=== PATIENT | female | born 1945 | race Caucasian/White ===

== ENCOUNTER 2023-06-11 09:25 | Outpatient (OUT) | payer MEDICARE, SELFPAY ==
[2023-06-11 10:44] LABS: Microalbumin Urine Random 1.5 mg/dL (<=30.0)
[2023-06-11 10:48] LABS: Estimated Average Glucose 105 mg/dL; Glycohemoglobin A1C 5.3 % (4.5-6.2)
[2023-06-11 11:03] LABS: Anion Gap 10.1; Calcium 9.1 mg/dL (8.5-10.1); Chloride 103 mmol/L (98-107); Chol HDL Ratio 2.2; Cholesterol 113 mg/dL (<=200); Estimated GFR (African America >60 (>=60); Estimated GFR (Non-African Ame >60 (>=60); Glucose 89 mg/dL (74-106); HDL Cholesterol 52 mg/dL (40-60); Potassium 4.1 mmol/L (3.5-5.1); Sodium 138 mmol/L (136-145); Triglycerides 35 mg/dL (<=150)
== END 2023-06-11 09:26 | disposition home or self-care (01) ==
LOC: LAB 09:26
PROVIDERS: PCP Internal Medicine; Visit Provider Internal Medicine
DX: E11.65 Type 2 diabetes mellitus with hyperglycemia (principal); E78.00 Pure hypercholesterolemia, unspecified; I10 Essential (primary) hypertension
CPT/HCPCS: 36415; 80048; 80061; 82043; 83036

== ENCOUNTER 2023-07-13 11:38 | Outpatient (OUT) | payer MEDICARE, SELFPAY ==
[2023-07-13 12:02] LABS: Basophils Percent Auto 0.2 % (0.2-2.0); Eosinophils Percent Auto 0.5 % (0.9-7.0); Hematocrit 36.6 % (36.0-48.0); Hemoglobin 11.4 g/dL (12.0-16.0); Immature Granulocytes Abs Auto 0.02 10^3/uL (0.00-0.03); Immature Granulocytes Pct Auto 0.2 % (0.0-0.5); Lymphocytes Percent Auto 11.7 % (20.5-60.0); Mean Corpuscular HGB Conc 31.1 g/dL (29.9-35.2); Mean Corpuscular Hemoglobin 28.6 pg (26.7-34.0); Mean Platelet Volume 9.6 fL (9.5-13.5); Monocytes Absolute Auto 0.9 10^3/uL (0.3-0.8); Monocytes Percent Auto 9.8 % (1.7-12.0); Neutrophils Absolute Auto 6.9 10^3/uL (1.4-6.5); Neutrophils Percent Auto 77.6 % (43.0-75.0); Platelet Count 344 10^3/uL (150-450); Red Blood Count 3.98 10^6/uL (4.20-5.40); Red Cell Distribution Width 11.9 % (11.0-15.0); White Blood Count 8.9 10^3/uL (4.0-11.0)
[2023-07-13 12:54] LABS: Alanine Aminotransferase 27 U/L (14-59); Albumin Globulin Ratio 0.7; Albumin Level 2.9 g/dL (3.4-5.0); Alkaline Phosphatase 76 U/L (46-116); Amylase 45 U/L (25-115); Anion Gap 11.2; Aspartate Amino Transferase 11 U/L (15-37); BUN Creatinine Ratio 19.4; Bilirubin Total 0.7 mg/dL (0.2-1.0); Calcium 9.2 mg/dL (8.5-10.1); Carbon Dioxide 29.7 mmol/L (21.0-32.0); Chloride 102 mmol/L (98-107); Estimated GFR (African America >60 (>=60); Estimated GFR (Non-African Ame >60 (>=60); Globulin 4.4 g/dL; Glucose 101 mg/dL (74-106); Potassium 3.9 mmol/L (3.5-5.1); Sodium 139 mmol/L (136-145); Thyroid Stimulating Hormone 1.957 uIU/mL (0.358-3.740); Total Protein 7.3 g/dL (6.4-8.2)
== END 2023-07-13 11:39 | disposition home or self-care (01) ==
PROVIDERS: PCP Internal Medicine; Visit Provider Internal Medicine
DX: R63.4 Abnormal weight loss (principal); R53.83 Other fatigue; R23.8 Other skin changes; E11.65 Type 2 diabetes mellitus with hyperglycemia; I10 Essential (primary) hypertension
CPT/HCPCS: 36415; 80053; 82150; 83690; 84443; 85025

== ENCOUNTER 2023-07-25 13:50 | Outpatient (OUT) | payer MEDICARE, SELFPAY ==
--- NOTE | 2023-07-25 15:19 | CT_ITS ---
The [address] [address] Patient Name: CHARLEY DAILY MRN: [id number] date: 1945 Sex: F Assigned Patient Location: CT Current Patient Location: Accession/Order Number: [id number] Exam Date: 07/25/2023 14:57 Report Date: 07/26/2023 07:37 At the request of: KINJAL BRISENO Procedure: CT abdomen pelvis w con EXAM: CT abdomen pelvis w con HISTORY: Weight Loss Unintentional R63.4, History Of Cancer Endometri . COMPARISON: None. TECHNIQUE: Following the intravenous administration of 100 mL of Omnipaque 300, axial soft tissue windows of the abdomen and pelvis were performed with coronal and sagittal reformats. CT dose reduction technique was used including Automated Exposure Control. FINDINGS: Abdomen: The liver, gallbladder, spleen, pancreas, and adrenal glands are unremarkable. Within the upper pole of the right kidney there is a fat density 1.7 cm lesion likely representing an angiomyolipoma. Off the upper pole the left kidney is a partially exophytic 3.2 cm cyst. No renal stones. Mild bilateral collecting system and ureteral dilatation to the level the bladder. No evidence of obstructing ureteral stones. There are a few colonic diverticula. Otherwise, the bowel is unremarkable without evidence of wall thickening or obstruction. The appendix is nondilated. The aorta is normal caliber. Mild atherosclerotic disease. No enlarged abdominal lymph nodes or free abdominal fluid. Pelvis: Unremarkable bladder. The uterus is surgically absent. No enlarged pelvic lymph nodes or free pelvic fluid. No aggressive sclerotic or lytic osseous lesions. CT/CT abdomen pelvis w con IMPRESSION: 1. Mild bilateral renal collecting system and ureteral dilatation to the level the bladder. Findings may relate to obstruction or reflux. 2. Left renal cyst. Right renal angiomyolipoma 4. Diverticulosis. Electronically authenticated by: TEJA LAROSE Date: 07/26/2023 07:37
== END 2023-07-25 13:51 | disposition home or self-care (01) ==
LOC: CT 13:50
PROVIDERS: PCP Internal Medicine; Visit Provider Internal Medicine
DX: E88.09 Other disorders of plasma-protein metabolism, not elsewhere classified (principal); D64.89 Other specified anemias; Z85.42 Personal history of malignant neoplasm of other parts of uterus; R23.8 Other skin changes; R63.4 Abnormal weight loss; R53.83 Other fatigue; N28.1 Cyst of kidney, acquired; D17.71 Benign lipomatous neoplasm of kidney; K57.90 Diverticulosis of intestine, part unspecified, without perforation or abscess without bleeding
CPT/HCPCS: 74177; Q9967

== ENCOUNTER 2023-08-08 16:09 | Observation (INO) | payer MEDICARE, SELFPAY ==
[2023-08-08] VITALS (72 sets, daily range): BP systolic 95–205; BP diastolic 64–109; PULSE 90–159; RESP 15–30; TEMP 36.7; O2SAT 92–100; BMI 29.3
--- NOTE | 2023-08-08 16:11 | XR_ITS ---
The [address] [address] Patient Name: CHARLEY DAILY MRN: [id number] date: 1945 Sex: F Assigned Patient Location: ED.MAIN Current Patient Location: ED.MAIN Accession/Order Number: [id number] Exam Date: 08/08/2023 17:00 Report Date: 08/08/2023 17:40 At the request of: PAULINE DOE Procedure: XR chest 1V EXAM: XR chest 1V HISTORY: New onset Afib COMPARISON: None. TECHNIQUE: Chest X-ray AP, 1 view FINDINGS: Support devices: None. Lungs/pleura: No consolidation, effusion, or pneumothorax. Heart and mediastinum: Normal contours. Bones: No acute abnormality identified. XR/XR chest 1V Impression: No radiographic evidence of acute cardiopulmonary process. Electronically authenticated by: NEFTALY PEREYRA Date: 08/08/2023 17:40
--- NOTE | 2023-08-08 16:11 | ECG_ITS ---
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
--- NOTE | 2023-08-08 16:30 | ED.GENADUL1 ---
HPI - General Adult General Chief complaint: Arrhythmia/Palpitations Stated complaint: ATRIAL FIB Time Seen by Provider: 08/08/23 16:11 Source: patient Mode of arrival: walk-in History of Present Illness HPI narrative: Patient is a 78-year-old female who presents to the emergency department for the evaluation of new onset A-fib that was noticed at her doctor's office prior to arrival. She was referred to the ER for evaluation. She states she has no history of A-fib, she does not take blood thinners. She states she has not felt well for 6 weeks and has had generalized fatigue and malaise. She has not had any specific palpitations or shortness of breath. She states she has had occasional chest heaviness although she does not have any pain at this time. She has had no fevers, sputum production, vomiting or diarrhea. She denies peripheral edema. Related Data Allergies Allergy/AdvReac Type Severity Reaction Status Date / Time No Known Drug Allergies Allergy Verified 08/08/23 16:17 Review of Systems ROS Constitutional Reports: fatigue and malaise; Denies: fever or chills Ears, nose, mouth, and throat Denies: throat pain Cardiovascular Reports: chest pain Respiratory Reports: cough; Denies: shortness of breath Gastrointestinal Denies: nausea or vomiting Integumentary/Breast Denies: rash Neurological Denies: headache Hematologic/Lymphatic Denies: easy bruising Exam Narrative Exam Narrative: Gen.: Awake, alert, in no distress Head: Normocephalic, atraumatic ENT: Moist mucous membranes Respiratory: No respiratory distress, lungs clear bilaterally Cardio: Tachycardia, irregularly irregular Gastrointestinal: Abdomen is soft, nondistended and nontender to palpation Extremities: Moves extremities equally, no pedal edema Psych: Normal mood and affect Neuro: No focal neuro deficit Skin: Warm, dry, intact Constitutional Vital Signs, click to edit/add: Last Vital Signs Temp 98.1 F 08/08/23 16:17 Pulse 110 H 08/08/23 17:20 Resp 25 H 08/08/23 17:20 BP 104/64 08/08/23 17:15 Pulse Ox 98 08/08/23 17:20 Course Vital Signs Vital signs: Vital Signs Temperature 98.1 F 08/08/23 16:17 Pulse Rate 136 H 08/08/23 16:17 Respiratory Rate 22 08/08/23 16:17 Blood Pressure 128/93 H 08/08/23 16:17 Pulse Oximetry 99 08/08/23 16:17 Temperature 98.1 F 08/08/23 16:17 Pulse Rate 110 H 08/08/23 17:20 Respiratory Rate 25 H 08/08/23 17:20 Blood Pressure 104/64 08/08/23 17:15 Pulse Oximetry 98 08/08/23 17:20 Medical Decision Making MDM Narrative Medical decision making narrative: Lab studies reviewed and noted, patient with elevated BNP, likely secondary to A-fib with RVR. She was noted to have significantly elevated heart rate, treated with Cardizem bolus and started on a drip. Lovenox given in the ER. Vital signs are improving, patient is resting comfortably in the ER with no complaints of chest pain. She will be admitted to hospitalist, Dr. Dos Santos for further evaluation and treatment. 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 Medical Records Medical records reviewed: Yes I reviewed the patient's medical records Lab Data Lab results reviewed: Yes I reviewed the patient's lab results Labs: Lab Results 08/08/23 08/08/23 Range/Units 16:22 16:36 WBC 14.6 H (4.0-11.0) 10^3/uL RBC 3.84 L (4.20-5.40) 10^6/uL Hgb 10.5 L (12.0-16.0) g/dL Hct 35.5 L (36.0-48.0) % MCV 92.4 (81.0-99.0) fL MCH 27.3 (26.7-34.0) pg MCHC 29.6 L (29.9-35.2) g/dL RDW 13.1 (11.0-15.0) % Plt Count 517 H (150-450) 10^3/uL MPV 9.0 L (9.5-13.5) fL Neut % (Auto) 75.5 H (43.0-75.0) % Lymph % (Auto) 12.5 L (20.5-60.0) % Tyrrell % (Auto) 10.3 (1.7-12.0) % Eos % (Auto) 1.0 (0.9-7.0) % Baso % (Auto) 0.3 (0.2-2.0) % Neut # (Auto) 11.0 H (1.4-6.5) 10^3/uL Lymph # (Auto) 1.8 (1.2-3.8) 10^3/uL Tyrrell # (Auto) 1.5 H (0.3-0.8) 10^3/uL Eos # (Auto) 0.1 (0.0-0.7) 10^3/uL Baso # (Auto) 0.0 (0.0-0.1) 10^3/uL Abs Immat Gran (auto) 0.06 H (0.00-0.03) 10^3/uL Imm/Tot Granulo (auto) 0.4 (0.0-0.5) % PT 12.7 H (9.0-11.6) sec INR 1.21 Sodium 135 L (136-145) mmol/L Potassium 4.0 (3.5-5.1) mmol/L Chloride 101 (98-107) mmol/L Carbon Dioxide 26.9 (21.0-32.0) mmol/L Anion Gap 11.1 BUN 14.0 (7.0-18.0) mg/dL Creatinine 0.79 (0.55-1.02) mg/dL Est GFR ( Amer) >60 (>=60) Est GFR (Non-Af Amer) >60 (>=60) BUN/Creatinine Ratio 17.7 Glucose 130 H (74-106) mg/dL Calcium 9.1 (8.5-10.1) mg/dL Magnesium 2.1 (1.8-2.4) mg/dL Total Bilirubin 0.3 (0.2-1.0) mg/dL AST 7 L (15-37) U/L ALT 28 (14-59) U/L Alkaline Phosphatase 74 (46-116) U/L Troponin I High Sens 8.0 (4.0-51.3) pg/mL NT-Pro-B Natriuret Pep 2530.0 H* (<=1800.0) pg/mL Total Protein 7.3 (6.4-8.2) g/dL Albumin 2.1 L (3.4-5.0) g/dL Globulin 5.2 g/dL Albumin/Globulin Ratio 0.4 TSH 3.559 (0.358-3.740) uIU/mL SARS-CoV-2 (PCR) Negative (NEGATIVE) Imaging Data Chest x-ray: Attestation: I have reviewed the pertinent imaging results. Radiologist's impression: Procedure: XR chest 1V EXAM: XR chest 1V HISTORY: New onset Afib COMPARISON: None. TECHNIQUE: Chest X-ray AP, 1 view FINDINGS: Support devices: None. Lungs/pleura: No consolidation, effusion, or pneumothorax. Heart and mediastinum: Normal contours. Bones: No acute abnormality identified. Impression: No radiographic evidence of acute cardiopulmonary process. Electronically authenticated by: NEFTALY PEREYRA Date: 08/08/2023 17:40 ECG Data Attestation: I personally reviewed and interpreted this ECG as follows: (Atrial fibrillation with rapid ventricular response at a rate of 166, no acute ST elevation, moderate ST depression. No ectopy. EKG reviewed by attending physician) Discharge Plan Discharge Chief Complaint: Arrhythmia/Palpitations Clinical Impression: Atrial fibrillation with rapid ventricular response Patient Disposition: Admitted As Inpatient Time of Disposition Decision: 17:31 Condition: Good
[2023-08-08 16:32] LABS: Basophils Percent Auto 0.3 % (0.2-2.0); Eosinophils Absolute Auto 0.1 10^3/uL (0.0-0.7); Hematocrit 35.5 % (36.0-48.0); Hemoglobin 10.5 g/dL (12.0-16.0); Immature Granulocytes Abs Auto 0.06 10^3/uL (0.00-0.03); Immature Granulocytes Pct Auto 0.4 % (0.0-0.5); Lymphocytes Absolute Auto 1.8 10^3/uL (1.2-3.8); Lymphocytes Percent Auto 12.5 % (20.5-60.0); Mean Corpuscular HGB Conc 29.6 g/dL (29.9-35.2); Mean Corpuscular Hemoglobin 27.3 pg (26.7-34.0); Mean Corpuscular Volume 92.4 fL (81.0-99.0); Monocytes Absolute Auto 1.5 10^3/uL (0.3-0.8); Monocytes Percent Auto 10.3 % (1.7-12.0); Neutrophils Percent Auto 75.5 % (43.0-75.0); Platelet Count 517 10^3/uL (150-450); Red Blood Count 3.84 10^6/uL (4.20-5.40); Red Cell Distribution Width 13.1 % (11.0-15.0); White Blood Count 14.6 10^3/uL (4.0-11.0)
[2023-08-08] MEDS: 0.9 % SODIUM CHLORIDE 1,000 ML 1000 ML IV (16:38)
[2023-08-08] MEDS: DILTIAZEM HCL 25 MG/5 ML VIAL 10 MG IV (16:38)
[2023-08-08] MEDS: ENOXAPARIN SODIUM 80 MG/0.8 ML SYRINGE SUBQ (16:41)
[2023-08-08 16:49] LABS: Alanine Aminotransferase 28 U/L (14-59); Albumin Globulin Ratio 0.4; Albumin Level 2.1 g/dL (3.4-5.0); Alkaline Phosphatase 74 U/L (46-116); Anion Gap 11.1; Aspartate Amino Transferase 7 U/L (15-37); BUN Creatinine Ratio 17.7; Bilirubin Total 0.3 mg/dL (0.2-1.0); Calcium 9.1 mg/dL (8.5-10.1); Carbon Dioxide 26.9 mmol/L (21.0-32.0); Chloride 101 mmol/L (98-107); Estimated GFR (African America >60 (>=60); Estimated GFR (Non-African Ame >60 (>=60); Globulin 5.2 g/dL; Glucose 130 mg/dL (74-106); Sodium 135 mmol/L (136-145); Total Protein 7.3 g/dL (6.4-8.2)
[2023-08-08 16:57] LABS: Magnesium 2.1 mg/dL (1.8-2.4); Thyroid Stimulating Hormone 3.559 uIU/mL (0.358-3.740)
[2023-08-08] MEDS: dilTIAZem HCL 125 MG in 0.9 % SODIUM CHLORIDE 100 ML IV (16:57)
[2023-08-08 16:59] LABS: INR 1.21; Prothrombin Time 12.7 sec (9.0-11.6)
[2023-08-08 17:12] LABS: SARS-CoV-2 Ag NEGATIVE (NEGATIVE)
--- NOTE | 2023-08-08 18:50 | CA_ITS ---
Patient Name: CHARLEY DAILY MR#: [id number] : 1945 Exam Date: 08/09/2023 Ordering Doctor: DR Alden Dos Santos . ECHOCARDIOGRAM REPORT PROCEDURE: CA ECHO DOPPLER COMPLETE INDICATIONS: Dyspnea, Afib w/RVR COMPARISON: None. DESCRIPTION: COMPLETE ECHOCARDIOGRAM Real-time transthoracic echocardiography with 2D, M-mode, spectral and color flow Doppler performed. QUALITY: Technical quality was good. LEFT VENTRICLE: Normal chamber size. Normal left ventricular wall thickness. LV EF: Global left ventricular systolic function is normal. Calculated left ventricular ejection fraction is 65%. No segmental wall motion abnormalities. DIASTOLIC: Diastolic function is indeterminate. ATRIAL SEPTUM: Inadequately seen. LEFT ATRIUM: Severe dilatation. RIGHT ATRIUM: Moderate dilatation. RIGHT VENTRICLE: Normal chamber size. Normal right ventricular systolic function. TRICUSPID VALVE: Normal mobility and thickness. Mild regurgitation. Mild pulmonary hypertension. RVSP 38mmHg MITRAL VALVE: Normal mobility and thickness. No evidence of mitral valve stenosis. There is no mitral annular calcification. Mild to moderate mitral regurgitation. AORTIC VALVE: Normal trileaflet appearance. Mildly calcified aortic valve. Normal leaflet mobility. Mildly elevated velocities with no evidence of aortic valve stenosis. Trivial aortic regurgitation. AORTIC ROOT: Normal diameter and appearance. PULMONIC VALVE: Normal thickness and mobility. No stenosis. Trivial regurgitation. PERICARDIUM: No evidence of pericardial effusion. IVC: Normal size with partial collapse. CONCLUSION: 1. Global left ventricular systolic function is normal; visually estimated ejection fraction is 60 to 65% 2. Normal right ventricular size and systolic function 3. Diastolic function is indeterminate 4. Biatrial enlargement 5. Mild tricuspid regurgitation 6. Mildly elevated right ventricular systolic pressure: RVSP 38 mmHg 7. Mild to moderate mitral regurgitation Adult Echocardiography Procedure Report Left Ventricle LVEDD (3.7 - 5.6 cm): 4.65 cm LVESD (2.2 - 4.0 cm): 3.09 cm LVIVS thickness (0.6 - 1.2 cm): 1.01 cm LVPW thickness (0.5 - 1.0 cm): 0.99 cm e': 0.12 m/s E - e': 6.74 LVOT Max Gradient: 3.00 mm[Hg] LVOT Area (cm2): 0.87 m/s Peak Velocity (LVOT): 0.87 m/s Mean Velocity (LVOT): 0.67 m/s LVOT Diameter 1.89 cm Left Ventricular Ejection Fraction: 65.41 % Left Atrium LA Volume Index (2D A2C): 54.48 ml/m2 Left Atrium Systolic Dimension: 3.74 cm Mitral Valve MV E to A Ratio: 2.15 Mitral Valve A-Wave Peak Velocity: 0.37 m/s Mitral Valve E-Wave Peak Velocity: 0.79 m/s Right Ventricle RV Internal Diastolic Dimension: 2.66 cm Aorta AO Root Diam: 2.73 cm Ascending Ao Diam: 3.05 cm Aortic Valve AoV Area (Peak Charlie): 1.13 cm2, 1.10 cm2 AoV Area (VTI): 1.26 cm2, 1.28 cm2 Peak Velocity(Antegrade Flow): 2.19 m/s, 2.10 m/s Peak Gradient(Antegrade Flow): 19.25 mm[Hg], 17.72 mm[Hg] Mean Velocity(Antegrade Flow): 1.36 m/s, 1.48 m/s Mean Gradient(Antegrade Flow): 8.86 mm[Hg], 9.92 mm[Hg] Velocity Time Integral: 41.45 cm, 42.69 cm Tricuspid Valve Peak Velocity (Regurgitant Flow): 2.57 m/s, 2.36 m/s, 2.26 m/s, 2.72 m/s Pulmonic Valve Mean Gradient: 2.67 mm[Hg] Mean Velocity: 0.77 m/s Peak Velocity: 1.03 m/s, 0.85 m/s Peak Gradient: 4.21 mm[Hg], 2.88 mm[Hg] Right Atrium Right Atrium Systolic Pressure: 51.99 ml, 51.99 ml Dictated by: Adarsh Dennison M.D. on 08/10/2023 at 09:36 Approved by: Adarsh Dennison M.D. on 08/10/2023 at 09:42
--- NOTE | 2023-08-08 19:56 | P.HP_ITS ---
H&P: HPI History of Present Illness Chief complaint: ATRIAL FIB Narrative: Patient seen by her PCP due to increasing shortness of breath and slight cough. Found to have A-fib with rapid ventricular response and was requested to present to emergency room for treatment and workup. Patient does have some moderate dyspnea with activity. But none at rest. Review of Systems ROS Status of ROS 10 or more systems reviewed and unremark able except as noted in history and below [facility] Medical History Diabetes 1.5, managed as type 2 ?E13.9 - Other specified diabetes mellitus without complications (ICD-10) HTN (hypertension) ?I10 - Essential (primary) hypertension (ICD-10) Surgical History H/O: hysterectomy ?Z90.710 - Acquired absence of both cervix and uterus (ICD-10) Meds Home Medications and Allergies Home Medications Medication Instructions Recorded Confirmed Type atorvastatin 40 mg tablet (Lipitor) 40 mg PO QPM 08/08/23 08/08/23 History losartan 25 mg tablet (Cozaar) 25 mg PO DAILY 08/08/23 08/08/23 History semaglutide 0.25 mg or 0.5 mg (2 0.25 mg subcut QWEEK 08/08/23 08/08/23 History mg/3 mL) subcutaneous pen injector (Ozempic) vit C 250 mg-vit E 200 unit-zinc 2 cap PO QDAY 08/08/23 08/08/23 History ox 12.5 [id number]-[id number]-[id number] capsule (ICaps AREDS2) Allergies Allergy/AdvReac Type Severity Reaction Status Date / Time No Known Drug Allergies Allergy Verified 08/08/23 16:17 Exam Constitutional Vital Signs, click to edit/add: Last Vital Signs Temp 98.1 F 08/08/23 16:17 Pulse 105 H 08/08/23 19:10 Resp 22 08/08/23 19:10 BP 112/81 08/08/23 19:07 Pulse Ox 99 08/08/23 19:10 Documenting provider has reviewed patient's vital signs: yes Common normals: no apparent distress Respiratory Common normals: normal respiratory effort, no retractions and clear to ausc ultation bilaterally Cardio Common normals: irregular rate, irregular rhythm and murmurs detected Rate: tachycardic Rhythm: abnormal rhythm Heart sounds: murmur GI Common normals: Normal to inspection, nondistended, normoactive bowel sounds present Results Labs Labs: Short CBC 08/08/23 Range/Units 16:22 WBC 14.6 H (4.0-11.0) 10^3/uL Hgb 10.5 L (12.0-16.0) g/dL Hct 35.5 L (36.0-48.0) % Plt Count 517 H (150-450) 10^3/uL BMP 08/08/23 16:22 Sodium 135 L Potassium 4.0 Chloride 101 Carbon Dioxide 26.9 BUN 14.0 Creatinine 0.79 Glucose 130 H Calcium 9.1 Liver Function 08/08/23 Range/Units 16:22 Total Bilirubin 0.3 (0.2-1.0) mg/dL AST 7 L (15-37) U/L ALT 28 (14-59) U/L Alkaline Phosphatase 74 (46-116) U/L Albumin 2.1 L (3.4-5.0) g/dL Assessment and Plan Assessment and Plan (1) Atrial fibrillation with rapid ventricular response: Plan Respiratory distress, tachycardia, mild hypotension secondary to atrial fibrillation with rapid ventricular response-improved on Cardizem drip. Still elevated at times with activity. Check echocardiogram and labs to determine etiology for the atrial fibrillation. Transfer patient to ICU and bed available, start patient on Eliquis Leukocytosis-patient does have a increasing cough infection is certainly a possibility for the cause of her atrial fibrillation with rapid ventricular response, will start patient on IV antibiotics, check urine and sputum cultures Thrombocythemia-monitor daily Iron deficiency anemia-monitor daily Hyponatremia-mild, monitor daily Hyperglycemia but nonfasting-monitor daily Mild acute systolic heart failure with elevated BNP, check high-sensitivity troponins and series and repeat BNP in a.m., hold off on diuresis currently. Patient not hypoxic and may be related more to the rapid heart rate as opposed to true congestive heart failure With the severity of symptoms and the need for intensive monitoring in the intensive care unit and the likely 2 to 3-day hospital stay secondary to acute new onset atrial fibrillation with rapid ventricular response of infectious et iology as a cause, start patient off as an inpatient status.
[2023-08-08] MEDS: ATORVASTATIN CALCIUM 40 MG TABLET PO (20:20)
[2023-08-08] MEDS: CEFTRIAXONE 1,000 MG in 0.9 % SODIUM CHLORIDE 50 ML 100 MG IV (20:51)
[2023-08-08] MEDS: DILTIAZEM HCL 60 MG TABLET PO (21:41)
[2023-08-08] MEDS: APIXABAN 5 MG TABLET PO (21:41)
[2023-08-08 22:47] LABS: Troponin I High Sensitivity 9.6 pg/mL (4.0-51.3)
[2023-08-09] VITALS (41 sets, daily range): BP systolic 94–125; BP diastolic 51–80; PULSE 83–110; RESP 15–28; TEMP 36.5–36.8; O2SAT 94–98; BMI 30.4
[2023-08-09 00:51] LABS: Bilirubin Urine NEGATIVE (NEGATIVE); Blood Urine TRACE-I (NEGATIVE); Clarity Urine CLEAR (CLEAR); Color Urine LT. YELLOW (YELLOW); Glucose Urine UA NEGATIVE (NEGATIVE); Ketones Urine NEGATIVE (NEGATIVE); Leukocyte Esterase Urine NEGATIVE (NEGATIVE); Nitrite Urine NEGATIVE (NEGATIVE); Protein Urine NEGATIVE (NEG/TRACE); Urobilinogen Urine 0.2 EU/dL (0.2-1.0); pH Urine 6.5 (5.0-9.0)
[2023-08-09 01:36] LABS: Bacteria Urine NONE SEEN #/HPF (NONE SEEN); Cast Seen? NONE SEEN #/LPF (NONE SEEN); Crystals Seen? None Seen #/HPF (None Seen); Mucus Urine NONE SEEN (NONE SEEN); RBC Urine 0-2 #/HPF (0-2); Squamous Epithelial Cell Urine NONE SEEN #/LPF (NONE/RARE); Urine Culture Indicated ALREADY ORDERED; WBC Urine NONE SEEN #/HPF (NONE SEEN)
[2023-08-09] MEDS: dilTIAZem HCL 125 MG in 0.9 % SODIUM CHLORIDE 100 ML 10 MG IV (02:05)
[2023-08-09 04:54] LABS: Basophils Percent Auto 0.1 % (0.2-2.0); Eosinophils Absolute Auto 0.1 10^3/uL (0.0-0.7); Hemoglobin 9.7 g/dL (12.0-16.0); Immature Granulocytes Abs Auto 0.05 10^3/uL (0.00-0.03); Immature Granulocytes Pct Auto 0.4 % (0.0-0.5); Lymphocytes Absolute Auto 1.6 10^3/uL (1.2-3.8); Lymphocytes Percent Auto 12.8 % (20.5-60.0); Mean Corpuscular HGB Conc 31.3 g/dL (29.9-35.2); Mean Corpuscular Hemoglobin 28.1 pg (26.7-34.0); Mean Corpuscular Volume 89.9 fL (81.0-99.0); Mean Platelet Volume 9.4 fL (9.5-13.5); Monocytes Absolute Auto 1.1 10^3/uL (0.3-0.8); Monocytes Percent Auto 8.7 % (1.7-12.0); Neutrophils Absolute Auto 9.7 10^3/uL (1.4-6.5); Platelet Count 477 10^3/uL (150-450); Red Blood Count 3.45 10^6/uL (4.20-5.40); Red Cell Distribution Width 13.2 % (11.0-15.0); White Blood Count 12.6 10^3/uL (4.0-11.0)
[2023-08-09 05:14] LABS: Alanine Aminotransferase 24 U/L (14-59); Albumin Globulin Ratio 0.4; Albumin Level 1.8 g/dL (3.4-5.0); Alkaline Phosphatase 65 U/L (46-116); Anion Gap 10.9; Aspartate Amino Transferase 10 U/L (15-37); Bilirubin Total 0.4 mg/dL (0.2-1.0); Calcium 8.3 mg/dL (8.5-10.1); Carbon Dioxide 28.1 mmol/L (21.0-32.0); Chloride 104 mmol/L (98-107); Estimated GFR (African America >60 (>=60); Estimated GFR (Non-African Ame >60 (>=60); Globulin 4.4 g/dL; Glucose 108 mg/dL (74-106); Sodium 139 mmol/L (136-145); Total Protein 6.2 g/dL (6.4-8.2)
[2023-08-09] MEDS: DILTIAZEM HCL 60 MG TABLET PO (05:50)
--- NOTE | 2023-08-09 06:51 | CM.NOTE ---
Rounding with Dr. Dos Santos. Discussing possible discharge tomorrow. Continue to follow for any discharge needs. Awaiting ECHO results.
--- NOTE | 2023-08-09 07:13 | ECG_ITS ---
The [facility] Test Date: 2023-08-09 Pat Name: CHARLEY DAILY Department: Room: [facility] Gender: Female [employer] Clerk: : 1945 Requested By: Kaleb Briseno Order Number: [id number] Reading MD: KALEB BRISENO Measurements Intervals [place] Rate: 79 P: 63 [place]: 192 QRS: 77 QRSD: 86 T: 45 QT: 358 QTc: 392 Interpretive Statements 1100 Sinus rhythm 1470 with occasional supraventricular premature complexes 2420 RSR (QR) in lead V1/V2, consistent with right ventricular conduction delay 4068 Nonspecific Twave abnormality 9140 abnormal rhythm ECG Compared to ECG 08/08/2023 16:19:26 Atrial fibrillation no longer present ST (T wave) deviation no longer present Possible ischemia no longer present Electronically Signed On 08-10-2023 7:02:40 EST by KALEB BRISENO
[2023-08-09] MEDS: ENSURE HP 237 ML LIQUID PO (08:29)
[2023-08-09] MEDS: APIXABAN 5 MG TABLET PO (08:29)
--- NOTE | 2023-08-09 10:05 | P.DS_ITS ---
DS: Providers Provider Date of admission: 08/09/23 01:12 Primary care physician: Kaleb Ahumada DO Consults: 08/08/23 18:50 Occupational Therapy Eval and Treat Routine Reason for consultation: Only if needed for Rehab Has provider been notified: No Physical Therapy Eval and Treat Routine Reason for consultation: Eval and Treat Has provider been notified: No DS: Diagnosis Discharge Diagnosis (1) Atrial fibrillation with rapid ventricular response: Assessment and plan: Respiratory distress, tachycardia, mild hypotension secondary to atrial fibrillation with rapid ventricular response Leukocytosis- Thrombocythemia Iron deficiency anemia Hyponatremia Hyperglycemia but nonfasting Mild acute systolic heart failure with elevated BNP, c DS: Summary Hospital Course Hospital Course: Patient presented to the emergency with increasing shortness of breath after evaluation by her PCP found A-fib RVR-patient placed on Cardizem drip and then oral Cardizem, able to wean off of the Cardizem drip this morning, patient converted back into normal sinus rhythm, echocardiogram is completely unremarkable, patient feels back to her normal self, did have leukocytosis that is improved today but no real source of the infection but will finish out antibiotics as an outpatient. Anticipated 2-3 to day hospital stay is not going to be necessary in this case since she is back to her baseline. Follow-up with her PCP later this week or next. Time Spent with Patient Time attestation: Total time spent providing and/or coordinating discharge services: Exam Constitutional Vital Signs, click to edit/add: Last Vital Signs Temp 98.2 F 08/09/23 09:00 Pulse 86 08/09/23 09:00 Resp 16 08/09/23 09:00 BP 104/76 08/09/23 09:00 Pulse Ox 98 08/09/23 09:00 O2 Del Method Room Air 08/09/23 09:00 Documenting provider has reviewed patient's vital signs: yes Common normals: no apparent distress Respiratory Common normals: normal respiratory effort, no retractions and clear to auscultation bilaterally Cardio Common normals: irregular rate, irregular rhythm and murmurs detected Rate: tachycardic Rhythm: abnormal rhythm Heart sounds: murmur GI Common normals: Normal to inspection, nondistended, normoactive bowel sounds present DS: Data Data Completed and Pending Labs on day of discharge: Labs from last 24 hours 08/09/23 08/08/23 08/08/23 03:51 22:22 18:59 WBC 12.6 H RBC 3.45 L Hgb 9.7 L Hct 31.0 L MCV 89.9 MCH 28.1 MCHC 31.3 RDW 13.2 Plt Count 477 H MPV 9.4 L Neut % (Auto) 77.0 H Lymph % (Auto) 12.8 L Evans % (Auto) 8.7 Eos % (Auto) 1.0 Baso % (Auto) 0.1 L Neut # (Auto) 9.7 H Lymph # (Auto) 1.6 Evans # (Auto) 1.1 H Eos # (Auto) 0.1 Baso # (Auto) 0.0 Abs Immat Gran (auto) 0.05 H Imm/Tot Granulo (auto) 0.4 PT INR Sodium 139 Potassium 4.0 Chloride 104 Carbon Dioxide 28.1 Anion Gap 10.9 BUN 11.0 Creatinine 0.61 Est GFR ( Amer) >60 Est GFR (Non-Af Amer) >60 BUN/Creatinine Ratio 18.0 Glucose 108 H Calcium 8.3 L Magnesium Total Bilirubin 0.4 AST 10 L ALT 24 Alkaline Phosphatase 65 Troponin I High Sens 9.6 9.0 NT-Pro-B Natriuret Pep 1622.0 Total Protein 6.2 L Albumin 1.8 L Globulin 4.4 Albumin/Globulin Ratio 0.4 TSH Urine Color Urine Clarity Urine pH Ur Specific [place] Urine Protein Urine Glucose (UA) Urine Ketones Urine Occult Blood Urine Nitrite Urine Bilirubin Urine Urobilinogen Ur Leukocyte Esterase Urine RBC Urine WBC Ur Squamous Epith Cells Urine Crystals Urine Bacteria Urine Casts Urine Mucus Ur Culture Indicated? SARS-CoV-2 (PCR) 08/08/23 08/08/23 08/08/23 16:36 16:22 00:40 WBC 14.6 H RBC 3.84 L Hgb 10.5 L Hct 35.5 L MCV 92.4 MCH 27.3 MCHC 29.6 L RDW 13.1 Plt Count 517 H MPV 9.0 L Neut % (Auto) 75.5 H Lymph % (Auto) 12.5 L Evans % (Auto) 10.3 Eos % (Auto) 1.0 Baso % (Auto) 0.3 Neut # (Auto) 11.0 H Lymph # (Auto) 1.8 Evans # (Auto) 1.5 H Eos # (Auto) 0.1 Baso # (Auto) 0.0 Abs Immat Gran (auto) 0.06 H Imm/Tot Granulo (auto) 0.4 PT 12.7 H INR 1.21 Sodium 135 L Potassium 4.0 Chloride 101 Carbon Dioxide 26.9 Anion Gap 11.1 BUN 14.0 Creatinine 0.79 Est GFR ( Amer) >60 Est GFR (Non-Af Amer) >60 BUN/Creatinine Ratio 17.7 Glucose 130 H Calcium 9.1 Magnesium 2.1 Total Bilirubin 0.3 AST 7 L ALT 28 Alkaline Phosphatase 74 Troponin I High Sens 8.0 NT-Pro-B Natriuret Pep 2530.0 H* Total Protein 7.3 Albumin 2.1 L Globulin 5.2 Albumin/Globulin Ratio 0.4 TSH 3.559 Urine Color Lt. yellow Urine Clarity Clear Urine pH 6.5 Ur Specific [place] 1.010 Urine Protein Negative Urine Glucose (UA) Negative Urine Ketones Negative Urine Occult Blood Trace-i Urine Nitrite Negative Urine Bilirubin Negative Urine Urobilinogen 0.2 Ur Leukocyte Esterase Negative Urine RBC 0-2 Urine WBC None seen Ur Squamous Epith Cells None seen Urine Crystals None seen Urine Bacteria None seen Urine Casts None seen Urine Mucus None seen Ur Culture Indicated? Already ordered SARS-CoV-2 (PCR) Negative Discharge Plan Discharge Disposition: Home, Self-Care Condition: Good Discharge Medications: New Eliquis 5 mg Tablet 5 mg PO BID Qty: 60 11RF diltiazem HCl 180 mg capsule,extended release 24 hr 180 mg PO QAM Qty: 30 11RF Continued Ozempic 0.25 mg or 0.5 mg (2 mg/3 mL) pen injector 0.25 mg subcut QWEEK Patient Comments: tuesday Rx Instructions: for 4 weeks ICaps AREDS2 250 mg-200 unit -12.5 mg-1 mg capsule 2 cap PO QDAY atorvastatin [Lipitor] 40 mg tablet 40 mg PO QPM Discontinued losartan [Cozaar] 25 mg tablet 25 mg PO DAILY Activity: increase activity as tolerated Diet: advance to your usual diet Patient Instructions: Diltiazem (By mouth) (Cardizem, Cardizem CD, Cardizem LA, Cardizem SR), Apixaban (By mouth), A-fib (Atrial Fibrillation) (DC), Blood Thinners (DC) Forms: Portal Instructions Follow Up Appointments: Dr Ahumada [address] [facility] Aug 16 2023 @11:15 Discharge Date/Time: 08/09/23 12:45
--- NOTE | 2023-08-09 10:05 | CA_ITS ---
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1945 Requested By: XIOMARA PARTIDA Order Number: [id number] Reading MD: KINJAL BRISENO Interpretive Statements Predominant rhythm was sinus with episodes of supraventricular tachycardia Tachycardia - max rate of 211 bpm (SVT) - longest episode of sinus tachycardia was 22min 28sec with rates between 117-128 bpm - longest episode of PSVT was 3min 36sec with rates between 138-153 bpm Bradycardia - none Ventricular ectopy - 18,518 total (2%) - 17,872 PVC - 234 couplets - 146 bigeminy - 260 trigeminy NSVT - 2 episodes of 3 beat VT Patient triggered events: none IMpression: Predominant rhythm was sinus with episodes of supraventricular tachycardia Suspected atrial fibrillation noted (labeled SVT) 08/10 - 12:48:46 and 08/11 - :31:34 Suspected atrial fibrillation noted (labeled junctional) 08/15 - 11:11:33 Fastest rate of 211 bpm (SVT) and slowest rate of 68 bpm 17,872 PVC, 234 couplets, 234 couplets, 146 bigeminy and 260 trigeminy 2 episode of NSVT of 3 beat duration No pauses Electronically Signed On 08-28-2023 12:17:54 EST by KINJAL BRISENO
--- NOTE | 2023-08-09 11:18 | CM.NOTE ---
Pt given Free 30 day trial for Eliquis and 10 dollar co-pay card, pt will discharge home on Eliquis.
[2023-08-09 15:45] LABS: SARS-CoV-2 NAA NOT DETECTED (NOT DETECTE)
== END 2023-08-09 12:45 | disposition home or self-care (01) ==
LOC: ER 21:41 → ICU 08-09 10:01
PROVIDERS: Physician Assistant; Admitting Provider Family Medicine; Emergency Provider Internal Medicine; PCP Internal Medicine; Visit Provider Family Medicine
DX: I48.91 Unspecified atrial fibrillation (principal); R06.03 Acute respiratory distress; R00.0 Tachycardia, unspecified; I95.9 Hypotension, unspecified; D72.829 Elevated white blood cell count, unspecified; D50.9 Iron deficiency anemia, unspecified; D75.839 Thrombocytosis, unspecified; E13.65 Other specified diabetes mellitus with hyperglycemia; I11.0 Hypertensive heart disease with heart failure; I50.21 Acute systolic (congestive) heart failure; Z90.710 Acquired absence of both cervix and uterus; Z20.822 Contact with and (suspected) exposure to COVID-19; R06.02 Shortness of breath; Z79.899 Other long term (current) drug therapy
CPT/HCPCS: 36415; 71045; 80053; 81001; 83735; 83880; 84443; 84484; 85025; 85610; 87070; 87086; 87635; 87811; 93005; 93246; 93306; 94761; 96365; 96366; 96368; 96372; 96376; 97165; 99285; G0328; G0378

== ENCOUNTER 2023-08-18 13:48 | Outpatient (OUT) | payer MEDICARE, SELFPAY ==
--- OUTSIDE RECORDS SUMMARY | 2023-08-18 13:53 | XMS_ITS | CCD ---
Author Name Unknown Address [address] [facility] [id number] [place] [address] Organization [facility] Care Team Providers Care Finance Intern Name Role Phone BRANDYN, DR LAYTON Attending Unavailable BRANDYN, DR LAYTON Consulting Unavailable BRANDYN, DR LAYTON Primary Care Unavailable BRANDYN, DR LAYTON Admitting Unavailable VANE, DR NEVIN Marshall Consulting Unavailable BRANDYN, DR LAYTON Attending Unavailable BRANDYN, DR LAYTON Consulting Unavailable BRANDYN, DR LAYTON Primary Care Unavailable BRANDYN, DR LAYTON Admitting Unavailable CRISS, DR NEWTON Rodriguez Consulting Unavailable BRANDYN, DR LAYTON Consulting Unavailable BRANDYN, DR LAYTON Primary Care Unavailable BRANDYN, DR LAYTON Admitting Unavailable BRANDYN, DR LAYTON Attending Unavailable Brandyn, Kaleb Unavailable Allergies Allergy Classification Reported Allergen(s) Allergy Type Date of Onset Reaction(s) Facility (1 source) patient allergy list reviewed by nurse or physicia Propensity to adverse reactions Comment:Done [facility] Other Medications Current Medications Medication Drug Class(es) Dates Sig (Normalized) Sig (Original) atorvastatin 40 mg oral tablet (13 sources) HMG-CoA Reductase Inhibitor take 1 tablet by mouth once daily in the evening Atorvastatin Calcium 40 MG TAKE 1 TABLET BY MOUTH ONCE DAILY IN THE EVENING Active ferrous sulfate 325 mg oral tablet (5 sources) take 1 tablet by mouth three times weekly Iron 325 (65 Fe) MG 1 tablet Orally Three times a Week Active losartan potassium 25 mg oral tablet (13 sources) Angiotensin 2 Receptor John take 1 tablet by mouth once daily Losartan Potassium 25 MG Take 1 tablet by mouth once daily Active metoprolol tartrate 25 mg oral tablet (1 source) beta-Adrenergic John Start: 08-16-2023 take 1 capsule by mouth once daily Metoprolol Succinate 25 MG 1 capsule Orally Once a day for 30 days Jul, Active Ozempic (0.25 or 0.5 MG/DOSE) 2 MG/1.5ML (12 sources) Start: 11-30-2022 Ozempic (0.25 or 0.5 MG/DOSE) 2 MG/1.5ML 0.25 MG Subcutaneous weekly Nov, Active Start: 11-30-2022 Ozempic (0.25 or 0.5 MG/DOSE) 2 MG/1.5ML 0.25 MG Subcutaneous weekly for 28 days Nov, Active 0.25 mg, 0.5 mg dose 1.5 ml semaglutide 1.34 mg/ml pen injector (1 source) Start: 11-30-2022 Ozempic (0.25 or 0.5 MG/DOSE) 2 MG/1.5ML 0.25 MG Subcutaneous weekly for 28 days Nov, Active vitamin B12 (5 sources) Vitamin B12 Vitamin B-12 Act georgiana Problems Active Problems Problem Classification Problem Date Documented Da te Episodic/Chronic Cancer of uterus (2 sources) Malignant neoplasm of corpus uteri, excluding isthmus; Translations: [Malignant neoplasm of Corpus uteri, except isthmus] Chronic Cancer of uterus (17 sources) History of malignant neoplasm of endometrium; Translations: [Personal history of malignant neoplasm of other parts of uterus] Episodic Cardiac dysrhythmias (8 sources) Paroxysmal atrial fibrillation; Translations: [Paroxysmal atrial fibrillation] Chronic Congestive heart failure; nonhypertensive (2 sources) Acute on chronic diastolic heart failure; Translations: [Acute on chronic diastolic (congestive) heart failure] Chronic Deficiency and other anemia (1 source) Other specified anemias Episodic Deficiency and other anemia (1 source) Anemia, unspecified Episodic Diabetes mellitus with complications (20 sources) Type 2 diabetes mellitus with hyperglycemia; Translations: [Type 2 diabetes mellitus] Onset: 08[birth year]22-1959 Chronic Diabetes mellitus without complication (1 source) Type 2 diabetes mellitus without complication; Translations: [Diabetes mellitus without mention of complication, type II or unspecified type, not stated as uncontrolled] Chronic Disorders of lipid metabolism (20 sources) Mixed hyperlipidemia; Translations: [Hypercholesterolemi a] Onset: 07-22-2015 Chronic Essential hypertension (20 sources) Essential (primary) hypertension; Translations: [Essential hypertension] Onset: 06-13-2022 Chronic Immunizations and screening for infectious disease (1 source) Vaccination given; Translations: [Encounter for immunization] Episodic Malaise and fatigue (3 sources) Malaise and fatigue; Translations: [Other malaise and fatigue] Onset: 07-12-2014 Episodic Menopausal disorders (14 sources) Decreased estrogen level; 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 Nonspecific chest pain (1 source) Precordial pain Episodic Nutritional deficiencies (1 source) Vitamin D deficiency; Translations: [Vitamin D deficiency, unspecified] Onset: 07-12-2014 Chronic Osteoarthritis (1 source) Osteoarthritis; Translations: [Polyosteoarthritis, unspecified] Chronic Other aftercare (1 source) Other intermediate (current) drug therapy; Translations: [OTH PHOTO OPTICS TECHNICIAN CURRENT DRUG THERAPY] Onset: 06-13-2022 Episodic Other aftercare (1 source) Long-term current use of drug therapy; Translations: [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 control technician (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) drug therapy] Episodic Other circulatory disease (7 sources) Other specified symptoms and signs involving the circulatory and respiratory systems; Translations: [OTH SPEC SX SIGNS INVLV CIRC RS] Onset: 06-09-2022 Episodic Other circulatory disease (14 sources) Cardiovascular symptoms; Translations: [Other specified symptoms and signs involving the circulatory and respiratory systems] Episodic Other ear and sense organ disorders (1 source) Otitis externa; Translations: [Unspecified otitis externa, unspecified ear] Chronic Other ear and sense organ disorders (1 source) Impacted cerumen; Translations: [Impacted cerumen, unspecified ear] Episodic Other injuries and conditions due to external causes (1 source) History of fall; Translations: [History of falling] Episodic Other nutritional; endocrine; and metabolic disorders (13 sources) Body mass index 30+ - obesity; Translations: [Obesity, unspecified] Chronic Other nutritional; endocrine; and metabolic disorders (1 source) Obesity, unspecified Chronic Other nutritional; endocrine; and metabolic disorders (1 source) Obesity; Translations: [Obesity, unspecified] Onset: 06-02-2022 Chronic Other nutritional; endocrine; and metabolic disorders (1 source) Obese class II; Translations: [Body mass index 37.0-37.9, adult] Onset: 01-18-2017 Chronic Other nutritional; endocrine; and metabolic disorders (1 source) Morbid obesity; Translations: [Morbid (severe) obesity due to excess calories] Onset: 01-18-2017 Chronic Other nutritional; endocrine; and metabolic disorders (8 sources) Hypoalbuminemia; Translations: [Other disorders of plasma-protein metabolism, not elsewhere classified] Chronic Other nutritional; endocrine; and metabolic disorders (1 source) Other disorders of plasma-protein metabolism, not elsewhere classified Chronic Other nutritional; endocrine; and metabolic disorders (1 source) Overweight Episodic Other nutritional; endocrine; and metabolic disorders (2 sources) Abnormal weight loss Episodic Other skin disorders (2 sources) Other skin changes Episodic Residual codes; unclassified (1 source) Family history of malignant neoplasm of other organs or systems; Translations: [FAM HX MALIG NEOPLASM OTH ORGN/SYS] Onset: 08-09-2022 Episodic Residual codes; unclassified (1 source) Postmenopausal state; Translations: [Asymptomatic menopausal state] Episodic Past or Other Problems Problem Classification Problem Date Documented Da te Episodic/Chronic Abdominal pain (1 source) Abdominal pain; Translations: [Unspecified abdominal pain] Onset: 11-14-2014 Episodic Cancer of other female genital organs (1 source) 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; Translations: [Personal history of malignant neoplasm of other parts of uterus] Onset: 01-27-2018 Episodic Genitourinary symptoms and ill-defined conditions (1 source) Dysuria; Translations: [Dysuria] Onset: 11-14-2014 Episodic Other ear and sense organ disorders (1 source) Otalgia; Translations: [Otalgia, unspecified ear] Onset: 07-09-2013 Episodic Other screening for suspected conditions (not mental disorders or infectious disease) (5 sources) Encounter for screening mammogram for malignant neoplasm of breast; Translations: [Mammography abnormal] Onset: 07-14-2014 Episodic Unclassified (1 source) Long-term current use of drug therapy; Translations: [Long-term (current) use of other medications] Onset: 01-18-2017 Viral infection (1 source) Herpes zoster with nervous system complication; Translations: [Herpes zoster with unspecified nervous system complication] Onset: 12-02-2014 Episodic Results Test Name Value Interpretation Reference Range Facility MG MAMM SCREEN 3D RAKAN CADon 08-05-2022 MG MAMM SCREEN 3D RAKAN CAD Patient: CHARLEY DAILY Exam Date: 08/05/2022 : 1945 Gender:F Ordering : DR KALEB BRISENO D.OCirilo Admission #: [id number] Family : Order #: [id number] CLICK HERE TO VIEW EXAM RADIOLOGY REPORT PROCEDURE: MAMMOGRAM SCREENING 3D BILATERAL CAD COMPARISON: MG MAMM SCREEN RAKAN W CAD, 08/01/2020. MG MAMM SCREEN 3D RAKAN CAD, 08/04/2021. INDICATIONS: Screening mammography Calculator Name NCI Breast Cancer Risk Assessment Tool 5 Year Breast Cancer Risk 1.90% Lifetime Breast Cancer Risk 3.60% Personal Breast Cancer No Personal Ovarian Cancer No Treatments None Family Cancers Father with brain cancer at age 64. LOCATION: [facility] BREAST COMPOSITION: Scattered areas fibroglandular density. FINDINGS: DIAGNOSTIC CATEGORY 2--BENIGN FINDING. NO CHANGE FROM COMPARISON. Extensive bilateral calcifications benign-appearing being both coarse and linear. The linear calcifications are likely secretory in nature but do limit diagnostic sensitivity. Scattered benign-appearing nodules are present. Scattered benign-appearing lymph nodes are present. RIGHT BREAST: No significant suspicious finding. LEFT BREAST: No significant suspicious finding. Stable micro clip marker upper outer quadrant RECOMMENDATIONS: ROUTINE MAMMOGRAM AND CLINICAL EVALUATION IN 12 MONTHS. PLEASE NOTE: A NORMAL MAMMOGRAM DOES NOT EXCLUDE THE POSSIBILITY OF BREAST CANCER. A CLINICALLY SUSPICIOUS PALPABLE LUMP SHOULD BE BIOPSIED. Dictated by: Nevin Sequeira MD on 08/06/2022 at 08:55 Approved by: Nevin Sequeira MD on 08/06/2022 at 08:58 Normal [facility] BNPon 06-09-2022 Natriuretic peptide B (Bld) [Mass/Vol] 188.0 pg/mL Normal <=1,800.0 [facility] Comment on above: Performed By: #### A LT, LIPID, BNP #### [facility] [address] [address] [address] Taisha Alexandra CBC AUTO DIFFon 06-09-2022 BASO # 0.0 103/ul Normal 0.0-0.1 [facility] Comment on above: Performed By: #### C BC #### [facility] [address] [address] [address] Taisha Alexandra Basophils/100 WBC (Bld) 0.4 % Normal 0.2-2.0 [facility] Comment on above: Performed By: #### C BC #### [facility] [address] [address] [address] Taisha Alexandra EO # 0.2 103/ul Normal 0.0-0.7 [facility] Comment on above: Performed By: #### C BC #### [facility] [address] [place] [address] Dr. Taisha Alexandra Eosinophils/100 WBC (Bld) 2.8 % Normal 0.9-7.0 [facility] Comment on above: Performed By: #### C BC #### [facility] [address] [place] [address] Dr. Taisha Alexandra Erythrocyte distribution width (RBC) [Ratio] 13.3 % Normal 11.0-15.0 [facility] Comment on above: Performed By: #### C BC #### [facility] [address] [place] [address] Dr. Taisha Alexandra Hematocrit (Bld) [Volume fraction] 40.3 % Normal 36.0-48.0 [facility] Comment on above: Performed By: #### C BC #### [facility] [address] [place] [address] Dr. Taisha Alexandra Hemoglobin (Bld) [Mass/Vol] 12.7 g/dL Normal 12.0-16.0 [facility] Comment on above: Performed By: #### C BC #### [facility] [address] [place] [address] Dr. Taisha Alexandra IG # 0.01 10e3/ul Normal 0.00-0.03 [facility] Comment on above: Performed By: #### C BC #### [facility] [address] [place] [address] Dr. Taisha Alexandra IG % 0.2 % Normal 0.0-0.5 [facility] Comment on above: Performed By: #### C BC #### [facility] [address] [place] [address] Dr. Taisha Alexandra LYMPH # 1.7 103/ul Normal 1.2-3.8 [facility] Comment on above: Performed By: #### C BC #### [facility] [address] [place] [address] Dr. Taisha Alexandra Lymphocytes/100 WBC (Bld) 31.9 % Normal 20.5-60.0 [facility] Comment on above: Performed By: #### C BC #### [facility] [address] [place] [address] Dr. Taisha Alexandra MANUAL DIFF REQ NO Normal [facility] Comment on above: Performed By: #### C BC #### [facility] [address] [place] [address] Dr. Taisha Alexandra MCH (RBC) [Entitic mass] 28.9 pg Normal 26.7-34.0 [facility] Comment on above: Performed By: #### C BC #### [facility] [address] [place] [address] Dr. Taisha Alexandra MCHC (RBC) [Mass/Vol] 31.5 g/dL Normal 29.9-35.2 [facility] Comment on above: Performed By: #### C BC #### [facility] [address] [place] [address] Dr. Taisha Alexandra MCV (RBC) [Entitic vol] 91.6 fL Normal 81.0-99.0 [facility] Comment on above: Performed By: #### C BC #### [facility] [address] [place] [address] Dr. Taisha Alexandra MONO # 0.4 103/ul Normal 0.3-0.8 [facility] Comment on above: Performed By: #### C BC #### [facility] [address] [place] [address] Dr. Taisha Alexandra Monocytes/100 WBC (Bld) 8.3 % Normal 1.7-12.0 [facility] Comment on above: Performed By: #### C BC #### [facility] [address] [place] [address] Dr. Taisha Alexandra NEUT # 3.0 103/ul Normal 1.4-6.5 [facility] Comment on above: Performed By: #### C BC #### [facility] [address] [place] [address] Dr. Taisha Alexandra Neutrophils/100 WBC (Bld) 56.4 % Normal 43.0-75.0 [facility] Comment on above: Performed By: #### C BC #### [facility] [address] [address] [address] Taisha Alexandra Platelet mean volume (Bld) [Entitic vol] 10.3 fL Normal 9.5-13.5 [facility] Comment on above: Performed By: #### C BC #### [facility] [address] [address] [address] Taisha Alexandra PLT 224 103/ul Normal 150-450 [facility] Comment on above: Performed By: #### C BC #### [facility] [address] [address] [address] Taisha Alexandra RBC 4.40 106/ul Normal 4.20-5.40 [facility] Comment on above: Performed By: #### C BC #### [facility] [address] [place] [address] Dr. Taisha Alexandra WBC 5.3 103/ul Normal 4.0-11.0 [facility] Comment on above: Performed By: #### C BC #### [facility] [address] [place] [address] Dr. Taisha Alexandra GLYCOHEMOGLOBIN A1Con 2021 ADA RECOMMENDATION SEE BELOW Normal [facility] Comment on above: Result Comment: ADA RECOMMENDED LIMIT 4.0 - 6.0 ADA THERAPEUTIC TARGET < 7.0 ACTION SUGGESTED > 7.0 Performed By: #### A 1C #### [facility] [address] [place] [address] Dr. Taisha Alexandra Glucose [Mass/Vol] 120 mg/dL Normal [facility] Comment on above: Performed By: #### A 1C #### [facility] [address] [place] [address] Dr. Taisha Alexandra HbA1c (Bld) [Mass fraction] 5.8 % Normal 4.5-6.2 [facility] Comment on above: Performed By: #### A 1C #### [facility] [address] [place] [address] Dr. Taisha Alexandra LIPID PROFILEon 06-09-2022 CHOL-HDL RATIO NORM SEE BELOW Normal [facility] Comment on above: Result Comment: 3.3 - 4.4 LOW RISK 4.4 - 7.1 AVERAGE RISK 7.1 - 11.0 MODERATE RISK >11.0 HIGH RISK Performed By: #### A LT, LIPID, BNP #### [facility] [address] [address] [address] Taisha Alexandra Cholesterol [Mass/Vol] 138 mg/dL Normal <=200 [facility] Comment on above: Performed By: #### A LT, LIPID, BNP #### [facility] [address] [address] [address] Taisha Alexandra Cholesterol in HDL [Mass/Vol] 56 mg/dL Normal 40-60 [facility] Comment on above: Performed By: #### A LT, LIPID, BNP #### [facility] [address] [place] [address] Dr. Taisha Alexandra Cholesterol in LDL [Mass/Vol] 74.4 mg/dL Normal [facility] Comment on above: Performed By: #### A LT, LIPID, BNP #### [facility] [address] [place] [address] Dr. Taisha Alexandra Cholesterol.total/Cho lesterol in HDL [Mass ratio] 2.5 {ratio} Normal [facility] Comment on above: Performed By: #### A LT, LIPID, BNP #### [facility] [address] [place] [address] Dr. Taisha Alexandra HDL NORMAL > or = 60 mg/dl - LO W CARDIOVASCULAR RISK <40 mg/dl - HIGH CARDIOVASCULAR RISK Normal [facility] Comment on above: Performed By: #### A LT, LIPID, BNP #### [facility] [address] [place] [address] Dr. Taisha Alexandra LDL CALC NORMAL SEE BELOW Normal [facility] Comment on above: Result Comment: <100 mg/dl OPTIMAL 100 - 129 mg/dl NEAR OR ABOVE OPTIMAL 130 - 159 mg/dl BORDERLINE HIGH 160 - 189 mg/dl HIGH >190 mg/dl VERY HIGH Performed By: #### A LT, LIPID, BNP #### [facility] [address] [address] [address] Taisha Alexandra Triglyceride [Mass/Vol] 38 mg/dL Normal <=150 [facility] Comment on above: Performed By: #### A LT, LIPID, BNP #### [facility] [address] [address] [address] Taisha Alexandra VLDL CALC 7.6 mg/dL Normal [facility] Comment on above: Performed By: #### A LT, LIPID, BNP #### [facility] [address] [address] [address] Taisha Alexandra MICROALBUMIN, RAND URon - mALB 1.8 mg/L Normal <=30.0 [facility] Comment on above: Performed By: #### M ALBR #### [facility] [address] [address] [address] Taisha Alexandra SGPTon 06-09-2022 ALT [Catalytic activity/Vol] 22 U/L Normal 14-59 [facility] Comment on above: Performed By: #### A LT, LIPID, BNP #### [facility] [address] [place] [address] Dr. Taisha Alexandra US CAROTID ART BILon 022 US CAROTID ART RAKAN EXAMINATION: US CAROTID ART RAKAN HISTORY: Cardiovascular symptoms; left bruit COMPARISON: No relevant comparison available. TECHNIQUE: Duplex Doppler ultrasound analysis of carotid and vertebral arteries. . Bilateral carotid arterial duplex examination was performed using B-mode, color flow and spectral analysis. Carotid stenosis is reported according to validated velocity parameters, similar to NASCET criteria. FINDINGS: RIGHT CAROTID ARTERY: Mild plaque within bulb without significant stenosis. RIGHT VERTEBRAL: Antegrade flow. Subclavian: PSV: 106.2 cm/s EDV: 4.1 cm/s CCA: Prox: PSV: 80.9 cm/s EDV: 18.2 cm/s Mid: PSV: 66.6 cm/s EDV: 14.9 cm/s Distal: PSV: 72.9 cm/s EDV: 17.1 cm/s BULB: PSV: 55.2 cm/s EDV: 12.5 cm/s ICA: Prox: PSV: 73.8 cm/s EDV: 21.5 cm/s Mid: PSV: 100.4 cm/s EDV: 35.7 cm/s Distal: PSV: 83.1 cm/s EDV: 24.8 cm/s ECA: PSV: 74.5 cm/s EDV: 7.2 cm/s VERTEBRAL: PSV: 43.3 cm/s EDV: 10.1 cm/s ICA/CCA ratio: PSV: 1.4 EDV: 2.1 LEFT CAROTID ARTERY: Mild plaque within bulb without significant stenosis. LEFT VERTEBRAL: Antegrade flow. Subclavian: PSV: 72.4 cm/s EDV: 6.7 cm/s CCA: Prox: PSV: 85.6 cm/s EDV: 21.9 cm/s Mid: PSV: 72.9 cm/s EDV: 18.8 cm/s Distal: PSV: 65.1 cm/s EDV: 17.1 cm/s BULB: PSV: 50.2 cm/s EDV: 9.2 cm/s ICA: Prox: PSV: 85.3 cm/s EDV: 23.7 cm/s Mid: PSV: 82.0 cm/s EDV: 20.4 cm/s Distal: PSV: 69.9 cm/s EDV: 19.3 cm/s ECA: PSV: 85.2 cm/s EDV: 7.3 cm/s VERTEBRAL: PSV: 44.1 cm/s EDV: 11.0 cm/s ICA/CCA ratio: PSV: 1.3 EDV: 1.4 IMPRESSION: 1. 0-49% flow stenosis within the right and left carotid arteries. 2. Mild atherosclerotic disease. Electronically authenticated by: NEWTON KAHN Date: 2022-06-09 21:11 Normal [facility] GLYCOHEMOGLOBIN A1Con 2021 ADA RECOMMENDATION ADA THERAPEUTIC TARGET 6.0 - 7.0 ACTION SUGGESTED > 7.0 Normal [facility] Comment on above: Performed By: #### A 1C #### [facility] [address] [place] [address] Dr. Taisha Alexandra Glucose [Mass/Vol] 134 mg/dL Normal [facility] Comment on above: Performed By: #### A 1C #### [facility] [address] [place] [address] Dr. Taisha Alexandra HbA1c (Bld) [Mass fraction] 6.3 % Critically high <=6.0 [facility] Comment on above: Performed By: #### A 1C #### [facility] [address] [place] [address] Dr. Taisha Alexandra Vital Signs Date Time Vital Sign Value Performing Clinician Facility 08-16-2023 11:15-0500 Body height 170.18 cm Kaleb Ball Other [facility] Other 08-16-2023 11:15-0500 Body mass index (BMI) [Ratio] 27.56 kg/m2 Kaleb Ball Other [facility] Other 08-16-2023 11:15-0500 Body weight 79.83 kg Kaleb Ball Other [facility] Other 08-16-2023 11:15-0500 Diastolic blood pressure 72 mm[Hg] Kaleb Ball Other [facility] Other 08-16-2023 11:15-0500 Respiratory rate 12 /min Kaleb Ball Other [facility] Other 08-16-2023 11:15-0500 Systolic blood pressure 115 mm[Hg] Kaleb Ball Other [facility] Other 08-08-2023 14:45-0500 Body height 170.18 cm Kaleb Ball Other [facility] Other 08-08-2023 14:45-0500 Body mass index (BMI) [Ratio] 27.66 kg/m2 Kaleb Ball Other [facility] Other 08-08-2023 14:45-0500 Body weight 80.11 kg Kaleb Ball Other [facility] Other 08-08-2023 14:45-0500 Diastolic blood pressure 73 mm[Hg] Kaleb Ball Other [facility] Other 08-08-2023 14:45-0500 Systolic blood pressure 106 mm[Hg] Kaleb Ball Other [facility] Other 2023 16:42-0500 Body height 170.18 cm Kaleb Ball Other [facility] Other 07-13-2023 10:45-0500 Body height 170.18 cm Kaleb Ball Other [facility] Other 07-13-2023 10:45-0500 Body mass index (BMI) [Ratio] 27.88 kg/m2 Kaleb Ball Other [facility] Other 07-13-2023 10:45-0500 Body weight 80.74 kg Kaleb Ball Other [facility] Other 07-13-2023 10:45-0500 Diastolic blood pressure 74 mm[Hg] Kaleb Ball Other [facility] Other 07-13-2023 10:45-0500 Respiratory rate 12 /min Kaleb Ball Other [facility] Other 07-13-2023 10:45-0500 Systolic blood pressure 125 mm[Hg] Kaleb Ball Other [facility] Other 06-06-2023 14:00-0400 Body height 170.18 cm Kaleb Ball Other [facility] Other 06-06-2023 14:00-0400 Body mass index (BMI) [Ratio] 28.16 kg/m2 Kaleb Ball Other [facility] Other 06-06-2023 14:00-0400 Body weight 81.56 kg Kaleb Ball Other [facility] Other 06-06-2023 14:00-0400 Diastolic blood pressure 65 mm[Hg] Kaleb Ball Other [facility] Other 06-06-2023 14:00-0400 Respiratory rate 12 /min Kaleb Ball Other [facility] Other 06-06-2023 14:00-0400 Systolic blood pressure 103 mm[Hg] Kaleb Ball Other [facility] Other 11-30-2022 15:30-0400 Body height 170.18 cm Kaleb Ball Other [facility] Other 11-30-2022 15:30-0400 Body mass index (BMI) [Ratio] 30.85 kg/m2 Kaleb Ball Other [facility] Other 11-30-2022 15:30-0400 Body weight 89.36 kg Kaleb Ball Other [facility] Other 11-30-2022 15:30-0400 Diastolic blood pressure 70 mm[Hg] Kaleb Ball Other [facility] Other 11-30-2022 15:30-0400 Respiratory rate 12 /min Kaleb Ball Other [facility] Other 11-30-2022 15:30-0400 Systolic blood pressure 114 mm[Hg] Kaleb Ball Other [facility] Other Encounters Encounter Date Encounter Type Care Provider Facility Start: 08-16-2023 End: 08-16-2023 ambulatory Kaleb Ball Other [facility] Other Start: 08-16-2023 Transitional care yamileth melendez srvc 14 day discharge Kaleb Ball [facility] Start: 08-10-2023 End: 08-10-2023 ambulatory Kaleb Brandyn Other [facility] Other Start: 08-10-2023 Telephone encounter Kaleb Ball [facility] Start: 08-08-2023 End: 08-08-2023 ambulatory Kaleb Ball Other [facility] Other Start: 08-08-2023 Office outpatient vi sit 25 minutes Kaleb Ball [facility] Start: 08-08-2023 Telephone encounter Kaleb Ball [facility] Start: 2023 End: 2023 ambulatory Kaleb Ball Other [facility] Other Start: 2023 Telephone encounter Kaleb Ball [facility] Start: 07-15-2023 End: 07-15-2023 ambulatory Kaleb Brandyn Other [facility] Other Start: 07-15-2023 Telephone encounter Kaleb Ball [facility] Start: 07-13-2023 End: 07-13-2023 ambulatory Kaleb Briseno Other [facility] Other Start: 07-13-2023 Office outpatient vi sit 25 minutes Kaleb Ball [facility] Start: 06-13-2023 End: 06-13-2023 ambulatory Kaleb Ball Other [facility] Other Start: 06-13-2023 Telephone encounter Kaleb Ball [facility] Start: 06-06-2023 End: 06-06-2023 ambulatory Kaleb Ball Other [facility] Other Start: 06-06-2023 Patient encounter procedure Kaleb Ball [facility] Start: 06-01-2023 End: 06-01-2023 ambulatory Kaleb Ball Other [facility] Other Start: 06-01-2023 Nursing evaluation o f patient and report Kaleb Briseno [facility] Start: 11-30-2022 End: 11-30-2022 ambulatory Kaleb Briseno Other [facility] Other Start: 11-30-2022 Office outpatient vi sit 25 minutes Kaleb Brandyn [facility] Start: 08-05-2022 End: 08-06-[address] KALEB BRISENO Facility:[facility] Start: 06-09-2022 End: 06-10-[address] KALEB BRISENO Facility:[facility] Start: 06-02-2022 Adult health examination Davidbarrie Briseno Other [facility] Other Start: 09-28-2021 End: 09-29-[address] KALEB BRISENO Facility:[facility] Procedures Date Procedure Procedure Detail Performing Clinician Start: 06-02-2022 Depression screening Be njrobin Briseno Other Start: 01-18-2017 Screening for osteoporosis Kaleb Briseno Other Start: 07-22-2015 Screening for malign ant neoplasm of colon Kaleb Briseno Other Start: 01-21-2015 Screening mammography B enjanessa Briseno Other Screening for malign ant neoplasm of breast Kaleb Briseno Other Immunizations Immunization Date Immunization Notes Care Provider Debra conde 06-01-2023 influenza, high dose seasonal, preservative-free Kaleb Briseno Other [facility] 06-02-2022 influenza virus vaccine, split virus (incl. purified surface antigen) Kaleb Briseno Other [facility] Other 05-20-2021 influenza virus vaccine, split virus (incl. purified surface antigen) Kaleb Briseno Other [facility] Other 04-25-2020 influenza virus vaccine, split virus (incl. purified surface antigen) Kaleb Briseno Other [facility] Other 06-20-2019 influenza virus vaccine, split virus (incl. purified surface antigen) Kaleb Briseno Other [facility] Other 06-13-2018 influenza virus vaccine, split virus (incl. purified surface antigen) Kaleb Briseno Other [facility] Other 06-08-2017 influenza virus vaccine, split virus (incl. purified surface antigen) Kaleb Briseno Other [facility] Other 08-02-2016 influenza virus vaccine, split virus (incl. purified surface antigen) Kaleb Briseno Other [facility] Other 07-23-2015 pneumococcal conjuga te vaccine, 13 valent Kaleb Briseno Other [facility] Other 05-31-2012 tetanus and diphther ia toxoids, adsorbed, preservative free, for adult use (5 Lf of tetanus toxoid and 2 Lf of diphtheria toxoid) Kaleb Briseno Other [facility] Other Payers Date Payer Category Payer Unknown [id number] 1945 Unknown [id number] 1945 Unknown [id number] 1945 Unknown [id number] Social History Date Type Detail Facility Sex Assigned At [facility] Other Evaluation note 08-16-2023 Note Date & Type Note Facility 08-16-2023 Evaluation note Encounter Date Diagnosis Assessment Notes Jul, Precordial pain (ICD-10 - R07.2) Most likely due to atrial fibrillation w/ RVR. There was no elevation in her Troponin results. Her Echocardiogram revealed normal LVEF w/o wall motion abnormality. Plan stress testing to r/o coronary artery disease Jul, Paroxysmal atrial fibrillation (ICD-10 - I48.0) Continue AC to prevent thromboembolic events. NSR w/o need for rate control. She will be prescribed Metoprolol, to be used for HR > 100 Jul, Type 2 diabetes mellitus with hyperglycemia, without long-term current use of insulin (ICD-10 - E11.65) This patient is following a comprehensive diabetic treatment plan. They are checking their feet daily for calluses and nonhealing ulcers. They are being seen for yearly dilated eye examinations. Goals: SBP less than 130, LDL less than 100, FBS less than 140, A1C less than 7%. They are checking their BS daily, will which are reviewed at the office visit. Continue regular routine monitoring of A1C,] Microalbumin, Dilated eye exam and Foot exam Jul, Elevated cholesterol (ICD-10 - E78.00) Instructed on diet and exercise with continued statin therapy.Discussed the beneficial effects of lowering cholesterol in reducing the risk for cerebrovascular and cardiovascular disease. Jul, Acute on chronic diastolic heart failure (ICD-10 - I50.33) Elevated BNP w/ dyspnea while in atrial fibrillation. Much improved after restoring NSR. Briefly discussed GDMT, which is on hold for now. - SGLT-2, BB Jul, Anemia, unspecified type (ICD-10 - D64.9) Will require EGD and Colonoscopy in the future. She denies any obvious s/s GIB. Continue to monitor closely until safely can be taken off AC for procedure. Repeat CBC in week. [facility] Other Evaluation note 08-10-2023 Note Date & Type Note Facility 08-10-2023 Evaluation note Encounter Date Diagnosis Assessment Notes Jul, Paroxysmal atrial fibrillation (ICD-10 - I48.0) Echo: 07/2023 - LVEF is 60 to 65% - Normal right ventricular size and systolic function - Biatrial enlargement - Mild tricuspid regurgitation - RVSP 38 mmHg - Mild to moderate mitral regurgitation [facility] Other Evaluation note 08-08-2023 Note Date & Type Note Facility 08-08-2023 Evaluation note Encounter Date Diagnosis Assessment Notes Jul, Paroxysmal atrial fibrillation (ICD-10 - I48.0) This patient has new onset AF w/ RVR. She is symptomatic and will be sent to the ER to expedite her evaluation. She will require improved rate control and initiation of AC to prevent thromboembolic events. Discussed briefly treatment plan: - rate control w/ AC to prevent thromboembolic events - TSH normal, no electrolyte abnormalities - r/o obstructive CAD w/ stress testing - Echo to assess LVEF, atrial chamber size and r/o valvular heart disease Jul, Primary hypertension (ICD-10 - I10) This patient is instructed to consume a healthy, low-fat, low-salt diet. They are also encouraged to continue exercise to achieve/maintain a normal BMI. Jul, Type 2 diabetes mellitus with hyperglycemia, without long-term current use of insulin (ICD-10 - E11.65) This patient is following a comprehensive diabetic treatment plan. They are checking their feet daily for calluses and nonhealing ulcers. They are being seen for yearly dilated eye examinations. Goals: SBP less than 130, LDL less than 100, FBS less than 140, A1C less than 7%. They are checking their BS daily, will which are reviewed at the office visit. Continue regular routine monitoring of A1C,] Microalbumin, Dilated eye exam and Foot exam Jul, Elevated cholesterol (ICD-10 - E78.00) Instructed on diet and exercise with continued statin therapy.Discussed the beneficial effects of lowering cholesterol in reducing the risk for cerebrovascular and cardiovascular disease. Jul, Left carotid bruit (ICD-10 - R09.89) Carotid US: < 50% - 05/2022 Reassured, continue primary prevention. US < 50% narrowing B/L [facility] Other Evaluation note 07-15-2023 Note Date & Type Note Facility 07-15-2023 Evaluation note Encounter Date Diagnosis Assessment Notes Jun, Hypoalbuminemia (ICD-10 - E88.09) Jun, Anemia due to other cause, not classified (ICD-10 - D64.89) Jun, Hx of cancer of endometrium (ICD-10 - Z85.42) Jun, Sallow complexion (ICD-10 - R23.8) Jun, Weight loss, unintentional (ICD-10 - R63.4) Jun, Fatigue, unspecified type (ICD-10 - R53.83) [facility] Other Evaluation note 07-13-2023 Note Date & Type Note Facility 07-13-2023 Evaluation note Encounter Date Diagnosis Assessment Notes Jun, Type 2 diabetes mellitus with hyperglycemia, without long-term current use of insulin (ICD-10 - E11.65) This patient is following a comprehensive diabetic treatment plan. They are checking their feet daily for calluses and nonhealing ulcers. They are being seen for yearly dilated eye examinations. Goals: SBP less than 130, LDL less than 100, FBS less than 140, A1C less than 7%. They are checking their BS daily, will which are reviewed at the office visit. Continue regular routine monitoring of A1C,] Microalbumin, Dilated eye exam and Foot exam Jun, Primary hypertension (ICD-10 - I10) This patient is instructed to consume a healthy, low-fat, low-salt diet. They are also encouraged to continue exercise to achieve/maintain a normal BMI. Jun, Weight loss, unintentional (ICD-10 - R63.4) r/o metabolic abnormalities w/ labs - hyperglycemia, hyperthyroidism, hepatitis and anemia r/o hepatic, pancreatic tumor w/ imaging - CT abd/pelvis Jun, Sallow complexion (ICD-10 - R23.8) r/o hepatic disease: infection vs tumor Jun, Fatigue, unspecified type (ICD-10 - R53.83) Healthy diet and rest. 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 Advanced care planning reviewed and/or information given as requested. Additional counseling was provided here today in regards to, [ ]. The above visit was performed by [ ], under direct supervision of [ ]. Document reviewed and amended by provider signed below. May, Primary hypertension (ICD-10 - I10) This patient is instructed to consume a healthy, low-fat, low-salt diet. They are also encouraged to continue exercise to achieve/maintain a normal BMI. May, Type 2 diabetes mellitus with hyperglycemia, without long-term current use of insulin (ICD-10 - E11.65) This patient is following a comprehensive diabetic treatment plan. They are checking their feet daily for calluses and nonhealing ulcers. They are being seen for yearly dilated eye examinations. Goals: SBP less than 130, LDL less than 100, FBS less than 140, A1C less than 7%. They are checking their BS daily, will which are reviewed at the office visit. Continue regular routine monitoring of A1C,] Microalbumin, Dilated eye exam and Foot exam May, Elevated cholesterol (ICD-10 - E78.00) Instructed on diet and exercise with continued statin therapy.Discussed the beneficial effects of lowering cholesterol in reducing the risk for cerebrovascular and cardiovascular disease. May, Left carotid bruit (ICD-10 - R09.89) Carotid US: < 50% - 05/2022 Soft B/L bruits w/ normal carotid pulse May, Overweight (ICD-10 - E66.3) This patient has been instructed on a low-fat, high-fiber diet. They are instructed to reduce calories, portion sizes and snacks. It is recommended that they exercise for 30 minutes, 3-5 times weekly. May, Hx of cancer of endometrium (ICD-10 - Z85.42) No s/s recurrence May, Other This patient has been instructed on a low-fat, high-fiber diet. They are instructed to reduce calories, portion sizes and snacks. It is recommended that they exercise for 30 minutes, 3-5 times weekly. [facility] Other Evaluation note 11-30-2022 Note Date & Type Note Facility 11-30-2022 Evaluation note Encounter Date Diagnosis Assessment Notes Nov, Primary hypertension (ICD-10 - I10) This patient is instructed to consume a healthy, low-fat, low-salt diet. They are also encouraged to continue exercise to achieve/maintain a normal BMI. Nov, Type 2 diabetes mellitus with hyperglycemia, without long-term current use of insulin (ICD-10 - E11.65) This patient is following a comprehensive diabetic treatment plan. They are checking their feet daily for calluses and nonhealing ulcers. They are being seen for yearly dilated eye examinations. Goals: SBP less than 130, LDL less than 100, FBS less than 140, AC and A1C less than 7%. They are checking their BS daily, will which are reviewed at the office visit. Stop Metformin Nov, Elevated cholesterol (ICD-10 - E78.00) Diet and exercise with continued statin therapy. Nov, Obesity (BMI 30-39.9) (ICD-10 - E66.9) This patient has been instructed on a low-fat, high-fiber diet. They are instructed to reduce calories, portion sizes and snacks. It is recommended that they exercise for 30 minutes, 3-5 times weekly. She has successfully lost weight w/ diet and exercise but has hit a plateau - discussed altering diet, exercise - discusse GLP-1 Nov, Left carotid bruit (ICD-10 - R09.89) Carotid US: < 50% - 05/2022Nov, Hx of cancer of endometrium (ICD-10 - Z85.42) No s/s recurrence [facility] Other Evaluation note Note Date & Type Note Facility Evaluation note No Information [facility] Other History general Narrative - Reported Note Date & Type Note Facility History general Narrative - Reported Type Medical History Left carotid bruit Medical History Estrogen deficiency Surgical History RIGHT BREAST BX 2002,2014 Surgical History LEFT BREAST BX 2005 Surgical History AMANDA 2009 Surgical History ARTHROSCOPY RIGHT KNEE 2005 Surgical History CATARACT B/L 2018 Hospitalization History SEE SURGICAL HX [facility] Other Summary Purpose Family History No Family History Records Found Advance Directives No Advanced Directives Records Found Additional Source Comments INFORMATION SOURCE (unrecogn ized section and content) DATE CREATED AUTHOR 08/12/2022 [facility] REASON FOR VISIT (unrecogniz ed section and content) 6 MONTH FOLLOW UPflu shotWEL LNESSLab resultsvery tired all the timeNo InformationCT resultsLetterNot Feeling Better-TirednessNot Feeling BetterTCMNo InformationTBH FOR RECORDS PERTAINING TO PATIENTS WHO ARE OR HAVE BEEN ENROLLED IN A CHEMICAL DEPENDENCY/SUBSTANCEABUSE PROGRAM, SOME INFORMATION MAY BE OMITTED. This clinical summary was aggregated from multiple sources. Caution should be exercised in using it in the provision of clinical care. This summary normalizes information from multiple sources, and as a consequence, information in this document may materially change the coding, format and clinical context of patient data. In addition, data may be omitted in some cases. CLINICAL DECISIONS SHOULD BE BASED ON THE PRIMARY CLINICAL RECORDS. [facility] [employer] [facility]. provides no warranty or guarantee of the accuracy or completeness of information in this document.
--- NOTE | 2023-08-18 14:15 | MM_ITS ---
Patient Name: CHARLEY DAILY MR#: [id number] : 1945 Exam Date: 08/18/2023 Ordering Doctor: DR KINJAL BRISENO D.O. RADIOLOGY REPORT PROCEDURE: MM TOMOSYNTHESIS SCREENING BI COMPARISON: MG MAMM SCREEN 3D RAKAN CAD, 08/05/2022. MG MAMM SCREEN 3D RAKAN CAD, 08/04/2021. MG MAMM SCREEN RAKAN W CAD, 08/01/2020. MG MAMM RAKAN SCRN W CAD DIG, 07/10/2013. INDICATIONS: screening Calculator Name NCI Breast Cancer Risk Assessment Tool 5 Year Breast Cancer Risk 1.90% Lifetime Breast Cancer Risk 3.30% Personal Breast Cancer No Personal Ovarian Cancer No Treatments Hysterectomy Family Cancers Father with brain cancer at age 64. LOCATION: [facility] BREAST COMPOSITION: Scattered areas fibroglandular density. FINDINGS: DIAGNOSTIC CATEGORY 2--BENIGN FINDING: RIGHT BREAST: No significant suspicious finding. Scattered benign-appearing calcifications are present. No significant change has occurred. LEFT BREAST: No significant suspicious finding. Scattered benign-appearing calcifications are present. No significant change has occurred. RECOMMENDATIONS: ROUTINE MAMMOGRAM AND CLINICAL EVALUATION IN 12 MONTHS. PLEASE NOTE: A NORMAL MAMMOGRAM DOES NOT EXCLUDE THE POSSIBILITY OF BREAST CANCER. A CLINICALLY SUSPICIOUS PALPABLE LUMP SHOULD BE BIOPSIED. Dictated by: Donte Roa M.D. on 08/19/2023 at 11:42 Approved by: Donte Roa M.D. on 08/19/2023 at 11:46
== END 2023-08-18 13:49 | disposition home or self-care (01) ==
LOC: MAMMO 13:48
PROVIDERS: PCP Internal Medicine; Visit Provider Internal Medicine
DX: Z12.31 Encounter for screening mammogram for malignant neoplasm of breast (principal); Z80.8 Family history of malignant neoplasm of other organs or systems
CPT/HCPCS: 77063; 77067

== ENCOUNTER 2023-09-15 10:09 | Outpatient (OUT) | payer MEDICARE, SELFPAY ==
--- NOTE | 2023-09-15 | NM_ITS ---
Patient Name: CHARLEY DAILY MR#: [id number] : 1945 Exam Date: 09/15/2023 Ordering Doctor: DR Kaleb Ahumada D.O. RADIOLOGY REPORT PROCEDURE: NM SYL PERF SPECT REST STR COMPARISON: None. INDICATIONS: PRECORDIAL PAIN, PAROXYSMAL ATRIAL FIBRILLATION, TYPE 2 DIAB TECHNIQUE: Exam Description: Rest/Stress one day protocol gated SPECT Rest Imagin.3 mCi Tc-99m Cardiolite IV on 09/15/2023 Stress Imaging 30.9 mCi Tc-99m Cardiolite IV on 09/15/2023 Exercise Protocol: 0.4 mg Lexiscan given IV Heart Rate (bpm): Rest: 55 Max: 77 PMHR: 54 Blood Pressure: Rest: 148/92 Max: 148/92 Symptoms: Rest and peak stress ECG findings were normal and the exercise portion of the study was normal per attending physician Dr. Gabino Ahumada . For more details please see separate cardiac stress test report. FINDINGS: QUALITY OF STUDY: Good. PERFUSION DEFECT: LOCATION: Apical anterior. [place]. SIZE: Small (1-2 segments). SEVERITY: Mild. TYPE: Persistent. WALL MOTION: Normal. LV SIZE: Normal. 91 mL. TID / TCD: None; 1.0 LVEF: Normal. Calculated EF 66%. SUMMARY: Myocardial perfusion imaging study has ABNORMAL findings. CONCLUSION: 1. Small fixed defect, small area of mildly decreased uptake in the distal anterior wall and apex, LAD distribution 2. No reversible ischemia 3. Normal exercise test Dictated by: Gordon Sequeira MD on 09/15/2023 at 14:42 Approved by: Gordon Sequeira MD on 09/15/2023 at 14:43
--- OUTSIDE RECORDS SUMMARY | 2023-09-15 10:12 | XMS_ITS | CCD ---
Author Name Unknown Address [address] [place] [address] Organization [facility] Care Team Providers Care Managing Director Atlas Name Role Phone BRANDYN, DR LAYTON Attending [...] nurse or physicia Propensity to adverse reactions 7 Comment:Done [facility] Other Medications Current Medications Medication Drug Class(es) Dates Sig (Normalized) Sig (Original) atorvastatin 40 mg oral tablet (16 sources) HMG-CoA Reductase Inhibitor take 1 tablet by mouth once daily in the evening Atorvastatin Calcium 40 MG TAKE 1 TABLET BY MOUTH ONCE DAILY IN THE EVENING Active ferrous sulfate 325 mg oral tablet (8 sources) take 1 tablet by mouth three times weekly Iron 325 (65 Fe) MG 1 tablet Orally Three times a Week Active losartan potassium 25 mg oral tablet (16 sources) Angiotensin 2 Receptor John take 1 tablet by mouth once daily Losartan Potassium 25 MG Take 1 tablet by mouth once daily Active 24 hr metoprolol succinate 25 mg extended release oral tablet (4 sources) beta-Adrenergic John Start: 08-21-2023 take 1 tablet by mouth every twenty-four hours Metoprolol Succinate ER 25 MG 1 tablet Orally Once a day for 30 days Replaces Rx for Metoprolol sprinkles Jul, Active Start: 08-16-2023 take 1 capsule by mo uth once daily Metoprolol Succinate 25 MG 1 capsule Orally Once a day for 30 days Jul, Active Ozempic (0.25 or 0.5 MG/DOSE ) 2 MG/1.5ML (15 sources) Start: 11-30-2022 Ozempic (0.25 or 0.5 [...] for 28 days Nov, Active vitamin B12 (8 sources) Vitamin B12 Vitamin B-12 Act georgiana Problems Active Problems Problem Classification Problem Date Documented Da te Episodic/Chronic Cancer of uterus (2 sources) Malignant neoplasm of corpus uteri, excluding isthmus; Translations: [Malignant neoplasm of Corpus uteri, except isthmus] Chronic Cancer of uterus (20 sources) History of malignant neoplasm of endometrium; Translations: [Personal history of malignant neoplasm of other parts of uterus] Episodic Cardiac dysrhythmias (12 sources) Paroxysmal atrial fibrillation; Translations: [Paroxysmal atrial fibrillation] Chronic Congestive heart failure; nonhypertensive (5 sources) Acute on chronic diastolic heart failure; [...] and fatigue] Onset: 07-12-2014 Episodic Menopausal disorders (17 sources) Decreased estrogen level; 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 Nonspecific chest pain (1 source) Precordial pain Episodic Nutritional deficiencies (1 source) Vitamin D deficiency; Translations: [Vitamin D deficiency, unspecified] Onset: 07-12-2014 Chronic Osteoarthritis (1 source) Osteoarthritis; Translations: [Polyosteoarthritis, unspecified] Chronic Other aftercare (1 source) Other residential (current) drug therapy; Translations: [OTH INTERMEDIATE CURRENT DRUG THERAPY] Onset: 06-13-2022 Episodic Other aftercare (1 source) Long-term current use of drug therapy; Translations: [Other adjunct faculty for medical terminology (current) drug therapy] Episodic Other circulatory disease (7 sources) Other specified symptoms and signs involving the circulatory and respiratory systems; Translations: [OTH SPEC SX SIGNS INVLV CIRC RS] Onset: 06-09-2022 Episodic Other circulatory disease (17 sources) Cardiovascular symptoms; Translations: [Other specified symptoms [...] Episodic Other nutritional; endocrine; and metabolic disorders (16 sources) Body mass index 30+ - obesity; [...] Chronic Other nutritional; endocrine; and metabolic disorders (11 sources) Hypoalbuminemia; Translations: [Other disorders of plasma-protein [...] 1945 Gender:F Ordering : DR KALEB BRISENO D.O. Admission #: [id number] Family : Order #: [id number] CLICK HERE TO VIEW EXAM RADIOLOGY REPORT [...] brain cancer at age 64. LOCATION: [facility] BREAST COMPOSITION: Scattered areas fibroglandular density. [...] MD on 08/06/2022 at 08:58 Normal [facility] BNPon 06-09-2022 Natriuretic peptide B (Bld) [Mass/Vol] 188.0 pg/mL Normal <=1,800.0 [facility] Comment on above: Performed By: #### A LT, LIPID, BNP #### [facility] [address] [address] [address] Taisha Alexandra CBC AUTO DIFFon 06-09-2022 BASO # 0.0 103/ul Normal 0.0-0.1 [facility] Comment on above: Performed By: #### C BC #### [facility] [address] [address] [address] Taisha Alexandra Basophils/100 WBC (Bld) 0.4 % Normal 0.2-2.0 [facility] Comment on above: Performed By: #### C BC #### [facility] [address] [place] [address] Dr. Taisha Alexandra EO # 0.2 103/ul Normal 0.0-0.7 [facility] Comment on above: Performed By: #### C BC #### [facility] [address] [place] [address] Dr. Taisha Alexandra Eosinophils/100 WBC (Bld) 2.8 % Normal 0.9-7.0 [facility] Comment on above: Performed By: #### C BC #### [facility] [address] [place] [address] Dr. Taisha Alexandra Erythrocyte distribution width (RBC) [Ratio] 13.3 % Normal 11.0-15.0 [facility] Comment on above: Performed By: #### C BC #### [facility] [address] [place] [address] Dr. Taisha Alexandra Hematocrit (Bld) [Volume fraction] 40.3 % Normal 36.0-48.0 [facility] Comment on above: Performed By: #### C BC #### [facility] [address] [place] [address] Dr. Taisha Alexandra Hemoglobin (Bld) [Mass/Vol] 12.7 g/dL Normal 12.0-16.0 [facility] Comment on above: Performed By: #### C BC #### [facility] [address] [place] [address] Dr. Taisha Alexandra IG # 0.01 10e3/ul Normal 0.00-0.03 [facility] Comment on above: Performed By: #### C BC #### [facility] [address] [place] [address] Dr. Taisha Alexandra IG % 0.2 % Normal 0.0-0.5 [facility] Comment on above: Performed By: #### C BC #### [facility] [address] [place] [address] Dr. Taisha Alxeandra LYMPH # 1.7 103/ul Normal 1.2-3.8 [facility] Comment on above: Performed By: #### C BC #### [facility] [address] [place] [address] Dr. Taisha Alexandra Lymphocytes/100 WBC (Bld) 31.9 % Normal 20.5-60.0 [facility] Comment on above: Performed By: #### C BC #### [facility] [address] [place] [address] Dr. Taisha Alexandra MANUAL DIFF REQ NO Normal [facility] Comment on above: Performed By: #### C BC #### [facility] [address] [place] [address] Dr. Taisha Alexandra MCH (RBC) [Entitic mass] 28.9 pg Normal 26.7-34.0 [facility] Comment on above: Performed By: #### C BC #### [facility] [address] [place] [address] Dr. Taisha Alexandra MCHC (RBC) [Mass/Vol] 31.5 g/dL Normal 29.9-35.2 [facility] Comment on above: Performed By: #### C BC #### [facility] [address] [place] [address] Dr. Taisha Alexandra MCV (RBC) [Entitic vol] 91.6 fL Normal 81.0-99.0 [facility] Comment on above: Performed By: #### C BC #### [facility] [address] [place] [address] Dr. Taisha Alexandra MONO # 0.4 103/ul Normal 0.3-0.8 [facility] Comment on above: Performed By: #### C BC #### [facility] [address] [place] [address] Dr. Taisha Alexandra Monocytes/100 WBC (Bld) 8.3 % Normal 1.7-12.0 [facility] Comment on above: Performed By: #### C BC #### [facility] [address] [place] [address] Dr. Taisha Alexandra NEUT # 3.0 103/ul Normal 1.4-6.5 [facility] Comment on above: Performed By: #### C BC #### [facility] [address] [address] [address] Taisha Alexandra Neutrophils/100 WBC (Bld) 56.4 % Normal 43.0-75.0 [facility] Comment on above: Performed By: #### C BC #### [facility] [address] [address] [address] Taisha Alexandra Platelet mean volume (Bld) [Entitic vol] 10.3 fL Normal 9.5-13.5 [facility] Comment on above: Performed By: #### C BC #### [facility] [address] [address] [address] Taisha Alexandra PLT 224 103/ul Normal 150-450 [facility] Comment on above: Performed By: #### C BC #### [facility] [address] [place] [address] Dr. Taisha Alexandra RBC 4.40 106/ul Normal 4.20-5.40 [facility] Comment on above: Performed By: #### C BC #### [facility] [address] [place] [address] Dr. Taisha Alexandra WBC 5.3 103/ul Normal 4.0-11.0 [facility] Comment on above: Performed By: #### C BC #### [facility] [address] [place] [address] Dr. Taisha Alexandra GLYCOHEMOGLOBIN A1Con 2021 ADA RECOMMENDATION SEE BELOW Normal [facility] Comment on above: Result Comment: ADA RECOMMENDED LIMIT 4.0 - 6.0 ADA THERAPEUTIC TARGET < 7.0 ACTION SUGGESTED > 7.0 Performed By: #### A 1C #### [facility] [address] [place] [address] Dr. Taisha Alexandra Glucose [Mass/Vol] 120 mg/dL Normal [facility] Comment on above: Performed By: #### A 1C #### [facility] [address] [place] [address] Dr. Taisha Alexandra HbA1c (Bld) [Mass fraction] 5.8 % Normal 4.5-6.2 [facility] Comment on above: Performed By: #### A 1C #### [facility] [address] [address] [address] Taisha Alexandra LIPID PROFILEon 06-09-2022 CHOL-HDL RATIO NORM SEE BELOW Normal [facility] Comment on above: Result Comment: 3.3 - 4.4 LOW RISK 4.4 - 7.1 AVERAGE RISK 7.1 - 11.0 MODERATE RISK >11.0 HIGH RISK Performed By: #### A LT, LIPID, BNP #### [facility] [address] [address] [address] Taisha Alexandra Cholesterol [Mass/Vol] 138 mg/dL Normal <=200 [facility] Comment on above: Performed By: #### A LT, LIPID, BNP #### [facility] [address] [address] [address] Taisha Alexandra Cholesterol in HDL [Mass/Vol] 56 mg/dL Normal 40-60 [facility] Comment on above: Performed By: #### A LT, LIPID, BNP #### [facility] [address] [address] [address] Taisha Alexandra Cholesterol in LDL [Mass/Vol] 74.4 mg/dL Normal [facility] Comment on above: Performed By: #### A LT, LIPID, BNP #### [facility] [address] [address] [address] Taisha Alexandra Cholesterol.total/Cho lesterol in HDL [Mass ratio] 2.5 {ratio} Normal [facility] Comment on above: Performed By: #### A LT, LIPID, BNP #### [facility] [address] [address] [address] Taisha Alexandra HDL NORMAL > or = 60 mg/dl - LO W CARDIOVASCULAR RISK <40 mg/dl - HIGH CARDIOVASCULAR RISK Normal [facility] Comment on above: Performed By: #### A LT, LIPID, BNP #### [facility] [address] [address] [address] Taisha Alexandra LDL CALC NORMAL SEE BELOW Normal [facility] Comment on above: Result Comment: <100 mg/dl OPTIMAL 100 - 129 mg/dl NEAR OR ABOVE OPTIMAL 130 - 159 mg/dl BORDERLINE HIGH 160 - 189 mg/dl HIGH >190 mg/dl VERY HIGH Performed By: #### A LT, LIPID, BNP #### [facility] [address] [address] [address] Taisha Alexandra Triglyceride [Mass/Vol] 38 mg/dL Normal <=150 [facility] Comment on above: Performed By: #### A LT, LIPID, BNP #### [facility] [address] [address] [address] Taisha Alexandra VLDL CALC 7.6 mg/dL Normal [facility] Comment on above: Performed By: #### A LT, LIPID, BNP #### [facility] [address] [address] [address] Taisha Alexandra MICROALBUMIN, RAND URon 05-22 mALB 1.8 mg/L Normal <=30.0 [facility] Comment on above: Performed By: #### M ALBR #### [facility] [address] [address] [address] Taisha Alexandra SGPTon 06-09-2022 ALT [Catalytic activity/Vol] 22 U/L Normal 14-59 [facility] Comment on above: Performed By: #### A LT, LIPID, BNP #### [facility] [address] [place] [address] Dr. Taisha Alexnadra US CAROTID ART BILon 022 US CAROTID [...] by: NEWTON KAHN Date: 2022-06-09 21:11 Normal [facility] GLYCOHEMOGLOBIN A1Con 2021 ADA RECOMMENDATION ADA THERAPEUTIC TARGET 6.0 - 7.0 ACTION SUGGESTED > 7.0 Normal [facility] Comment on above: Performed By: #### A 1C #### [facility] [address] [place] [address] Dr. Taisha Alexandra Glucose [Mass/Vol] 134 mg/dL Normal [facility] Comment on above: Performed By: #### A 1C #### [facility] [address], [place] [address] Dr. Taisha Alexandra HbA1c (Bld) [Mass fraction] 6.3 % Critically high <=6.0 [facility] Comment on above: Performed By: #### A 1C #### [facility] [address] [place], [place] [address] Dr. Taisha Alexandra Vital Signs Date Time Vital Sign Value Performing Clinician Facility 08-16-2023 11:15-0500 Body height 170.18 cm Kaleb Ball Other [facility] Other 08-16-2023 11:15-0500 Body mass index (BMI) [Ratio] 27.56 kg/m2 Kaleb Ball Other [facility] Other 08-16-2023 11:15-0500 Body weight 79.83 kg Kaleb Ball Other [facility] Other 08-16-2023 11:15-0500 Diastolic blood pressure 72 mm[Hg] Kaleb Ball Other [facility] Other 08-16-2023 11:15-0500 Respiratory rate 12 /min Kaleb Ball Other [facility] Other 08-16-2023 11:15-0500 Systolic blood pressure 115 mm[Hg] Kaleb Ball Other [facility] Other 08-08-2023 14:45-0500 Body height 170.18 cm Kaleb Ball Other [facility] Other 08-08-2023 14:45-0500 Body mass index (BMI) [Ratio] 27.66 kg/m2 Kaleb Ball Other [facility] Other 08-08-2023 14:45-0500 Body weight 80.11 kg Kaleb Ball Other [facility] Other 08-08-2023 14:45-0500 Diastolic blood pressure 73 mm[Hg] Kaleb Ball Other [facility] Other 08-08-2023 14:45-0500 Systolic blood pressure 106 mm[Hg] Kaleb Ball Other [facility] Other 2023 16:42-0500 Body height 170.18 cm Kaleb Ball Other [facility] Other 07-13-2023 10:45-0500 Body height 170.18 cm Kaleb Ball Other [facility] Other 07-13-2023 10:45-0500 Body mass index (BMI) [Ratio] 27.88 kg/m2 Kaleb Ball Other [facility] Other 07-13-2023 10:45-0500 Body weight 80.74 kg Kaleb Ball Other [facility] Other 07-13-2023 10:45-0500 Diastolic blood pressure 74 mm[Hg] Kaleb Ball Other [facility] Other 07-13-2023 10:45-0500 Respiratory rate 12 /min Kaleb Ball Other [facility] Other 07-13-2023 10:45-0500 Systolic blood pressure 125 mm[Hg] Kaleb Ball Other [facility] Other 06-06-2023 14:00-0400 Body height 170.18 cm Kaleb Ball Other [facility] Other 06-06-2023 14:00-0400 Body mass index (BMI) [Ratio] 28.16 kg/m2 Kaleb Ball Other [facility] Other 06-06-2023 14:00-0400 Body weight 81.56 kg Kaleb Ball Other [facility] Other 06-06-2023 14:00-0400 Diastolic blood pressure 65 mm[Hg] Kaleb Ball Other [facility] Other 06-06-2023 14:00-0400 Respiratory rate 12 /min Kaleb Ball Other [facility] Other 06-06-2023 14:00-0400 Systolic blood pressure 103 mm[Hg] Kaleb Ball Other [facility] Other 11-30-2022 15:30-0400 Body height 170.18 cm Kaleb Ball Other [facility] Other 11-30-2022 15:30-0400 Body mass index (BMI) [Ratio] 30.85 kg/m2 Kaleb Ball Other [facility] Other 11-30-2022 15:30-0400 Body weight 89.36 kg Kaleb Ball Other [facility] Other 11-30-2022 15:30-0400 Diastolic blood pressure 70 mm[Hg] Kaleb Ball Other [facility] Other 11-30-2022 15:30-0400 Respiratory rate 12 /min Kaleb Ball Other [facility] Other 11-30-2022 15:30-0400 Systolic blood pressure 114 mm[Hg] Kaleb Ball Other [facility] Other Encounters Encounter Date Encounter Type Care Provider Facility Start: 08-29-2023 End: 08-29-2023 ambulatory Kaleb Briseno Other [facility] Other Start: 08-29-2023 Telephone encounter Kaleb [facility] Start: 08-23-2023 End: 08-23-2023 ambulatory Kaleb Ball Other [facility] Other Start: 08-23-2023 Telephone encounter Kaleb Ball [facility] Start: 08-21-2023 End: 08-21-2023 ambulatory Kaleb Ball Other [facility] Other Start: 08-21-2023 Telephone encounter Kaleb Ball [facility] Start: 08-16-2023 End: 08-16-2023 ambulatory Kaleb Ball Other [facility] Other Start: 08-16-2023 Transitional care yamileth melendez srvc 14 day discharge Kaleb [facility] Start: 08-10-2023 End: 08-10-2023 ambulatory Kaleb Ball Other [facility] Other Start: 08-10-2023 Telephone encounter Kaleb Ball [facility] Start: 08-08-2023 End: 08-08-2023 ambulatory Kaleb Ball Other [facility] Other Start: 08-08-2023 Office outpatient vi sit 25 minutes Kaleb Ball [facility] Start: 08-08-2023 Telephone encounter Kaleb Ball [facility] Start: 2023 End: 2023 ambulatory Kaleb Ball Other [facility] Other Start: 2023 Telephone encounter Kaleb Ball [facility] Start: 07-15-2023 End: 07-15-2023 ambulatory Kaleb Ball Other [facility] Other Start: 07-15-2023 Telephone encounter Kaleb Briseno [facility] Start: 07-13-2023 End: 07-13-2023 ambulatory Kaleb Briseno Other [facility] Other Start: 07-13-2023 Office outpatient vi sit 25 minutes Kaleb Briseno [facility] Start: 06-13-2023 End: 06-13-2023 ambulatory Kaleb Briseno Other [facility] Other Start: 06-13-2023 Telephone encounter Kaleb Briseno [facility] Start: 06-06-2023 End: 06-06-2023 ambulatory Kaleb Briseno Other [facility] Other Start: 06-06-2023 Patient encounter procedure Kaleb Briseno [facility] Start: 06-01-2023 End: 06-01-2023 ambulatory Kaleb Briseno Other [facility] Other Start: 06-01-2023 Nursing evaluation o f patient and report Kaleb Briseno [facility] Start: 11-30-2022 End: 11-30-2022 ambulatory Kaleb Briseno Other [facility] Other Start: 11-30-2022 Office outpatient vi sit 25 minutes Kaleb Briseno [facility] Start: 08-05-2022 End: 08-06-[address] KALEB BRISENO Facility:[facility] Start: 06-09-2022 End: 06-10-[address] KALEB BRISENO Facility:[facility] Start: 06-02-2022 Adult health examination David Briseno Other [facility] Other Start: 09-28-2021 End: 09-29-[address] KALEB BRISENO Facility:[facility] Procedures Date Procedure Procedure Detail Performing Clinician Start: 06-02-2022 Depression screening Be wilber Briseno Other Start: 01-18-2017 Screening for osteoporosis Kaleb Briseno Other Start: 07-22-2015 Screening for malign ant neoplasm of colon Kaleb Briseno Other Start: 01-21-2015 Screening mammography B leilani Briseno Other Screening for malign ant neoplasm of breast Kaleb Briseno Other Immunizations Immunization Date Immunization Notes Care Provider Debra greenrashmi 06-01-2023 influenza, high dose seasonal, preservative-free Kaleb Briseno Other [facility] Other 06-02-2022 influenza virus vaccine, split virus (incl. purified surface antigen) Kaleb Briseno Other [facility] Other 05-20-2021 influenza virus vaccine, split virus (incl. purified surface antigen) Kaleb Briseno Other [facility] Other 04-25-2020 influenza virus vaccine, split virus (incl. purified surface antigen) Kaleb Briseno Other [facility] Other 06-20-2019 influenza virus vaccine, split virus (incl. purified surface antigen) Kaleb Briseno Other [facility] Other 06-13-2018 influenza virus vaccine, split virus (incl. purified surface antigen) Kaleb Briseno Other [facility] Other 06-08-2017 influenza virus vaccine, split virus (incl. purified surface antigen) Kaleb Briseno Other [facility] Other 08-02-2016 influenza virus vaccine, split virus (incl. purified surface antigen) Kaleb Briseno Other [facility] Other 07-23-2015 pneumococcal conjuga te vaccine, 13 valent Kaleb Briseno Other [facility] Other 05-31-2012 tetanus and diphther ia toxoids, adsorbed, preservative free, for adult use (5 Lf of tetanus toxoid and 2 Lf of diphtheria toxoid) Kaleb Briseno Other [facility] Other Payers Date Payer Category Payer Unknown [id number] 1945 Unknown [id number] 1945 Unknown [id number] 1945 Unknown [id number] Social History Date Type Detail Facility Sex Assigned At [facility] Other Evaluation note 08-21-2023 Note Date & Type Note Facility 08-21-2023 Evaluation note Encounter Date Diagnosis Assessment Notes Jul, Paroxysmal atrial fibrillation (ICD-10 - I48.0) Echo: 07/2023 - LVEF is 60 to 65% - Normal right ventricular size and systolic function - Biatrial enlargement - Mild tricuspid regurgitation - RVSP 38 mmHg - Mild to moderate mitral regurgitation [facility] Other Evaluation note 08-16-2023 Note Date & [...] AC for procedure. Repeat CBC in week. [facility] Other Evaluation note 08-10-2023 Note Date & Type Note Facility 08-10-2023 Evaluation note Encounter Date Diagnosis Assessment Notes Jul, Paroxysmal atrial fibrillation (ICD-10 - I48.0) Echo: 07/2023 - LVEF is 60 to 65% - Normal right ventricular size and systolic function - Biatrial enlargement - Mild tricuspid regurgitation - RVSP 38 mmHg - Mild to moderate mitral regurgitation [facility] Other Evaluation note 08-08-2023 Note Date & [...] primary prevention. US < 50% narrowing B/L [facility] Other Evaluation note 07-15-2023 Note Date & Type Note Facility 07-15-2023 Evaluation note Encounter Date Diagnosis Assessment Notes Jun, Hypoalbuminemia (ICD-10 - E88.09) Jun, Anemia due to other cause, not classified (ICD-10 - D64.89) Jun, Hx of cancer of endometrium (ICD-10 - Z85.42) Jun, Sallow complexion (ICD-10 - R23.8) Jun, Weight loss, unintentional (ICD-10 - R63.4) Jun, Fatigue, unspecified type (ICD-10 - R53.83) [facility] Other Evaluation note 07-13-2023 Note Date & [...] C54.1) s/p AMANDA - no s/s recurrence [facility] Other Evaluation note 06-06-2023 Note Date & [...] exercise for 30 minutes, 3-5 times weekly. [facility] Other Evaluation note 11-30-2022 Note Date & [...] endometrium (ICD-10 - Z85.42) No s/s recurrence [facility] Other Evaluation note Note Date & Type Note Facility Evaluation note No Information [facility] Other History general Narrative - Reported Note Date & Type Note Facility History general Narrative - Reported Type Medical History Left carotid bruit Medical History Estrogen deficiency Surgical History RIGHT BREAST BX 2002,2014 Surgical History LEFT BREAST BX 2005 Surgical History AMANDA 2009 Surgical History ARTHROSCOPY RIGHT KNEE 2005 Surgical History CATARACT B/L 2018 Hospitalization History SEE SURGICAL HX [facility] Other Summary Purpose Family History No Family History Records Found Advance Directives No Advanced Directives Records Found Additional Source Comments INFORMATION SOURCE (unrecogn ized section and content) DATE CREATED AUTHOR 08/12/2022 [facility] [place] [facility] REASON FOR VISIT (unrecogniz ed section and content) 6 MONTH FOLLOW UPflu shotWEL LNESSLab resultsvery tired all the timeNo InformationCT resultsLetterNot Feeling Better-TirednessNot Feeling BetterTCMNo InformationTBHNo InformationMamm resultsHolter results FOR RECORDS PERTAINING TO PATIENTS WHO ARE [...] BE BASED ON THE PRIMARY CLINICAL RECORDS. [employer] provides no warranty or guarantee of the accuracy or completeness of information in this document.
[2023-09-15 10:32] LABS: Basophils Percent Auto 0.4 % (0.2-2.0); Eosinophils Absolute Auto 0.1 10^3/uL (0.0-0.7); Eosinophils Percent Auto 2.1 % (0.9-7.0); Hemoglobin 10.3 g/dL (12.0-16.0); Lymphocytes Absolute Auto 1.3 10^3/uL (1.2-3.8); Lymphocytes Percent Auto 24.8 % (20.5-60.0); Mean Corpuscular HGB Conc 29.4 g/dL (29.9-35.2); Mean Corpuscular Hemoglobin 26.2 pg (26.7-34.0); Mean Corpuscular Volume 89.1 fL (81.0-99.0); Mean Platelet Volume 9.9 fL (9.5-13.5); Monocytes Absolute Auto 0.5 10^3/uL (0.3-0.8); Monocytes Percent Auto 8.6 % (1.7-12.0); Neutrophils Absolute Auto 3.4 10^3/uL (1.4-6.5); Neutrophils Percent Auto 64.1 % (43.0-75.0); Platelet Count 283 10^3/uL (150-450); Red Blood Count 3.93 10^6/uL (4.20-5.40); Red Cell Distribution Width 15.1 % (11.0-15.0); White Blood Count 5.3 10^3/uL (4.0-11.0)
[2023-09-15 11:07] LABS: Anion Gap 8.3; BUN Creatinine Ratio 20.3; Calcium 8.7 mg/dL (8.5-10.1); Carbon Dioxide 29.8 mmol/L (21.0-32.0); Chloride 105 mmol/L (98-107); Estimated GFR (African America >60 (>=60); Estimated GFR (Non-African Ame >60 (>=60); Glucose 90 mg/dL (74-106); Potassium 4.1 mmol/L (3.5-5.1); Sodium 139 mmol/L (136-145)
--- NOTE | 2023-09-15 13:11 | PM.STRESS ---
Stress Test Stress Test Allergies Allergy/AdvReac Type Severity Reaction Status Date / Time No Known Drug Allergies Allergy Verified 08/08/23 16:17 Requesting physician: Kaleb Ahumada Procedure: Lexiscan stress test General Information: Reason for Stress Test: [evaluation of a patient with new onset atrial fibrillation] Cardiac History and Risk Factors: Karlene is a 78-year-old patient with new onset atrial fibrillation. Personal risk factors include essential hypertension, impaired fasting glucose and hyperlipidemia. She also has a strong family history for coronary disease with both parents and siblings.] Resting 12 - Lead Electrocardiogram: Normal sinus rhythm with a ventricular rate of 56 bpm. The DE interval is 0.20, QRS 0.08 and the QT 0.40. The axis is normal there are no pathologic Q waves there is slight intraventricular conduction delay and nonspecific ST-T wave changes. Stress Test: Protocol: [Lexiscan protocol] Exercise Capacity: [Not applicable] Blood Pressure Response: [The patient's blood pressure decreased with an increase in heart rate during infusion which is appropriate for Lexiscan infusion] Rhythm: [She remained in sinus rhythm during infusion] ST - Response: [There was no ST-T wave changes during infusion Patient Response: [Patient denied chest pain during infusion] Interpretation: There was no objective evidence of myocardial ischemia during infusion. Cardilate was injected with images in interpretation pending
[2023-09-15] MEDS: REGADENOSON 0.4 MG/5 ML SYRINGE IV (13:16)
== END 2023-09-15 10:10 | disposition home or self-care (01) ==
LOC: NM 10:09
PROVIDERS: PCP Internal Medicine; Visit Provider Internal Medicine
DX: I50.33 Acute on chronic diastolic (congestive) heart failure (principal); D64.9 Anemia, unspecified; E11.65 Type 2 diabetes mellitus with hyperglycemia; R07.2 Precordial pain; I48.0 Paroxysmal atrial fibrillation; E78.00 Pure hypercholesterolemia, unspecified
CPT/HCPCS: 36415; 78452; 80048; 82607; 82728; 82746; 83540; 83550; 83880; 85025; 93017; A9500; J2785

== ENCOUNTER 2023-12-06 14:42 | Outpatient (OUT) | payer MEDICARE, SELFPAY ==
--- OUTSIDE RECORDS SUMMARY | 2023-12-06 14:54 | XMS_ITS | CCD ---
Author Organization [facility] Care Team Providers Care [employer] Information Clerk Name Role Phone BRANDYN, DR MANUEL Attending Unavailable BRANDYN, DR MANUEL Consulting Unavailable BRANDYN, DR MANUEL Primary Care Unavailable BRANDYN, DR MANUEL Admitting Unavailable WEST, DR NEVIN Marshall Consulting Unavailable BRANDYN, DR MANUEL Attending Unavailable BRANDYN, DR MANUEL Consulting Unavailable BRANDYN, DR MANUEL Primary Care Unavailable BRANDYN, DR MANUEL Admitting Unavailable ZIEBER, DR NEWTON Rodriguez Consulting Unavailable BRANDYN, DR MANUEL Consulting Unavailable BRANDYN, DR MANUEL Primary Care Unavailable BRANDYN, DR MANUEL Admitting Unavailable BRANDYN, DR MANUEL Attending Unavailable Kaleb Ahumada Unavailable DO Kaleb Ahumada Primary Care Provider MD Dave Hoff Attending Provider Kaleb Ahumada Primary Care Unavailable Dave Hoff Attending Dave Franklin Admitting Jennifer mabry Allergies Allergy Classification Reported Allergen(s) Allergy Type Date of Onset Reaction(s) Facility (1 source) patient allergy list reviewed by nurse or physicia Propensity to adverse reactions Comment:Done [employer] Other Medications Current Medications Medication Drug Class(es) Dates Sig (Normalized) Sig (Original) apixaban 5 mg oral tablet (1 source) Factor Xa Inhibitor Start: 10-17-2023 take 1 tablet by mouth every twelve hours Apixaban (Eliquis) 5 mg tablet Active 5 MG PO Every 12 hours October 17, 2023 12:00am atorvastatin 40 mg oral tablet (20 sources) HMG-CoA Reductase Inhibitor Start: 10-17-2023 take 40 mg by mouth once daily Atorvastatin Active 40 MG PO Daily October 17, 2023 12:00am take 1 tablet by mati th once daily in the evening Atorvastatin Calcium 40 MG TAKE 1 TABLET BY MOUTH ONCE DAILY IN THE EVENING Active Biotin (1 source) Start: 10-17-2023 take 1 tablet by mouth once daily Biotin (Hair, Skin And Nails (Biotin)) 10,000 mcg tablet,chewable Active 40998 MCG PO Daily October 17, 2023 12:00am calcium ascorbate 500 mg oral tablet (1 source) Start: 10-17-2023 take 500 mg by mouth once daily Ascorbate Calcium (Vitamin C) Active 500 MG PO Daily October 17, 2023 12:00am ferrous sulfate 325 mg oral tablet (12 sources) Start: 10-17-2023 take 1 tablet by mouth three times weekly Ferrous Sulfate Active 325 MG PO 3 Times a week October 17, 2023 12:00am FreeTextSi tablet Orally Three times a Week; Note: Source Status: Taking; Provider: Brandyn Manuel ( ) take 1 tablet by mouth three brittney es weekly Iron 325 (65 Fe) MG 1 tablet Orally Three times a Week Active loratadine 10 mg oral tablet (1 source) Start: 10-17-2023 take 1 tablet by mouth once daily Loratadine (Allergy Relief (Loratadine)) 10 mg tablet Active 10 MG PO Daily October 17, 2023 12:00am Magnesium (1 source) Start: 10-17-2023 take 250 mg by mouth once daily Magnesium Active 250 MG PO Daily October 17, 2023 12:00am 24 hr metoprolol succinate 25 mg extended release oral tablet (8 sources) beta-Adrenergic John Start: 10-17-2023 take 1 tablet by mouth once daily Metoprolol Succinate Active 25 MG PO Daily October 17, 2023 12:00am FreeTextSig: Take 1 tablet by mouth once daily for 30 days; Note: Source Status: Start; Refills: 11; Qty: 30 Tablet; Provider: Brandyn Manuel ( ) Start: 08-21-2023 take 1 tablet by mati th every twenty-four hours Metoprolol Succinate ER 25 MG 1 tablet Orally Once a day for 30 days Replaces Rx for Metoprolol sprinkles Jul, Active Start: 08-16-2023 take 1 capsule by mouth once d aily Metoprolol Succinate 25 MG 1 capsule Orally Once a day for 30 days Jul, Active Multivit With Min-Folic Acid (Adult Multivitamin Gummies) 200 mcg tablet,chewable (1 source) Start: 10-17-2023 take 1 tablet by mouth once daily Multivit With Min-Folic Acid (Adult Multivitamin Gummies) 200 mcg tablet,chewable Active 1 TAB PO Daily October 17, 2023 12:00am Iw-Cli-Ca-Vit V-Vrhgfn-Uasuxkk (Preservision Areds 2 Plus Mv) 200 mcg-15 mcg- 5 mg-1 mg capsule (1 source) Start: 10-17-2023 take 1 capsule by mouth once daily Km-Beb-Sz-Vit G-Rfrlwj-Ulnwtvj (Preservision Areds 2 Plus Mv) 200 mcg-15 mcg- 5 mg-1 mg capsule Active 1 CAP PO Daily October 17, 2023 12:00am Ozempic (0.25 or 0.5 MG/DOSE) 2 MG/1.5ML (18 sources) Start: 11-30-2022 Ozempic (0.25 or 0.5 MG/DOSE) 2 MG/1.5ML 0.25 MG Subcutaneous weekly Nov, Active Start: 11-30-2022 Ozempic (0.25 or 0.5 MG/DOSE) 2 MG/1.5ML 0.25 MG Subcutaneous weekly for 28 days Nov, Active 0.25 mg, 0.5 mg dose 1.5 ml semaglutide 1.34 mg/ml pen injector (2 sources) Start: 10-17-2023 Semaglutide (O zempic) 0.25 mg or 0.5 mg(2 mg/1.5 mL) pen injector Active 0.25 MG SUBCUT every week October 17, 2023 12:00am FreeTextSi.25 MG Subcutaneous weekly; Note: Source Status: Taking; Provider: Brandyn Mack Start: 11-30-2022 Ozempic (0.25 or 0.5 MG/DOSE) 2 MG/1.5ML 0.25 MG Subcutaneous weekly for 28 days Nov, Active vitamin B12 (11 sources) Vitamin B12 Vitamin B-12 Act georgiana Completed/Discontinued Medications Medication Drug Class(es) Dates Sig (Normalized) Sig (Original) losartan potassium 25 mg oral tablet (20 sources) Angiotensin 2 Receptor John Start: 10-11-2023 End: 10-17-2023 take 25 mg by mouth once daily Losartan Discontinued 25 MG PO daily 90 90 October 11, 2023 12:00am October 17, 2023 11:07am take 1 tablet by mouth once araceli y Losartan Potassium 25 MG Take 1 tablet by mouth once daily Active Problems Active Problems Problem Classification Problem Date Documented Da te Episodic/Chronic Cancer of uterus (2 sources) Malignant neoplasm of corpus uteri, excluding isthmus; Translations: [Malignant neoplasm of Corpus uteri, except isthmus] Chronic Cancer of uterus (20 sources) History of malignant neoplasm of endometrium; Translations: [Personal history of malignant neoplasm of other parts of uterus] Episodic Cardiac dysrhythmias (19 sources) Paroxysmal atrial fibrillation; Translations: [Paroxysmal atrial fibrillation] Onset: 10-17-2023 Chronic Congestive heart failure; nonhypertensive (10 sources) Acute on chronic diastolic heart failure; Translations: [Acute on chronic diastolic (congestive) heart failure] Chronic Deficiency and other anemia (1 source) Other specified anemias Episodic Deficiency and other anemia (2 sources) Anemia, unspecified Episodic Diabetes mellitus with complications [...] and fatigue] Onset: 07-12-2014 Episodic Menopausal disorders (20 sources) Decreased estrogen level; 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 Nonspecific chest pain (2 sources) Precordial pain Episodic Nutritional deficiencies (1 source) Vitamin D deficiency; Translations: [Vitamin D deficiency, unspecified] Onset: 07-12-2014 Chronic Osteoarthritis (1 source) Osteoarthritis; Translations: [Polyosteoarthritis, unspecified] Chronic Other aftercare (1 source) 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; Translations: [OTH PRISON CURRENT DRUG THERAPY] Onset: 06-13-2022 Episodic Other aftercare (1 source) Long-term current use of drug therapy; Translations: [Other residential (current) drug therapy] Episodic Other circulatory disease (9 sources) Other specified symptoms and signs involving the circulatory and respiratory systems; Translations: [OTH SPEC SX SIGNS INVLV CIRC RS] Onset: 06-09-2022 Episodic Other circulatory disease (19 sources) Cardiovascular symptoms; Translations: [Other specified symptoms and signs involving the circulatory and respiratory systems] Episodic Other circulatory disease (1 source) Carotid bruit; Translations: [Other specified symptoms and signs involving the circulatory and respiratory systems] 10-17-2023 Episodic Other ear and sense organ disorders (1 source) Otitis externa; Translations: [Unspecified otitis externa, unspecified ear] Chronic Other ear and sense organ disorders (1 source) Impacted cerumen; Translations: [Impacted cerumen, unspecified ear] Episodic Other injuries and conditions due to external causes (1 source) History of fall; Translations: [History of falling] Episodic Other nutritional; endocrine; and metabolic disorders (19 sources) Body mass index 30+ - obesity; [...] Chronic Other nutritional; endocrine; and metabolic disorders (14 sources) Hypoalbuminemia; Translations: [Other disorders of plasma-protein [...] Test Name Value Interpretation Reference Range Facility ECG 12 lead ECGon 10-17-2023 ECG 12 lead ECG [facility] [place] [address] Electrocardiograph Report Signed Patient: Alycia Daily MR#: [id number] : 1945 Acct:[id number] Age/Sex: 78 / F ADM Date: 10/17/23 Loc: EKGCARDIO Room: Type: [facility] Attending Dr: Dave Hoff MD Ordering Provider: Dave Hoff MD Date of Service: 10/17/23 ECG/ECG 12 lead ECG: I48.0 - Paroxysmal atrial fibrillation Copies to: Test Reason : Blood Pressure : / mmHG Vent. Rate : 062 BPM Atrial Rate : 062 BPM P-R Int : 180 ms QRS Dur : 082 ms QT Int : 400 ms P-R-T Axes : 079 080 051 degrees QTc Int : 406 ms Normal sinus rhythm Normal ECG No previous ECGs available Confirmed by Dave Hoff ([id number]) on 10/18/2023 10:36:42 AM Referred By: Electronically Signed By:Dave Hoff Transcribed By: MUS Signed By Dave Hoff MD 10/18/[address] [facility] MG MAMM SCREEN 3D RAKAN CADon 08-05-2022 MG MAMM SCREEN 3D RAKAN CAD Patient: ALYCIA DAILY Exam Date: 08/05/2022 : 1945 Gender:F Ordering : DR KALEB AHUMADA D.O. Admission #: [id number] Family : Order #: [id number] CLICK HERE TO VIEW EXAM RADIOLOGY REPORT [...] brain cancer at age 64. LOCATION: [facility] BREAST COMPOSITION: Scattered areas fibroglandular density. FINDINGS: [...] MD on 08/06/2022 at 08:58 Normal [facility] BNPon 06-09-2022 Natriuretic peptide B (Bld) [Mass/Vol] 188.0 pg/mL Normal <=1,800.0 [facility] Comment on above: Performed By: #### A LT, LIPID, BNP #### [facility] [address] [place] [address] Dr. Taisha Alexandra CBC AUTO DIFFon 06-09-2022 BASO # 0.0 103/ul Normal 0.0-0.1 [facility] Comment on above: Performed By: #### C BC #### [facility] [address] [place] [address] Dr. Taisha Alexandra Basophils/100 WBC (Bld) 0.4 % Normal 0.2-2.0 [facility] Comment on above: Performed By: #### C BC #### [facility] [address] [place] [address] Dr. Taisha Alexandra EO # 0.2 103/ul Normal 0.0-0.7 [facility] Comment on above: Performed By: #### C BC #### [facility] [address] [place] [address] Dr. Taisha Alexandra Eosinophils/100 WBC (Bld) 2.8 % Normal 0.9-7.0 [facility] Comment on above: Performed By: #### C BC #### [facility] [address] [place] [address] Dr. Taisha Alexandra Erythrocyte distribution width (RBC) [Ratio] 13.3 % Normal 11.0-15.0 [facility] Comment on above: Performed By: #### C BC #### [facility] [address] [place] [address] Dr. Taisha Alexandra Hematocrit (Bld) [Volume fraction] 40.3 % Normal 36.0-48.0 [facility] Comment on above: Performed By: #### C BC #### [facility] [address] [place] [address] Dr. Taisha Alexandra Hemoglobin (Bld) [Mass/Vol] 12.7 g/dL Normal 12.0-16.0 [facility] Comment on above: Performed By: #### C BC #### [facility] [address] [place] [address] Dr. Taisha Alexandra IG # 0.01 10e3/ul Normal 0.00-0.03 [facility] Comment on above: Performed By: #### C BC #### [facility] [address] [place] [address] Dr. Taisha Alexandra IG % 0.2 % Normal 0.0-0.5 [facility] Comment on above: Performed By: #### C BC #### [facility] [address] [place] [address] Dr. Taisha Alexandra LYMPH # 1.7 103/ul Normal 1.2-3.8 [facility] Comment on above: Performed By: #### C BC #### [facility] [address] [place] [address] Dr. Taisha Alexandra Lymphocytes/100 WBC (Bld) 31.9 % Normal 20.5-60.0 [facility] Comment on above: Performed By: #### C BC #### [facility] [address] [place] [address] Dr. Taisha Alexandra MANUAL DIFF REQ NO Normal [facility] Comment on above: Performed By: #### C BC #### [facility] [address] [place] [address] Dr. Taisha Alexandra MCH (RBC) [Entitic mass] 28.9 pg Normal 26.7-34.0 [facility] Comment on above: Performed By: #### C BC #### [facility] [address] [place] [address] Dr. Taisha Alexandra MCHC (RBC) [Mass/Vol] 31.5 g/dL Normal 29.9-35.2 [facility] Comment on above: Performed By: #### C BC #### [facility] [address] [place] [address] Dr. Taisha Alexandra MCV (RBC) [Entitic vol] 91.6 fL Normal 81.0-99.0 [facility] Comment on above: Performed By: #### C BC #### [facility] [address] [place] [address] Dr. Taisha Alexandra MONO # 0.4 103/ul Normal 0.3-0.8 [facility] Comment on above: Performed By: #### C BC #### [facility] [address] [place] [address] Dr. Taisha Alexandra Monocytes/100 WBC (Bld) 8.3 % Normal 1.7-12.0 [facility] Comment on above: Performed By: #### C BC #### [facility] [address] [place] [address] Dr. Taisha Alexandra NEUT # 3.0 103/ul Normal 1.4-6.5 [facility] Comment on above: Performed By: #### C BC #### [facility] [address] [place] [address] Dr. Taisha Alexandra Neutrophils/100 WBC (Bld) 56.4 % Normal 43.0-75.0 [facility] Comment on above: Performed By: #### C BC #### [facility] [address] [place] [address] Dr. Taisha Alexandra Platelet mean volume (Bld) [Entitic vol] 10.3 fL Normal 9.5-13.5 [facility] Comment on above: Performed By: #### C BC #### [facility] [address] [place] [address] Dr. Taisha Alexandra PLT 224 103/ul Normal 150-450 [facility] Comment on above: Performed By: #### C BC #### [facility] [address] [place] [address] Dr. Taisha Alexandra RBC 4.40 106/ul Normal 4.20-5.40 [facility] Comment on above: Performed By: #### C BC #### [facility] [address] [place] [address] Dr. Taisha Alexandra WBC 5.3 103/ul Normal 4.0-11.0 [facility] Comment on above: Performed By: #### C BC #### [facility] [address] [place] [address] Dr. Taisha Alexandra GLYCOHEMOGLOBIN A1Con 10-19- 2022 ADA RECOMMENDATION SEE BELOW Normal [facility] Comment on above: Result Comment: ADA RECOMMENDED LIMIT 4.0 - 6.0 ADA THERAPEUTIC TARGET < 7.0 ACTION SUGGESTED > 7.0 Performed By: #### A 1C #### [facility] [address] [address] [address] Taisha Alexandra Glucose [Mass/Vol] 120 mg/dL Normal [facility] Comment on above: Performed By: #### A 1C #### [facility] [address] [address] [address] Taisha Alexandra HbA1c (Bld) [Mass fraction] 5.8 % Normal 4.5-6.2 [facility] Comment on above: Performed By: #### A 1C #### [facility] [address] [place] [address] Dr. Taisha Alexandra LIPID PROFILEon 06-09-2022 CHOL-HDL RATIO NORM SEE BELOW Normal [facility] Comment on above: Result Comment: 3.3 - 4.4 LOW RISK 4.4 - 7.1 AVERAGE RISK 7.1 - 11.0 MODERATE RISK >11.0 HIGH RISK Performed By: #### A LT, LIPID, BNP #### [facility] [address] [address] [address] Taisha Alexandra Cholesterol [Mass/Vol] 138 mg/dL Normal <=200 [facility] Comment on above: Performed By: #### A LT, LIPID, BNP #### [facility] [address] [address] [address] Taisha Alexandra Cholesterol in HDL [Mass/Vol] 56 mg/dL Normal 40-60 [facility] Comment on above: Performed By: #### A LT, LIPID, BNP #### [facility] [address] [address] [address] Taisha Alexandra Cholesterol in LDL [Mass/Vol] 74.4 mg/dL Normal [facility] Comment on above: Performed By: #### A LT, LIPID, BNP #### [facility] [address] [place] [address] Dr. Taisha Alexandra Cholesterol.total/Cho lesterol in HDL [Mass ratio] 2.5 {ratio} Normal [facility] Comment on above: Performed By: #### A LT, LIPID, BNP #### [facility] [address] [address] [address] Taisha Alexandra HDL NORMAL > or = 60 mg/dl - LOW CARDIOVASCULAR RISK <40 mg/dl - HIGH CARDIOVASCULAR RISK Normal [facility] Comment on above: Performed By: #### A LT, LIPID, BNP #### [facility] [address] [address] [address] Taisha Alexandra LDL CALC NORMAL SEE BELOW Normal [facility] Comment on above: Result Comment: <100 mg/dl OPTIMAL 100 - 129 mg/dl NEAR OR ABOVE OPTIMAL 130 - 159 mg/dl BORDERLINE HIGH 160 - 189 mg/dl HIGH >190 mg/dl VERY HIGH Performed By: #### A LT, LIPID, BNP #### [facility] [address] [address] [address] Taisha Alexandra Triglyceride [Mass/Vol] 38 mg/dL Normal <=150 [facility] Comment on above: Performed By: #### A LT, LIPID, BNP #### [facility] [address] [address] [address] Taisha Alexandra VLDL CALC 7.6 mg/dL Normal [facility] Comment on above: Performed By: #### A LT, LIPID, BNP #### [facility] [address] [address] [address] Taisha Alexandra MICROALBUMIN, RAND URon 05-22 mALB 1.8 mg/L Normal <=30.0 [facility] Comment on above: Performed By: #### M ALBR #### [facility] [address] [address] [address] Taisha Alexandra SGPTon 06-09-2022 ALT [Catalytic activity/Vol] 22 U/L Normal 14-59 [facility] Comment on above: Performed By: #### A LT, LIPID, BNP #### [facility] [address] [address] [address] Taisha Alexandra US CAROTID ART BILon [...] by: NEWTON KAHN Date: 2022-06-09 21:11 Normal [facility] GLYCOHEMOGLOBIN A1Con 2021 ADA RECOMMENDATION ADA THERAPEUTIC TARGET 6.0 - 7.0 ACTION SUGGESTED > 7.0 Normal [facility] Comment on above: Performed By: #### A 1C #### [facility] [address] [address] [address] Taisha Alexandra Glucose [Mass/Vol] 134 mg/dL Normal [facility] Comment on above: Performed By: #### A 1C #### [facility] [address] [address] [address] Taisha Alexandra HbA1c (Bld) [Mass fraction] 6.3 % Critically high <=6.0 [facility] Comment on above: Performed By: #### A 1C #### [facility] [address] [address] [address] Taisha Alexandra Vital Signs Date Time Vital Sign Value Performing Clinician Facility 10-17-2023 11:18-0500 Body height 165.1 cm DO Kaleb Ball Work Phone: [facility] 10-17-2023 11:18-0500 Body mass index (BMI) [Ratio] 29.7 kg/m2 DO Kaleb Ball Work Phone: [facility] 10-17-2023 11:18-0500 Body weight 81.19 kg DO Kaleb Ball Work Phone: [facility] 10-17-2023 11:18-0500 Diastolic blood pressure 78 mm[Hg] DO Kaleb Ball Work Phone: [facility] 10-17-2023 11:18-0500 Heart rate 60 /min DO Kaleb Ball Work Phone: [facility] 10-17-2023 11:18-0500 Respiratory rate 18 /min DO Kaleb Ball Work Phone: [facility] 10-17-2023 11:18-0500 SaO2% (BldA) [Mass fraction] 96 % DO Kaleb Ball Work Phone: [facility] 10-17-2023 11:18-0500 Systolic blood pressure 134 mm[Hg] DO Kaleb Ball Work Phone: [facility] 08-16-2023 11:15-0500 Body height 170.18 cm Kaleb Ball Other [facility] 08-16-2023 11:15-0500 Body mass index (BMI) [Ratio] 27.56 kg/m2 Kaleb Ball Other [facility] [employer] Other 08-16-2023 11:15-0500 Body weight 79.83 kg Kaleb Ball Other [facility] 08-16-2023 11:15-0500 Diastolic blood pressure 72 mm[Hg] Kaleb Ball Other [facility] 08-16-2023 11:15-0500 Respiratory rate 12 /min Kaleb Ball Other [facility] [employer] Other 08-16-2023 11:15-0500 Systolic blood pressure 115 mm[Hg] Kaleb Ball Other [facility] 08-08-2023 14:45-0500 Body height 170.18 cm Kaleb Ball Other [facility] 08-08-2023 14:45-0500 Body mass index (BMI) [Ratio] 27.66 kg/m2 Kaleb Ball Other [facility] [employer] Other 08-08-2023 14:45-0500 Body weight 80.11 kg Kaleb Ball Other [facility] [employer] Other 08-08-2023 14:45-0500 Body weight 80.1 kg DO Kaleb Ball Work Phone: [facility] 08-08-2023 14:45-0500 Diastolic blood pressure 73 mm[Hg] Kaleb Ball Other [facility] 08-08-2023 14:45-0500 Systolic blood pressure 106 mm[Hg] Kaleb Ball Other [facility] 2023 16:42-0500 Body height 170.18 cm Kaleb Ball Other [facility] 07-13-2023 10:45-0500 Body height 170.18 cm Kaleb Ball Other [facility] [employer] Other 07-13-2023 10:45-0500 Body mass index (BMI) [Ratio] 27.88 kg/m2 Kaleb Ball Other [employer] Other 07-13-2023 10:45-0500 Body weight 80.74 kg Kaleb Ball Other [facility] [employer] Other 07-13-2023 10:45-0500 Diastolic blood pressure 74 mm[Hg] Kaleb Ball Other [employer] Other 07-13-2023 10:45-0500 Respiratory rate 12 /min Kaleb Ball Other [employer] Other 07-13-2023 10:45-0500 Systolic blood pressure 125 mm[Hg] Kaleb Ball Other [employer] Other 06-06-2023 14:00-0400 Body height 170.18 cm Kaleb Ball Other [employer] Other 06-06-2023 14:00-0400 Body mass index (BMI) [Ratio] 28.16 kg/m2 Kaleb Ball Other [employer] Other 06-06-2023 14:00-0400 Body weight 81.56 kg Kaleb Ball Other [employer] Other 06-06-2023 14:00-0400 Diastolic blood pressure 65 mm[Hg] Kaleb Ball Other [employer] Other 06-06-2023 14:00-0400 Respiratory rate 12 /min Kaleb Ball Other [employer] Other 06-06-2023 14:00-0400 Systolic blood pressure 103 mm[Hg] Kaleb Ball Other [employer] Other 11-30-2022 15:30-0400 Body height 170.18 cm Kaleb Ball Other [employer] Other 11-30-2022 15:30-0400 Body mass index (BMI) [Ratio] 30.85 kg/m2 Kaleb Ball Other [employer] Other 11-30-2022 15:30-0400 Body weight 89.36 kg Kaleb Ball Other [employer] Other 11-30-2022 15:30-0400 Diastolic blood pressure 70 mm[Hg] Kaleb Ball Other [employer] Other 11-30-2022 15:30-0400 Respiratory rate 12 /min Kaleb Ball Other [employer] Other 11-30-2022 15:30-0400 Systolic blood pressure 114 mm[Hg] Kaleb Ball Other [employer] Other Encounters Encounter Date Encounter Type Care Provider Facility Start: 10-17-2023 End: 10-17-2023 ambulatory Kaleb Ball Facility:[facility] Start: 10-17-2023 End: 10-17-2023 ambulatory DO Kaleb Ball Work Phone: [facility] Work Phone: Start: 10-17-2023 End: 10-17-2023 Patient encounter procedure DO Kaleb Ahumada Work Phone: [facility] Work Phone: Start: 09-20-2023 End: 09-20-2023 ambulatory Kaleb Ahumada Other [employer] Other Start: 09-20-2023 Telephone encounter Kaleb Ahumada [facility] Start: 08-29-2023 End: 08-29-2023 ambulatory Kaleb Ahumada Other [employer] Other Start: 08-29-2023 Telephone encounter Kaleb Ahumada [facility] Start: 08-23-2023 End: 08-23-2023 ambulatory Kaleb Ahumada Other [employer] Other Start: 08-23-2023 Telephone encounter Kaleb Ahumada [facility] Start: 08-21-2023 End: 08-21-2023 ambulatory Kaleb Ahumada Other [employer] Other Start: 08-21-2023 Telephone encounter Kaleb Ahumada [facility] Start: 08-16-2023 End: 08-16-2023 ambulatory Kaleb Ahumada Other [employer] Other Start: 08-16-2023 Transitional care yamileth melendez srvc 14 day discharge Kaleb Ahumada [facility] Start: 08-16-2023 End: 08-16-2023 Patient encounter procedure DO Kaleb Ahumada Work Phone: [facility] Work Phone: Start: 08-10-2023 End: 08-10-2023 ambulatory Kaleb Ahumada Other [employer] Other Start: 08-10-2023 Telephone encounter Kaleb Ball [facility] Start: 08-08-2023 End: 08-08-2023 ambulatory Kaleb Ball Other [employer] Other Start: 08-08-2023 Office outpatient vi sit 25 minutes Kaleb Ball [facility] Start: 08-08-2023 Telephone encounter Kaleb Ball [facility] Start: 08-08-2023 End: 08-08-2023 Patient encounter procedure DO Kaleb Ball Work Phone: [facility] Work Phone: Start: 2023 End: 2023 ambulatory Kaleb Ball Other [employer] Other Start: 2023 Telephone encounter Kaleb Ball [facility] Start: 2023 End: 2023 Patient encounter procedure DO Kaleb Ball Work Phone: [facility] Work Phone: Start: 07-15-2023 End: 07-15-2023 ambulatory Kaleb Ball Other [employer] Other Start: 07-15-2023 Telephone encounter Kaleb Ball [facility] Start: 07-13-2023 End: 07-13-2023 ambulatory Kaleb Ball Other [employer] Other Start: 07-13-2023 Office outpatient vi sit 25 minutes Kaleb Ball [facility] Start: 06-13-2023 End: 06-13-2023 ambulatory Kaleb Ball Other [employer] Other Start: 06-13-2023 Telephone encounter Kaleb Ball [facility] Start: 06-06-2023 End: 06-06-2023 ambulatory Kaleb Ball Other [employer] Other Start: 06-06-2023 Patient encounter procedure Kaleb Ball [facility] Start: 06-01-2023 End: 06-01-2023 ambulatory Kaleb Ahumada Other [employer] Other Start: 06-01-2023 Nursing evaluation o f patient and report Kaleb Ahumada [facility] Start: 11-30-2022 End: 11-30-2022 ambulatory Kaleb Ahumada Other [employer] Other Start: 11-30-2022 Office outpatient vi sit 25 minutes Kaleb Ahumada [facility] Start: 08-05-2022 End: 08-06-[address] KALEB AHUMADA Facility:[facility] Start: 06-09-2022 End: 06-10-[address] KALEB AHUMADA Facility:[facility] Start: 06-02-2022 Adult health examination David Ahumada Other [employer] Other Start: 09-28-2021 End: 09-29-[address] KALEB AHUMADA Facility:[facility] Procedures Date Procedure Procedure Detail Performing Clinician Start: 06-02-2022 Depression screening Be njrobin Ahumada Other Start: 01-18-2017 Screening for osteoporosis Kaleb Ahumada Other Start: 07-22-2015 Screening for malign ant neoplasm of colon Kaleb Ahumada Other Start: 01-21-2015 Screening mammography B enjanessa Ahumada Other Screening for malign ant neoplasm of breast Kaleb Ahumada Other Plan of Treatment Date Care Activity Detail Author Start: 10-17-2023 EKG 12 channel panel [facility] Immunizations Immunization Date Immunization Notes Care Provider Fa amaya 06-01-2023 influenza, high dose seasonal, preservative-free Kaleb Ahumada Other [employer] Other 06-01-2023 influenza virus vaccine, unspecified formulation DO Kaleb Ahumada Work Phone: [facility] 06-02-2022 influenza virus vaccine, split virus (incl. purified surface antigen) Kaleb Ahumada Other [employer] Other 06-02-2022 influenza virus vaccine, unspecified formulation DO [employer] Work Phone: [facility] 05-20-2021 influenza virus vaccine, split virus (incl. purified surface antigen) Kaleb [employer] Other [facility] [employer] Other 05-20-2021 influenza virus vaccine, unspecified formulation DO [employer] Work Phone: [facility] 04-25-2020 influenza virus vaccine, split virus (incl. purified surface antigen) Kaleb [employer] Other [facility] [employer] Other 04-25-2020 influenza virus vaccine, unspecified formulation DO [employer] Work Phone: [facility] 06-20-2019 influenza virus vaccine, split virus (incl. purified surface antigen) Kaleb [employer] Other [facility] [employer] Other 06-20-2019 influenza virus vaccine, unspecified formulation DO [employer] Work Phone: [facility] 06-13-2018 influenza virus vaccine, split virus (incl. purified surface antigen) Kaleb [employer] Other [facility] [employer] Other 06-13-2018 influenza virus vaccine, unspecified formulation DO [employer] Work Phone: [facility] 06-08-2017 influenza virus vaccine, split virus (incl. purified surface antigen) Kaleb [employer] Other [facility] [employer] Other 06-08-2017 influenza virus vaccine, unspecified formulation DO [employer] Work Phone: [facility] 08-02-2016 influenza virus vaccine, split virus (incl. purified surface antigen) Kaleb [employer] Other [facility] [employer] Other 08-02-2016 influenza virus vaccine, unspecified formulation DO [employer] Work Phone: [facility] 07-23-2015 pneumococcal conjuga te vaccine, 13 valent Kaleb Ahumada Other [facility] 05-31-2012 tetanus and diphther ia toxoids, adsorbed, preservative free, for adult use (5 Lf of tetanus toxoid and 2 Lf of diphtheria toxoid) Kaleb Ahumada Other [facility] Payers Date Payer Category Payer Self-pay 1959 Unknown [id number] 1945 Unknown [id number] 1945 Unknown [id number] 1945 Unknown [id number] Unknown [id number] Social History Date Type Detail Facility Sex Assigned At [facility] [employer] Other Start: 10-17-2023 Tobacco smoking stat us MAIS Never smoked tobacco (finding) [facility] Start: 1945 Sex Assigned At Female F [facility] Clinical Notes 11-30-2022 to 08-21-2023 Note Date & Type Note Facility 08-21-2023 Evaluation note Encounter Date Diagnosis Assessment Notes Jul, Paroxysmal atrial fibrillation (ICD-10 - I48.0) Echo: 07/2023 - LVEF is 60 to 65% - Normal right ventricular size and systolic function - Biatrial enlargement - Mild tricuspid regurgitation - RVSP 38 mmHg - Mild to moderate mitral regurgitation [facility] [employer] Other [id number] Evaluation note* Encounter Date Diagnosis Assessment Notes Treatment Notes Treatment Clinical Notes Jul, Precordial pain (ICD-10 - R07.2) [...] AC for procedure. Repeat CBC in week. [employer] Other 12-20-2023 Evaluation note* Encounter Date Diagnosis Assessment Notes Treatment Notes Treatment Clinical Notes Jul, Paroxysmal atrial fibrillation (ICD-10 - I48.0) Echo: 07/2023 - LVEF is 60 to 65% - Normal right ventricular size and systolic function - Biatrial enlargement - Mild tricuspid regurgitation - RVSP 38 mmHg - Mild to moderate mitral regurgitation [employer] Other 12-18-2023 Evaluation note* Encounter Date Diagnosis Assessment Notes Treatment Notes Treatment Clinical Notes Jul, Paroxysmal atrial fibrillation (ICD-10 - [...] primary prevention. 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) Jun, Sallow complexion (ICD-10 - R23.8) Jun, Weight loss, unintentional (ICD-10 - R63.4) Jun, Fatigue, unspecified type (ICD-10 - R53.83) [employer] Other 11-22-2023 Evaluation note* Encounter Date Diagnosis Assessment Notes Treatment Notes Treatment Clinical Notes Jun, Type 2 diabetes mellitus with [...] C54.1) s/p AMANDA - no s/s recurrence [employer] Other 10-16-2023 Evaluation note* Encounter Date Diagnosis Assessment Notes Treatment Notes Treatment Clinical Notes May, Medicare annual wellness visit, subsequent [...] No s/s recurrence May, Other This patient atkins s been instructed on a low-fat, high-fiber diet. They are instructed to reduce calories, portion sizes and snacks. It is recommended that they exercise for 30 minutes, 3-5 times weekly. [employer] Other 04-11-2023 Evaluation note* Encounter Date Diagnosis Assessment Notes Treatment Notes Treatment Clinical Notes Nov, Primary hypertension (ICD-10 - I10) [...] endometrium (ICD-10 - Z85.42) No s/s recurrence [employer] Other [facility]No [facility] [employer] Other Evaluation noteNo assessment information available [facility] Work Phone: History general Narrative - Reported* Type Description Date Medical History Left carotid bruit Medical History Estrogen deficiency Surgical History RIGHT BREAST BX 2002,2014 Surgical History LEFT BREAST BX 2005 Surgical History AMANDA 2009 Surgical History ARTHROSCOPY RIGHT KNEE 2005 Surgical History CATARACT B/L 2019 Hospitalization History SEE SURGICAL HX [employer] Other Reason for referral (narrative)* Reason *Waiting for appt Referral for new onset paroxysmal atrial fibrillation and an abnormal stress test Diagnosis 1 Precordial pain (R07 .2) Diagnosis 2 Paroxysmal atrial fi brillation (I48.0) Referral Organization [facility] Referring Provider First Name Kaleb Referring Provider Last Name Brandyn Referring Provider Specialty Internal Me dicine Referred Organization [facility] Cardiology Referred Provider Lila Myers Referred Address [address] [place] [address],[place] [address],[place], [place],[phone] Referred Provider Specialty Cardiovascul ar Disease Referral Priority Routine General Notes Mrs. Daily presente d w/ profound fatigue. Paroxysmal atrial fibrillation was diagnosed and she was prescribed medication for rate control and anticoagulated with a DOAC. A holter monitor, Echocardiogram and Lexiscan stress test are included for your review. Her NM imaging revealed a normal EF of 66%, no TID and an anterior-apical fixed defect. Mrs. Daily is being referred for further testing and treatment of her PAF and abnormal stress testing. Shanta Dean 09/25/2023 04:31:27 PM >received today, attachments made, referral faxed P2P Clinical Notes Include: - Labs: since Jun - Echo - Holter - Stress testing [employer] Other Summary Purpose Family History No Family History Records Found Relationship Condition Age at Onset Recorded Date/T erik brother Heart disease Unknown High blood cholesterol Unknown Hypertension Unknown Coronary artery disease Unknown father Malignant neoplasm Unknown Malignant neoplasm of brain Unknown Heart disease Unknown grandparent Diabetes mellitus Unknown sister Myocardial infarction Unknown Not Specified Heart disease Unknown Congestive heart failure Unknown Advance Directives No Advanced Directives Records Found Advance Directive Response Recorded Date/ Time Advance Directives No September 14, 2023 5:21pm Chief Complaint and Reason for Visit Chief Complaint Letter Not Feeling Better-Tiredness Tbh paroxysmal a-fib precordial pain Additional Source Comments INFORMATION SOURCE (unrecogn ized section and content) DATE CREATED AUTHOR 08/12/2022 [facility] DATE CREATED AUTHOR AUTHOR'S ORGANIZ ATION 10/22/2023 [facility] REASON FOR VISIT (unrecogniz ed section and content) 6 MONTH FOLLOW UPflu shotWEL LNESSLab resultsvery tired all the timeNo InformationCT resultsLetterNot Feeling Better-TirednessNot Feeling BetterTCMNo InformationTBHNo InformationMamm resultsHolter resultsNot Feeling Better-TirednessTBHStress/Lab results Care Teams (unrecognized sec tion and content) Team Status: Active Member Role Status Sabas Ahumada DO Primary Care Provider Active Team Status: Inactive Member Role Status Dates Kaleb Ahumada DO Attending Provider Active Sta rt: 2023 End: 2023 Team Status: Inactive Member Role Status Sabas Ahumada DO Attending Provider Active Sta rt: August 08, 2023 End: August 08, 2023 Team Status: Inactive Member Role Status Dates Kaleb Ahumada DO Attending Provider Active Sta rt: August 16, 2023 End: August 16, 2023 Team Status: Inactive Member Role Status Dates Kaleb Ahumada DO Primary Care Provider Active Start: October 17, 2023 End: October 17, 2023 Dave Hoff MD Attending Provider Activ e Start: October 17, 2023 End: October 17, 2023 Team Status: Active Member Role Status Dates Kaleb Ahumada DO Primary Care Provider Active Start: October 17, 2023 Dave Hoff MD Attending Provider Activ e Start: October 17, 2023 Goals (unrecognized section and content) Goals may be documented in a n alternate section FOR RECORDS PERTAINING TO PATIENTS WHO ARE [...] BE BASED ON THE PRIMARY CLINICAL RECORDS. [facility] [employer] [facility]. provides no warranty or guarantee of the accuracy or completeness of information in this document.
[2023-12-06 15:18] LABS: Estimated Average Glucose 123 mg/dL; Glycohemoglobin A1C 5.9 % (4.5-6.2)
[2023-12-06 15:20] LABS: Basophils Percent Auto 0.3 % (0.2-2.0); Eosinophils Absolute Auto 0.1 10^3/uL (0.0-0.7); Eosinophils Percent Auto 2.4 % (0.9-7.0); Hematocrit 40.3 % (36.0-48.0); Hemoglobin 11.9 g/dL (12.0-16.0); Immature Granulocytes Abs Auto 0.01 10^3/uL (0.00-0.03); Immature Granulocytes Pct Auto 0.2 % (0.0-0.5); Lymphocytes Absolute Auto 1.7 10^3/uL (1.2-3.8); Lymphocytes Percent Auto 29.2 % (20.5-60.0); Mean Corpuscular HGB Conc 29.5 g/dL (29.9-35.2); Mean Corpuscular Hemoglobin 26.2 pg (26.7-34.0); Mean Corpuscular Volume 88.6 fL (81.0-99.0); Mean Platelet Volume 10.6 fL (9.5-13.5); Monocytes Absolute Auto 0.5 10^3/uL (0.3-0.8); Monocytes Percent Auto 8.3 % (1.7-12.0); Neutrophils Absolute Auto 3.5 10^3/uL (1.4-6.5); Neutrophils Percent Auto 59.6 % (43.0-75.0); Platelet Count 200 10^3/uL (150-450); Red Blood Count 4.55 10^6/uL (4.20-5.40); White Blood Count 5.9 10^3/uL (4.0-11.0)
[2023-12-06 15:43] LABS: Percent Iron Saturation 19.5 %
== END 2023-12-06 14:43 | disposition home or self-care (01) ==
LOC: LAB 14:43
PROVIDERS: PCP Internal Medicine; Visit Provider Internal Medicine
DX: D64.9 Anemia, unspecified (principal); E11.65 Type 2 diabetes mellitus with hyperglycemia
CPT/HCPCS: 36415; 82607; 82728; 82746; 83036; 83540; 83550; 85025

== ENCOUNTER 2024-05-02 13:05 | Outpatient (OUT) | payer MEDICARE, SELFPAY ==
--- NOTE | 2024-05-02 | XR_ITS ---
The [address] [address] Patient Name: CHARLEY DAILY MRN: [id number] date: 1945 Sex: F Assigned Patient Location: [facility] Current Patient Location: Accession/Order Number: [id number] Exam Date: 05/02/2024 13:14 Report Date: 05/04/2024 04:41 At the request of: KINJAL BRISENO Procedure: XR shoulder RT min 2V PROCEDURE: XR shoulder RT min 2V HISTORY: right shoulder pain COMPARISON: None. FINDINGS: BONES:Narrowing of the acromioclavicular joints with small undersurface osteophytes. Unremarkable humeral head and glenoid. SOFT TISSUES:No visible soft tissue swelling. EFFUSION:None visible. OTHER: Negative. XR/XR shoulder RT min 2V IMPRESSION: 1. Degenerative changes of acromioclavicular joint which would predispose to rotator cuff injury. Electronically authenticated by: NEWTON KAHN Date: 05/04/2024 04:41
== END 2024-05-02 13:06 | disposition home or self-care (01) ==
LOC: RAD 13:07
PROVIDERS: PCP Internal Medicine; Visit Provider Internal Medicine
DX: M25.511 Pain in right shoulder (principal); M75.41 Impingement syndrome of right shoulder; M19.011 Primary osteoarthritis, right shoulder
CPT/HCPCS: 73030

== ENCOUNTER 2024-06-13 06:48 | Outpatient (OUT) | payer MEDICARE, SELFPAY ==
--- OUTSIDE RECORDS SUMMARY | 2024-06-12 10:16 | XMS_ITS | CCD ---
Author Organization [facility] Care Team Providers Care Ophthalmic Technician Apprentice Name Role Phone DR KALEB AHUMADA Attending Unavailable BALL, DR MANUEL Consulting Unavailable BALL, DR MANUEL Primary Care Unavailable BALL, DR MANUEL Admitting Unavailable WEST, DR NEVIN [...] Unavailable DO Kaleb Ahumada Primary Care Provider [phone] MD Dave Hoff Attending Provider Kaleb Ahumada Primary Care Dave Gerard Attending Jennifer Hoff, Dave Ortiz Admitting DO Kaleb Martinez Primary Care Provider MD Dave Hoff Attending Provider Allergies Allergy Classification Reported Allergen(s) Allergy Type Date of Onset Reaction(s) Facility (1 source) patient allergy list reviewed by nurse or physicia Propensity to adverse reactions 7 Comment:Done UpDown Other Medications Current Medications Medication Drug Class(es) Dates Sig (Normalized) Sig (Original) apixaban 5 mg oral tablet (9 sources) Factor Xa Inhibitor Start: 10-17-2023 End: 12-06-2023 take 1 tablet by mouth every twelve hours Apixaban (Eliquis) 5 mg tablet Active 5 MG PO Every 12 hours 180 90 December 06, 2023 2:17pm atorvastatin 40 mg oral tablet (20 sources) HMG-CoA Reductase Inhibitor Start: 10-17-2023 End: 04-16-2024 take 40 mg by mouth once daily Atorvastatin Active 40 MG PO Daily 90 90 December 06, 2023 2:18pm take 1 tablet by mati th once daily in the evening Atorvastatin Calcium 40 MG TAKE 1 TABLET BY MOUTH ONCE DAILY IN THE EVENING Active Biotin (5 sources) Start: 10-17-2023 take 1 tablet by mouth once daily Biotin (Hair, Skin And Nails (Biotin)) 10,000 mcg tablet,chewable Active 57824 MCG PO Daily October 17, 2023 1:00am Start: 10-17-2023 take 1 tablet by mati th once daily Biotin (Hair, Skin And Nails (Biotin)) 10,000 mcg tablet,chewable Active 87595 MCG PO Daily October 17, 2023 12:00am calcium ascorbate 500 mg oral tablet (5 sources) Start: 10-17-2023 take 500 mg by mouth once daily Ascorbate Calcium (Vitamin C) Active 500 MG PO Daily October 17, 2023 1:00am ferrous sulfate 325 mg oral tablet (19 sources) Start: 10-17-2023 End: 12-06-2023 take 1 tablet by mouth three times weekly Ferrous Sulfate Active 325 MG PO 3 Times a week 39 90 December 06, 2023 2:34pm FreeTextSi tablet Orally Three times a Week; Note: Source Status: Taking; Provider: Brandyn Manuel ( ) take 1 tablet by mouth three brittney es weekly Iron 325 (65 Fe) MG 1 tablet Orally Three times a Week Active loratadine 10 mg oral tablet (5 sources) Start: 10-17-2023 take 1 tablet by mouth once daily Loratadine (Allergy Relief (Loratadine)) 10 mg tablet Active 10 MG PO Daily October 17, 2023 1:00am Magnesium (5 sources) Start: 10-17-2023 take 250 mg by mouth once daily Magnesium Active 250 MG PO Daily October 17, 2023 1:00am Start: 10-17-2023 take 250 mg by mouth once araceli y Magnesium Active 250 MG PO Daily October 17, 2023 12:00am 24 hr metoprolol succinate 25 mg extended release oral tablet (15 sources) beta-Adrenergic John Start: 10-17-2023 End: 12-06-2023 take 25 mg by mouth once daily Metoprolol Succinate Active 25 MG PO Daily 90 90 December 06, 2023 2:34pm Start: 08-21-2023 take 1 tablet by mati [...] Acid (Adult Multivitamin Gummies) 200 mcg tablet,chewable (5 sources) Start: 10-17-2023 take 1 tablet by mouth once daily Multivit With Min-Folic Acid (Adult Multivitamin Gummies) 200 mcg tablet,chewable Active 1 TAB PO Daily October 17, 2023 1:00am Start: 10-17-2023 take 1 tablet by mati th once daily Multivit With Min-Folic Acid (Adult Multivitamin Gummies) 200 mcg tablet,chewable Active 1 TAB PO Daily October 17, 2023 12:00am Ze-Ejc-Vo-Vit E-Pniejy-Kwgvoca (Preservision Areds 2 Plus Mv) 200 mcg-15 mcg- 5 mg-1 mg capsule (5 sources) Start: 10-17-2023 take 1 capsule by mouth once daily Dh-Ksj-Uo-Vit G-Idszig-Fpdsuxp (Preservision Areds 2 Plus Mv) 200 mcg-15 mcg- 5 mg-1 mg capsule Active 1 CAP PO Daily October 17, 2023 1:00am Start: 10-17-2023 take 1 capsule by mo [facility] once daily Tu-Xkx-Jz-Vit C-Qfslma-Ligxkqc (Preservision Areds 2 Plus Mv) 200 mcg-15 mcg- 5 mg-1 mg capsule Active 1 CAP PO Daily October 17, 2023 12:00am Ozempic (0.25 or 0.5 MG/DOSE ) 2 MG/1.5ML (18 sources) Start: 11-30-2022 Ozempic (0.25 or 0.5 MG/DOSE) 2 MG/1.5ML 0.25 MG Subcutaneous weekly Nov, Active Start: 11-30-2022 Ozempic (0.25 or 0.5 MG/DOSE) 2 MG/1.5ML 0.25 MG Subcutaneous weekly for 28 days Nov, Active predniSONE 20 mg oral tablet (2 sources) Start: 05-02-2024 take 20 mg by mouth once daily Prednisone Active 20 MG PO Daily 12 24May 02, 2024 12:00am Semaglutide (10 sources) Start: 05-23-2024 Semaglutide (O zempic) 0.25 mg or 0.5 mg (2 mg/3 mL) pen injector Active 0.5 MG SUBCUT every week 3 May 23, 2024 6:26pm Start: 03-26-2024 End: 05-23-2024 Semaglutide (Ozempic) 0.25 m g or 0.5 mg (2 mg/3 mL) pen injector Discontinued 0 .ROUTE .COMPLEX 3 March 26, 2024 6:23pm May 23, 2024 6:26pm INJECT 0.25 MG SUBCUTANEOUSLY ONCE WEEKLY Start: 03-26-2024 Semaglutide (O zempic) 0.25 mg or 0.5 mg (2 mg/3 mL) pen injector Active 0 .ROUTE .COMPLEX 3 March 26, 2024 6:23pm INJECT 0.25 MG SUBCUTANEOUSLY ONCE WEEKLY Start: 02-01-2024 End: 03-26-2024 Semaglutide (Ozempic) 0.25 m g or 0.5 mg (2 mg/3 mL) pen injector Discontinued 0 .ROUTE .COMPLEX 3 February 01, 2024 9:12am March 26, 2024 6:26pm INJECT 0.25 MG SUBCUANEOUSLY WEEKLY Start: 12-06-2023 End: 02-01-2024 inject 0.25 mg by subcutaneous injection every week Semaglutide Discontinued 0.25 MG SUBCUT every week December 06, 2023 12:00am February 01, 2024 9:12am for 4 weeks vitamin B12 (11 sources) Vitamin B12 Vitamin B-12 Act georgiana Completed/Discontinued Medications Medication Drug Class(es) Dates Sig (Normalized) Sig (Original) losartan potassium 25 mg oral tablet (20 sources) Angiotensin 2 Receptor John Start: 10-11-2023 End: 10-17-2023 take 25 mg by mouth once daily Losartan Discontinued 25 MG PO daily October 11, 2023 1:00am October 17, 2023 12:07pm take 1 tablet by mouth once araceli y Losartan Potassium 25 MG Take 1 tablet by mouth once daily Active 0.25 mg, 0.5 mg dose 1.5 ml semaglutide 1.34 mg/ml pen injector (6 sources) Start: 10-17-2023 End: 12-06-2023 Semaglutide (Ozempic) 0.25 m g or 0.5 mg(2 mg/1.5 mL) pen injector Discontinued 0.25 MG SUBCUT every week October 17, 2023 1:00am December 06, 2023 2:37pm FreeTextSi.25 MG Subcutaneous weekly; Note: Source Status: Taking; Provider: Brandyn Mack Start: 11-30-2022 Ozempic (0.25 or 0.5 MG/DOSE) 2 MG/1.5ML 0.25 MG Subcutaneous weekly for 28 days Nov, Active Problems Active Problems Problem Classification Problem Date Documented Da te Episodic/Chronic Cancer of uterus (2 sources) Malignant neoplasm of corpus uteri, excluding isthmus; Translations: [Malignant neoplasm of Corpus uteri, except isthmus] Chronic Cancer of uterus (20 sources) History of malignant neoplasm of endometrium; Translations: [Personal history of malignant neoplasm of other parts of uterus] Episodic Cardiac dysrhythmias (20 sources) Paroxysmal atrial fibrillation; Translations: [Paroxysmal atrial fibrillation] Onset: 10-17-2023 Chronic Congestive heart failure; nonhypertensive (16 sources) Acute on chronic diastolic heart failure; Translations: [Acute on chronic diastolic (congestive) heart failure] Chronic Deficiency and other anemia (1 source) Other specified anemias Episodic Deficiency and other anemia (2 sources) Anemia, unspecified Episodic Deficiency and other anemia (4 sources) Anemia; Translations: [Anemia, unspecified] 12-02-2023 Episodic Diabetes mellitus with complications (20 sources) [...] hypertension; Translations: [Essential hypertension] Onset: 06-13-2022 Chronic Heart valve disorders (2 sources) Heart murmur; Translations: [Cardiac murmur, unspecified] 06-08-2024 Episodic Immunizations and screening for infectious disease (1 [...] unspecified] Chronic Other aftercare (1 source) Other custodial (current) drug therapy; Translations: [OTH FDC CURRENT DRUG THERAPY] Onset: 06-13-2022 Episodic Other aftercare (1 source) Long-term current use of drug therapy; Translations: [Other oysterman (current) drug therapy] Episodic Other circulatory disease (9 sources) Other specified symptoms and signs involving the circulatory and respiratory systems; Translations: [OTH SPEC SX SIGNS INVLV CIRC RS] Onset: 06-09-2022 Episodic Other circulatory disease (19 sources) Cardiovascular symptoms; Translations: [Other specified symptoms and signs involving the circulatory and respiratory systems] Episodic Other circulatory disease (5 sources) Carotid bruit; Translations: [Other specified symptoms and signs involving the circulatory and respiratory systems] 10-17-2023 Episodic Other connective tissue disease (2 sources) Impingement syndrome of shoulder region; Translations: [Impingement syndrome of right shoulder] 05-02-2024 Episodic Other connective tissue disease (2 sources) Impingement syndrome of right shoulder; Translations: [Other affections of shoulder region, not elsewhere classified] 05-02-2024 Episodic Other ear and sense organ disorders (1 source) Otitis externa; Translations: [Unspecified otitis externa, unspecified ear] Chronic Other ear and sense organ disorders (1 source) Impacted cerumen; Translations: [Impacted cerumen, unspecified ear] Episodic Other injuries and conditions due to external causes (1 source) History of fall; Translations: [History of falling] Episodic Other non-traumatic joint disorders (4 sources) Pain in right shoulder; Translations: [Right shoulder pain] 05-02-2024 Episodic Other nutritional; endocrine; and metabolic disorders (19 sources) Body mass index 30+ - obesity; Translations: [Obesity, unspecified] Chronic Other nutritional; endocrine; and metabolic disorders (2 sources) Obesity, unspecified; Translations: [Obesity, unspecified] Chronic Other nutritional; endocrine; and metabolic disorders (4 sources) Obesity; Translations: [Obesity, unspecified] Onset: 06-02-2022 12-06-2023 Chronic Other nutritional; endocrine; and metabolic disorders [...] (2 sources) Abnormal weight loss Episodic Other screening for suspected conditions (not mental disorders or infectious disease) (7 sources) Encounter for screening mammogram for malignant neoplasm of breast; Translations: [Mammography abnormal] Onset: 07-14-2014 Episodic Other skin disorders (2 sources) Other skin changes Episodic Residual codes; unclassified (1 source) Family history of malignant neoplasm of other organs or systems; Translations: [FAM HX MALIG NEOPLASM OT ORGN/SYS] Onset: 08-09-2022 Episodic Residual codes; unclassified [...] Translations: [Otalgia, unspecified ear] Onset: 07-09-2013 Episodic Unclassified (1 source) Long-term current use of drug therapy; Translations: [Long-term (current) use of other medications] Onset: 01-18-2017 Viral infection (1 source) Herpes zoster with nervous system complication; Translations: [Herpes zoster with unspecified nervous system complication] Onset: 12-02-2014 Episodic Results Test Name Value Interpretation Reference Range Facility ECG 12 lead ECGon 10-17-2023 ECG 12 lead ECG [facility] [place] [address] Electrocardiograph Report Signed Patient: Alycia Daily MR#: [id number] 196 : 1945 Acct:[id number] Age/Sex: 78 / F ADM Date: 10/17/23 Loc: [facility] Room: Type: [facility] Attending Dr: Dave Hoff MD Ordering Provider: [...] previous ECGs available Confirmed by Dave Hoff ([id number]) on 10/18/2023 10:36:42 AM Referred By: Electronically Signed By:Dave Hoff Transcribed By: MUS Signed By Dave Hoff MD 10/18/23 1036 [facility] MG MAMM SCREEN 3D RAKAN CADon 08-05-2022 MG MAMM SCREEN 3D RAKNA CAD Patient: ALYCIA DAILY Exam Date: 08/05/2022 : 1945 Gender:F Ordering : DR KALEB AHUMADA D.O. Admission #: [id number] Family : Order #: [id number] CLICK HERE TO VIEW EXAM RADIOLOGY REPORT [...] at age 64. LOCATION: [facility] BREAST COMPOSITION: Scattered areas fibroglandular density. [...] 08/06/2022 at 08:58 Normal [facility] BNPon 06-09-2022 Natriuretic peptide B (Bld) [Mass/Vol] 188.0 pg/mL Normal <=1,800.0 [facility] Comment on above: Performed By: #### A LT, LIPID, BNP #### [facility] [address] [place] [address] Dr. Taisha Alexandra CBC AUTO DIFFon 06-09-2022 BASO # 0.0 103/ul Normal 0.0-0.1 [facility] Comment on above: Performed By: #### C BC #### [facility] [address] [place] [address] Dr. Taisha Alexandra Basophils/100 WBC (Bld) 0.4 % Normal 0.2-2.0 [facility] Comment on above: Performed By: #### C BC #### [facility] [address] [place] [address] Dr. Taisha Alexandra EO # 0.2 103/ul Normal 0.0-0.7 [facility] Comment on above: Performed By: #### C BC #### [facility] [address] [place] [address] Dr. Taisha Alexandra Eosinophils/100 WBC (Bld) 2.8 % Normal 0.9-7.0 [facility] Comment on above: Performed By: #### C BC #### [facility] [address] [place] [address] Dr. Taisha Alexandra Erythrocyte distribution width (RBC) [Ratio] 13.3 % Normal 11.0-15.0 [facility] Comment on above: Performed By: #### C BC #### [facility] [address] [place] [address] Dr. Taisha Alexandra Hematocrit (Bld) [Volume fraction] 40.3 % Normal 36.0-48.0 [facility] Comment on above: Performed By: #### C BC #### [facility] [address] [place] [address] Dr. Taisha Alexandra Hemoglobin (Bld) [Mass/Vol] 12.7 g/dL Normal 12.0-16.0 [facility] Comment on above: Performed By: #### C BC #### [facility] [address] [place] [address] Dr. Taisha Alexandra IG # 0.01 10e3/ul Normal 0.00-0.03 [facility] Comment on above: Performed By: #### C BC #### [facility] [address] [place] [address] Dr. Taisha Alexandra IG % 0.2 % Normal 0.0-0.5 [facility] Comment on above: Performed By: #### C BC #### [facility] [address] [place] [address] Dr. Taisha Alexandra LYMPH # 1.7 103/ul Normal 1.2-3.8 [facility] Comment on above: Performed By: #### C BC #### [facility] [address] [place] [address] Dr. Taisha Alexandra Lymphocytes/100 WBC (Bld) 31.9 % Normal 20.5-60.0 [facility] Comment on above: Performed By: #### C BC #### [facility] [address] [place] [address] Dr. Taisha Alexandra MANUAL DIFF REQ NO Normal [facility] Comment on above: Performed By: #### C BC #### [facility] [address] [place] [address] Dr. Taisha Alexandra MCH (RBC) [Entitic mass] 28.9 pg Normal 26.7-34.0 [facility] Comment on above: Performed By: #### C BC #### [facility] [address] [place] [address] Dr. Taisha Alexandra MCHC (RBC) [Mass/Vol] 31.5 g/dL Normal 29.9-35.2 [facility] Comment on above: Performed By: #### C BC #### [facility] [address] [place] [address] Dr. Taisha Alexandra MCV (RBC) [Entitic vol] 91.6 fL Normal 81.0-99.0 [facility] Comment on above: Performed By: #### C BC #### [facility] [address] [place] [address] Dr. Taisha Alexandra MONO # 0.4 103/ul Normal 0.3-0.8 [facility] Comment on above: Performed By: #### C BC #### [facility] [address] [place] [address] Dr. Taisha Alexandra Monocytes/100 WBC (Bld) 8.3 % Normal 1.7-12.0 [facility] Comment on above: Performed By: #### C BC #### [facility] [address] [place] [address] Dr. Taisha Alexandra NEUT # 3.0 103/ul Normal 1.4-6.5 [facility] Comment on above: Performed By: #### C BC #### [facility] [address] [place] [address] Dr. Taisha Alexandra Neutrophils/100 WBC (Bld) 56.4 % Normal 43.0-75.0 [facility] Comment on above: Performed By: #### C BC #### [facility] [address] [address] [address] Taisha Alexandra Platelet mean volume (Bld) [Entitic vol] 10.3 fL Normal 9.5-13.5 [facility] Comment on above: Performed By: #### C BC #### [facility] [address] [address] [address] Taisha Alexandra PLT 224 103/ul Normal 150-450 [facility] Comment on above: Performed By: #### C BC #### [facility] [address] [address] [address] Taisha Alexandra RBC 4.40 106/ul Normal 4.20-5.40 [facility] Comment on above: Performed By: #### C BC #### [facility] [address] [place] [address] Dr. Taisha Alexandra WBC 5.3 103/ul Normal 4.0-11.0 [facility] Comment on above: Performed By: #### C BC #### [facility] [address] [place] [address] Dr. Taisha Alexandra GLYCOHEMOGLOBIN A1Con 2021 ADA RECOMMENDATION SEE BELOW Normal [facility] Comment on above: Result Comment: ADA RECOMMENDED LIMIT 4.0 - 6.0 ADA THERAPEUTIC TARGET < 7.0 ACTION SUGGESTED > 7.0 Performed By: #### A 1C #### [facility] [address] [place] [address] Dr. Taisha Alexandra Glucose [Mass/Vol] 120 mg/dL Normal [facility] Comment on above: Performed By: #### A 1C #### [facility] [address] [place] [address] Dr. Taisha Alexandra HbA1c (Bld) [Mass fraction] 5.8 % Normal 4.5-6.2 [facility] Comment on above: Performed By: #### A 1C #### [facility] [address] [place] [address] Dr. Taisha Alexandra LIPID PROFILEon 06-09-2022 CHOL-HDL RATIO NORM SEE BELOW Normal [facility] Comment on above: Result Comment: 3.3 - 4.4 LOW RISK 4.4 - 7.1 AVERAGE RISK 7.1 - 11.0 MODERATE RISK >11.0 HIGH RISK Performed By: #### A LT, LIPID, BNP #### [facility] [address] [address] [address] Taisha Alexandra Cholesterol [Mass/Vol] 138 mg/dL Normal <=200 [facility] Comment on above: Performed By: #### A LT, LIPID, BNP #### [facility] [address] [address] [address] Taisha Alexandra Cholesterol in HDL [Mass/Vol] 56 mg/dL Normal 40-60 [facility] Comment on above: Performed By: #### A LT, LIPID, BNP #### [facility] [address] [address] [address] Taisha Alexandra Cholesterol in LDL [Mass/Vol] 74.4 mg/dL Normal [facility] Comment on above: Performed By: #### A LT, LIPID, BNP #### [facility] [address] [address] [address] Taisha Alexandra Cholesterol.total/Cho lesterol in HDL [Mass ratio] 2.5 {ratio} Normal [facility] Comment on above: Performed By: #### A LT, LIPID, BNP #### [facility] [address] [address] [address] Taisha Alexandra HDL NORMAL > or = 60 mg/dl - LOW CARDIOVASCULAR RISK <40 mg/dl - HIGH CARDIOVASCULAR RISK Normal [facility] Comment on above: Performed By: #### A LT, LIPID, BNP #### [facility] [address] [address] [address] Taisha Alexandra LDL CALC NORMAL SEE BELOW Normal [facility] Comment on above: Result Comment: <100 mg/dl OPTIMAL 100 - 129 mg/dl NEAR OR ABOVE OPTIMAL 130 - 159 mg/dl BORDERLINE HIGH 160 - 189 mg/dl HIGH >190 mg/dl VERY HIGH Performed By: #### A LT, LIPID, BNP #### [facility] [address] [address] [address] Taisha Alexandra Triglyceride [Mass/Vol] 38 mg/dL Normal <=150 [facility] Comment on above: Performed By: #### A LT, LIPID, BNP #### [facility] [address] [address] [address] Taisha Alexandra VLDL CALC 7.6 mg/dL Normal [facility] Comment on above: Performed By: #### A LT, LIPID, BNP #### [facility] [address] [place] [address] Dr. Taisha Alexandra MICROALBUMIN, RAND URon - mALB 1.8 mg/L Normal <=30.0 [facility] Comment on above: Performed By: #### M ALBR #### [facility] [address] [place] [address] Dr. Taisha Alexandra SGPTon 06-09-2022 ALT [Catalytic activity/Vol] 22 U/L Normal 14-59 [facility] Comment on above: Performed By: #### A LT, LIPID, BNP #### [facility] [address] [place] [address] Dr. Taisha Alexandra US CAROTID ART BILon [...] [place]ON KAHN Date: 2022-06-09 21:11 Normal [facility] GLYCOHEMOGLOBIN A1Con 2021 ADA RECOMMENDATION ADA THERAPEUTIC TARGET 6.0 - 7.0 ACTION SUGGESTED > 7.0 Normal [facility] Comment on above: Performed By: #### A 1C #### [facility] [address] [address] [address] Taisha Alexandra Glucose [Mass/Vol] 134 mg/dL Normal [facility] Comment on above: Performed By: #### A 1C #### [facility] [address] [address] [address] Taisha Alexandra HbA1c (Bld) [Mass fraction] 6.3 % Critically high <=6.0 [facility] Comment on above: Performed By: #### A 1C #### [facility] [address] [address] [address] Taisha Alexandra Vital Signs Date Time Vital Sign Value Performing Clinician Facility 06-08-2024 13:54-0400 Body height 165.1 cm [facility] 06-08-2024 13:54-0400 Body mass index (BMI) [Ratio] 32.3 kg/m2 [facility] 06-08-2024 13:54-0400 Body weight 88.16 kg [facility] 06-08-2024 13:54-0400 Diastolic blood pressure 77 mm[Hg] [facility] 06-08-2024 13:54-0400 Heart rate 60 /min [facility] 06-08-2024 13:54-0400 Respiratory rate 12 /min [facility] 06-08-2024 13:54-0400 Systolic blood pressure 144 mm[Hg] [facility] 05-02-2024 10:28-0400 Body height 165.1 cm [facility] 05-02-2024 10:28-0400 Body mass index (BMI) [Ratio] 31.6 kg/m2 [facility] 05-02-2024 10:28-0400 Body weight 86.35 kg [facility] 05-02-2024 10:28-0400 Diastolic blood pressure 79 mm[Hg] [facility] 05-02-2024 10:28-0400 Heart rate 62 /min [facility] 05-02-2024 10:28-0400 Respiratory rate 12 /min [facility] 05-02-2024 10:28-0400 Systolic blood pressure 144 mm[Hg] [facility] 04-24-2024 13:56-0400 Body height 165.1 cm [facility] 04-24-2024 13:56-0400 Body mass index (BMI) [Ratio] 31.2 kg/m2 [facility] 04-24-2024 13:56-0400 Body weight 85.27 kg [facility] 04-24-2024 13:56-0400 Diastolic blood pressure 74 mm[Hg] [facility] 04-24-2024 13:56-0400 Heart rate 66 /min [facility] 04-24-2024 13:56-0400 Respiratory rate 18 /min [facility] 04-24-2024 13:56-0400 SaO2% (BldA) [Mass fraction] 98 % [facility] 04-24-2024 13:56-0400 Systolic blood pressure 128 mm[Hg] [facility] 12-06-2023 14:02-0400 Body height 165.1 cm DO Kaleb Ball Work Phone: [facility] 12-06-2023 14:02-0400 Body mass index (BMI) [Ratio] 30.2 kg/m2 DO Kaleb Ball Work Phone: [facility] 12-06-2023 14:02-0400 Body weight 82.32 kg DO Kaleb Ball Work Phone: [facility] 12-06-2023 14:02-0400 Diastolic blood pressure 68 mm[Hg] DO Kaleb Ball Work Phone: [facility] 12-06-2023 14:02-0400 Heart rate 62 /min DO Kaleb Ball Work Phone: [facility] 12-06-2023 14:02-0400 Respiratory rate 12 /min DO Kaleb Ball Work Phone: [facility] 12-06-2023 14:02-0400 Systolic blood pressure 126 mm[Hg] DO Kaleb Ball Work Phone: [facility] 10-17-2023 11:18-0500 Body height 165.1 cm DO Kaleb Ball Work Phone: [facility] 10-17-2023 11:18-0500 Body mass index (BMI) [Ratio] 29.7 kg/m2 DO Kaleb Ball Work Phone: [facility] 10-17-2023 11:18-0500 Body weight 81.19 kg DO Kaleb Ball Work Phone: [facility] 10-17-2023 11:18-0500 Diastolic blood pressure 78 mm[Hg] DO Kaleb Ball Work Phone: [facility] 10-17-2023 11:18-0500 Heart rate 60 /min DO Akleb Ball Work Phone: [facility] 10-17-2023 11:18-0500 Respiratory rate 18 /min DO Kaleb Ball Work Phone: [facility] 10-17-2023 11:18-0500 SaO2% (BldA) [Mass fraction] 96 % DO Kaleb Ball Work Phone: [facility] 10-17-2023 11:18-0500 Systolic blood pressure 134 mm[Hg] DO Kaleb Ball Work Phone: [facility] 08-16-2023 11:15-0500 Body height 170.18 cm Kaleb Ball Other [facility] 08-16-2023 11:15-0500 Body mass index (BMI) [Ratio] 27.56 kg/m2 Kaleb Ball Other [facility] [employer] Other 08-16-2023 11:15-0500 Body weight 79.83 kg Kaleb Ball Other [facility] 08-16-2023 11:15-0500 Diastolic blood pressure 72 mm[Hg] Kaleb Ball Other [facility] 08-16-2023 11:15-0500 Respiratory rate 12 /min Kaleb Ball Other [facility] [employer] Other 08-16-2023 11:15-0500 Systolic blood pressure 115 mm[Hg] Kaleb Ball Other [facility] 08-08-2023 14:45-0500 Body height 170.18 cm Kaleb Ball Other [facility] 08-08-2023 14:45-0500 Body mass index (BMI) [Ratio] 27.66 kg/m2 Kaleb Ball Other [facility] [employer] Other 08-08-2023 14:45-0500 Body weight 80.11 kg Kaleb Ball Other [employer] Other 08-08-2023 14:45-0500 Body weight 80.1 kg DO Kaleb Ball Work Phone: [facility] 08-08-2023 14:45-0500 Diastolic blood pressure 73 mm[Hg] Kaleb Ball Other [facility] 08-08-2023 14:45-0500 Systolic blood pressure 106 mm[Hg] Kaleb Ball Other [facility] 2023 16:42-0500 Body height 170.18 cm Kaleb Ball Other [facility] 07-13-2023 10:45-0500 Body height 170.18 cm Kaleb Ball Other [facility] [employer] Other 07-13-2023 10:45-0500 Body mass index (BMI) [Ratio] 27.88 kg/m2 Kaleb Ball Other [employer] Other 07-13-2023 10:45-0500 Body weight 80.74 kg Kaleb Ball Other [employer] Other 07-13-2023 10:45-0500 Diastolic blood pressure 74 mm[Hg] Kaleb Ball Other [employer] Other 07-13-2023 10:45-0500 Respiratory rate 12 /min Kaleb Ball Other [employer] Other 07-13-2023 10:45-0500 Systolic blood pressure 125 mm[Hg] Kaleb Ball Other [employer] Other 06-06-2023 14:00-0400 Body height 170.18 cm Kaleb Ball Other [employer] Other 06-06-2023 14:00-0400 Body mass index (BMI) [Ratio] 28.16 kg/m2 Kaleb Ball Other [employer] Other 06-06-2023 14:00-0400 Body weight 81.56 kg Kaleb Ball Other [employer] Other 06-06-2023 14:00-0400 Diastolic blood pressure 65 mm[Hg] Kaleb Ball Other [employer] Other 06-06-2023 14:00-0400 Respiratory rate 12 /min Kaleb Ball Other [employer] Other 06-06-2023 14:00-0400 Systolic blood pressure 103 mm[Hg] Kaleb Ball Other [employer] Other 11-30-2022 15:30-0400 Body height 170.18 cm Kaleb Ball Other [employer] Other 11-30-2022 15:30-0400 Body mass index (BMI) [Ratio] 30.85 kg/m2 Kaleb Ball Other [employer] Other 11-30-2022 15:30-0400 Body weight 89.36 kg Kaleb Ball Other [employer] Other 11-30-2022 15:30-0400 Diastolic blood pressure 70 mm[Hg] Kaleb Ball Other [employer] Other 11-30-2022 15:30-0400 Respiratory rate 12 /min Kaleb Ahumada Other [facility] [employer] Other 11-30-2022 15:30-0400 Systolic blood pressure 114 mm[Hg] Kaleb Ball Other [facility] [employer] Other Encounters Encounter Date Encounter Type Care Provider Facility Start: 06-08-2024 End: 06-08-2024 ambulatory [facility] Work Phone: Start: 06-08-2024 End: 06-08-2024 Patient encounter procedure [facility] Work Phone: Start: 06-06-2024 Patient encounter procedure [facility] Start: 05-02-2024 End: 05-02-2024 ambulatory [facility] Work Phone: Start: 05-02-2024 End: 05-02-2024 Patient encounter procedure [facility] Work Phone: Start: 04-24-2024 End: 04-24-2024 ambulatory [facility] Work Phone: Start: 04-24-2024 End: 04-24-2024 Patient encounter procedure [facility] Card[facility] Work Phone: Start: 12-06-2023 End: 12-06-2023 ambulatory DO Kaleb Ball Work Phone: [facility] Work Phone: Start: 12-06-2023 End: 12-06-2023 Patient encounter procedure DO Kaleb Ball Work Phone: [facility] Work Phone: Start: 10-17-2023 End: 10-17-2023 ambulatory Kaleb Ball Facility:[facility] Start: 10-17-2023 End: 10-17-2023 ambulatory DO Kaleb Ball Work Phone: [facility] Work Phone: Start: 10-17-2023 End: 10-17-2023 Patient encounter procedure DO Kaleb Ahumada Work Phone: [facility] Work Phone: Start: 09-20-2023 End: 09-20-2023 ambulatory Kaleb Ahumada Other [employer] Other Start: 09-20-2023 Telephone encounter [facility] Start: 08-29-2023 End: 08-29-2023 ambulatory Kaleb Ahumada Other [employer] Other Start: 08-29-2023 Telephone encounter Kaleb Ahumada [facility] Start: 08-23-2023 End: 08-23-2023 ambulatory Kaleb Ahumada Other [employer] Other Start: 08-23-2023 Telephone encounter Kaleb Ahumada [facility] Start: 08-21-2023 End: 08-21-2023 ambulatory Kaleb Ahumada Other [employer] Other Start: 08-21-2023 Telephone encounter Kaleb Ahumada [facility] Start: 08-16-2023 End: 08-16-2023 ambulatory Kaleb Ahumada Other [employer] Other Start: 08-16-2023 Transitional care [facility] 14 day discharge Kaleb Ahumada [facility] Start: 08-16-2023 End: 08-16-2023 Patient encounter procedure DO Kaleb Ahumada Work Phone: [facility] Work Phone: Start: 08-10-2023 End: 08-10-2023 ambulatory Kaleb Ahumada Other [employer] Other Start: 08-10-2023 Telephone encounter Kaleb Ahumada [facility] Start: 08-08-2023 End: 08-08-2023 ambulatory Kaleb Ahumada Other [employer] Other Start: 08-08-2023 Office outpatient vi sit 25 minutes Kaleb Ball [facility] Start: 08-08-2023 Telephone encounter Kaleb Ball [facility] Start: 08-08-2023 End: 08-08-2023 Patient encounter procedure DO Kaleb Ball Work Phone: [facility] Work Phone: Start: 2023 End: 2023 ambulatory Kaleb Ball Other [employer] Other Start: 2023 Telephone encounter Kaleb Ball [facility] Start: 2023 End: 2023 Patient encounter procedure DO Kaleb Ball Work Phone: [facility] Work Phone: Start: 07-15-2023 End: 07-15-2023 ambulatory Kaleb Ball Other [employer] Other Start: 07-15-2023 Telephone encounter Kaleb Ball [facility] Start: 07-13-2023 End: 07-13-2023 ambulatory Kaleb Ball Other [employer] Other Start: 07-13-2023 Office outpatient vi sit 25 minutes Kaleb Ball [facility] Start: 06-13-2023 End: 06-13-2023 ambulatory Kaleb Ball Other [employer] Other Start: 06-13-2023 Telephone encounter Kaleb Ball [facility] Start: 06-06-2023 End: 06-06-2023 ambulatory Kaleb Ball Other [employer] Other Start: 06-06-2023 Patient encounter procedure Kaleb Ball [facility] Start: 06-01-2023 End: 06-01-2023 ambulatory Kaleb Ball Other [employer] Other Start: 06-01-2023 Nursing evaluation o f patient and report Kaleb Brandyn [facility] Start: 11-30-2022 End: 11-30-2022 ambulatory Kaleb Ahumada Other [employer] Other Start: 11-30-2022 Office outpatient vi sit 25 minutes Kaleb Brandyn [facility] Start: 08-05-2022 End: 08-06-[address] KALEB AHUMADA Facility:[facility] Start: 06-09-2022 End: 06-10-[address] KALEB AHUMADA Facility:[facility] Start: 06-02-2022 Adult health examination David Ahumada Other [employer] Other Start: 09-28-2021 End: 09-29-[address] [...] Author Start: 10-17-2023 EKG 12 channel panel [facility] Comprehensive metabo lic 2000 panel - Serum or Plasma [facility] MG Breast - bilateral Screening [facility] Microalbumin [Mass/v olume] in Urine [facility] XR Shoulder - right Views [facility] Immunizations Immunization Date Immunization Notes Care Provider Debra conde 06-08-2024 influenza, high dose seasonal, preservative-free [facility] 06-01-2023 influenza, high dose seasonal, preservative-free Kaleb Ahumada Other [employer] Other 06-01-2023 influenza virus vaccine, unspecified formulation DO [employer] Work Phone: [facility] 06-02-2022 influenza virus vaccine, split virus (incl. purified surface antigen) Kaleb [employer] Other [facility] [employer] Other 06-02-2022 influenza virus vaccine, unspecified formulation DO [employer] Work Phone: [facility] 05-20-2021 influenza virus vaccine, split virus (incl. purified surface antigen) Kaleb [employer] Other [facility] [employer] Other 05-20-2021 influenza virus vaccine, unspecified formulation DO [employer] Work Phone: [facility] 04-25-2020 influenza virus vaccine, split virus (incl. purified surface antigen) [employer] Other [facility] [employer] Other 04-25-2020 influenza virus vaccine, unspecified formulation DO [employer] Work Phone: [facility] 06-20-2019 influenza virus vaccine, split virus (incl. purified surface antigen) [employer] Other [facility] [employer] Other 06-20-2019 influenza virus vaccine, unspecified formulation DO [employer] Work Phone: [facility] 06-13-2018 influenza virus vaccine, split virus (incl. purified surface antigen) Kaleb [employer] Other [facility] [employer] Other 06-13-2018 influenza virus vaccine, unspecified formulation DO [employer] Work Phone: [facility] 06-08-2017 influenza virus vaccine, split virus (incl. purified surface antigen) [employer] Other [facility] [employer] Other 06-08-2017 influenza virus vaccine, unspecified formulation DO [employer] Work Phone: [facility] 08-02-2016 influenza virus vaccine, split virus (incl. purified surface antigen) Kaleb Ahumada Other [facility] [employer] Other 08-02-2016 influenza virus vaccine, unspecified formulation DO Kaleb Ahumada Work Phone: [facility] 07-23-2015 pneumococcal conjuga te vaccine, 13 valent Kaleb Ahumada Other [facility] 05-31-2012 tetanus and diphther ia toxoids, adsorbed, preservative free, for adult use (5 Lf of tetanus toxoid and 2 Lf of diphtheria toxoid) Kaleb Ahumada Other [facility] Payers Date Payer Category Payer Self-pay 1959 Unknown [id number] 1945 Unknown [id number] 1945 Unknown [id number] 1945 Unknown [id number] Unknown [id number] Social History Date Type Detail Facility Sex Assigned At [facility] [employer] Other Start: 10-17-2023 End: 10-17-2023 Tobacco smoking status NHIS Never smoked tobacco (finding) [facility] Start: 1945 Sex Assigned At Female [facility] Clinical Notes 11-30-2022 to 08-21-2023 Note Date & Type Note Facility 08-21-2023 Evaluation note Encounter Date Diagnosis Assessment Notes Jul, Paroxysmal atrial fibrillation (ICD-10 - I48.0) Echo: 07/2023 - LVEF is 60 to 65% - Normal right ventricular size and systolic function - Biatrial enlargement - Mild tricuspid regurgitation - RVSP 38 mmHg - Mild to moderate mitral regurgitation [facility] [employer] Other [id number] Evaluation note* Encounter Date Diagnosis Assessment Notes [...] AC for procedure. Repeat CBC in week. [employer] Other 12-20-2023 Evaluation note* Encounter Date Diagnosis Assessment Notes Treatment Notes Treatment Clinical Notes Jul, Paroxysmal atrial fibrillation (ICD-10 - I48.0) Echo: 07/2023 - LVEF is 60 to 65% - Normal right ventricular size and systolic function - Biatrial enlargement - Mild tricuspid regurgitation - RVSP 38 mmHg - Mild to moderate mitral regurgitation [facility] Other 12-18-2023 Evaluation note* Encounter Date Diagnosis [...] primary prevention. US < 50% narrowing B/L [facility] Other 11-24-2023 Evaluation note* Encounter Date Diagnosis Assessment Notes Treatment Notes Treatment Clinical Notes Jun, Hypoalbuminemia (ICD-10 - E88.09) Jun, Anemia due to other cause, not classified (ICD-10 - D64.89) Jun, Hx of cancer of endometrium (ICD-10 - Z85.42) Jun, Sallow complexion (ICD-10 - R23.8) Jun, Weight loss, unintentional (ICD-10 - R63.4) Jun, Fatigue, unspecified type (ICD-10 - R53.83) [facility] Other 11-22-2023 Evaluation note* Encounter Date Diagnosis [...] C54.1) s/p AMANDA - no s/s recurrence [facility] Other 10-16-2023 Evaluation note* Encounter Date Diagnosis [...] exercise for 30 minutes, 3-5 times weekly. [employer] Other 04-11-2023 Evaluation note* Encounter Date Diagnosis [...] endometrium (ICD-10 - Z85.42) No s/s recurrence [facility] [employer] Other Evaluation noteNo InformationNortWashington [facility] [employer] Other Evaluation noteNo assessment information available [facility] Work Phone: Evaluation note* Diagnosis Onset Date Resolution Status Mixed hyperlipidemia acute Paroxysmal atrial fibrillation acute Primary hypertension acute Chronic heart failure with p reserved ejection fraction (HFpEF) acute Mixed hyperlipidemia acute Paroxysmal atrial fibrillation acute Primary hypertension acute Type 2 diabetes mellitus with hyperglycemia acute [facility] Work Phone: Evaluation note* Diagnosis Onset Date Resolution Status Mixed hyperlipidemia acute Paroxysmal atrial fibrillation acute Primary hypertension acute [facility] Work Phone: Evaluation note* Diagnosis Onset Date Resolution Status Mixed hyperlipidemia acute Paroxysmal atrial fibrillation acute Primary hypertension acute Impingement syndrome of right shoulder acute Paroxysmal atrial fibrillation acute Right shoulder pain acute [facility] Work Phone: Evaluation note* Diagnosis Onset Date Resolution Status Mixed hyperlipidemia acute Paroxysmal atrial fibrillation acute Primary hypertension acute Impingement syndrome of right shoulder acute Paroxysmal atrial fibrillation acute Right shoulder pain acute Chronic heart failure with p reserved ejection fraction (HFpEF) acute Heart murmur acute Medicare annual wellness visit, subsequent acute Mixed hyperlipidemia acute Obesity acute Paroxysmal atrial fibrillation acute Primary hypertension acute Screening mammogram for breast cancer acute Type 2 diabetes mellitus with hyperglycemia acute [facility] Work Phone: History general Narrative - Reported* Type Description Date Medical History Left carotid bruit Medical History Estrogen deficiency Surgical History RIGHT BREAST BX 2002,2014 Surgical History LEFT BREAST BX 2005 Surgical History AMANDA 2009 Surgical History ARTHROSCOPY RIGHT KNEE 2005 Surgical History CATARACT B/L 2019 Hospitalization History SEE SURGICAL HX [facility] Other Reason for referral (narrative)* Reason *Waiting for appt Referral for new onset paroxysmal atrial fibrillation and an abnormal stress test Diagnosis 1 Precordial pain (R07 .2) Diagnosis 2 Paroxysmal atrial fi brillation (I48.0) Referral Organization [facility] Referring Provider First Name Kaleb Referring Provider Last Name Brandyn Referring Provider Specialty Internal Me dicine Referred Organization [facility] Cardiology Referred Provider Lila Myers Referred Address [address] [place] [address],[address],[phone] Referred Provider Specialty Cardiovascul ar Disease Referral [...] P2P Clinical Notes Include: - Labs: since Nov - Echo - Holter - Stress testing [employer] Other Summary Purpose Family History Relationship Condition Age at Onset Recorded Date/T erik brother Heart disease Unknown High blood cholesterol Unknown Hypertension Unknown Coronary artery disease Unknown father Malignant neoplasm Unknown Malignant neoplasm of brain Unknown Heart disease Unknown grandparent Diabetes mellitus Unknown sister Myocardial infarction Unknown Not Specified Heart disease Unknown Congestive heart failure Unknown Relationship Condition Age at Onset Recorded Date/T erik brother Heart disease Unknown High blood cholesterol Unknown Hypertension Unknown Coronary artery disease Unknown father Malignant neoplasm Unknown Malignant neoplasm of brain Unknown Heart disease Unknown grandparent Diabetes mellitus Unknown sister Myocardial infarction Unknown mother Heart disease Unknown Congestive heart failure Unknown Advance Directives Advance Directive Response Recorded Date/ Time Advance Directives No September 14, 2023 5:21pm Advance Directive Response Recorded Date/ Time Advance Directives No September 14, 2023 6:21pm Chief Complaint and Reason for Visit Chief Complaint Letter Not Feeling Better-Tiredness Tbh paroxysmal a-fib precordial pain Chief Complaint paroxysmal a-fib pre cordial pain 6 month Reason for Visit Mixed hyperlipidemia Paroxysmal atrial fibrillation Primary hypertension Chronic heart failure with preserved ejection fraction (HFpEF) Mixed hyperlipidemia Paroxysmal atrial fibrillation Primary hypertension Type 2 diabetes mellitus with hyperglycemia Chief Complaint 6 months Reason for Visit Mixed hyperlipidemia Paroxysmal atrial fibrillation Primary hypertension Chief Complaint 6 months Right shoulder pain Reason for Visit Mixed hyperlipidemia Paroxysmal atrial fibrillation Primary hypertension Impingement syndrome of right shoulder Paroxysmal atrial fibrillation Right shoulder pain Chief Complaint 6 months Right shoulder pain wellness Reason for Visit Mixed hyperlipidemia Paroxysmal atrial fibrillation Primary hypertension Impingement syndrome of right shoulder Paroxysmal atrial fibrillation Right shoulder pain Chronic heart failure with preserved ejection fraction (HFpEF) Heart murmur Medicare annual wellness visit, subsequent Mixed hyperlipidemia Obesity Paroxysmal atrial fibrillation Primary hypertension Screening mammogram for breast cancer Type 2 diabetes mellitus with hyperglycemia Additional Source Comments INFORMATION SOURCE (unrecogn ized section and content) DATE CREATED AUTHOR 08/12/2022 [employer] DATE CREATED AUTHOR AUTHOR'S ORGANIZ ATION 10/22/2023 [facility] REASON FOR VISIT (unrecogniz ed section and content) 6 MONTH FOLLOW UPflu shotWEL LNESSLab resultsvery tired all the timeNo InformationCT resultsLetterNot Feeling Better-TirednessNot Feeling BetterTCMNo InformationTBHNo InformationMamm resultsHolter resultsNot Feeling Better-TirednessTBHStress/Lab results Care Teams (unrecognized sec tion and content) Team Status: Active Member Role Status Dates Kaleb Ahumada DO Primary Care Provider Active Team [...] Provider Activ e Start: October 17, 2023 Team Status: Inactive Member Role Status Dates Kaleb Brandyn DO Primary Care Provide r, Attending Provider Active Start: December 06, 2023 End: December 06, 2023 Team Status: Inactive Member Role Status Sabas Ahumada DO Primary Care Provider Active Start: April 24, 2024 End: April 24, 2024 Dave Hoff MD Attending Provider Activ e Start: April 24, 2024 End: April 24, 2024 Team Status: Inactive Member Role Status Sabas Manuel Brandyn DO Primary Care Provide r, Attending Provider Active Start: May 02, 2024 End: May 02, 2024 Team Status: Inactive Member Role Status Sabas Ahumada DO Primary Care Provide r, Attending Provider Active Start: June 08, 2024 End: June 08, 2024 Goals (unrecognized section and content) Goals may [...] BE BASED ON THE PRIMARY CLINICAL RECORDS. [facility] [employer] provides no warranty or guarantee of the accuracy or completeness of information in this document.
--- OUTSIDE RECORDS SUMMARY | 2024-06-13 06:51 | XMS_ITS | CCD ---
Author Organization [facility] Care Team Providers Care Ict Business Analyst Name Role Phone DR KALEB AHUMADA Attending [...] Unavailable DO Kaleb Ahumada Primary Care Provider [phone] MD Dave Hoff Attending Provider Kaleb Ahumada Primary Care Dave Gerard Attending Jennifer Hoff, Dave Ortiz Admitting DO Kaleb Martinez Primary Care Provider [phone] MD Dave Hoff Attending Provider Allergies Allergy Classification Reported Allergen(s) Allergy Type Date of Onset Reaction(s) Facility (1 source) patient allergy list reviewed by nurse or physicia Propensity to adverse reactions 7 Comment:Done [facility] Other Medications Current Medications Medication Drug Class(es) [...] And Nails (Biotin)) 10,000 mcg tablet,chewable Active 38067 MCG PO Daily October 17, 2023 1:00am Start: 10-17-2023 take 1 tablet by mati th once daily Biotin (Hair, Skin And Nails (Biotin)) 10,000 mcg tablet,chewable Active 16956 MCG PO Daily October 17, 2023 12:00am [...] TAB PO Daily October 17, 2023 12:00am Ff-Wpp-Ce-Vit R-Rynizo-Xctuprx (Preservision Areds 2 Plus Mv) 200 mcg-15 mcg- 5 mg-1 mg capsule (5 sources) Start: 10-17-2023 take 1 capsule by mouth once daily Yy-Cvk-Eo-Vit K-Qoobdi-Roclahn (Preservision Areds 2 Plus Mv) 200 mcg-15 mcg- 5 mg-1 mg capsule Active 1 CAP PO Daily October 17, 2023 1:00am Start: 10-17-2023 take 1 capsule by mo [facility] once daily Gt-Gqn-Hv-Vit C-Hykvka-Budupkw (Preservision Areds 2 Plus Mv) 200 mcg-15 [...] unspecified] Chronic Other aftercare (1 source) Other fpc (current) drug therapy; Translations: [OTH SHELTER CURRENT DRUG THERAPY] Onset: 06-13-2022 Episodic Other aftercare (1 source) Long-term current use of drug therapy; Translations: [Other analysis evaluator (current) drug therapy] Episodic Other circulatory disease [...] lead ECGon 10-17-2023 ECG 12 lead ECG [facility] [place] [address] Electrocardiograph Report Signed Patient: Alycia Daily MR#: [id number] : 1945 Acct:[id number] Age/Sex: 78 / F ADM Date: 10/17/23 Loc: [facility] Room: Type: [facility] Attending Dr: Dave Hoff MD Ordering Provider: [...] previous ECGs available Confirmed by Dave Hoff ([id number]) on 10/18/2023 10:36:42 AM Referred By: Electronically Signed By:Dave Hoff Transcribed By: MUS Signed By Dave Hoff MD 10/18/23 1036 [facility] MG MAMM SCREEN 3D RAKAN CADon 08-05-2022 MG MAMM SCREEN 3D RAKAN CAD Patient: ALYCIA DAILY Exam Date: 08/05/2022 : 1945 Gender:F Ordering : DR KALEB AHUMADA D.O. Admission #: [id number] Family : Order #: [id number] CLICK HERE TO VIEW EXAM RADIOLOGY REPORT [...] at age 64. LOCATION: [facility] BREAST COMPOSITION: Scattered areas fibroglandular [...] 08/06/2022 at 08:58 Normal [facility] BNPon 06-09-2022 Natriuretic peptide B (Bld) [Mass/Vol] 188.0 pg/mL Normal <=1,800.0 [facility] Comment on above: Performed By: #### A LT, LIPID, BNP #### [facility] [address] [place] [address] Dr. Taisha Alexandra CBC AUTO DIFFon 06-09-2022 BASO # 0.0 103/ul Normal 0.0-0.1 [facility] Comment on above: Performed By: #### C BC #### [facility] [address] [place] [address] Dr. Taisha Alexandra Basophils/100 WBC (Bld) 0.4 % Normal 0.2-2.0 [facility] Comment on above: Performed By: #### C BC #### [facility] [address] [place] [address] Dr. Taisha Alexandra EO # 0.2 103/ul Normal 0.0-0.7 [facility] Comment on above: Performed By: #### C BC #### [facility] [address] [place] [address] Dr. Taisha Alexandra Eosinophils/100 WBC (Bld) 2.8 % Normal 0.9-7.0 [facility] Comment on above: Performed By: #### C BC #### [facility] [address] [place] [address] Dr. Taisha Alexandra Erythrocyte distribution width (RBC) [Ratio] 13.3 % Normal 11.0-15.0 [facility] Comment on above: Performed By: #### C BC #### [facility] [address] [place] [address] Dr. Taisha Alexandra Hematocrit (Bld) [Volume fraction] 40.3 % Normal 36.0-48.0 [facility] Comment on above: Performed By: #### C BC #### [facility] [address] [place] [address] Dr. Taisha Alexandra Hemoglobin (Bld) [Mass/Vol] 12.7 g/dL Normal 12.0-16.0 [facility] Comment on above: Performed By: #### C BC #### [facility] [address] [place] [address] Dr. Taisha Alexandra IG # 0.01 10e3/ul Normal 0.00-0.03 [facility] Comment on above: Performed By: #### C BC #### [facility] [address] [place] [address] Dr. Taisha Alexandra IG % 0.2 % Normal 0.0-0.5 [facility] Comment on above: Performed By: #### C BC #### [facility] [address] [place] [address] Dr. Taisha Alexandra LYMPH # 1.7 103/ul Normal 1.2-3.8 [facility] Comment on above: Performed By: #### C BC #### [facility] [address] [place] [address] Dr. Taisha Alexandra Lymphocytes/100 WBC (Bld) 31.9 % Normal 20.5-60.0 [facility] Comment on above: Performed By: #### C BC #### [facility] [address] [place] [address] Dr. Taisha Alexandra MANUAL DIFF REQ NO Normal [facility] Comment on above: Performed By: #### C BC #### [facility] [address] [place] [address] Dr. Taisha Alexandra MCH (RBC) [Entitic mass] 28.9 pg Normal 26.7-34.0 [facility] Comment on above: Performed By: #### C BC #### [facility] [address] [place] [address] Dr. Taisha Alexandra MCHC (RBC) [Mass/Vol] 31.5 g/dL Normal 29.9-35.2 [facility] Comment on above: Performed By: #### C BC #### [facility] [address] [place] [address] Dr. Taisha Alexandra MCV (RBC) [Entitic vol] 91.6 fL Normal 81.0-99.0 [facility] Comment on above: Performed By: #### C BC #### [facility] [address] [place] [address] Dr. Taisha Alexandra MONO # 0.4 103/ul Normal 0.3-0.8 [facility] Comment on above: Performed By: #### C BC #### [facility] [address] [place] [address] Dr. Taisha Alexandra Monocytes/100 WBC (Bld) 8.3 % Normal 1.7-12.0 [facility] Comment on above: Performed By: #### C BC #### [facility] [address] [place] [address] Dr. Taisha Alexandra NEUT # 3.0 103/ul Normal 1.4-6.5 [facility] Comment on above: Performed By: #### C BC #### [facility] [address] [place] [address] Dr. Taisha Alexandra Neutrophils/100 WBC (Bld) 56.4 % Normal 43.0-75.0 [facility] Comment on above: Performed By: #### C BC #### [facility] [address] [address] [address] Taisha Alexandra Platelet mean volume (Bld) [Entitic vol] 10.3 fL Normal 9.5-13.5 [facility] Comment on above: Performed By: #### C BC #### [facility] [address] [address] [address] Taisha Alexandra PLT 224 103/ul Normal 150-450 [facility] Comment on above: Performed By: #### C BC #### [facility] [address] [address] [address] Taisha Alexandra RBC 4.40 106/ul Normal 4.20-5.40 [facility] Comment on above: Performed By: #### C BC #### [facility] [address] [place] [address] Dr. Taisha Alexandra WBC 5.3 103/ul Normal 4.0-11.0 [facility] Comment on above: Performed By: #### C BC #### [facility] [address] [place] [address] Dr. Taisha Alexandra GLYCOHEMOGLOBIN A1Con 2021 ADA RECOMMENDATION SEE BELOW Normal [facility] Comment on above: Result Comment: ADA RECOMMENDED LIMIT 4.0 - 6.0 ADA THERAPEUTIC TARGET < 7.0 ACTION SUGGESTED > 7.0 Performed By: #### A 1C #### [facility] [address] [place] [address] Dr. Taisha Alexandra Glucose [Mass/Vol] 120 mg/dL Normal [facility] Comment on above: Performed By: #### A 1C #### [facility] [address] [place] [address] Dr. Taisha Alexandra HbA1c (Bld) [Mass fraction] 5.8 % Normal 4.5-6.2 [facility] Comment on above: Performed By: #### A 1C #### [facility] [address] [place] [address] Dr. Taisha Alexandra LIPID PROFILEon 06-09-2022 CHOL-HDL RATIO NORM SEE BELOW Normal [facility] Comment on above: Result Comment: 3.3 - 4.4 LOW RISK 4.4 - 7.1 AVERAGE RISK 7.1 - 11.0 MODERATE RISK >11.0 HIGH RISK Performed By: #### A LT, LIPID, BNP #### [facility] [address] [address] [address] Taisha Alexandra Cholesterol [Mass/Vol] 138 mg/dL Normal <=200 [facility] Comment on above: Performed By: #### A LT, LIPID, BNP #### [facility] [address] [address] [address] Taisha Alexandra Cholesterol in HDL [Mass/Vol] 56 mg/dL Normal 40-60 [facility] Comment on above: Performed By: #### A LT, LIPID, BNP #### [facility] [address] [address] [address] Taisha Alexandra Cholesterol in LDL [Mass/Vol] 74.4 mg/dL Normal [facility] Comment on above: Performed By: #### A LT, LIPID, BNP #### [facility] [address] [address] [address] Taisha Alexandra Cholesterol.total/Cho lesterol in HDL [Mass ratio] 2.5 {ratio} Normal [facility] Comment on above: Performed By: #### A LT, LIPID, BNP #### [facility] [address] [address] [address] Taisha Alexandra HDL NORMAL > or = 60 mg/dl - LOW CARDIOVASCULAR RISK <40 mg/dl - HIGH CARDIOVASCULAR RISK Normal [facility] Comment on above: Performed By: #### A LT, LIPID, BNP #### [facility] [address] [address] [address] Taisha Alexandra LDL CALC NORMAL SEE BELOW Normal [facility] Comment on above: Result Comment: <100 mg/dl OPTIMAL 100 - 129 mg/dl NEAR OR ABOVE OPTIMAL 130 - 159 mg/dl BORDERLINE HIGH 160 - 189 mg/dl HIGH >190 mg/dl VERY HIGH Performed By: #### A LT, LIPID, BNP #### [facility] [address] [address] [address] Taisha Alexandra Triglyceride [Mass/Vol] 38 mg/dL Normal <=150 [facility] Comment on above: Performed By: #### A LT, LIPID, BNP #### [facility] [address] [address] [address] Taisha Alexandra VLDL CALC 7.6 mg/dL Normal [facility] Comment on above: Performed By: #### A LT, LIPID, BNP #### [facility] [address] [place] [address] Dr. Taisha Alexandra MICROALBUMIN, RAND URon - mALB 1.8 mg/L Normal <=30.0 [facility] Comment on above: Performed By: #### M ALBR #### [facility] [address] [place] [address] Dr. Taisha Alexandra SGPTon 06-09-2022 ALT [Catalytic activity/Vol] 22 U/L Normal 14-59 [facility] Comment on above: Performed By: #### A LT, LIPID, BNP #### [facility] [address] [place] [address] Dr. Taisha Alexandra US CAROTID ART BILon [...] [place] Date: 2022-06-09 21:11 Normal [facility] GLYCOHEMOGLOBIN A1Con 2021 ADA RECOMMENDATION ADA THERAPEUTIC TARGET 6.0 - 7.0 ACTION SUGGESTED > 7.0 Normal [facility] Comment on above: Performed By: #### A 1C #### [facility] [address] [address] [address] Taisha Alexandra Glucose [Mass/Vol] 134 mg/dL Normal [facility] Comment on above: Performed By: #### A 1C #### [facility] [address] [address] [address] Taisha Alexandra HbA1c (Bld) [Mass fraction] 6.3 % Critically high <=6.0 [facility] Comment on above: Performed By: #### A 1C #### [facility] [address] [address] [address] Taisha Alexandra Vital Signs Date Time Vital Sign Value Performing Clinician Facility 06-08-2024 13:54-0400 Body height 165.1 cm [facility] 06-08-2024 13:54-0400 Body mass index (BMI) [Ratio] 32.3 kg/m2 [facility] 06-08-2024 13:54-0400 Body weight 88.16 kg [facility] 06-08-2024 13:54-0400 Diastolic blood pressure 77 mm[Hg] [facility] 06-08-2024 13:54-0400 Heart rate 60 /min [facility] 06-08-2024 13:54-0400 Respiratory rate 12 /min [facility] 06-08-2024 13:54-0400 Systolic blood pressure 144 mm[Hg] [facility] 05-02-2024 10:28-0400 Body height 165.1 cm [facility] 05-02-2024 10:28-0400 Body mass index (BMI) [Ratio] 31.6 kg/m2 [facility] 05-02-2024 10:28-0400 Body weight 86.35 kg [facility] 05-02-2024 10:28-0400 Diastolic blood pressure 79 mm[Hg] [facility] 05-02-2024 10:28-0400 Heart rate 62 /min [facility] 05-02-2024 10:28-0400 Respiratory rate 12 /min [facility] 05-02-2024 10:28-0400 Systolic blood pressure 144 mm[Hg] [facility] 04-24-2024 13:56-0400 Body height 165.1 cm [facility] 04-24-2024 13:56-0400 Body mass index (BMI) [Ratio] 31.2 kg/m2 [facility] 04-24-2024 13:56-0400 Body weight 85.27 kg [facility] 04-24-2024 13:56-0400 Diastolic blood pressure 74 mm[Hg] [facility] 04-24-2024 13:56-0400 Heart rate 66 /min [facility] 04-24-2024 13:56-0400 Respiratory rate 18 /min [facility] 04-24-2024 13:56-0400 SaO2% (BldA) [Mass fraction] 98 % [facility] 04-24-2024 13:56-0400 Systolic blood pressure 128 mm[Hg] [facility] 12-06-2023 14:02-0400 Body height 165.1 cm DO Kaleb Ball Work Phone: [facility] 12-06-2023 14:02-0400 Body mass index (BMI) [Ratio] 30.2 kg/m2 DO Kaleb Ball Work Phone: [facility] 12-06-2023 14:02-0400 Body weight 82.32 kg DO Kaleb Ball Work Phone: [facility] 12-06-2023 14:02-0400 Diastolic blood pressure 68 mm[Hg] DO Kaleb Ball Work Phone: [facility] 12-06-2023 14:02-0400 Heart rate 62 /min DO Kaleb Ball Work Phone: [facility] 12-06-2023 14:02-0400 Respiratory rate 12 /min DO Kaleb Ball Work Phone: [facility] 12-06-2023 14:02-0400 Systolic blood pressure 126 mm[Hg] DO Kaleb Ball Work Phone: [facility] 10-17-2023 11:18-0500 Body height 165.1 cm DO Kaleb Ball Work Phone: [facility] 10-17-2023 11:18-0500 Body mass index (BMI) [Ratio] 29.7 kg/m2 DO Kaleb Ball Work Phone: [facility] 10-17-2023 11:18-0500 Body weight 81.19 kg DO Kaleb Ball Work Phone: [facility] 10-17-2023 11:18-0500 Diastolic blood pressure 78 mm[Hg] DO Kaleb Ball Work Phone: [facility] 10-17-2023 11:18-0500 Heart rate 60 /min DO Kaleb Ball Work Phone: [facility] 10-17-2023 11:18-0500 Respiratory rate 18 /min DO Kaleb Ball Work Phone: [facility] 10-17-2023 11:18-0500 SaO2% (BldA) [Mass fraction] 96 % DO Kaleb Ball Work Phone: [facility] 10-17-2023 11:18-0500 Systolic blood pressure 134 mm[Hg] DO Kaleb Ball Work Phone: [facility] 08-16-2023 11:15-0500 Body height 170.18 cm Kaleb Ball Other [facility] 08-16-2023 11:15-0500 Body mass index (BMI) [Ratio] 27.56 kg/m2 Kaleb Ball Other [facility] Other 08-16-2023 11:15-0500 Body weight 79.83 kg Kaleb Ball Other [facility] 08-16-2023 11:15-0500 Diastolic blood pressure 72 mm[Hg] Kaleb Ball Other [facility] 08-16-2023 11:15-0500 Respiratory rate 12 /min Kaleb Ball Other [facility] Other 08-16-2023 11:15-0500 Systolic blood pressure 115 mm[Hg] Kaleb Ball Other [facility] 08-08-2023 14:45-0500 Body height 170.18 cm Kaleb Ball Other [facility] 08-08-2023 14:45-0500 Body mass index (BMI) [Ratio] 27.66 kg/m2 Kaleb Ball Other [facility] Other 08-08-2023 14:45-0500 Body weight 80.11 kg Kaleb Ball Other [facility] Other 08-08-2023 14:45-0500 Body weight 80.1 kg DO Kaleb Ball Work Phone: [facility] 08-08-2023 14:45-0500 Diastolic blood pressure 73 mm[Hg] Kaleb Ball Other [facility] 08-08-2023 14:45-0500 Systolic blood pressure 106 mm[Hg] Kaleb Ball Other [facility] 2023 16:42-0500 Body height 170.18 cm Kaleb Ball Other [facility] 07-13-2023 10:45-0500 Body height 170.18 cm Kaleb Ball Other [facility] Other 07-13-2023 10:45-0500 Body mass index (BMI) [Ratio] 27.88 kg/m2 Kaleb Ball Other [employer] Other 07-13-2023 10:45-0500 Body weight 80.74 kg Kaleb Ball Other [facility] Other 07-13-2023 10:45-0500 Diastolic blood pressure 74 mm[Hg] Kaleb Ball Other [facility] Other 07-13-2023 10:45-0500 Respiratory rate 12 /min Kaleb Ball Other [facility] Other 07-13-2023 10:45-0500 Systolic blood pressure 125 mm[Hg] Kaleb Ball Other [facility] Other 06-06-2023 14:00-0400 Body height 170.18 cm Kaleb Ball Other [facility] Other 06-06-2023 14:00-0400 Body mass index (BMI) [Ratio] 28.16 kg/m2 Kaleb Ball Other [facility] Other 06-06-2023 14:00-0400 Body weight 81.56 kg Kaleb Ball Other [facility] Other 06-06-2023 14:00-0400 Diastolic blood pressure 65 mm[Hg] Kaleb Ball Other [facility] Other 06-06-2023 14:00-0400 Respiratory rate 12 /min Kaleb Ball Other [facility] Other 06-06-2023 14:00-0400 Systolic blood pressure 103 mm[Hg] Kaleb Ball Other [facility] Other 11-30-2022 15:30-0400 Body height 170.18 cm Kaleb Ball Other [facility] Other 11-30-2022 15:30-0400 Body mass index (BMI) [Ratio] 30.85 kg/m2 Kaleb Ball Other [facility] Other 11-30-2022 15:30-0400 Body weight 89.36 kg Kaleb Ball Other [facility] Other 11-30-2022 15:30-0400 Diastolic blood pressure 70 mm[Hg] Kaleb Ball Other [facility] Other 11-30-2022 15:30-0400 Respiratory rate 12 /min Kaleb Ahumada Other [facility] Other 11-30-2022 15:30-0400 Systolic blood pressure 114 mm[Hg] Kaleb Ball Other [facility] Other Encounters Encounter Date Encounter Type Care Provider Facility Start: 06-08-2024 End: 06-08-[address] [facility] Work Phone: Start: 06-08-2024 End: 06-08-2024 Patient encounter procedure [facility] Work Phone: Start: 06-06-2024 Patient encounter procedure [facility] Start: 05-02-2024 End: 05-02-[address] [facility] Work Phone: Start: 05-02-2024 End: 05-02-2024 Patient encounter procedure [facility] Work Phone: Start: 04-24-2024 End: 04-24-[address] [facility] Work Phone: Start: 04-24-2024 End: 04-24-2024 Patient encounter procedure [facility] Card[facility] Work Phone: Start: 12-06-2023 End: 12-06-2023 ambulatory DO Kaleb Ball Work Phone: [facility] Work Phone: Start: 12-06-2023 End: 12-06-2023 Patient encounter procedure DO Kaleb Ball Work Phone: [facility] Work Phone: Start: 10-17-2023 End: 10-17-2023 ambulatory Kaleb Ball Facility:[facility] Start: 10-17-2023 End: 10-17-2023 ambulatory DO Kaleb Ball Work Phone: [facility] Work Phone: Start: 10-17-2023 End: 10-17-2023 Patient encounter procedure DO Kaleb Ahumada Work Phone: [facility] Work Phone: Start: 09-20-2023 End: 09-20-2023 ambulatory Kaleb Ahumada Other [facility] Other Start: 09-20-2023 Telephone encounter Kaleb Ahumada [facility] Start: 08-29-2023 End: 08-29-2023 ambulatory Kaleb Ahumada Other [facility] Other Start: 08-29-2023 Telephone encounter Kaleb Ahumada [facility] Start: 08-23-2023 End: 08-23-2023 ambulatory Kaleb Ahumada Other [facility] Other Start: 08-23-2023 Telephone encounter Kaleb Ahumada [facility] Start: 08-21-2023 End: 08-21-2023 ambulatory Kaleb Ahumada Other [facility] Other Start: 08-21-2023 Telephone encounter Kaleb Ahumada [facility] Start: 08-16-2023 End: 08-16-2023 ambulatory Kaleb Ahumada Other [facility] Other Start: 08-16-2023 Transitional care [facility] 14 day discharge Kaleb Ahumada [facility] Start: 08-16-2023 End: 08-16-2023 Patient encounter procedure DO Kaleb Ahumada Work Phone: [facility] Work Phone: Start: 08-10-2023 End: 08-10-2023 ambulatory Kaleb Ahumada Other [facility] Other Start: 08-10-2023 Telephone encounter Kaleb Ahumada [facility] Start: 08-08-2023 End: 08-08-2023 ambulatory Kaleb Ahumada Other [facility] Other Start: 08-08-2023 Office outpatient vi sit 25 minutes Kaleb Ball [facility] Start: 08-08-2023 Telephone encounter Kaleb Ball [facility] Start: 08-08-2023 End: 08-08-2023 Patient encounter procedure DO Kaleb Ball Work Phone: [facility] Work Phone: Start: 2023 End: 2023 ambulatory Kaleb Ball Other [facility] Other Start: 2023 Telephone encounter Kaleb Ball [facility] Start: 2023 End: 2023 Patient encounter procedure DO Kaleb Ball Work Phone: [facility] Work Phone: Start: 07-15-2023 End: 07-15-2023 ambulatory Kaleb Ball Other [facility] Other Start: 07-15-2023 Telephone encounter Kaleb Ball [facility] Start: 07-13-2023 End: 07-13-2023 ambulatory Kaleb Ball Other [facility] Other Start: 07-13-2023 Office outpatient vi sit 25 minutes Kaleb Ball [facility] Start: 06-13-2023 End: 06-13-2023 ambulatory Kaleb Ball Other [facility] Other Start: 06-13-2023 Telephone encounter Kaleb Ball [facility] Start: 06-06-2023 End: 06-06-2023 ambulatory Kaleb Ball Other [facility] Other Start: 06-06-2023 Patient encounter procedure Kaleb Ball [facility] Start: 06-01-2023 End: 06-01-2023 ambulatory Kaleb Ball Other [facility] Other Start: 06-01-2023 Nursing evaluation o f patient and report Kaleb Brandyn [facility] Start: 11-30-2022 End: 11-30-2022 ambulatory Kaleb Ahumada Other [facility] Other Start: 11-30-2022 Office outpatient vi sit 25 minutes Kaleb Brandyn [facility] Start: 08-05-2022 End: 08-06-[address] KALEB AHUMADA Facility:[facility] Start: 06-09-2022 End: 06-10-[address] KALEB AHUMADA Facility:[facility] Start: 06-02-2022 Adult health examination David Ahumada Other [facility] Other Start: 09-28-2021 End: 09-29-[address] [...] Author Start: 10-17-2023 EKG 12 channel panel [facility] Comprehensive metabo lic 2000 panel - Serum or Plasma [facility] MG Breast - bilateral Screening [facility] Microalbumin [Mass/v olume] in Urine [facility] XR Shoulder - right Views [facility] Immunizations Immunization Date Immunization Notes Care Provider Debra conde 06-08-2024 influenza, high dose seasonal, preservative-free [facility] 06-01-2023 influenza, high dose seasonal, preservative-free Kaleb Ahumada Other [facility] Other 06-01-2023 influenza virus vaccine, unspecified formulation DO [employer] Work Phone: [facility] 06-02-2022 influenza virus vaccine, split virus (incl. purified surface antigen) Kaleb Chlorine Genie Other [facility] Other 06-02-2022 influenza virus vaccine, unspecified formulation DO [employer] Work Phone: [facility] 05-20-2021 influenza virus vaccine, split virus (incl. purified surface antigen) Kaleb Chlorine Genie Other [facility] Other 05-20-2021 influenza virus vaccine, unspecified formulation DO [employer] Work Phone: [facility] 04-25-2020 influenza virus vaccine, split virus (incl. purified surface antigen) [employer] Other [facility] Other 04-25-2020 influenza virus vaccine, unspecified formulation DO [employer] Work Phone: [facility] 06-20-2019 influenza virus vaccine, split virus (incl. purified surface antigen) [employer] Other [facility] Other 06-20-2019 influenza virus vaccine, unspecified formulation DO [employer] Work Phone: [facility] 06-13-2018 influenza virus vaccine, split virus (incl. purified surface antigen) Kaleb [employer]ine Genie Other [facility] Other 06-13-2018 influenza virus vaccine, unspecified formulation DO [employer] Work Phone: [facility] 06-08-2017 influenza virus vaccine, split virus (incl. purified surface antigen) [employer] Other [facility] Other 06-08-2017 influenza virus vaccine, unspecified formulation DO [employer] Work Phone: [facility] 08-02-2016 influenza virus vaccine, split virus (incl. purified surface antigen) Kaleb Ahumada Other [facility] Other 08-02-2016 influenza virus vaccine, unspecified formulation DO Kaleb Ahumada Work Phone: [facility] 07-23-2015 pneumococcal conjuga te vaccine, 13 valent Kaleb Ahumada Other [facility] 05-31-2012 tetanus and diphther ia toxoids, adsorbed, preservative free, for adult use (5 Lf of tetanus toxoid and 2 Lf of diphtheria toxoid) Kaleb Ahumada Other [facility] Payers Date Payer Category Payer Self-pay 1959 Unknown [id number] 1945 Unknown [id number] 1945 Unknown [id number] 1945 Unknown [id number] Unknown [id number] Social History Date Type Detail Facility Sex Assigned At [facility] Other Start: 10-17-2023 End: 10-17-2023 Tobacco smoking status NHIS Never smoked tobacco (finding) [facility] Start: 1945 Sex Assigned At Female [facility] Clinical Notes 11-30-2022 to 08-21-2023 Note Date & Type Note Facility 08-21-2023 Evaluation note Encounter Date Diagnosis Assessment Notes Jul, Paroxysmal atrial fibrillation (ICD-10 - I48.0) Echo: 07/2023 - LVEF is 60 to 65% - Normal right ventricular size and systolic function - Biatrial enlargement - Mild tricuspid regurgitation - RVSP 38 mmHg - Mild to moderate mitral regurgitation [facility] Other [id number] Evaluation note* Encounter Date Diagnosis Assessment Notes [...] AC for procedure. Repeat CBC in week. [facility] Other 12-20-2023 Evaluation note* Encounter Date Diagnosis Assessment Notes Treatment Notes Treatment Clinical Notes Jul, Paroxysmal atrial fibrillation (ICD-10 - I48.0) Echo: 07/2023 - LVEF is 60 to 65% - Normal right ventricular size and systolic function - Biatrial enlargement - Mild tricuspid regurgitation - RVSP 38 mmHg - Mild to moderate mitral regurgitation [facility] Other 12-18-2023 Evaluation note* Encounter Date Diagnosis [...] primary prevention. 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 [facility] Other 04-11-2023 Evaluation note* Encounter Date Diagnosis [...] endometrium (ICD-10 - Z85.42) No s/s recurrence [facility] Other [facility] Other Evaluation noteNo assessment information available [facility] Work Phone: Evaluation note* Diagnosis Onset Date Resolution Status Mixed hyperlipidemia acute Paroxysmal atrial fibrillation acute Primary hypertension acute Chronic heart failure with p reserved ejection fraction (HFpEF) acute Mixed hyperlipidemia acute Paroxysmal atrial fibrillation acute Primary hypertension acute Type 2 diabetes mellitus with hyperglycemia acute [facility] Work Phone: Evaluation note* Diagnosis Onset Date Resolution Status Mixed hyperlipidemia acute Paroxysmal atrial fibrillation acute Primary hypertension acute [facility] Work Phone: Evaluation note* Diagnosis Onset Date Resolution Status Mixed hyperlipidemia acute Paroxysmal atrial fibrillation acute Primary hypertension acute Impingement syndrome of right shoulder acute Paroxysmal atrial fibrillation acute Right shoulder pain acute [facility] Work Phone: Evaluation note* Diagnosis Onset Date [...] Type 2 diabetes mellitus with hyperglycemia acute [facility] Work Phone: History general Narrative - Reported* Type Description Date Medical History Left carotid bruit Medical History Estrogen deficiency Surgical History RIGHT BREAST BX 2002,2014 Surgical History LEFT BREAST BX 2005 Surgical History AMANDA 2009 Surgical History ARTHROSCOPY RIGHT KNEE 2005 Surgical History CATARACT B/L 2019 Hospitalization History SEE SURGICAL HX [facility] Other Reason for referral (narrative)* Reason *Waiting for appt Referral for new onset paroxysmal atrial fibrillation and an abnormal stress test Diagnosis 1 Precordial pain (R07 .2) Diagnosis 2 Paroxysmal atrial fi brillation (I48.0) Referral Organization [facility] Referring Provider First Name Kaleb Referring Provider Last Name Brandyn Referring Provider Specialty Internal Me dicine Referred Organization [facility] Cardiology Referred Provider Lila Myers Referred Address [address] [place] [address],[address],[phone] Referred Provider Specialty Cardiovascul ar Disease Referral [...] - Echo - Holter - Stress testing [facility] Other Summary Purpose Family History Relationship Condition [...] DATE CREATED AUTHOR AUTHOR'S ORGANIZ ATION 10/22/2023 [facility] REASON FOR VISIT (unrecogniz ed section and [...] BE BASED ON THE PRIMARY CLINICAL RECORDS. [facility] [employer] provides no warranty or guarantee of the accuracy or completeness of information in this document.
[2024-06-13 07:26] LABS: Basophils Percent Auto 0.4 % (0.2-2.0); Eosinophils Absolute Auto 0.1 10^3/uL (0.0-0.7); Eosinophils Percent Auto 2.5 % (0.9-7.0); Hematocrit 39.7 % (36.0-48.0); Hemoglobin 12.9 g/dL (12.0-16.0); Immature Granulocytes Abs Auto 0.02 10^3/uL (0.00-0.03); Immature Granulocytes Pct Auto 0.4 % (0.0-0.5); Lymphocytes Percent Auto 38.4 % (20.5-60.0); Mean Corpuscular HGB Conc 32.5 g/dL (29.9-35.2); Mean Corpuscular Hemoglobin 30.1 pg (26.7-34.0); Mean Corpuscular Volume 92.5 fL (81.0-99.0); Mean Platelet Volume 10.4 fL (9.5-13.5); Monocytes Absolute Auto 0.4 10^3/uL (0.3-0.8); Monocytes Percent Auto 8.1 % (1.7-12.0); Neutrophils Absolute Auto 2.6 10^3/uL (1.4-6.5); Neutrophils Percent Auto 50.2 % (43.0-75.0); Platelet Count 196 10^3/uL (150-450); Red Blood Count 4.29 10^6/uL (4.20-5.40); Red Cell Distribution Width 12.5 % (11.0-15.0); White Blood Count 5.2 10^3/uL (4.0-11.0)
[2024-06-13 07:34] LABS: Estimated Average Glucose 111 mg/dL; Glycohemoglobin A1C 5.5 % (4.5-6.2)
[2024-06-13 07:37] LABS: Alanine Aminotransferase 27 U/L (14-59); Albumin Level 3.4 g/dL (3.4-5.0); Alkaline Phosphatase 79 U/L (46-116); Anion Gap 10.1; Aspartate Amino Transferase 18 U/L (15-37); BUN Creatinine Ratio 24.7; Bilirubin Total 0.6 mg/dL (0.2-1.0); Calcium 9.1 mg/dL (8.5-10.1); Carbon Dioxide 29.9 mmol/L (21.0-32.0); Chloride 107 mmol/L (98-107); Cholesterol 124 mg/dL (<=200); Estimated GFR (African America >60 (>=60 mL/min/1.73m^2); Estimated GFR (Non-African Ame >60 (>=60 mL/min/1.73m^2); Globulin 3.4 g/dL; Glucose 94 mg/dL (74-106); HDL Cholesterol 61 mg/dL (40-60); Sodium 143 mmol/L (136-145); Total Protein 6.8 g/dL (6.4-8.2); Triglycerides 30 mg/dL (<=150)
== END 2024-06-13 06:49 | disposition home or self-care (01) ==
LOC: LAB 06:49
PROVIDERS: PCP Internal Medicine; Visit Provider Internal Medicine
DX: E11.65 Type 2 diabetes mellitus with hyperglycemia (principal); I50.32 Chronic diastolic (congestive) heart failure; E78.2 Mixed hyperlipidemia; I48.0 Paroxysmal atrial fibrillation; I11.0 Hypertensive heart disease with heart failure
CPT/HCPCS: 36415; 80053; 80061; 82043; 83036; 85025

== ENCOUNTER 2024-08-20 13:40 | Outpatient (OUT) | payer MEDICARE, SELFPAY ==
--- NOTE | 2024-08-20 13:43 | MM_ITS ---
Patient Name: CHARLEY DAILY MR#: [id number] : 1945 Exam Date: 08/20/2024 Ordering Doctor: DR Kaleb Ahumada D.O. RADIOLOGY REPORT PROCEDURE: MM TOMOSYNTHESIS SCREENING BI COMPARISON: MM TOMOSYNTHESIS SCREENING BI, 08/18/2023. MG MAMM SCREEN 3D RAKAN CAD, 08/05/2022. MG MAMM SCREEN 3D RAKAN CAD, 08/04/2021. MG MAMM RAKAN SCRN W CAD DIG, 07/10/2013. INDICATIONS: Screening Calculator Name NCI Breast Cancer Risk Assessment Tool 5 Year Breast Cancer Risk 1.80% Lifetime Breast Cancer Risk 3.10% Personal Breast Cancer No Personal Ovarian Cancer No Treatments Hysterectomy Family Cancers Father with brain cancer at age 64. LOCATION: [facility] BREAST COMPOSITION: There are scattered areas of fibroglandular density. FINDINGS: DIAGNOSTIC CATEGORY 2--BENIGN FINDING: RIGHT BREAST: No significant suspicious finding. Scattered benign-appearing calcifications are present. No significant change has occurred. LEFT BREAST: No significant suspicious finding. Scattered benign-appearing calcifications are present. No significant change has occurred. RECOMMENDATIONS: ROUTINE MAMMOGRAM AND CLINICAL EVALUATION IN 12 MONTHS. PLEASE NOTE: A NORMAL MAMMOGRAM DOES NOT EXCLUDE THE POSSIBILITY OF BREAST CANCER. A CLINICALLY SUSPICIOUS PALPABLE LUMP SHOULD BE BIOPSIED. Dictated by: Donte Roa M.D. on 08/20/2024 at 17:06 Approved by: Donte Roa M.D. on 08/20/2024 at 17:08
== END 2024-08-20 13:41 | disposition home or self-care (01) ==
LOC: MAMMO 13:40
PROVIDERS: PCP Internal Medicine; Visit Provider Internal Medicine
DX: Z12.31 Encounter for screening mammogram for malignant neoplasm of breast (principal); Z80.8 Family history of malignant neoplasm of other organs or systems
CPT/HCPCS: 77063; 77067

== ENCOUNTER 2024-10-02 14:30 | Outpatient (OUT) | payer MEDICARE, SELFPAY ==
--- NOTE | 2024-10-02 14:33 | MR_ITS ---
The [address] [address] Patient Name: CHARLEY DAILY MRN: [id number] date: 1945 Sex: F Assigned Patient Location: MRI Current Patient Location: MRI Accession/Order Number: [id number] Exam Date: 10/02/2024 14:45 Report Date: 10/03/2024 17:19 At the request of: KINJAL BRISENO Procedure: MR shoulder RT wo con EXAM: MR shoulder RT wo con HISTORY: Right Shoulder Pain COMPARISON: 05/02/2024 TECHNIQUE: MRI images obtained with multiple sequences. MRI of the right shoulder without contrast. Sequences obtained by standard department protocol. FINDINGS: Moderate degeneration of the acromioclavicular joint. Full-thickness tear of the distal supraspinatus tendon. There is retraction measuring approximately 2.3 cm. Partial-thickness insertional tearing of the distal infraspinatus fibers. Subacromial subdeltoid bursal fluid, consistent with bursitis. Teres minor is intact. Subscapularis is intact. Muscle bulk of the rotator cuff is preserved. No labral detachment. No full-thickness chondral loss at the glenohumeral joint. Intra-articular portion of the biceps tendon is not well seen, concerning for tear/tendinopathy. No acute fractures. MR/MR shoulder RT wo con IMPRESSION: 1. Full-thickness tear of the distal supraspinatus tendon. There is retraction measuring approximately 2.3 cm. Partial-thickness insertional tearing of the distal infraspinatus fibers. 2. Subacromial subdeltoid bursal fluid, consistent with bursitis. 3. No acute fractures. Electronically authenticated by: NELLY MORENO Date: 10/03/2024 17:19
== END 2024-10-02 14:31 | disposition home or self-care (01) ==
LOC: MRI 14:30
PROVIDERS: PCP Internal Medicine; Visit Provider Internal Medicine
DX: M25.511 Pain in right shoulder (principal); S46.811A Strain of other muscles, fascia and tendons at shoulder and upper arm level, right arm, initial encounter; M75.51 Bursitis of right shoulder
CPT/HCPCS: 73221

== ENCOUNTER 2024-12-04 09:46 | Outpatient (OUT) | payer MEDICARE, SELFPAY ==
--- OUTSIDE RECORDS SUMMARY | 2024-12-04 09:59 | XMS_ITS | CCD ---
Author Organization [facility] Care Team Providers Care Superintendent [employer] Name Role Phone DR KALEB AHUMADA Attending Unavailable BALL, DR MANUEL Consulting Unavailable BALL, DR MANUEL Primary Care Unavailable BALL, DR MANUEL Admitting Unavailable WEST, DR NEVIN Marshall Consulting Unavailable BALL, DR MANUEL Attending Unavailable BALL, DR MANUEL Consulting Unavailable BALL, DR MANUEL Primary Care Unavailable BALL, DR MANUEL Admitting Unavailable ZIEBER, DR NEWTON Rodriguez Consulting Unavailable BALL, DR MANUEL Consulting Unavailable BALL, DR MANUEL Primary Care Unavailable BALL, DR MANUEL Admitting Unavailable BALL, DR MANUEL Attending Unavailable Kaleb Ahumada Unavailable DO Kaleb Ahumada Primary Care Provider MD Dave Hoff Attending Provider Kaleb Ahumada Primary Care Unavailable Dave Hoff Attending Jennifer Hoff, Dave Ortiz Admitting DO Kaleb Martinez Primary Care Provider MD Dave Hoff Attending Provider Unavailable Primary Care Provider Unavailabl e XENA MENDOZA Attending Unavailable CODY BERMUDEZ Referring Unavailable VIJAY ALANIS Attending Unavailable CODY BERMUDEZ Referring Unavailable KELBLEY, VINH Attending Unavailable AIDANCODY Referring Unavailable KELBLEY, VINH Attending Unavailable AIDANCODY Referring Unavailable KELBLEY, VINH Attending Unavailable AIDANCODY Referring Unavailable XENA MENDOZA Attending Unavailable BALL, KALEB E Referring Unavailable KELBLEY, VINH Attending Unavailable BALL, KALEB E Referring Unavailable VIJAY ALANIS Attending Unavailable BALL, KALEB E Referring Unavailable KELBLEY, VINH Attending Unavailable BALL, KALEB E Referring Unavailable KELBLEY, VINH Attending Unavailable BALL, KALEB E Referring Unavailable KELBLEY, VINH Attending Unavailable BALL, KALEB E Referring Unavailable KELBLEY, VINH Attending Unavailable BALL, KALEB E Referring Unavailable KELBLEY, VINH Attending Unavailable KALEB AHUMADA E Referring Unavailable Allergies Allergy Classification Reported Allergen(s) Allergy Type Date of Onset Reaction(s) Facility (1 source) patient allergy list reviewed by nurse or physicia Propensity to adverse reactions Comment:[employer] Other Medications Current Medications Medication Drug Class(es) Dates Sig (Normalized) Sig (Original) atorvastatin 40 mg oral tablet (20 sources) HMG-CoA Reductase Inhibitor Start: 07-25-2024 take 1 tablet by mouth once daily in the evening Atorvastatin 40 mg tablet Active 0 .ROUTE .COMPLEX July 25, 2024 6:59am TAKE 1 TABLET BY MOUTH ONCE DAILY IN THE EVENING FOR 90 DAYS Start: 10-17-2023 End: 07-25-2024 take 1 tablet by mouth once daily Atorvastatin 40 mg tablet Discontinued 40 MG PO Daily 90 90 December 06, 2023 1:18pm July 25, 2024 6:59am take 1 tablet by mati th once daily in the evening Atorvastatin Calcium 40 MG TAKE 1 TABLET BY MOUTH ONCE DAILY IN THE EVENING Active Biotin (7 sources) Start: 10-17-2023 take 1 tablet by mouth once daily Biotin (Hair, Skin And Nails (Biotin)) 10,000 mcg tablet,chewable Active 83074 MCG PO Daily October 17, 2023 1:00am Start: 10-17-2023 take 1 tablet by mati th once daily Biotin (Hair, Skin And Nails (Biotin)) 10,000 mcg tablet,chewable Active 90698 MCG PO Daily October 17, 2023 12:00am calcium ascorbate 500 mg oral tablet (7 sources) Start: 10-17-2023 take 1 tablet by mouth once daily Ascorbate Calcium (Vitamin C) 500 mg tablet Active 500 MG PO Daily October 17, 2023 12:00am ferrous sulfate 325 mg oral tablet (20 sources) Start: 10-17-2023 End: 12-06-2023 take 1 tablet by mouth three times weekly Ferrous Sulfate 325 mg (65 mg iron) tablet Active 325 MG PO 3 Times a week 39 90 December 06, 2023 1:34pm FreeTextSi tablet Orally Three times a Week; Note: Source Status: Taking; Provider: Brandyn Manuel ( ) take 1 tablet by mouth three brittney es weekly Iron 325 (65 Fe) MG 1 tablet Orally Three times a Week Active loratadine 10 mg oral tablet (7 sources) Start: 10-17-2023 take 1 tablet by mouth once daily Loratadine (Allergy Relief (Loratadine)) 10 mg tablet Active 10 MG PO Daily October 17, 2023 12:00am Magnesium (7 sources) Start: 10-17-2023 take 1 tablet by mouth once daily Magnesium 250 mg tablet Active 250 MG PO Daily October 17, 2023 12:00am Start: 10-17-2023 take 250 mg by mouth once araceli y Magnesium Active 250 MG PO Daily October 17, 2023 1:00am Start: 10-17-2023 take 250 mg by mouth once araceli y Magnesium Active 250 MG PO Daily October 17, 2023 12:00am 24 hr metoprolol succinate 25 mg extended release oral tablet (20 sources) beta-Adrenergic John Start: 09-14-2024 take 1 tablet by mouth once daily Metoprolol Succinate 25 mg tablet extended release 24 hr Active 0 .ROUTE .COMPLEX September 14, 2024 7:05am Take 1 tablet by mouth once daily Start: 10-17-2023 End: 09-14-2024 take 1 tablet by mouth once daily Metoprolol Succinate 25 mg tablet extended release 24 hr Discontinued 25 MG PO Daily 90 90 December 06, 2023 1:34pm September 14, 2024 7:05am Start: 08-21-2023 take 1 tablet by mati every twenty-four hours Metoprolol Succinate ER 25 MG 1 tablet Orally Once a day for 30 days Replaces Rx for Metoprolol sprinkles Jul, Active Start: 08-16-2023 take 1 capsule by mo [facility] once daily Metoprolol Succinate 25 MG 1 capsule Orally Once a day for 30 days Jul, Active Multivit With Min-Folic Acid (Adult Multivitamin Gummies) 200 mcg tablet,chewable (7 sources) Start: 10-17-2023 take 1 tablet by mouth once daily Multivit With Min-Folic Acid (Adult Multivitamin Gummies) 200 mcg tablet,chewable Active 1 TAB PO Daily October 17, 2023 1:00am Start: 10-17-2023 take 1 tablet by mati th once daily Multivit With Min-Folic Acid (Adult Multivitamin Gummies) 200 mcg tablet,chewable Active 1 TAB PO Daily October 17, 2023 12:00am Ad-Wza-Ty-Vit J-Oejiti-Icbrfdl (Preservision Areds 2 Plus Mv) 200 mcg-15 mcg- 5 mg-1 mg capsule (7 sources) Start: 10-17-2023 take 1 capsule by mouth once daily Dt-Qsg-Gi-Vit P-Ehxgwz-Mxgbibt (Preservision Areds 2 Plus Mv) 200 mcg-15 mcg- 5 mg-1 mg capsule Active 1 CAP PO Daily October 17, 2023 1:00am Start: 10-17-2023 take 1 capsule by mo [facility] once daily Ty-Ccr-Jv-Vit R-Nnezng-Hnyfozl (Preservision Areds 2 Plus Mv) 200 mcg-15 [...] Subcutaneous weekly for 28 days Nov, Active Semaglutide (18 sources) Start: 05-23-2024 Semaglutide (O zempic) 0.25 mg or 0.5 mg (2 mg/3 mL) pen injector Active 0.5 MG SUBCUT every week 3 May 23, 2024 5:26pm Start: 05-23-2024 Semaglutide (O zempic) 0.25 mg or 0.5 mg (2 mg/3 mL) pen injector Active 0.5 MG SUBCUT every week 3 May 23, 2024 6:26pm Start: 03-26-2024 End: 05-23-2024 Semaglutide (Ozempic) 0.25 m g or 0.5 mg (2 mg/3 mL) pen injector Discontinued 0 .ROUTE .COMPLEX March 26, 2024 5:23pm May 23, 2024 5:26pm INJECT 0.25 MG SUBCUTANEOUSLY ONCE WEEKLY Start: 03-26-2024 End: 05-23-2024 Semaglutide (Ozempic) 0.25 [...] 0 .ROUTE .COMPLEX 3 February 01, 2024 8:12am March 26, 2024 5:26pm INJECT 0.25 MG SUBCUANEOUSLY WEEKLY Start: 02-01-2024 End: 03-26-2024 Semaglutide (Ozempic) 0.25 m g or 0.5 mg (2 mg/3 mL) pen injector Discontinued 0 .ROUTE .COMPLEX 3 February 01, 2024 9:12am March 26, 2024 6:26pm INJECT 0.25 MG SUBCUANEOUSLY WEEKLY Start: 12-06-2023 End: 02-01-2024 Semaglutide 0.25 mg or 0.5 m g (2 mg/3 mL) pen injector Discontinued 0.25 MG SUBCUT every week December 05, 2023 11:00pm February 01, 2024 8:12am for 4 weeks Start: 12-06-2023 End: 02-01-2024 inject 0.25 mg by subcutaneous injection every week Semaglutide Discontinued 0.25 MG SUBCUT every week December 06, 2023 12:00am February 01, 2024 9:12am for 4 weeks vitamin B12 (11 sources) Vitamin B12 Vitamin B-12 Act [place] Completed/Discontinued Medications Medication Drug Class(es) Dates Sig (Normalized) Sig (Original) apixaban 5 mg oral tablet (15 sources) Factor Xa Inhibitor Start: 10-17-2023 End: 07-04-2024 take 1 tablet by mouth every twelve hours Apixaban (Eliquis) 5 mg tablet Discontinued 5 MG PO Every 12 hours 180 90 December 06, 2023 1:17pm July 04, 2024 5:56pm losartan potassium 25 mg oral tablet (20 sources) Angiotensin 2 Receptor John Start: 10-11-2023 End: 10-17-2023 take 1 tablet by mouth once daily Losartan 25 mg tablet Discontinued 25 MG PO daily 90 90 October 11, 2023 12:00am October 17, 2023 11:07am take 1 tablet by mouth once araceli y Losartan Potassium 25 MG Take 1 tablet by mouth once daily Active predniSONE 20 mg oral tablet (4 sources) Start: 05-02-2024 End: 09-14-2024 take 1 tablet by mouth once daily Prednisone 20 mg tablet Discontinued 20 MG PO Daily 5 5 May 01, 2024 11:00pm September 14, 2024 1:30pm 0.25 mg, 0.5 mg dose 1.5 ml semaglutide 1.34 mg/ml pen injector (8 sources) Start: 10-17-2023 End: 12-06-2023 Semaglutide (Ozempic) 0.25 mg or 0.5 mg(2 mg/1.5 mL) pen injector Discontinued 0.25 MG SUBCUT every week October 17, 2023 12:00am December 06, 2023 1:37pm FreeTextSi.25 MG Subcutaneous weekly; Note: Source Status: [...] Onset: 10-17-2023 Chronic Congestive heart failure; nonhypertensive (19 sources) Acute on chronic diastolic heart failure; Translations: [Acute on chronic diastolic (congestive) heart failure] Chronic Deficiency and other anemia (1 source) Other specified anemias Episodic Deficiency and other anemia (2 sources) Anemia, unspecified Episodic Deficiency and other anemia (6 sources) Anemia; Translations: [Anemia, unspecified] 12-02-2023 Episodic [...] hypertension] Onset: 06-13-2022 Chronic Heart valve disorders (3 sources) Heart murmur; Translations: [Cardiac murmur, unspecified] [...] D deficiency, unspecified] Onset: 07-12-2014 Chronic Osteoarthritis (9 sources) Osteoarthritis; Translations: [Polyosteoarthritis, unspecified] 08-06-2024 Chronic Other aftercare (1 source) Other terminal carman (current) drug therapy; Translations: [OTH DETENTION CURRENT DRUG THERAPY] Onset: 06-13-2022 Episodic Other aftercare (1 source) Long-term current use of drug therapy; Translations: [Other terminal carman (current) drug therapy] Episodic Other circulatory disease (9 sources) Other specified symptoms and signs involving the circulatory and respiratory systems; Translations: [OTH SPEC SX SIGNS INVLV CIRC RS] Onset: 06-09-2022 Episodic Other circulatory disease (19 sources) Cardiovascular symptoms; Translations: [Other specified symptoms and signs involving the circulatory and respiratory systems] Episodic Other circulatory disease (7 sources) Carotid bruit; Translations: [Other specified symptoms and signs involving the circulatory and respiratory systems] 10-17-2023 Episodic Other connective tissue disease (2 sources) Impingement syndrome of shoulder region; Translations: [Impingement syndrome of right shoulder] 05-02-2024 Episodic Other connective tissue disease (2 sources) Impingement syndrome of right shoulder; Translations: [Other affections of shoulder region, not elsewhere classified] 05-02-2024 Episodic Other connective tissue disease (1 source) Supraspinatus tear; Translations: [Unspecified rotator cuff tear or rupture of unspecified shoulder, not specified as traumatic] 10-09-2024 Episodic Other connective tissue disease (1 source) Unspecified rotator cuff tear or rupture of unspecified shoulder, not specified as traumatic; Translations: [Supraspinatus (muscle) (tendon) sprain] 10-09-2024 Episodic Other connective tissue disease (4 sources) Nontraumatic complete rupture of rotator cuff of right shoulder; Translations: [Complete rotator cuff tear or rupture of right shoulder, not specified as traumatic] 10-16-2024 Episodic Other connective tissue disease (4 sources) Muscle weakness of upper limb; Translations: [Muscle weakness (generalized)] 10-16-2024 Episodic Other ear and sense organ disorders (1 source) Otitis externa; Translations: [Unspecified otitis externa, unspecified ear] Chronic Other ear and sense organ disorders (1 source) Impacted cerumen; Translations: [Impacted cerumen, unspecified ear] Episodic Other injuries and conditions due to external causes (1 source) History of fall; Translations: [History of falling] Episodic Other non-traumatic joint disorders (8 sources) Pain in right shoulder; Translations: [Right shoulder pain] 05-02-2024 Episodic Other non-traumatic joint disorders (8 sources) Chronic pain of right upper limb; Translations: [Pain in right shoulder] 08-06-2024 Episodic Other nutritional; endocrine; and metabolic disorders (19 sources) Body mass index 30+ - obesity; Translations: [Obesity, unspecified] Chronic Other nutritional; endocrine; and metabolic disorders (4 sources) Obesity, unspecified; Translations: [Obesity, unspecified] Chronic Other nutritional; endocrine; and metabolic disorders (6 sources) Obesity; Translations: [Obesity, unspecified] Onset: 06-02-2022 [...] conditions (not mental disorders or infectious disease) (9 sources) Encounter for screening mammogram for malignant neoplasm of breast; Translations: [Mammography abnormal] Onset: 07-14-2014 Episodic Other skin disorders (2 sources) Other skin changes Episodic Residual codes; unclassified (1 source) Family history of malignant neoplasm of other organs or systems; Translations: [FAM HX MALIG NEOPLASM OTH ORGN/SYS] Onset: 08-09-2022 Episodic Residual codes; unclassified (1 source) Postmenopausal state; Translations: [Asymptomatic menopausal state] Episodic Sprains and strains (2 sources) Rupture of infraspinatus tendon; Translations: [Strain of other muscles, fascia and tendons at shoulder and upper arm level, unspecified arm, initial encounter] 10-09-2024 Episodic Past or Other Problems Problem Classification [...] lead ECGon 10-17-2023 ECG 12 lead ECG [facility] [place] [id number] Electrocardiograph Report Signed Patient: Alycia Daily MR#: [id number] : 1945 Acct:[id number] Age/Sex: 78 / F ADM Date: 10/17/23 Loc: EKGCARDIO Room: Type: [facility] Attending Dr: Dave Hoff MD Ordering Provider: [...] previous ECGs available Confirmed by Dave Hoff ([id number]) on 10/18/2023 10:36:42 AM Referred By: Electronically Signed By:Dave Hoff Transcribed By: MUS Signed By Dave Hoff MD 10/18/23 1036 [facility] MG MAMM SCREEN 3D RAKAN CADon 08-05-2022 MG MAMM SCREEN 3D RAKAN CAD Patient: ALYCIA DAILY Exam Date: 08/05/2022 : 1945 Gender:F Ordering : DR KALEB AHUMADA D.O. Admission #: [id number] Family : Order #: [id number] CLICK HERE TO VIEW EXAM RADIOLOGY REPORT [...] brain cancer at age 64. LOCATION: [facility] BREAST COMPOSITION: Scattered areas fibroglandular density. [...] MD on 08/06/2022 at 08:58 Normal [facility] BNPon 06-09-2022 Natriuretic peptide B (Bld) [Mass/Vol] 188.0 pg/mL Normal <=1,800.0 [facility] Comment on above: Performed By: #### A LT, LIPID, BNP #### [facility] [address] [place] [address] Dr. Taisha Alexandra CBC AUTO DIFFon 06-09-2022 BASO # 0.0 103/ul Normal 0.0-0.1 [facility] Comment on above: Performed By: #### C BC #### [facility] [address] [place] [address] Dr. Taisha Alexandra Basophils/100 WBC (Bld) 0.4 % Normal 0.2-2.0 [facility] Comment on above: Performed By: #### C BC #### [facility] [address] [place] [address] Dr. Taisha Alexandra EO # 0.2 103/ul Normal 0.0-0.7 [facility] Comment on above: Performed By: #### C BC #### [facility] [address] [place] [address] Dr. Taisha Alexandra Eosinophils/100 WBC (Bld) 2.8 % Normal 0.9-7.0 [facility] Comment on above: Performed By: #### C BC #### [facility] [address] [place] [address] Dr. Taisha Alexandra Erythrocyte distribution width (RBC) [Ratio] 13.3 % Normal 11.0-15.0 [facility] Comment on above: Performed By: #### C BC #### [facility] [address] [place] [address] Dr. Taisha Alexandra Hematocrit (Bld) [Volume fraction] 40.3 % Normal 36.0-48.0 [facility] Comment on above: Performed By: #### C BC #### [facility] [address] [place] [address] Dr. Taisha Alexandra Hemoglobin (Bld) [Mass/Vol] 12.7 g/dL Normal 12.0-16.0 [facility] Comment on above: Performed By: #### C BC #### [facility] [address] [place] [address] Dr. Taisha Alexandra IG # 0.01 10e3/ul Normal 0.00-0.03 [facility] Comment on above: Performed By: #### C BC #### [facility] [address] [place] [address] Dr. Taisha Alexandra IG % 0.2 % Normal 0.0-0.5 [facility] Comment on above: Performed By: #### C BC #### [facility] [address] [place] [address] Dr. Taisha Alexandra LYMPH # 1.7 103/ul Normal 1.2-3.8 [facility] Comment on above: Performed By: #### C BC #### [facility] [address] [place] [address] Dr. Taisha Alexandra Lymphocytes/100 WBC (Bld) 31.9 % Normal 20.5-60.0 [facility] Comment on above: Performed By: #### C BC #### [facility] [address] [place] [address] Dr. Taisha Alexandra MANUAL DIFF REQ NO Normal [facility] Comment on above: Performed By: #### C BC #### [facility] [address] [place] [address] Dr. Taisha Alexandra MCH (RBC) [Entitic mass] 28.9 pg Normal 26.7-34.0 [facility] Comment on above: Performed By: #### C BC #### [facility] [address] [place] [address] Dr. Taisha Alexandra MCHC (RBC) [Mass/Vol] 31.5 g/dL Normal 29.9-35.2 [facility] Comment on above: Performed By: #### C BC #### [facility] [address] [place] [address] Dr. Taisha Alexandra MCV (RBC) [Entitic vol] 91.6 fL Normal 81.0-99.0 [facility] Comment on above: Performed By: #### C BC #### [facility] [address] [place] [address] Dr. Taisha Alexandra MONO # 0.4 103/ul Normal 0.3-0.8 [facility] Comment on above: Performed By: #### C BC #### [facility] [address] [place] [address] Dr. Taisha Alexandra Monocytes/100 WBC (Bld) 8.3 % Normal 1.7-12.0 [facility] Comment on above: Performed By: #### C BC #### [facility] [address] [place] [address] Dr. Taisha Alexandra NEUT # 3.0 103/ul Normal 1.4-6.5 [facility] Comment on above: Performed By: #### C BC #### [facility] [address] [place] [address] Dr. Taisha Alexandra Neutrophils/100 WBC (Bld) 56.4 % Normal 43.0-75.0 [facility] Comment on above: Performed By: #### C BC #### [facility] [address] [place] [address] Dr. Taisha Alexandra Platelet mean volume (Bld) [Entitic vol] 10.3 fL Normal 9.5-13.5 [facility] Comment on above: Performed By: #### C BC #### [facility] [address] [place] [address] Dr. Taisha Alexandra PLT 224 103/ul Normal 150-450 [facility] Comment on above: Performed By: #### C BC #### [facility] [address] [place] [address] Dr. Taisha Alexandra RBC 4.40 106/ul Normal 4.20-5.40 [facility] Comment on above: Performed By: #### C BC #### [facility] [address] [place] [address] Dr. Taisha Alexandra WBC 5.3 103/ul Normal 4.0-11.0 [facility] Comment on above: Performed By: #### C BC #### [facility] [address] [place] [address] Dr. Taisha Alexandra GLYCOHEMOGLOBIN A1Con 2021 ADA RECOMMENDATION SEE BELOW Normal [facility] Comment on above: Result Comment: ADA RECOMMENDED LIMIT 4.0 - 6.0 ADA THERAPEUTIC TARGET < 7.0 ACTION SUGGESTED > 7.0 Performed By: #### A 1C #### [facility] [address] [place] [address] Dr. Taisha Alexandra Glucose [Mass/Vol] 120 mg/dL Normal [facility] Comment on above: Performed By: #### A 1C #### [facility] [address] [place] [address] Dr. Taisha Alexandra HbA1c (Bld) [Mass fraction] 5.8 % Normal 4.5-6.2 [facility] Comment on above: Performed By: #### A 1C #### [facility] [address] [place] [address] Dr. Taisha Alexandra LIPID PROFILEon 06-09-2022 CHOL-HDL RATIO NORM SEE BELOW Normal [facility] Comment on above: Result Comment: 3.3 - 4.4 LOW RISK 4.4 - 7.1 AVERAGE RISK 7.1 - 11.0 MODERATE RISK >11.0 HIGH RISK Performed By: #### A LT, LIPID, BNP #### [facility] [address] [address] [address] Taisha Alexandra Cholesterol [Mass/Vol] 138 mg/dL Normal <=200 [facility] Comment on above: Performed By: #### A LT, LIPID, BNP #### [facility] [address] [address] [address] Taisha Alexandra Cholesterol in HDL [Mass/Vol] 56 mg/dL Normal 40-60 [facility] Comment on above: Performed By: #### A LT, LIPID, BNP #### [facility] [address] [address] [address] Taisha Alexandra Cholesterol in LDL [Mass/Vol] 74.4 mg/dL Normal [facility] Comment on above: Performed By: #### A LT, LIPID, BNP #### [facility] [address] [place] [address] Dr. Taisha Alexandra Cholesterol.total/Cho lesterol in HDL [Mass ratio] 2.5 {ratio} Normal [facility] Comment on above: Performed By: #### A LT, LIPID, BNP #### [facility] [address] [address] [address] Taisha Alexadnra HDL NORMAL > or = 60 mg/dl - LOW CARDIOVASCULAR RISK <40 mg/dl - HIGH CARDIOVASCULAR RISK Normal [facility] Comment on above: Performed By: #### A LT, LIPID, BNP #### [facility] [address] [address] [address] Taisha Alexandra LDL CALC NORMAL SEE BELOW Normal [facility] Comment on above: Result Comment: <100 mg/dl OPTIMAL 100 - 129 mg/dl NEAR OR ABOVE OPTIMAL 130 - 159 mg/dl BORDERLINE HIGH 160 - 189 mg/dl HIGH >190 mg/dl VERY HIGH Performed By: #### A LT, LIPID, BNP #### [facility] [address] [address] [address] Taisha Alexandra Triglyceride [Mass/Vol] 38 mg/dL Normal <=150 [facility] Comment on above: Performed By: #### A LT, LIPID, BNP #### [facility] [address] [address] [address] Taisha Alexandra VLDL CALC 7.6 mg/dL Normal [facility] Comment on above: Performed By: #### A LT, LIPID, BNP #### [facility] [address] [address] [address] Taisha Alexandra MICROALBUMIN, RAND URon - mALB 1.8 mg/L Normal <=30.0 [facility] Comment on above: Performed By: #### M ALBR #### [facility] [address] [address] [address] Taisha Alexandra SGPTon 06-09-2022 ALT [Catalytic activity/Vol] 22 U/L Normal 14-59 [facility] Comment on above: Performed By: #### A LT, LIPID, BNP #### [facility] [address] [address] [address] Taisha Alexandra US CAROTID ART BILon [...] by: NEWTON KAHN Date: 2022-06-09 21:11 Normal [facility] GLYCOHEMOGLOBIN A1Con 2021 ADA RECOMMENDATION ADA THERAPEUTIC TARGET 6.0 - 7.0 ACTION SUGGESTED > 7.0 Normal [facility] Comment on above: Performed By: #### A 1C #### [facility] [address] [address] [address] Taisha Alexandra Glucose [Mass/Vol] 134 mg/dL Normal [facility] Comment on above: Performed By: #### A 1C #### [facility] [address] [address] [address] Taisha Alexandra HbA1c (Bld) [Mass fraction] 6.3 % Critically high <=6.0 [facility] Comment on above: Performed By: #### A 1C #### [facility] [address] [address] [address] Taisha Alexandra Vital Signs Date Time Vital Sign Value Performing Clinician Facility 09-14-2024 13:31-0500 Body height 165.1 cm [facility] 09-14-2024 13:31-0500 Body mass index (BMI) [Ratio] 33.6 kg/m2 [facility] 09-14-2024 13:31-0500 Body weight 91.68 kg [facility] 09-14-2024 13:31-0500 Diastolic blood pressure 75 mm[Hg] [facility] 09-14-2024 13:31-0500 Heart rate 66 /min [facility] 09-14-2024 13:31-0500 Respiratory rate 12 /min [facility] 09-14-2024 13:31-0500 Systolic blood pressure 131 mm[Hg] [facility] 06-08-2024 13:54-0400 Body height 165.1 cm [facility] 06-08-2024 13:54-0400 Body mass index (BMI) [Ratio] 32.3 kg/m2 [facility] 06-08-2024 13:54-0400 Body weight 88.16 kg [facility] 06-08-2024 13:54-0400 Diastolic blood pressure 77 mm[Hg] [facility] 06-08-2024 13:54-0400 Heart rate 60 /min [facility] 06-08-2024 13:54-0400 Respiratory rate 12 /min [facility] 06-08-2024 13:54-0400 Systolic blood pressure 144 mm[Hg] [facility] 05-02-2024 10:28-0400 Body height 165.1 cm [facility] 05-02-2024 10:28-0400 Body mass index (BMI) [Ratio] 31.6 kg/m2 [facility] 05-02-2024 10:28-0400 Body weight 86.35 kg [facility] 05-02-2024 10:28-0400 Diastolic blood pressure 79 mm[Hg] [facility] 05-02-2024 10:28-0400 Heart rate 62 /min [facility] 05-02-2024 10:28-0400 Respiratory rate 12 /min [facility] 05-02-2024 10:28-0400 Systolic blood pressure 144 mm[Hg] [facility] 04-24-2024 13:56-0400 Body height 165.1 cm [facility] 04-24-2024 13:56-0400 Body mass index (BMI) [Ratio] 31.2 kg/m2 [facility] 04-24-2024 13:56-0400 Body weight 85.27 kg [facility] 04-24-2024 13:56-0400 Diastolic blood pressure 74 mm[Hg] [facility] 04-24-2024 13:56-0400 Heart rate 66 /min [facility] 04-24-2024 13:56-0400 Respiratory rate 18 /min [facility] 04-24-2024 13:56-0400 SaO2% (BldA) [Mass fraction] 98 % [facility] 04-24-2024 13:56-0400 Systolic blood pressure 128 mm[Hg] [facility] 12-06-2023 14:02-0400 Body height 165.1 cm DO Kaleb Ball Work Phone: [facility] 12-06-2023 14:02-0400 Body mass index (BMI) [Ratio] 30.2 kg/m2 DO Kaleb Ball Work Phone: [facility] 12-06-2023 14:02-0400 Body weight 82.32 kg DO Kaleb Ball Work Phone: [facility] 12-06-2023 14:02-0400 Diastolic blood pressure 68 mm[Hg] DO Kaleb Ball Work Phone: [facility] 12-06-2023 14:02-0400 Heart rate 62 /min DO Kaleb Ball Work Phone: [facility] 12-06-2023 14:02-0400 Respiratory rate 12 /min DO Kaleb Ball Work Phone: [facility] 12-06-2023 14:02-0400 Systolic blood pressure 126 mm[Hg] DO Kaleb Ball Work Phone: [facility] 10-17-2023 11:18-0500 Body height 165.1 cm DO Kaleb Ball Work Phone: [facility] 10-17-2023 11:18-0500 Body mass index (BMI) [Ratio] 29.7 kg/m2 DO Kaleb Ball Work Phone: [facility] 10-17-2023 11:18-0500 Body weight 81.19 kg DO Kaleb Ball Work Phone: [facility] 10-17-2023 11:18-0500 Diastolic blood pressure 78 mm[Hg] DO Kaleb Ball Work Phone: [facility] 10-17-2023 11:18-0500 Heart rate 60 /min DO Kaleb Ball Work Phone: [facility] 10-17-2023 11:18-0500 Respiratory rate 18 /min DO Kaleb Ball Work Phone: [facility] 10-17-2023 11:18-0500 SaO2% (BldA) [Mass fraction] 96 % DO Kaleb Ball Work Phone: [facility] 10-17-2023 11:18-0500 Systolic blood pressure 134 mm[Hg] DO Kaleb Ball Work Phone: [facility] 08-16-2023 11:15-0500 Body height 170.18 cm Kaleb Ball Other [facility] 08-16-2023 11:15-0500 Body mass index (BMI) [Ratio] 27.56 kg/m2 Kaleb Ball Other [employer] [facility] [employer] Other 08-16-2023 11:15-0500 Body weight 79.83 kg Kaleb Ball Other [facility] 08-16-2023 11:15-0500 Diastolic blood pressure 72 mm[Hg] Kaleb Ball Other [facility] 08-16-2023 11:15-0500 Respiratory rate 12 /min Kaleb Ball Other [employer] Other 08-16-2023 11:15-0500 Systolic blood pressure 115 mm[Hg] Kaleb Ball Other [facility] 08-08-2023 14:45-0500 Body height 170.18 cm Kaleb Ball Other [facility] 08-08-2023 14:45-0500 Body mass index (BMI) [Ratio] 27.66 kg/m2 Kaleb Ball Other [place] [employer] Other 08-08-2023 14:45-0500 Body weight 80.11 kg Kaleb Ball Other [place] [employer] Other 08-08-2023 14:45-0500 Body weight 80.1 kg DO Kaleb Ball Work Phone: [facility] 08-08-2023 14:45-0500 Diastolic blood pressure 73 mm[Hg] Kaleb Ball Other [facility] 08-08-2023 14:45-0500 Systolic blood pressure 106 mm[Hg] Kaleb Ball Other [facility] 2023 16:42-0500 Body height 170.18 cm Kaleb Ball Other [facility] 07-13-2023 10:45-0500 Body height 170.18 cm Kaleb Ball Other [employer] Other 07-13-2023 10:45-0500 Body mass index (BMI) [Ratio] 27.88 kg/m2 Kaleb Ball Other [employer] Other 07-13-2023 10:45-0500 Body weight 80.74 kg Kaleb Ball Other [employer] Other 07-13-2023 10:45-0500 Diastolic blood pressure 74 mm[Hg] Kaleb Ball Other [employer] Other 07-13-2023 10:45-0500 Respiratory rate 12 /min Kaleb Ball Other [employer] Other 07-13-2023 10:45-0500 Systolic blood pressure 125 mm[Hg] Kaleb Ball Other [employer] Other 06-06-2023 14:00-0400 Body height 170.18 cm Kaleb Ball Other [employer] Other 06-06-2023 14:00-0400 Body mass index (BMI) [Ratio] 28.16 kg/m2 Kaleb Ball Other [employer] Other 06-06-2023 14:00-0400 Body weight 81.56 kg Kaleb Ball Other [employer] Other 06-06-2023 14:00-0400 Diastolic blood pressure 65 mm[Hg] Kaleb Ball Other [employer] Other 06-06-2023 14:00-0400 Respiratory rate 12 /min Kaleb Ball Other [employer] Other 06-06-2023 14:00-0400 Systolic blood pressure 103 mm[Hg] Kaleb Ball Other [employer] Other 11-30-2022 15:30-0400 Body height 170.18 cm Kaleb Ball Other [employer] Other 11-30-2022 15:30-0400 Body mass index (BMI) [Ratio] 30.85 kg/m2 Kaleb Ball Other [employer] Other 11-30-2022 15:30-0400 Body weight 89.36 kg Kaleb Ball Other [employer] Other 11-30-2022 15:30-0400 Diastolic blood pressure 70 mm[Hg] Kaleb Ball Other [employer] Other 11-30-2022 15:30-0400 Respiratory rate 12 /min Kaleb Ball Other [employer] Other 11-30-2022 15:30-0400 Systolic blood pressure 114 mm[Hg] Kaleb Ball Other [employer] Other Encounters Encounter Date Encounter Type Care Provider Facility Start: 10-26-2024 End: 10-26-2024 ambulatory VINH LYNN Not Available Start: 10-24-2024 End: 10-24-2024 Bamboo flowsheet Vinh Hilliardy [employer] [facility] Start: 10-24-2024 End: 10-24-2024 Bamboo flowsheet Vinh Hilliardy [employer] [facility] Start: 10-24-2024 End: 10-24-2024 ambulatory Vinh Lynn [employer] [facility] Comment on above: 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); Muscle weakness of right upper extremity Start: 10-22-2024 End: 10-22-2024 Bamboo flowsheet Vinh Hilliardy [employer] [facility] Start: 10-22-2024 End: 10-22-2024 Bamboo flowsheet Vinh Hilliardy [employer] [facility] Start: 10-22-2024 End: 10-22-2024 ambulatory Vinh Hilliardy [employer] [facility] Comment on above: 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); Muscle weakness of right upper extremity Start: 10-18-2024 End: 10-18-2024 Bamboo flowsheet Vijay Alanis [employer] [facility] Start: 10-18-2024 End: 10-18-2024 Bamboo flowsheet Vijay Alanis [employer] [facility] Start: 10-18-2024 End: 10-18-2024 ambulatory Vijay Alanis [employer] [facility] Comment on above: 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); Muscle weakness of right upper extremity; Chronic right shoulder pain; Arthritis of right acromioclavicular joint Start: 10-16-2024 End: 10-16-2024 Bamboo flowsheet Xena Mendoza PT Work Phone: [facility] Start: 10-16-2024 End: 10-16-2024 Bamboo flowsheet Xena Mendoza PT Work Phone: [facility] Start: 10-16-2024 End: 10-16-2024 ambulatory Xena Mendoza PT Work Phone: [facility] Comment on above: 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); Muscle weakness of right upper extremity Start: 10-09-2024 End: 10-09-2024 ambulatory [facility] Work Phone: Start: 10-09-2024 End: 10-09-2024 Patient encounter procedure [facility] Work Phone: Start: 09-14-2024 End: 09-14-2024 ambulatory [facility] Work Phone: Start: 09-14-2024 End: 09-14-2024 [facility] Start: 08-30-2024 End: 08-30-2024 Bamboo flowsheet Vinh Coellosahil [employer] [facility] Start: 08-30-2024 End: 08-30-2024 Bamboo flowsheet Vinh Hilliardy [employer] [facility] Start: 08-30-2024 End: 08-30-2024 ambulatory Vinh Lynn [employer] [facility] Comment on above: Chronic right should er pain (Primary Dx); Arthritis of right acromioclavicular joint Start: 08-28-2024 End: 08-28-2024 Bamboo flowsheet Vinh Kelbley [employer] [facility] Start: 08-28-2024 End: 08-28-2024 Bamboo flowsheet Vinh Kelbley [employer] [facility] Start: 08-28-2024 End: 08-28-2024 ambulatory Vinh Kelbley [employer] [facility] Comment on above: Chronic right should er pain (Primary Dx); Arthritis of right acromioclavicular joint Start: 08-24-2024 End: 08-24-2024 Bamboo flowsheet Vinh Kelbley [employer] [facility] Start: 08-24-2024 End: 08-24-2024 Bamboo flowsheet Vinh Kelbley [employer] [facility] Start: 08-24-2024 End: 08-24-2024 ambulatory Vinh Kelbley [employer] [facility] Comment on above: Chronic right should er pain (Primary Dx); Arthritis of right acromioclavicular joint Start: 08-21-2024 End: 08-21-2024 Bamboo flowsheet Vinh Kelbley [employer] [facility] Start: 08-21-2024 End: 08-21-2024 Bamboo flowsheet Vinh Kelbley [employer] [facility] Start: 08-21-2024 End: 08-21-2024 ambulatory Vinh Kelbley [employer] [facility] Comment on above: Chronic right should er pain (Primary Dx); Arthritis of right acromioclavicular joint Start: 08-17-2024 End: 08-17-2024 Bamboo flowsheet Vinh Kelbley [employer] [facility] Start: 08-17-2024 End: 08-17-2024 Bamboo flowsheet Vinh Kelbley [employer] [facility] Start: 08-17-2024 End: 08-17-2024 ambulatory Vinh Kelbley [employer] [facility] Comment on above: Chronic right should er pain (Primary Dx); Arthritis of right acromioclavicular joint Start: 08-14-2024 End: 08-14-2024 Bamboo flowsheet Vijay Brink [employer] [facility] Start: 08-14-2024 End: 08-14-2024 Bamboo flowsheet Vijay Alanis [employer] [facility] Start: 08-14-2024 End: 08-14-2024 ambulatory VIJAY ALANIS Not Available Start: 08-08-2024 End: 08-08-2024 Bamboo flowsheet Vinh Lynn [employer] [facility] Start: 08-08-2024 End: 08-08-2024 Bamboo flowsheet Vinh Hilliardy [employer] [facility] Start: 08-08-2024 End: 08-08-2024 ambulatory Vinh Lynn [employer] [facility] Comment on above: Chronic right should er pain (Primary Dx); Arthritis of right acromioclavicular joint Start: 08-06-2024 End: 08-06-2024 Bamboo flowsheet Xena Mendoza PT Work Phone: [facility] Start: 08-06-2024 End: 08-06-2024 Bamboo flowsheet Xena Mendoza PT Work Phone: [facility] Start: 08-06-2024 End: 08-06-2024 ambulatory Xena Mendoza PT Work Phone: [facility] Comment on above: Chronic right should er pain (Primary Dx); Arthritis of right acromioclavicular joint Start: 06-08-2024 End: 06-08-2024 ambulatory [facility] Work Phone: Start: 06-08-2024 End: 06-08-2024 Patient encounter procedure [facility] Work Phone: Start: 06-06-2024 Patient encounter procedure [facility] Start: 05-02-2024 End: 05-02-2024 ambulatory [facility] Work Phone: Start: 05-02-2024 End: 05-02-2024 Patient encounter procedure [facility] Work Phone: Start: 04-24-2024 End: 04-24-2024 ambulatory [facility] Work Phone: Start: 04-24-2024 End: 04-24-2024 Patient encounter procedure [facility] Work Phone: Start: 12-06-2023 End: 12-06-2023 ambulatory DO Kaleb Ball Work Phone: [facility] Work Phone: Start: 12-06-2023 End: 12-06-2023 Patient encounter procedure DO Kaleb Ball Work Phone: [facility] Work Phone: Start: 10-17-2023 End: 10-17-2023 ambulatory Kaleb Ball Facility:[facility] Start: 10-17-2023 End: 10-17-2023 ambulatory DO Kaleb Ball Work Phone: [facility] Work Phone: Start: 10-17-2023 End: 10-17-2023 Patient encounter procedure DO Kaleb Ball Work Phone: [facility] Work Phone: Start: 09-20-2023 End: 09-20-2023 ambulatory Kaleb Ball Other [employer] Other Start: 09-20-2023 Telephone encounter Kaleb Ball [facility] Start: 08-29-2023 End: 08-29-2023 ambulatory Kaleb Ball Other [employer] Other Start: 08-29-2023 Telephone encounter Kaleb Ball [facility] Start: 08-23-2023 End: 08-23-2023 ambulatory Kaleb Ball Other [employer] Other Start: 08-23-2023 Telephone encounter Kaleb Ball [facility] Start: 08-21-2023 End: 08-21-2023 ambulatory Kaleb Ball Other [employer] Other Start: 08-21-2023 Telephone encounter Kaleb Ahumada [facility] Start: 08-16-2023 End: 08-16-2023 ambulatory Kaleb Ball Other [employer] Other Start: 08-16-2023 Transitional care yamileth melendez srvc 14 day discharge Kaleb Ball [facility] Start: 08-16-2023 End: 08-16-2023 Patient encounter procedure DO Kaleb Ball Work Phone: [employer] [facility] Work Phone: Start: 08-10-2023 End: 08-10-2023 ambulatory Kaleb Ball Other [employer] Other Start: 08-10-2023 Telephone encounter Kaleb Ball [facility] Start: 08-08-2023 End: 08-08-2023 ambulatory Kaleb Brandyn Other [employer] Other Start: 08-08-2023 Office outpatient vi sit 25 minutes Kaleb Ball [facility] Start: 08-08-2023 Telephone encounter Kaleb Ball [facility] Start: 08-08-2023 End: 08-08-2023 Patient encounter procedure DO [facility]aleb [facility] Work Phone: Start: 2023 End: 2023 ambulatory Kaleb Ball Other [employer] Other Start: 2023 Telephone encounter Kaleb Ball [facility] Start: 2023 End: 2023 Patient encounter procedure DO Kaleb Ball Work Phone: [facility] Work Phone: Start: 07-15-2023 End: 07-15-2023 ambulatory Kaleb Ball Other [employer] Other Start: 07-15-2023 Telephone encounter Kaleb Ahumada [facility] Start: 07-13-2023 End: 07-13-2023 ambulatory Kaleb Ahumada Other [employer] Other Start: 07-13-2023 Office outpatient vi sit 25 minutes Kaleb Ahumada [facility] Start: 06-13-2023 End: 06-13-2023 ambulatory Kaleb Ahumada Other [employer] Other Start: 06-13-2023 Telephone encounter Kaleb Ahumada [facility] Start: 06-06-2023 End: 06-06-2023 ambulatory Kaleb Ahumada Other [employer] Other Start: 06-06-2023 Patient encounter procedure Kaleb Ahumada [facility] Start: 06-01-2023 End: 06-01-2023 ambulatory Kaleb Ahumada Other [employer] Other Start: 06-01-2023 Nursing evaluation o f patient and report Kaleb Ahumada [facility] Start: 11-30-2022 End: 11-30-2022 ambulatory Kaleb Ahumada Other [employer] Other Start: 11-30-2022 Office outpatient vi sit 25 minutes Kaleb Brandyn [facility] Start: 08-05-2022 End: 08-06-[address] KALEB AHUMADA Facility:[facility] Start: 06-09-2022 End: 06-10-[address] KALEB AHUMADA Facility:[facility] Start: 06-02-2022 Adult health examination David szymanski Brandyn Other [employer] Other Start: 09-28-2021 End: 09-29-[address] KALEB AHUMADA Facility:[facility] Procedures Date Procedure Procedure Detail Performing Clinician Start: 06-02-2022 Depression screening Be wilber Ahumada Other Start: 01-18-2017 Screening for osteoporosis Kaleb Ahumada Other Start: 07-22-2015 Screening for malign ant neoplasm of colon Kaleb Ahumada Other Start: 01-21-2015 Screening mammography B leilani Ahumada Other Screening for malign ant neoplasm of breast Kaleb Ahumada Other Plan of Treatment Date Care Activity Detail Author Start: 10-26-2024 End: 10-26-2024 ambulatory [facility] Start: 10-24-2024 End: 10-24-2024 ambulatory [facility] Comment on above: Arrived Start: 10-22-2024 End: 10-22-2024 ambulatory [facility] Comment on above: 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); Muscle weakness of right upper extremity Start: 10-18-2024 End: 10-18-2024 ambulatory [facility] Comment on above: Arrived Start: 10-16-2024 End: 10-16-2024 ambulatory 10/16/2024 9:00 AM EST Evaluation [facility] [address] [place] [address] Xena Mendoza, PT [address] [place] [address] Arrived [facility] Comment on above: Arrived Start: 08-30-2024 End: 08-30-2024 ambulatory 08/30/2024 11:00 AM EST Treatment [facility] [address] [place] [address] Vinh Lynn [employer] [facility] Start: 08-28-2024 End: 08-28-2024 ambulatory [facility] Comment on above: Arrived Start: 08-24-2024 End: 08-24-2024 ambulatory [facility] Comment on above: Arrived Start: 08-21-2024 End: 08-21-2024 ambulatory 08/21/2024 10:30 AM EST Treatment [facility] [address] [place] [address] Vinh Lynn [employer] [facility] Start: 08-17-2024 End: 08-17-2024 ambulatory [facility] Comment on above: Arrived Start: 08-14-2024 End: 08-14-2024 ambulatory [facility] Comment on above: Arrived Start: 08-08-2024 End: 08-08-2024 ambulatory [facility] Comment on above: Arrived Start: 08-06-2024 End: 08-06-2024 ambulatory 08/06/2024 9:00 AM EST Evaluation [facility] [address] [place] [address] Xena Mendoza, PT [address] [place] [address] Arrived [facility] Comment on above: Arrived Start: 10-17-2023 EKG 12 channel panel [facility] Start: 07-23-2016 Pneumococcal Vaccine : 65+ Years (2 of 2 - PPSV23 or PCV20) Pneumococcal Vaccine: 65+ Years (2 of 2 - PPSV23 or PCV20) [facility] Start: 2010 Pneumococcal Vaccine : 65+ Years (1 of 1 - PCV) Pneumococcal Vaccine: 65+ Years (1 of 1 - PCV) [facility] Comprehensive metabo lic 2000 panel - Serum or Plasma [facility] MG Breast - bilatera l Screening [facility] Microalbumin [Mass/volume] in Urine [facility] MR Shoulder - right WO contrast [facility] XR Shoulder - right Views [facility] Immunizations Immunization Date Immunization Notes Care Provider Fa peterty 06-08-2024 influenza, high dose seasonal, preservative-free [facility] 06-01-2023 influenza, high dose seasonal, preservative-free Kaleb Ahumada Other [employer] Other 06-01-2023 influenza virus vaccine, unspecified formulation DO Kaleb Ahumada Work Phone: [facility] 06-02-2022 influenza virus vaccine, split virus (incl. purified surface antigen) Kaleb Ahumada Other [employer] Other 06-02-2022 influenza virus vaccine, unspecified formulation DO [employer] Work Phone: [facility] 05-20-2021 influenza virus vaccine, split virus (incl. purified surface antigen) Kaleb [email or web address] Other [facility] [employer] Other 05-20-2021 influenza virus vaccine, unspecified formulation DO [employer] Work Phone: [facility] 04-25-2020 influenza virus vaccine, split virus (incl. purified surface antigen) Kaleb [email or web address] Other [facility] [employer] Other 04-25-2020 influenza virus vaccine, unspecified formulation DO [employer] Work Phone: [facility] 06-20-2019 influenza virus vaccine, split virus (incl. purified surface antigen) [employer] Other [facility] [employer] Other 06-20-2019 influenza virus vaccine, unspecified formulation DO [employer] Work Phone: [facility] 06-13-2018 influenza virus vaccine, split virus (incl. purified surface antigen) [employer] Other [facility] [employer] Other 06-13-2018 influenza virus vaccine, unspecified formulation DO [employer] Work Phone: [facility] 06-08-2017 influenza virus vaccine, split virus (incl. purified surface antigen) Kaleb [email or web address] Other [facility] [employer] Other 06-08-2017 influenza virus vaccine, unspecified formulation DO [employer] Work Phone: [facility] 08-02-2016 influenza virus vaccine, split virus (incl. purified surface antigen) [employer] Other [facility] [employer] Other 08-02-2016 influenza virus vaccine, unspecified formulation DO [employer] Work Phone: [facility] 07-23-2015 pneumococcal conjuga te vaccine, 13 valent Kaleb Ahumada Other [facility] 05-31-2012 tetanus and diphther ia toxoids, adsorbed, preservative free, for adult use (5 Lf of tetanus toxoid and 2 Lf of diphtheria toxoid) Kaleb Ahumada Other [facility] Payers Date Payer Category Payer Self-pay 2020 Medicare (Managed Care) [employer] [id number] 1959 Unknown [id number] 1945 Unknown [id number] [id number] 1945 Unknown [id number] [id number] 1945 Unknown [id number]. [id number] 1945 Unknown [id number]. [id number] 1945 Unknown [id number]. [id number] 1945 Unknown [id number]. [id number] 1945 Unknown [id number]. [id number] 1945 Unknown [id number]. 2.1259 1945 Unknown [id number] [id number]. 2.1259 1945 Unknown [id number] 2.16.840.1.330300.3.579. 2.1259 1945 Unknown [id number] 2.16.840.1.022723.3.579. 2.1259 1945 Unknown [id number] 2.16.840.1.206595.3.579. 2.1259 1945 Unknown [id number] 2.16.840.1.995739.3.579. 2.1259 1945 Unknown [id number] 2.16.840.1.056550.3.579. 2.1259 1945 Unknown [id number] 2.16.840.1.092989.3.579. 2.1259 1945 Unknown [id number] 2.16.840.1.286694.3.579. 2.1259 Unknown [id number] 2.16.840.1.797805.3.579. 2.531 Social History Date Type Detail Facility Sex Assigned At [employer] Other Start: 10-17-2023 End: 10-17-2023 Tobacco smoking status IAIS Never smoked tobacco (finding) [facility] Start: 1945 Sex Assigned At Female F [facility] Tobacco smoking status [facility] Tobacco smoking consumption unknown [facility] Start: 1945 Sex assigned at Not on file [facility] Start: 09-14-2024 End: 10-09-2024 Sex Female (finding) [facility] Clinical Notes 11-30-2022 to 10-16-2024 Xena Mendoza, PT - 10/16/2024 9:00 AM EST Note Date & Type Note Facility 10-16-2024 History of Presen t illness Narrative Images from the original note were not included. Physical Therapy Evaluation Visit Patient Name: Alycia Daily Today's Date: 10/16/2024 Encounter Diagnoses Name Primary? 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 Presents to PT with c/c of right shoulder pain. Pt. Did have 8 PT session from July to September 14. After PT session she had MRI of right shoulder which show multiple rotator cuff tears and Dr. Bermudez recommended patient have reverse TSA. However, pt has to take care of and is unable to have shoulder surgery take this time. Pt. Did have injection last week which helped to decrease shoulder pain. Pt. Is having difficulty reaching overhead, shoulder weakness, and daily use of right shoulder with household activities. Difficulty sleeping on right shoulder and stiffness in shoulder first time in the morning. Precautions: universal Subjective Pain: 1-2/10 rest, not much Objective: PT Evaluation (10/16/24) Right shoulder AROM: flexion 90 degrees, abduction 90 degrees, ER C5, IR sacrum Right shoulder PROM: flexion 145 deg, abduction 110 deg Flexibility: posterior capular tightness Strength: right shoulder flexion 3-/5, abduction 3-/5, ER 4-/5, IR 4-/5 Treatment: PT evaluation (20 minutes) Education: HEP education with demonstration, Educated on Eval Findings and POC Manual Therapy: Passive ROM, Joint mobilization, Soft Tissue Mobilization, Myofascial Release, Muscle Energy Technique, Neural Mobilization, Myofascial Cupping, Dry Needling, IASTM, and Scar mobilization Therapeutic Exercise: (25 minutes) exercises in grid; Strength, Endurance, Flexibility, ROM, HEP, Neural Mobilization, Power, and Core Stability Therapeutic Activity: Exercises to improve dynamic activities, functional tasks, functional mobility to return to prior activity level Neuromuscular re-education: Balance Training, Muscle Facilitation, Dynamic Stability, Core Stabilization, and Blood Flow Restriction Training (BFRT) Modalities: Heat, Ice, Electrical Stimulation, Ultrasound, Cervical Mechanical Traction, Lumbar Mechanical Traction, Iontophoresis, and Fluidotherapy Assessment: Pt. Has participated in 1 PT session with start of POC on 10/16 for right shoulder weakness. Pt. Will benefit from skilled PT services. PT treatment to focus on UE strengthening program for next 3 weeks then discharged with HEP. Pt. Is motivated to return to golf and [place] ball. Outcome Measure: in chart Short Term Goal: To be met in 2 weeks Goal 1: Pt to be instructed in home exercise program. [facility] Goals: To be met in 10 weeks Goal 1: Pt to report independence and compliance with home program. Goal 2: Pt. Will report of 0/10 right shoulder pain while lifting objects to help improve her quality of life. Goal 3: Pt. Will demonstrate 110 degrees of right shoulder elevation ROM to help improve her functional mobility with daily tasks. Goal 4: Pt. Will demonstrate 4-/5 or greater right UE strength to help improve her functional mobility with daily tasks. Pt will benefit from skilled PT for 1-3x/week from 10/16/24 to 12/25/24 to address the above impairments. I hereby deem this POC medically necessary. Please sign below. Date: documented in this encounter [facility] 09-14-2024 Evaluation note Diagnosis Onset Date Resolution Obesity acute September 14, 2024 1:22pm Primary hypertension acute 2024 1:22pm Right shoulder pain acute 2024 1:22pm Type 2 diabetes mellitus with hyperglycemia acute September 14, 2024 1:22pm Infraspinatus tendon tear acute October 09, 2 025 8:15am Supraspinatus tendon tear acute October 09, 2 025 8:15am [facility] Work Phone: 1(690) 820-386012-16-2024 History of Present illness Narrative* Xena Mendoza, PT - 08/06/2024 9:00 AM EST Physical Therapy Evaluation Visit Patient Name: Alycia Daily Today's Date: 08/06/2024 Encounter Diagnoses Name Primary? Chronic right shoulder pain Yes Visit number: 1 Timed Code Treatment Minutes: 60 minutes Total Treatment Time: 60 minutes Time In: 0900 Time Out: 1000 History: Pt. Presents to PT with c/c of right shoulder pain. Pt strained her right shoulder over the summer with household tasks. Pt. Is active with playing golf and pickleball but her right shoulderpain is affecting her quality of life. Pt. Has to do all the heavy lifting and household activitiesdue to is unable. Pt has difficulty reaching/lifting objects overhead. Pt. Took predisone in April which helped 50% improvement. Precautions: A-fib Subjective Pain: 3/10 today; 7/10 worst Objective: PT Evaluation (08/06/24) Right shoulder AROM: flexion 90 deg, abduction 80 deg, ER C5, IR L5 Right shoulder PROM: flexion 160 deg, abduction 140 deg, ER 50 deg Flexibility: biceps muscle tightness Strength: right shoulder flexion 4-/5, abduction 4-/5, ER 4/5, IR 4/5 Palpation: TTP anterior shoulder over biceps tendon and lateral deltoid muscle Treatment: PT evaluation (20 minutes) Education: HEP education with demonstration, Educated on Eval Findings and POC Manual Therapy: (12 minutes) supine: MFR to right shoulder, Passive ROM, Joint mobilization, Soft Tissue Mobilization, Myofascial Release, Muscle Energy Technique, Neural Mobilization, Myofascial Cupping, Dry Needling, IASTM, and Scar mobilization Therapeutic Exercise: (14 minutes) exercises in grid; Strength, Endurance, Flexibility, ROM, HEP, Neural Mobilization, Power, and Core Stability Therapeutic Activity: Exercises to improve dynamic activities, functional tasks, functional mobility to return to prior activity level Neuromuscular re-education: Balance Training, Muscle Facilitation, Dynamic Stability, Core Stabilization, and Blood Flow Restriction Training (BFRT) Modalities: (15 minutes) IFC with MHP to right shoulder, sitting; Heat, Ice, Electrical Stimulation, Ultrasound, Cervical Mechanical Traction, Lumbar Mechanical Traction, Iontophoresis, and Fluidotherapy Assessment: Pt. Has participated in 1 PT session with start of POC on 08/06 for right shoulder arthritis. Pt. Will benefit from skilled PT services. PT treatment to focus on improving shoulder ROM/strength. Outcome Measure: UEFS 43/80 Short Term Goal: To be met in 2 weeks Goal 1: Pt to be instructed in home exercise program. [employer] Goals: To be met in 10 weeks Goal 1: Pt to report independence and compliance with home program. Goal 2: Pt. Will report of 0/10 right shoulder pain while lifting/carrying objects to help her performing household activities and recreational activities with no issues. Goal 3: Pt. Will demonstrate 160 degrees or greater right shoulder flexion/abduction AROM to allow her to perform household and recreational activities with no limitations. Goal 4: Pt. Will demonstrate 4+/5 or greater right shoulder strength in all planes to allow her to lift/carry objects to help improve her functional mobility with daily tasks. Goal 5: Pt. Will score 60 or greater on UEFS to help improve her functional mobility. Pt will benefit from skilled PT for 2-3x/week from 08/06/24 to 10/15/24 to address the above impairments. I hereby deem this POC medically necessary. Please sign below. Date: [id number] Evaluation note* Encounter Date Diagnosis Assessment Notes Treatment Notes Treatment Clinical Notes Jul, Paroxysmal atrial fibrillation (ICD-10 - I48.0) Echo: 07/2023 - LVEF is 60 to 65% - Normal right ventricular size and systolic function - Biatrial enlargement - Mild tricuspid regurgitation - RVSP 38 mmHg - Mild to moderate mitral regurgitation [employer] Other [id number] Evaluation note* Encounter Date Diagnosis Assessment Notes [...] AC for procedure. Repeat CBC in week. [employer] Other 12-20-2023 Evaluation note* Encounter Date Diagnosis Assessment Notes Treatment Notes Treatment Clinical Notes Jul, Paroxysmal atrial fibrillation (ICD-10 - I48.0) Echo: 07/2023 - LVEF is 60 to 65% - Normal right ventricular size and systolic function - Biatrial enlargement - Mild tricuspid regurgitation - RVSP 38 mmHg - Mild to moderate mitral regurgitation [employer] Other 12-18-2023 Evaluation note* Encounter Date Diagnosis [...] primary prevention. 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 [employer] Other 04-11-2023 Evaluation note* Encounter Date Diagnosis [...] endometrium (ICD-10 - Z85.42) No s/s recurrence [facility] [employer] Other Evaluation [facility]No [facility] [employer] Other evaluation noteNo assessment information available [facility] Work Phone: evaluation note* Diagnosis Onset Date Resolution Status Mixed hyperlipidemia acute Paroxysmal atrial fibrillation acute Primary hypertension acute Chronic heart failure with p reserved ejection fraction (HFpEF) acute Mixed hyperlipidemia acute Paroxysmal atrial fibrillation acute Primary hypertension acute Type 2 diabetes mellitus with hyperglycemia acute [facility] Work Phone: Evaluation note* Diagnosis Onset Date Resolution Status Mixed hyperlipidemia acute Paroxysmal atrial fibrillation acute Primary hypertension acute [facility] Work Phone: Evaluation note* Diagnosis Onset Date Resolution Status Mixed hyperlipidemia acute Paroxysmal atrial fibrillation acute Primary hypertension acute Impingement syndrome of right shoulder acute Paroxysmal atrial fibrillation acute Right shoulder pain acute [facility] Work Phone: Evaluation note* Diagnosis Onset [...] Type 2 diabetes mellitus with hyperglycemia acute [facility] Work Phone: Evaluation note* Diagnosis Chronic right shoulder pain- Primary Pain in joint, shoulder region Arthritis of right acromioclavicular joint [facility] Diagnosis Chronic right shoulder pain- Primary Pain in joint, shoulder region Arthritis of right acromioclavicular joint documented in this encounter [facility]* Diagnosis Chronic right shoulder pain- Primary Pain in joint, shoulder region Arthritis of right acromioclavicular joint documented in this encounter [facility]* Diagnosis Chronic right shoulder pain- Primary Pain in joint, shoulder region Arthritis of right acromioclavicular joint documented in this encounter [facility]* Diagnosis Chronic right shoulder pain- Primary Pain in joint, shoulder region Arthritis of right acromioclavicular joint documented in this encounter [facility]* Diagnosis Chronic right shoulder pain- Primary Pain in joint, shoulder region Arthritis of right acromioclavicular joint documented in this encounter [facility]* Diagnosis Chronic right shoulder pain- Primary Pain in joint, shoulder region Arthritis of right acromioclavicular joint documented in this encounter [facility]* Diagnosis Onset Date Resolution Status Admit Date Chronic heart failure with preserved ejection fraction (HFpEF) acute September 14 1:22pm Mixed hyperlipidemia acute 2024 1:22pm Obesity acute September 14, 2024 1:22pm Paroxysmal atrial fibrillation acute September 14, 2024 1:22pm Primary hypertension acute 2024 1:22pm Right shoulder pain acute 2024 1:22pm Type 2 diabetes mellitus wit h hyperglycemia acute September 14 1:22pm [facility] Work Phone: Evaluation note* Diagnosis Nontraumatic complete tear of right rotator cuff- Primary Muscle weakness of right upper extremity Muscle weakness (generalized) documented in this encounter [facility]* Diagnosis Nontraumatic complete tear of right rotator cuff- Primary Muscle weakness of right upper extremity Muscle weakness (generalized) Chronic right shoulder pain Pain in joint, shoulder region Arthritis of right acromioclavicular joint documented in this encounter [facility]Evaluation [facility]* Diagnosis Nontraumatic complete tear of right rotator cuff- Primary Muscle weakness of right upper extremity Muscle weakness (generalized) [facility] Diagnosis Nontraumatic complete tear of right rotator cuff- Primary Muscle weakness of right upper extremity Muscle weakness (generalized) documented [facility] this [facility] general Narrative - Reported* Type Description Date Medical History Left carotid bruit Medical History Estrogen deficiency Surgical History RIGHT BREAST BX 2002,2014 Surgical History LEFT BREAST BX 2005 Surgical History AMANDA 2009 Surgical History ARTHROSCOPY RIGHT KNEE 2005 Surgical History CATARACT B/L 2019 Hospitalization History SEE SURGICAL HX [employer] Other Reason for referral (narrative)* Reason *Waiting for appt Referral for new onset paroxysmal atrial fibrillation and an abnormal stress test Diagnosis 1 Precordial pain (R07 .2) Diagnosis 2 Paroxysmal atrial fi brillation (I48.0) Referral Organization [facility] Brandyn willett Referring Provider First Name Kaleb Referring Provider Last Name Brandyn Referring Provider Specialty Internal Me bridget Referred Organization [facility] Cardiology Referred Provider Lila Myers Referred Address [address] [place] [address],[address],[id number] Referred Provider Specialty Cardiovascul ar Disease Referral [...] - Echo - Holter - Stress testing [employer] Other Reason for visit Narrative* Rehabilitation - Outpatient (Routine) - Authorized Specialty Diagnoses / Procedures Referred By Farooq henriquez Referred To Contact Physical Therapy Diagnoses Pain in right shoulder Procedures DE PHYSICAL THERAPY EVALUATION LOW COMPLEX 20 MINS DE OFFICE/OUTPATIENT [facility] Kaleb Ahumada MD [address] [place] [address] Phone: tel: fax: [facility] [address] [address] Phone: tel: fax: Referral ID Status Reason Start Date Expiration Date V isits Requested Visits Authorized [id number] Authorized 07/30/2024 01/26/2025 99 99 [facility] Narrative* Rehabilitation - Outpatient (Routine) - Authorized Specialty Diagnoses / Procedures Referred By Contac t Referred To Contact Physical Therapy Diagnoses Pain in right shoulder Procedures DE PHYSICAL THERAPY EVALUATION LOW COMPLEX 20 MINS DE OFFICE/OUTPATIENT [facility] Kaleb Ahumada MD [address] [place] [address] Phone: tel: fax: [facility] [address] [address] Phone: tel: fax: Referral ID Status Reason Start Date Expiration Date V isits Requested Visits Authorized [id number] Authorized 07/30/2024 08/21/2024 99 99 [facility] Narrative* Rehabilitation - Outpatient (Routine) - Authorized Specialty Diagnoses / Procedures Referred By Contac t Referred To Contact Physical Therapy Diagnoses Pain in right shoulder Procedures DE THER PX 1/> AREAS EACH 15 MIN NEUROMUSC REEDUCA DE THERAPEUTIC PX 1/> AREAS EACH 15 MIN EXERCISES DE MANUAL THERAPY TQS 1/> REGIONS EACH 15 MINUTES PHYS/OCC THERAPY Kaleb Ahumada MD [address] [place] [address] Phone: tel: fax: [facility] [address] [address] Phone: tel: fax: Referral ID Status Reason Start Date Expiration Date V isits Requested Visits Authorized [id number] Authorized 08/22/2024 08/21/2025 99 99 [facility]Reason for [facility] Narrative* Rehabilitation - Outpatient (Routine) - Authorized Specialty Diagnoses / Procedures Referred By Contac t Referred To Contact Physical Therapy Diagnoses Strain of other muscles, fascia and tendons at shoulder and upper arm level, right arm, initial encounter Unspecified rotator cuff tear or rupture of right shoulder, not specified as traumatic Procedures DE PHYSICAL THERAPY EVALUATION LOW COMPLEX 20 MINS DE OFFICE/OUTPATIENT NEW HIGH MDM 60 MINUTES Cody Bermudez MD [address] [place] [address] Phone: tel: fax: Xena Mendoza, PT [address] [address] Phone: tel: fax: Referral ID Status Reason Start Date Expiration Date V isits Requested Visits Authorized [id number] Authorized 10/16/2024 04/14/2025 99 99 [facility] HealthcareReason for visit Narrative* Rehabilitation - Outpatient (Routine) - Authorized Specialty Diagnoses / Procedures Referred By Farooq henriquez Referred To Contact Physical Therapy Diagnoses Strain of other muscles, fascia and tendons at shoulder and upper arm level, right arm, initial encounter Unspecified rotator cuff tear or rupture of right shoulder, not specified as traumatic Procedures DE PHYSICAL THERAPY EVALUATION LOW COMPLEX 20 MINS DE OFFICE/OUTPATIENT NEW HIGH MDM 60 MINUTES Cody Bermudez MD [address] [place] [address] Phone: tel: fax: Xena Mendoza, PT [address] [address] Phone: tel: fax: Referral ID Status Reason Start Date Expiration Date V isits Requested Visits Authorized [id number] Authorized 10/16/2024 08/21/2025 99 99 [facility] Healthcare Summary Purpose Family History No Family History [...] cancer Type 2 diabetes mellitus with hyperglycemia Chief Complaint Admit Date PT f/u/R Arm September 14, 2024 1 :22pm Reason for Visit Admit Date Chronic heart failure with p reserved ejection fraction (HFpEF) September 14, 2024 1:22pm Mixed hyperlipidemia September 14, 2024 1:22pm Obesity September 14, 2024 1 :22pm Paroxysmal atrial fibrillation August 232024 1:22pm Primary hypertension September 14, 2024 1:22pm Right shoulder pain September 14, 2024 1 :22pm Type 2 diabetes mellitus with hyperglyce [facility] September 14, 2024 1:22pm Chief Complaint Admit Date PT f/u/R Arm September 14, 2024 1 :22pm CONSULT DR. AHUMADA RT SHOULDER PAIN, WX Fe bruary 2024 8:15am Reason for Visit Admit Date Obesity September 14, 2024 1 :22pm Primary hypertension September 14, 2024 1:22pm Right shoulder pain September 14, 2024 1 :22pm Type 2 diabetes mellitus with hyperglyce yamile September 14, 2024 1:22pm Infraspinatus tendon tear October 09, 2024 8:15am Supraspinatus tendon tear October 09, 2024 8:15am Additional Source Comments INFORMATION SOURCE (unrecogn ized section and content) DATE CREATED AUTHOR 08/12/2022 [facility] DATE CREATED AUTHOR AUTHOR'S ORGANIZ ATION 10/22/2023 [facility] DATE CREATED AUTHOR AUTHOR'S ORGANIZ ATION 10/28/2024 [facility] EPIC REASON FOR VISIT (unrecogniz ed section and content) 6 MONTH FOLLOW UPflu shotWEL LNESSLab resultsvery tired all the timeNo InformationCT resultsLetterNot Feeling Better-TirednessNot Feeling BetterTCMNo InformationTBHNo InformationMamm resultsHolter resultsNot Feeling Better-TirednessTBHStress/Lab results Care Teams (unrecognized sec tion and content) Team Status: Active Member Role Status Sabas Ahumada DO Primary Care Provider Active Team Status: Inactive Member Role Status Sabas [...] 2023 Team Status: Active Member Role Status Sabas [...] 2024 Team Status: Inactive Member Role Status Dates Kaleb Ball , DO Primary Care Provide r, Attending Provider Active Start: May 02, 2024 End: May 02, 2024 Team Status: Inactive Member Role Status Dates Kaleb Ahumada , DO Primary Care Provide r, Attending Provider Active Start: June 08, 2024 End: June 08, 2024 Team Status: Inactive Member Role Status Dates Kaleb Ahumada , DO Primary Care Provide r, Attending Provider Active Start: September 14, 2024 End: September 14, 2024 Team Status: Inactive Member Role Status Dates Kaleb Ahumada DO Primary Care Provider Active Start: October 09, 2024 End: October 09, 2024 Cody Bermudez , DO Attending Provider Active St art: October 09, 2024 End: October 09, 2024 Goals (unrecognized section and content) Goals [...] BE BASED ON THE PRIMARY CLINICAL RECORDS. [facility] [employer] provides no warranty or guarantee of the accuracy or completeness of information in this document.
--- NOTE | 2024-12-04 10:00 | CA_ITS ---
Patient Name: CHARLEY DAILY MR#: [id number] : 1945 Exam Date: 12/04/2024 Ordering Doctor: DR Kaleb Ahumada D.O. ECHOCARDIOGRAM REPORT PROCEDURE: CA ECHO DOPPLER COMPLETE INDICATIONS: Heart murmur, hypertension, diabetes COMPARISON: None. DESCRIPTION: COMPLETE ECHOCARDIOGRAM Real-time transthoracic echocardiography with 2D, M-mode, spectral and color flow Doppler performed. QUALITY: Technical quality was good. LEFT VENTRICLE: Normal chamber size. Proximal septal hypertrophy (sigmoid septum). Mild concentric hypertrophy. Normal systolic function. LV EF: Normal left ventricular ejection fraction, (>55%). DIASTOLIC: Grade II diastolic dysfunction. ATRIAL SEPTUM: Visually appears intact. LEFT ATRIUM: Severe dilatation. RIGHT ATRIUM: Mild dilatation. RIGHT VENTRICLE: Normal chamber size. Normal right ventricular systolic function. TRICUSPID VALVE: Normal mobility and thickness. No stenosis with mild regurgitation. Doppler studies reveal moderately (45-60) elevated right sided pressures. RVSP 53 mmHg MITRAL VALVE: Normal mobility and thickness. No evidence of mitral valve stenosis. Mild mitral annular calcification. Trivial mitral regurgitation. AORTIC VALVE: Normal trileaflet appearance. Mildly calcified aortic valve. Mildly diminished mobility. Doppler velocity suggest mild aortic valve stenosis. Peak velocity 2.0 m/s, mean gradient 8 mmHg. DVI 0.44, INDERJIT 1.7 cm2. Trivial aortic regurgitation. AORTIC ROOT: Normal diameter and appearance, measuring 2.9 cm. Ascending aorta [2.7 cm] and aortic arch are normal in size. PULMONIC VALVE: Normal thickness and mobility. No stenosis. Trivial regurgitation. PERICARDIUM: No evidence of pericardial effusion. IVC: IVC is normal in size, does not fully collapse. PLEURA: CONCLUSION: 1. Mild concentric left ventricular hypertrophy with normal systolic function. Estimated LVEF is 55 to 60%. 2. Normal right ventricular size and systolic function. 3. Grade 2 diastolic dysfunction. 4. Severe left atrial dilatation. 5. Mild aortic valve stenosis. 6. Mild tricuspid regurgitation. 7. Moderately elevated right-sided pressures. RVSP is 53 mmHg. Adult Echocardiography Procedure Report Left Ventricle LVEDD (3.7 - 5.6 cm): 3.89 cm LVESD (2.2 - 4.0 cm): 3.05 cm LVIVS thickness (0.6 - 1.2 cm): 1.34 cm LVPW thickness (0.5 - 1.0 cm): 0.99 cm e': 0.08 m/s E - e': 7.00 LVOT Max Gradient: 3.08 mm[Hg] LVOT Area (cm2): 0.88 m/s Peak Velocity (LVOT): 0.88 m/s Mean Velocity (LVOT): 0.66 m/s LVOT Diameter 2.07 cm Left Atrium LA Volume Index (2D A2C): 54.53 ml/m2 Left Atrium Systolic Dimension: 3.87 cm Mitral Valve MV E to A Ratio: 1.33 Mitral Valve A-Wave Peak Velocity: 0.43 m/s Mitral Valve E-Wave Peak Velocity: 0.57 m/s Right Ventricle Aorta AO Root Diam: 2.86 cm Ascending Ao Diam: 2.66 cm Aortic Valve AoV Area (Peak Charlie): 1.46 cm2, 1.46 cm2 AoV Area (VTI): 1.73 cm2, 1.74 cm2 Peak Velocity(Antegrade Flow): 2.01 m/s, 1.81 m/s, 1.73 m/s Peak Gradient(Antegrade Flow): 16.22 mm[Hg], 13.11 mm[Hg], 11.96 mm[Hg] Mean Velocity(Antegrade Flow): 1.31 m/s, 1.21 m/s, 1.18 m/s Mean Gradient(Antegrade Flow): 8.25 mm[Hg], 6.74 mm[Hg], 6.59 mm[Hg] Velocity Time Integral: 39.97 cm, 38.33 cm, 40.07 cm Tricuspid Valve Peak Velocity (Regurgitant Flow): 1.85 m/s, 3.36 m/s, 2.97 m/s Pulmonic Valve Mean Gradient: 1.23 mm[Hg] Mean Velocity: 0.52 m/s Peak Velocity: 0.77 m/s, 0.75 m/s Peak Gradient: 2.23 mm[Hg], 2.40 mm[Hg] Right Atrium Right Atrium Systolic Pressure: 50.89 ml, 50.89 ml Dictated by: Dave Yu M.D. on 12/04/2024 at 19:09 Approved by: Dave Yu M.D. on 12/04/2024 at 19:15
== END 2024-12-04 09:47 | disposition home or self-care (01) ==
LOC: CARD 09:46
PROVIDERS: PCP Internal Medicine; Visit Provider Internal Medicine
DX: R01.1 Cardiac murmur, unspecified (principal)
CPT/HCPCS: 93306

== ENCOUNTER 2024-12-31 11:00 | Outpatient (OUT) | payer MEDICARE, SELFPAY | END 2024-12-31 11:01 | disposition home or self-care (01) | LOC: SLEEP 01-01 13:14 | PROVIDERS: PCP Internal Medicine; Visit Provider Internal Medicine | DX: G47.33 Obstructive sleep apnea (adult) (pediatric) (principal) | CPT/HCPCS: 95806 ==

== ENCOUNTER 2025-02-04 20:54 | Outpatient (OUT) | payer MEDICARE, SELFPAY ==
--- OUTSIDE RECORDS SUMMARY | 2025-02-04 21:06 | XMS_ITS | CCD ---
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 Name Role Phone DR KALEB AHUMADA Attending [...] or physicia Propensity to adverse reactions Comment:Done Letsgofordinner Other Medications Current Medications Medication Drug Class(es) [...] And Nails (Biotin)) 10,000 mcg tablet,chewable Active 01549 MCG PO Daily October 17, 2023 1:00am Start: 10-17-2023 take 1 tablet by mati th once daily Biotin (Hair, Skin And Nails (Biotin)) 10,000 mcg tablet,chewable Active 00689 MCG PO Daily October 17, 2023 12:00am [...] Start: 08-16-2023 take 1 capsule by mo [facility] once daily Metoprolol Succinate 25 MG 1 [...] TAB PO Daily October 17, 2023 12:00am Wc-Pnx-Ko-Vit D-Zlimhi-Daisnuc (Preservision Areds 2 Plus Mv) 200 mcg-15 mcg- 5 mg-1 mg capsule (7 sources) Start: 10-17-2023 take 1 capsule by mouth once daily Gk-Kwz-Nx-Vit F-Xzuzjp-Rfdvwnr (Preservision Areds 2 Plus Mv) 200 mcg-15 mcg- 5 mg-1 mg capsule Active 1 CAP PO Daily October 17, 2023 1:00am Start: 10-17-2023 take 1 capsule by mo [facility] once daily Fu-Wks-Yw-Vit L-Pkriih-Pvexxkt (Preservision Areds 2 Plus Mv) 200 mcg-15 [...] 08-06-2024 Chronic Other aftercare (1 source) Other intermission coordinator (current) drug therapy; Translations: [OTH MANUFACTURING INTERN CURRENT DRUG THERAPY] Onset: 06-13-2022 Episodic Other aftercare (1 source) Long-term current use of drug therapy; Translations: [Other intermission coordinator (current) drug therapy] Episodic Other circulatory disease [...] [facility] [place] [address] Electrocardiograph Report Signed Patient: Alycia Daily MR#: [id number] 196 : 1945 Acct:[id number] Age/Sex: 78 / F ADM Date: 10/17/23 Loc: EKGCARDIO Room: Type: [facility] Attending Dr: Dave Hoff MD [...] previous ECGs available Confirmed by Dave Hoff ([id number]) on 10/18/2023 10:36:42 AM Referred By: Electronically Signed By:Dave Hoff Transcribed By: MUS Signed By Dave Hoff MD 10/18/23 1036 [facility] MG MAMM SCREEN 3D RAKAN CADon 08-05-2022 MG MAMM SCREEN 3D RAKAN CAD Patient: ALYCIA DAILY Exam Date: 08/05/2022 : 1945 Gender:F Ordering : DR KALEB AHUMADA D.O. Admission #: [id number] Family : Order #: [id number] CLICK HERE TO VIEW EXAM RADIOLOGY REPORT [...] brain cancer at age 64. LOCATION: [facility] BREAST COMPOSITION: Scattered areas fibroglandular density. [...] MD on 08/06/2022 at 08:58 Normal [facility] BNPon 06-09-2022 Natriuretic peptide B (Bld) [Mass/Vol] 188.0 pg/mL Normal <=1,800.0 [facility] Comment on above: Performed By: #### A LT, LIPID, BNP #### [facility] [address] [place] [address] Dr. Taisha Alexandra CBC AUTO DIFFon 06-09-2022 BASO # 0.0 103/ul Normal 0.0-0.1 [facility] Comment on above: Performed By: #### C BC #### [facility] [address] [place] [address] Dr. Taisha Alexandra Basophils/100 WBC (Bld) 0.4 % Normal 0.2-2.0 [facility] Comment on above: Performed By: #### C BC #### [facility] [address] [place] [address] Dr. Taisha Alexandra EO # 0.2 103/ul Normal 0.0-0.7 [facility] Comment on above: Performed By: #### C BC #### [facility] [address] [place] [address] Dr. Taisha Alexandra Eosinophils/100 WBC (Bld) 2.8 % Normal 0.9-7.0 [facility] Comment on above: Performed By: #### C BC #### [facility] [address] [place] [address] Dr. Taisha Alexandra Erythrocyte distribution width (RBC) [Ratio] 13.3 % Normal 11.0-15.0 [facility] Comment on above: Performed By: #### C BC #### [facility] [address] [place] [address] Dr. Taisha Alexandra Hematocrit (Bld) [Volume fraction] 40.3 % Normal 36.0-48.0 [facility] Comment on above: Performed By: #### C BC #### [facility] [address] [place] [address] Dr. Taisha Alexandra Hemoglobin (Bld) [Mass/Vol] 12.7 g/dL Normal 12.0-16.0 [facility] Comment on above: Performed By: #### C BC #### [facility] [address] [place] [address] Dr. Taisha Alexandra IG # 0.01 10e3/ul Normal 0.00-0.03 [facility] Comment on above: Performed By: #### C BC #### [facility] [address] [place] [address] Dr. Taisha Alexandra IG % 0.2 % Normal 0.0-0.5 [facility] Comment on above: Performed By: #### C BC #### [facility] [address] [place] [address] Dr. Taisha Alexandra LYMPH # 1.7 103/ul Normal 1.2-3.8 [facility] Comment on above: Performed By: #### C BC #### [facility] [address] [place] [address] Dr. Taisha Alexandra Lymphocytes/100 WBC (Bld) 31.9 % Normal 20.5-60.0 [facility] Comment on above: Performed By: #### C BC #### [facility] [address] [place] [address] Dr. Taisha Alexandra MANUAL DIFF REQ NO Normal [facility] Comment on above: Performed By: #### C BC #### [facility] [address] [place] [address] Dr. Taisha Alexandra MCH (RBC) [Entitic mass] 28.9 pg Normal 26.7-34.0 [facility] Comment on above: Performed By: #### C BC #### [facility] [address] [place] [address] Dr. Taisha Alexandra MCHC (RBC) [Mass/Vol] 31.5 g/dL Normal 29.9-35.2 [facility] Comment on above: Performed By: #### C BC #### [facility] [address] [place] [address] Dr. Taisha Alexandra MCV (RBC) [Entitic vol] 91.6 fL Normal 81.0-99.0 [facility] Comment on above: Performed By: #### C BC #### [facility] [address] [place] [address] Dr. Taisha Alexandra MONO # 0.4 103/ul Normal 0.3-0.8 [facility] Comment on above: Performed By: #### C BC #### [facility] [address] [place] [address] Dr. Taisha Alexandra Monocytes/100 WBC (Bld) 8.3 % Normal 1.7-12.0 [facility] Comment on above: Performed By: #### C BC #### [facility] [address] [place] [address] Dr. Taisha Alexandra NEUT # 3.0 103/ul Normal 1.4-6.5 [facility] Comment on above: Performed By: #### C BC #### [facility] [address] [place] [address] Dr. Taisha Alexandra Neutrophils/100 WBC (Bld) 56.4 % Normal 43.0-75.0 [facility] Comment on above: Performed By: #### C BC #### [facility] [address] [place] [address] Dr. Taisha Alexandra Platelet mean volume (Bld) [Entitic vol] 10.3 fL Normal 9.5-13.5 [facility] Comment on above: Performed By: #### C BC #### [facility] [address] [place] [address] Dr. Taisha Alexandra PLT 224 103/ul Normal 150-450 [facility] Comment on above: Performed By: #### C BC #### [facility] [address] [place] [address] Dr. Taisha Alexandra RBC 4.40 106/ul Normal 4.20-5.40 [facility] Comment on above: Performed By: #### C BC #### [facility] [address] [place] [address] Dr. Taisha Alexandra WBC 5.3 103/ul Normal 4.0-11.0 [facility] Comment on above: Performed By: #### C BC #### [facility] [address] [place] [address] Dr. Taisha Alexandra GLYCOHEMOGLOBIN A1Con 2021 ADA RECOMMENDATION SEE BELOW Normal [facility] Comment on above: Result Comment: ADA RECOMMENDED LIMIT 4.0 - 6.0 ADA THERAPEUTIC TARGET < 7.0 ACTION SUGGESTED > 7.0 Performed By: #### A 1C #### [facility] [address] [place] [address] Dr. Taisha Alexandra Glucose [Mass/Vol] 120 mg/dL Normal [facility] Comment on above: Performed By: #### A 1C #### [facility] [address] [place] [address] Dr. Taisha Alexandra HbA1c (Bld) [Mass fraction] 5.8 % Normal 4.5-6.2 [facility] Comment on above: Performed By: #### A 1C #### [facility] [address] [place] [address] Dr. Taisha Alexandra LIPID PROFILEon 06-09-2022 CHOL-HDL RATIO NORM SEE BELOW Normal [facility] Comment on above: Result Comment: 3.3 - 4.4 LOW RISK 4.4 - 7.1 AVERAGE RISK 7.1 - 11.0 MODERATE RISK >11.0 HIGH RISK Performed By: #### A LT, LIPID, BNP #### [facility] [address] [address] [address] Taisha Alexandra Cholesterol [Mass/Vol] 138 mg/dL Normal <=200 [facility] Comment on above: Performed By: #### A LT, LIPID, BNP #### [facility] [address] [address] [address] Taisha Alexandra Cholesterol in HDL [Mass/Vol] 56 mg/dL Normal 40-60 [facility] Comment on above: Performed By: #### A LT, LIPID, BNP #### [facility] [address] [address] [address] Taisha Alexandra Cholesterol in LDL [Mass/Vol] 74.4 mg/dL Normal [facility] Comment on above: Performed By: #### A LT, LIPID, BNP #### [facility] [address] [place] [address] Dr. Taisha Alexandra Cholesterol.total/Cho lesterol in HDL [Mass ratio] 2.5 {ratio} Normal [facility] Comment on above: Performed By: #### A LT, LIPID, BNP #### [facility] [address] [address] [address] Taisha Alexandra HDL NORMAL > or = 60 mg/dl - LOW CARDIOVASCULAR RISK <40 mg/dl - HIGH CARDIOVASCULAR RISK Normal [facility] Comment on above: Performed By: #### A LT, LIPID, BNP #### [facility] [address] [address] [address] Taisha Alexandra LDL CALC NORMAL SEE BELOW Normal [facility] Comment on above: Result Comment: <100 mg/dl OPTIMAL 100 - 129 mg/dl NEAR OR ABOVE OPTIMAL 130 - 159 mg/dl BORDERLINE HIGH 160 - 189 mg/dl HIGH >190 mg/dl VERY HIGH Performed By: #### A LT, LIPID, BNP #### [facility] [address] [address] [address] Taisha Alexandra Triglyceride [Mass/Vol] 38 mg/dL Normal <=150 [facility] Comment on above: Performed By: #### A LT, LIPID, BNP #### [facility] [address] [address] [address] Taisha Alexandra VLDL CALC 7.6 mg/dL Normal [facility] Comment on above: Performed By: #### A LT, LIPID, BNP #### [facility] [address] [address] [address] Taisha Aleaxndra MICROALBUMIN, RAND URon - mALB 1.8 mg/L Normal <=30.0 [facility] Comment on above: Performed By: #### M ALBR #### [facility] [address] [address] [address] Taisha Alexandra SGPTon 06-09-2022 ALT [Catalytic activity/Vol] 22 U/L Normal 14-59 [facility] Comment on above: Performed By: #### A LT, LIPID, BNP #### [facility] [address] [address] [address] Taisha Alexandra US CAROTID ART BILon [...] by: NEWTON KAHN Date: 2022-06-09 21:11 Normal [facility] GLYCOHEMOGLOBIN A1Con 2021 ADA RECOMMENDATION ADA THERAPEUTIC TARGET 6.0 - 7.0 ACTION SUGGESTED > 7.0 Normal [facility] Comment on above: Performed By: #### A 1C #### [facility] [address] [address] [address] Taisha Alexandra Glucose [Mass/Vol] 134 mg/dL Normal [facility] Comment on above: Performed By: #### A 1C #### [facility] [address] [address] [address] Taisha Alexandra HbA1c (Bld) [Mass fraction] 6.3 % Critically high <=6.0 [facility] Comment on above: Performed By: #### A 1C #### [facility] [address] [address] [address] Taisha Alexandra Vital Signs Date Time Vital Sign Value Performing Clinician Facility 09-14-2024 13:31-0500 Body height 165.1 cm [facility] 09-14-2024 13:31-0500 Body mass index (BMI) [Ratio] 33.6 kg/m2 [facility] 09-14-2024 13:31-0500 Body weight 91.68 kg [facility] 09-14-2024 13:31-0500 Diastolic blood pressure 75 mm[Hg] [facility] 09-14-2024 13:31-0500 Heart rate 66 /min [facility] 09-14-2024 13:31-0500 Respiratory rate 12 /min [facility] 09-14-2024 13:31-0500 Systolic blood pressure 131 mm[Hg] [facility] 06-08-2024 13:54-0400 Body height 165.1 cm [facility] 06-08-2024 13:54-0400 Body mass index (BMI) [Ratio] 32.3 kg/m2 [facility] 06-08-2024 13:54-0400 Body weight 88.16 kg [facility] 06-08-2024 13:54-0400 Diastolic blood pressure 77 mm[Hg] [facility] 06-08-2024 13:54-0400 Heart rate 60 /min [facility] 06-08-2024 13:54-0400 Respiratory rate 12 /min [facility] 06-08-2024 13:54-0400 Systolic blood pressure 144 mm[Hg] [facility] 05-02-2024 10:28-0400 Body height 165.1 cm [facility] 05-02-2024 10:28-0400 Body mass index (BMI) [Ratio] 31.6 kg/m2 [facility] 05-02-2024 10:28-0400 Body weight 86.35 kg [facility] 05-02-2024 10:28-0400 Diastolic blood pressure 79 mm[Hg] [facility] 05-02-2024 10:28-0400 Heart rate 62 /min [facility] 05-02-2024 10:28-0400 Respiratory rate 12 /min [facility] 05-02-2024 10:28-0400 Systolic blood pressure 144 mm[Hg] [facility] 04-24-2024 13:56-0400 Body height 165.1 cm [facility] 04-24-2024 13:56-0400 Body mass index (BMI) [Ratio] 31.2 kg/m2 [facility] 04-24-2024 13:56-0400 Body weight 85.27 kg [facility] 04-24-2024 13:56-0400 Diastolic blood pressure 74 mm[Hg] [facility] 04-24-2024 13:56-0400 Heart rate 66 /min [facility] 04-24-2024 13:56-0400 Respiratory rate 18 /min [facility] 04-24-2024 13:56-0400 SaO2% (BldA) [Mass fraction] 98 % [facility] 04-24-2024 13:56-0400 Systolic blood pressure 128 mm[Hg] [facility] 12-06-2023 14:02-0400 Body height 165.1 cm DO Kaleb Ball Work Phone: [facility] 12-06-2023 14:02-0400 Body mass index (BMI) [Ratio] 30.2 kg/m2 DO Kaleb Ball Work Phone: [facility] 12-06-2023 14:02-0400 Body weight 82.32 kg DO Kaleb Ball Work Phone: [facility] 12-06-2023 14:02-0400 Diastolic blood pressure 68 mm[Hg] DO Kaleb Ball Work Phone: [facility] 12-06-2023 14:02-0400 Heart rate 62 /min DO Kaleb Ball Work Phone: [facility] 12-06-2023 14:02-0400 Respiratory rate 12 /min DO Kaleb Ball Work Phone: [facility] 12-06-2023 14:02-0400 Systolic blood pressure 126 mm[Hg] DO Kaleb Ball Work Phone: [facility] 10-17-2023 11:18-0500 Body height 165.1 cm DO Kaleb Ball Work Phone: [facility] 10-17-2023 11:18-0500 Body mass index (BMI) [Ratio] 29.7 kg/m2 DO Kaleb Ball Work Phone: [facility] 10-17-2023 11:18-0500 Body weight 81.19 kg DO Kaleb Ball Work Phone: [facility] 10-17-2023 11:18-0500 Diastolic blood pressure 78 mm[Hg] DO Kaleb Ball Work Phone: [facility] 10-17-2023 11:18-0500 Heart rate 60 /min DO Kaleb Ball Work Phone: [facility] 10-17-2023 11:18-0500 Respiratory rate 18 /min DO Kaleb Ball Work Phone: [facility] 10-17-2023 11:18-0500 SaO2% (BldA) [Mass fraction] 96 % DO Kaleb Ball Work Phone: [facility] 10-17-2023 11:18-0500 Systolic blood pressure 134 mm[Hg] DO Kaleb Ball Work Phone: [facility] 08-16-2023 11:15-0500 Body height 170.18 cm Kaleb Ball Other [facility] 08-16-2023 11:15-0500 Body mass index (BMI) [Ratio] 27.56 kg/m2 Kaleb Ball Other [employer] [facility] [employer] Other 08-16-2023 11:15-0500 Body weight 79.83 kg Kaleb Ball Other [facility] 08-16-2023 11:15-0500 Diastolic blood pressure 72 mm[Hg] Kaleb Ball Other [facility] 08-16-2023 11:15-0500 Respiratory rate 12 /min Kaleb Ball Other [employer] Other 08-16-2023 11:15-0500 Systolic blood pressure 115 mm[Hg] Kaleb Ball Other [facility] 08-08-2023 14:45-0500 Body height 170.18 cm Kaleb Ball Other [facility] 08-08-2023 14:45-0500 Body mass index (BMI) [Ratio] 27.66 kg/m2 Kaleb Ball Other [employer] Other 08-08-2023 14:45-0500 Body weight 80.11 kg Kaleb Ball Other [employer] Other 08-08-2023 14:45-0500 Body weight 80.1 kg DO Kaleb Ball Work Phone: [facility] 08-08-2023 14:45-0500 Diastolic blood pressure 73 mm[Hg] Kaleb Ball Other [facility] 08-08-2023 14:45-0500 Systolic blood pressure 106 mm[Hg] Kaleb Ball Other [facility] 2023 16:42-0500 Body height 170.18 cm Kaleb Ball Other [facility] 07-13-2023 10:45-0500 Body height 170.18 cm Kaleb Ball Other [employer] Other 07-13-2023 10:45-0500 Body mass index (BMI) [Ratio] 27.88 kg/m2 Kaleb Ball Other [employer] Other 07-13-2023 10:45-0500 Body weight 80.74 kg Kaleb Ball Other [employer] Other 07-13-2023 10:45-0500 Diastolic blood pressure 74 mm[Hg] Kaleb Ball Other [employer] Other 07-13-2023 10:45-0500 Respiratory rate 12 /min Kaleb Ball Other [employer] Other 07-13-2023 10:45-0500 Systolic blood pressure 125 mm[Hg] Kaleb Ball Other [employer] Other 06-06-2023 14:00-0400 Body height 170.18 cm Kaleb Ball Other [employer] Other 06-06-2023 14:00-0400 Body mass index (BMI) [Ratio] 28.16 kg/m2 Kaleb Ball Other [employer] Other 06-06-2023 14:00-0400 Body weight 81.56 kg Kaleb Ball Other [employer] Other 06-06-2023 14:00-0400 Diastolic blood pressure 65 mm[Hg] Kaleb Ball Other [employer] Other 06-06-2023 14:00-0400 Respiratory rate 12 /min Kaleb Ball Other [employer] Other 06-06-2023 14:00-0400 Systolic blood pressure 103 mm[Hg] Kaleb Ball Other [employer] Other 11-30-2022 15:30-0400 Body height 170.18 cm Kaleb Ball Other [employer] Other 11-30-2022 15:30-0400 Body mass index (BMI) [Ratio] 30.85 kg/m2 Kaleb Ball Other [employer] Other 11-30-2022 15:30-0400 Body weight 89.36 kg Kaleb Ball Other [employer] Other 11-30-2022 15:30-0400 Diastolic blood pressure 70 mm[Hg] Kaleb Ball Other [employer] Other 11-30-2022 15:30-0400 Respiratory rate 12 /min Kaleb Ball Other [employer] Other 11-30-2022 15:30-0400 Systolic blood pressure 114 mm[Hg] Kaleb Ball Other [employer] Other Encounters Encounter Date Encounter Type Care Provider Facility Start: 10-26-2024 End: 10-26-2024 ambulatory VINH LYNN Not Available Start: 10-24-2024 End: 10-24-2024 Bamboo flowsheet Vinh Hilliardy [employer] [facility] Start: 10-24-2024 End: 10-24-2024 Bamboo flowsheet Vinh Hilliardy [facility] [facility] [facility] Start: 10-24-2024 End: 10-24-2024 ambulatory Vinh Lynn [facility] [facility] Comment on above: 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); Muscle weakness of right upper extremity Start: 10-22-2024 End: 10-22-2024 Bamboo flowsheet Vinh Hilliardy [facility] [facility] Start: 10-22-2024 End: 10-22-2024 Bamboo flowsheet Vinh Hilliardy [facility] Start: 10-22-2024 End: 10-22-2024 ambulatory Vinh Hilliardy [facility] [facility] Comment on above: 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); Muscle weakness of right upper extremity Start: 10-18-2024 End: 10-18-2024 Bamboo flowsheet Vijay Alanis [facility] Start: 10-18-2024 End: 10-18-2024 Bamboo flowsheet Vijay Alanis [facility] [facility] Start: 10-18-2024 End: 10-18-2024 ambulatory Vijay Alanis [facility] [facility] Comment on above: Nontraumatic [...] upper extremity Start: 10-09-2024 End: 10-09-2024 ambulatory [facility] Work Phone: Start: 10-09-2024 End: 10-09-2024 Patient encounter procedure [facility] Work Phone: Start: 09-14-2024 End: 09-14-2024 ambulatory [facility] Work Phone: Start: 09-14-2024 End: 09-14-2024 [facility] Start: 08-30-2024 End: 08-30-2024 Bamboo flowsheet Vinh Coellosahil [facility] Start: 08-30-2024 End: 08-30-2024 Bamboo flowsheet Vinh Hilliardy [facility] Start: 08-30-2024 End: 08-30-2024 ambulatory Vinh Lynn [facility] [facility] Comment on above: Chronic right should er pain (Primary Dx); Arthritis of right acromioclavicular joint Start: 08-28-2024 End: 08-28-2024 Bamboo flowsheet Vinh Kelbley [facility] Start: 08-28-2024 End: 08-28-2024 Bamboo flowsheet Vinh Kelbley [facility] Start: 08-28-2024 End: 08-28-2024 ambulatory Vinh Kelbley [facility] Comment on above: Chronic right should er pain (Primary Dx); Arthritis of right acromioclavicular joint Start: 08-24-2024 End: 08-24-2024 Bamboo flowsheet Vinh Kelbley [facility] Start: 08-24-2024 End: 08-24-2024 Bamboo flowsheet Vinh Kelbley [facility] Start: 08-24-2024 End: 08-24-2024 ambulatory Vinh Kelbley [facility] Comment on above: Chronic right should er pain (Primary Dx); Arthritis of right acromioclavicular joint Start: 08-21-2024 End: 08-21-2024 Bamboo flowsheet Vinh Kelbley [facility] Start: 08-21-2024 End: 08-21-2024 Bamboo flowsheet Vinh Kelbley [facility] Start: 08-21-2024 End: 08-21-2024 ambulatory Vinh Kelbley [facility] Comment on above: Chronic right should er pain (Primary Dx); Arthritis of right acromioclavicular joint Start: 08-17-2024 End: 08-17-2024 Bamboo flowsheet Vinh Kelbley [facility] Start: 08-17-2024 End: 08-17-2024 Bamboo flowsheet Vinh Kelbley [facility] Start: 08-17-2024 End: 08-17-2024 ambulatory Vinh Kelbley [facility] Comment on above: Chronic right should er pain (Primary Dx); Arthritis of right acromioclavicular joint Start: 08-14-2024 End: 08-14-2024 Bamboo flowsheet Vijay Brink [facility] Start: 08-14-2024 End: 08-14-2024 Bamboo flowsheet Vijay Alanis [facility] Start: 08-14-2024 End: 08-14-2024 ambulatory VIJAY ALANIS Not Available Start: 08-08-2024 End: 08-08-2024 Bamboo flowsheet Vinh Lynn [facility] Start: 08-08-2024 End: 08-08-2024 Bamboo flowsheet Vinh Hilliardy [facility] Start: 08-08-2024 End: 08-08-2024 ambulatory Vinh Lynn [facility] Comment on above: Chronic [...] acromioclavicular joint Start: 06-08-2024 End: 06-08-2024 ambulatory [facility] Work Phone: Start: 06-08-2024 End: 06-08-2024 Patient encounter procedure [facility] Work Phone: Start: 06-06-2024 Patient encounter procedure [facility] Start: 05-02-2024 End: 05-02-2024 ambulatory [facility] Work Phone: Start: 05-02-2024 End: 05-02-2024 Patient encounter procedure [facility] Work Phone: Start: 04-24-2024 End: 04-24-2024 ambulatory [facility] Work Phone: Start: 04-24-2024 End: 04-24-2024 Patient encounter procedure [facility] Work Phone: Start: 12-06-2023 End: 12-06-2023 ambulatory DO Kaleb Ball Work Phone: [facility] Work Phone: Start: 12-06-2023 End: 12-06-2023 Patient encounter procedure DO Kaleb Ball Work Phone: [facility] Work Phone: Start: 10-17-2023 End: 10-17-2023 ambulatory Kaleb Ball Facility:[facility] Start: 10-17-2023 End: 10-17-2023 ambulatory DO Kaleb Ball Work Phone: [facility] Work Phone: Start: 10-17-2023 End: 10-17-2023 Patient encounter procedure DO Kaleb Ball Work Phone: [facility] Work Phone: Start: 09-20-2023 End: 09-20-2023 ambulatory Klaeb Ball Other [facility] Other Start: 09-20-2023 Telephone encounter Kaleb Ball [facility] Start: 08-29-2023 End: 08-29-2023 ambulatory Kaleb Ball Other [facility] Other Start: 08-29-2023 Telephone encounter Kaleb Ball [facility] Start: 08-23-2023 End: 08-23-2023 ambulatory Kaleb Ball Other [facility] Other Start: 08-23-2023 Telephone encounter Kaleb Ball [facility] Start: 08-21-2023 End: 08-21-2023 ambulatory Kaleb Ball Other [facility] Other Start: 08-21-2023 Telephone encounter Kaleb Ahumada [facility] Start: 08-16-2023 End: 08-16-2023 ambulatory Kaleb Ball Other [facility] Other Start: 08-16-2023 Transitional care yamileth melendez srvc 14 day discharge Kaleb Ball [facility] Start: 08-16-2023 End: 08-16-2023 Patient encounter procedure DO Kaleb Ball Work Phone: [facility] Work Phone: Start: 08-10-2023 End: 08-10-2023 ambulatory Kaleb Ball Other [facility] Other Start: 08-10-2023 Telephone encounter Kaleb Ball [facility] Start: 08-08-2023 End: 08-08-2023 ambulatory Kaleb Brandyn Other [facility] Other Start: 08-08-2023 Office outpatient vi sit 25 minutes Kaleb Ball [facility] Start: 08-08-2023 Telephone encounter Kaleb Ball [facility] Start: 08-08-2023 End: 08-08-2023 Patient encounter procedure DO Kaleb Ball Work Phone[facility] Work Phone: Start: 2023 End: 2023 ambulatory Kaleb Ball Other [facility] Other Start: 2023 Telephone encounter Kaleb Ball [facility] Start: 2023 End: 2023 Patient encounter procedure DO Kaleb Ball Work Phone: [facility] Work Phone: Start: 07-15-2023 End: 07-15-2023 ambulatory Kaleb Ball Other [facility] Other Start: 07-15-2023 Telephone encounter Kaleb Ahumada [facility] Start: 07-13-2023 End: 07-13-2023 ambulatory Kaleb Ahumada Other [facility] Other Start: 07-13-2023 Office outpatient vi sit 25 minutes Kaleb Ahumada [facility] Start: 06-13-2023 End: 06-13-2023 ambulatory Kaleb Ahumada Other [facility] Other Start: 06-13-2023 Telephone encounter Kaleb Ahumada [facility] Start: 06-06-2023 End: 06-06-2023 ambulatory Kaleb Ahumada Other [facility] Other Start: 06-06-2023 Patient encounter procedure Kaleb Ahumada [facility] Start: 06-01-2023 End: 06-01-2023 ambulatory Kaleb Ahumada Other [facility] Other Start: 06-01-2023 Nursing evaluation o f patient and report Kaleb Ahumada [facility] Start: 11-30-2022 End: 11-30-2022 ambulatory Kaleb Ahumada Other [facility] Other Start: 11-30-2022 Office outpatient vi sit 25 minutes Kaleb Brandyn [facility] Start: 08-05-2022 End: 08-06-[address] KALEB AHUMADA Facility:[facility] Start: 06-09-2022 End: 06-10-[address] KALEB AHUMADA Facility:[facility] Start: 06-02-2022 Adult health examination David szymanski Brandyn Other [facility] Other Start: 09-28-2021 End: 09-29-[address] [...] [address] [place] [address] Xena Mendoza, PT [address] [place] [address] Arrived [facility] Comment on above: Arrived Start: 08-30-2024 End: 08-30-2024 ambulatory 08/30/2024 11:00 AM EST Treatment [facility] [address] [place] [address] Vinh Lynn [employer] COUN[employer] [facility] Start: 08-28-2024 End: 08-28-2024 ambulatory [facility] Comment on above: Arrived Start: 08-24-2024 End: 08-24-2024 ambulatory [facility] Comment on above: Arrived Start: 08-21-2024 End: 08-21-2024 ambulatory 08/21/2024 10:30 AM EST Treatment [facility] [address] [place] [address] Vinh Lynn [employer]SEL[employer] [facility] Start: 08-17-2024 End: 08-17-2024 ambulatory [facility] Comment on above: Arrived Start: 08-14-2024 End: 08-14-2024 ambulatory [facility] Comment on above: Arrived Start: 08-08-2024 End: 08-08-2024 ambulatory [facility] Comment on above: Arrived Start: 08-06-2024 End: 08-06-2024 ambulatory 08/06/2024 9:00 AM EST Evaluation [facility] [address] [place] [address] Xena Mendoza, PT [address] [place] [address] Arrived [facility] Comment on above: Arrived Start: 10-17-2023 EKG 12 channel panel [facility] Start: 07-23-2016 Pneumococcal Vaccine : 65+ Years (2 of 2 - PPSV23 or PCV20) Pneumococcal Vaccine: 65+ Years (2 of 2 - PPSV23 or PCV20) [facility] Start: 2010 Pneumococcal Vaccine : 65+ Years (1 of 1 - PCV) Pneumococcal Vaccine: 65+ Years (1 of 1 - PCV) [facility] Comprehensive metabo lic 2000 panel - Serum or Plasma [facility] MG Breast - bilatera l Screening [facility] Microalbumin [Mass/volume] in Urine [facility] MR Shoulder - right WO contrast [facility] XR Shoulder - right Views [facility] Immunizations Immunization Date Immunization Notes Care Provider Fa peterty 06-08-2024 influenza, high dose seasonal, preservative-free [facility] 06-01-2023 influenza, high dose seasonal, preservative-free Kaleb Ahumada Other [facility] Other 06-01-2023 influenza virus vaccine, unspecified formulation DO Kaleb Ahumada Work Phone: [facility] 06-02-2022 influenza virus vaccine, split virus (incl. purified surface antigen) Kaleb Ahumada Other [facility] Other 06-02-2022 influenza virus vaccine, unspecified formulation DO Bloxy Work Phone: [facility] 05-20-2021 influenza virus vaccine, split virus (incl. purified surface antigen) Kaleb [employer] Other [facility] Other 05-20-2021 influenza virus vaccine, unspecified formulation DO Bloxy Work Phone: [facility] 04-25-2020 influenza virus vaccine, split virus (incl. purified surface antigen) Kaleb [employer] Other [facility] Other 04-25-2020 influenza virus vaccine, unspecified formulation DO [employer] Work Phone: [facility] 06-20-2019 influenza virus vaccine, split virus (incl. purified surface antigen) [facility] Other [facility] Other 06-20-2019 influenza virus vaccine, unspecified formulation DO [facility] Work Phone: [facility] 06-13-2018 influenza virus vaccine, split virus (incl. purified surface antigen) [facility] Other [facility] Other 06-13-2018 influenza virus vaccine, unspecified formulation DO [facility] Work Phone: [facility] 06-08-2017 influenza virus vaccine, split virus (incl. purified surface antigen) Kaleb [employer] Other [facility] Other 06-08-2017 influenza virus vaccine, unspecified formulation DO [facility] Work Phone: [facility] 08-02-2016 influenza virus vaccine, split virus (incl. purified surface antigen) [facility] Other [facility] Other 08-02-2016 influenza virus vaccine, unspecified formulation DO [employer]oxy Work Phone: [facility] 07-23-2015 pneumococcal conjuga te vaccine, 13 valent Kaleb Ahumada Other [facility] 05-31-2012 tetanus and diphther ia toxoids, adsorbed, preservative free, for adult use (5 Lf of tetanus toxoid and 2 Lf of diphtheria toxoid) Kaleb Ahumada Other [facility] Payers Date Payer Category Payer Self-pay 2020 Medicare (Managed Care) [employer] [id number] 1959 Unknown [id number] 1945 Unknown [id number] 2.16.840.1.947971.3.579. 2.593 1945 Unknown [id number] 2.16.840.1.477370.3.579. 2.593 1945 Unknown [id number] 2.16.840.1.892028.3.579. 2.593 1945 Unknown [id number] 2.16.840.1.911890.3.579. 2.1259 1945 Unknown [id number] 2.16.840.1.818787.3.579. 2.1259 1945 Unknown [id number] 2.16.840.1.466133.3.579. 2.1259 1945 Unknown [id number] 2.16.840.1.197144.3.579. 2.1259 1945 Unknown [id number] 2.16.840.1.595246.3.579. 2.1259 1945 Unknown [id number] 2.16.840.1.335753.3.579. 2.1259 1945 Unknown [id number] 2.16.840.1.631951.3.579. 2.1259 1945 Unknown [id number] 2.16.840.1.560772.3.579. 2.1259 1945 Unknown [id number] 2.16.840.1.980712.3.579. 2.1259 1945 Unknown [id number] 2.16.840.1.919817.3.579. 2.1259 1945 Unknown [id number] 2.16.840.1.764146.3.579. 2.1259 1945 Unknown [id number] 2.16.840.1.766223.3.579. 2.1259 1945 Unknown [id number] 2.16.840.1.826841.3.579. 2.1259 Unknown [id number] 2.16.840.1.455300.3.579. 2.531 Social History Date Type Detail Facility Sex Assigned At [facility] Other Start: 10-17-2023 End: 10-17-2023 Tobacco smoking status MSIS Never smoked tobacco (finding) [facility] Start: 1945 Sex Assigned At Female F [facility] Tobacco smoking status [facility] Tobacco smoking consumption unknown [facility] Start: 1945 Sex assigned at Not on file [facility] Start: 09-14-2024 End: 10-09-2024 Sex Female (finding) [facility] Clinical Notes 11-30-2022 to 10-16-2024 Xena Mendoza, [...] Is motivated to return to golf and [employer]. Outcome Measure: in chart Short Term Goal: To be met in 2 weeks Goal 1: Pt to be instructed in home exercise program. Skilled Nursing Goals: To be met in 10 weeks [...] sign below. Date: documented in this encounter [facility] 09-14-2024 Evaluation note Diagnosis Onset Date Resolution Obesity acute September 14, 2024 1:22pm Primary hypertension acute 2024 1:22pm Right shoulder pain acute 2024 1:22pm Type 2 diabetes mellitus with hyperglycemia acute September 14, 2024 1:22pm Infraspinatus tendon tear acute October 09, 2 025 8:15am Supraspinatus tendon tear acute October 09, 2 025 8:15am [facility] Work Phone: 1(355) 243-166112-16-2024 History of Present illness Narrative* Xena Mendoza, [...] to be instructed in home exercise program. Skilled Nursing Goals: To be met in 10 weeks [...] Please sign below. Date: [facility] Evaluation note* Encounter Date Diagnosis Assessment Notes Treatment Notes Treatment Clinical Notes Jul, Paroxysmal atrial fibrillation (ICD-10 - I48.0) Echo: 07/2023 - LVEF is 60 to 65% - Normal right ventricular size and systolic function - Biatrial enlargement - Mild tricuspid regurgitation - RVSP 38 mmHg - Mild to moderate mitral regurgitation [facility] Other [id number] Evaluation note* Encounter Date Diagnosis Assessment Notes [...] AC for procedure. Repeat CBC in week. [facility] Other 12-20-2023 Evaluation note* Encounter Date Diagnosis Assessment Notes Treatment Notes Treatment Clinical Notes Jul, Paroxysmal atrial fibrillation (ICD-10 - I48.0) Echo: 07/2023 - LVEF is 60 to 65% - Normal right ventricular size and systolic function - Biatrial enlargement - Mild tricuspid regurgitation - RVSP 38 mmHg - Mild to moderate mitral regurgitation [facility] Other 12-18-2023 Evaluation note* Encounter Date Diagnosis [...] primary prevention. US < 50% narrowing B/L [facility] Other 11-24-2023 Evaluation note* Encounter Date Diagnosis Assessment Notes Treatment Notes Treatment Clinical Notes Jun, Hypoalbuminemia (ICD-10 - E88.09) Jun, Anemia due to other cause, not classified (ICD-10 - D64.89) Jun, Hx of cancer of endometrium (ICD-10 - Z85.42) Jun, Sallow complexion (ICD-10 - R23.8) Jun, Weight loss, unintentional (ICD-10 - R63.4) Jun, Fatigue, unspecified type (ICD-10 - R53.83) [facility] Other 11-22-2023 Evaluation note* Encounter Date Diagnosis [...] C54.1) s/p AMANDA - no s/s recurrence [facility] Other 10-16-2023 Evaluation note* Encounter Date Diagnosis [...] exercise for 30 minutes, 3-5 times weekly. [facility] Other 04-11-2023 Evaluation note* Encounter Date Diagnosis [...] endometrium (ICD-10 - Z85.42) No s/s recurrence [facility] Other Evaluation [facility]No [facility] Other evaluation noteNo assessment information available [facility] Work Phone: evaluation note* Diagnosis Onset Date Resolution Status Mixed hyperlipidemia acute Paroxysmal atrial fibrillation acute Primary hypertension acute Chronic heart failure with p reserved ejection fraction (HFpEF) acute Mixed hyperlipidemia acute Paroxysmal atrial fibrillation acute Primary hypertension acute Type 2 diabetes mellitus with hyperglycemia acute [facility] Work Phone: Evaluation note* Diagnosis Onset Date Resolution Status Mixed hyperlipidemia acute Paroxysmal atrial fibrillation acute Primary hypertension acute [facility] Work Phone: Evaluation note* Diagnosis Onset Date Resolution Status Mixed hyperlipidemia acute Paroxysmal atrial fibrillation acute Primary hypertension acute Impingement syndrome of right shoulder acute Paroxysmal atrial fibrillation acute Right shoulder pain acute [facility] Work Phone: Evaluation note* Diagnosis Onset Date [...] Type 2 diabetes mellitus with hyperglycemia acute [facility] Work Phone: Evaluation note* Diagnosis Chronic right shoulder pain- Primary Pain in joint, shoulder region Arthritis of right acromioclavicular joint [facility] Diagnosis Chronic right shoulder pain- Primary Pain in joint, shoulder region Arthritis of right acromioclavicular joint documented in this encounter [facility] HealthcareEvaluation note* Diagnosis Chronic right shoulder pain- Primary Pain in joint, shoulder region Arthritis of right acromioclavicular joint documented in this encounter [facility] HealthcareEvaluation note* Diagnosis Chronic right shoulder pain- Primary Pain in joint, shoulder region Arthritis of right acromioclavicular joint documented in this encounter [facility] HealthcareEvaluation note* Diagnosis Chronic right shoulder pain- Primary Pain in joint, shoulder region Arthritis of right acromioclavicular joint documented in this encounter [facility] HealthcareEvaluation note* Diagnosis Chronic right shoulder pain- Primary Pain in joint, shoulder region Arthritis of right acromioclavicular joint documented in this encounter [facility] HealthcareEvaluation note* Diagnosis Chronic right shoulder pain- Primary Pain in joint, shoulder region Arthritis of right acromioclavicular joint documented in this encounter [facility] HealthcareEvaluation note* Diagnosis Onset Date Resolution Status Admit Date Chronic heart failure with preserved ejection fraction (HFpEF) acute September 14 1:22pm Mixed hyperlipidemia acute 2024 1:22pm Obesity acute September 14, 2024 1:22pm Paroxysmal atrial fibrillation acute September 14, 2024 1:22pm Primary hypertension acute 2024 1:22pm Right shoulder pain acute 2024 1:22pm Type 2 diabetes mellitus wit h hyperglycemia acute September 14 1:22pm [facility] Work Phone: Evaluation note* Diagnosis Nontraumatic complete tear of right rotator cuff- Primary Muscle weakness of right upper extremity Muscle weakness (generalized) documented in this encounter [facility] HealthcareEvaluation note* Diagnosis Nontraumatic complete tear of right rotator cuff- Primary Muscle weakness of right upper extremity Muscle weakness (generalized) Chronic right shoulder pain Pain in joint, shoulder region Arthritis of right acromioclavicular joint documented in this encounter [facility] HealthcareEvaluation note* Diagnosis Nontraumatic complete tear [...] B/L 2019 Hospitalization History SEE SURGICAL HX [facility] Other Reason for referral (narrative)* Reason *Waiting for appt Referral for new onset paroxysmal atrial fibrillation and an abnormal stress test Diagnosis 1 Precordial pain (R07 .2) Diagnosis 2 Paroxysmal atrial fi brillation (I48.0) Referral Organization [facility] Brandyn willett Referring Provider First Name Kaleb Referring Provider Last Name Brandyn Referring Provider Specialty Internal Me bridget Referred Organization [facility] Cardiology Referred Provider Lila Myers Referred Address [address] [place] [address],[address],[id number] Referred Provider Specialty Cardiovascul ar Disease Referral [...] - Echo - Holter - Stress testing [facility] Other Reason for visit Narrative* Rehabilitation - Outpatient (Routine) - Authorized Specialty Diagnoses / Procedures Referred By Farooq henriquez Referred To Contact Physical Therapy Diagnoses Pain in right shoulder Procedures IA PHYSICAL THERAPY EVALUATION LOW COMPLEX 20 MINS IA OFFICE/OUTPATIENT NEW HIGH [facility] Kaleb Ahumada MD [address] [place] [address] Phone: tel: fax: [facility] PT [address] [address] Phone: tel: fax: Referral ID Status Reason Start Date Expiration Date V isits Requested Visits Authorized [id number] Authorized 07/30/2024 01/26/2025 99 99 [facility]Reason for [facility] Narrative* Rehabilitation - Outpatient (Routine) - Authorized Specialty Diagnoses / Procedures Referred By Contac t Referred To Contact Physical Therapy Diagnoses Pain in right shoulder Procedures IA PHYSICAL THERAPY EVALUATION LOW COMPLEX 20 MINS IA OFFICE/OUTPATIENT [facility] Kaleb Ahumada MD [address] [place] [address] Phone: tel: fax: [facility] [address] [address] Phone: tel: fax: Referral ID Status Reason Start Date Expiration Date V isits Requested Visits Authorized [id number] Authorized 07/30/2024 08/21/2024 99 99 [facility] HealthcareReason for visit Narrative* Rehabilitation - Outpatient (Routine) - Authorized Specialty Diagnoses / Procedures Referred By Contac t Referred To Contact Physical Therapy Diagnoses Pain in right shoulder Procedures IA THER PX 1/> AREAS EACH 15 MIN NEUROMUSC REEDUCA IA THERAPEUTIC PX 1/> AREAS EACH 15 MIN EXERCISES IA MANUAL THERAPY TQS 1/> REGIONS EACH 15 MINUTES PHYS/OCC THERAPY Kaleb Ahumada MD [address] [place] [address] Phone: tel: fax: [facility] [address] [address] Phone: tel: fax: Referral ID Status Reason Start Date Expiration Date V isits Requested Visits Authorized [id number] Authorized 08/22/2024 08/21/2025 99 99 [facility] HealthcareReason for visit Narrative* Rehabilitation - Outpatient (Routine) - Authorized Specialty Diagnoses / Procedures Referred By Contac t Referred To Contact Physical Therapy Diagnoses Strain of other muscles, fascia and tendons at shoulder and upper arm level, right arm, initial encounter Unspecified rotator cuff tear or rupture of right shoulder, not specified as traumatic Procedures IA PHYSICAL THERAPY EVALUATION LOW COMPLEX 20 MINS IA OFFICE/OUTPATIENT NEW HIGH MDM 60 MINUTES Cody Bermudez MD [address] [place] [address] Phone: tel: fax: Xena Mendoza, PT [address] [address] Phone: tel: fax: Referral ID Status Reason Start Date Expiration Date V isits Requested Visits Authorized [id number] Authorized 10/16/2024 04/14/2025 99 99 [facility] HealthcareReason for visit Narrative* Rehabilitation - Outpatient (Routine) - Authorized Specialty Diagnoses / Procedures Referred By Farooq henriquez Referred To Contact Physical Therapy Diagnoses Strain of other muscles, fascia and tendons at shoulder and upper arm level, right arm, initial encounter Unspecified rotator cuff tear or rupture of right shoulder, not specified as traumatic Procedures IA PHYSICAL THERAPY EVALUATION LOW COMPLEX 20 MINS IA OFFICE/OUTPATIENT NEW HIGH MDM 60 MINUTES Cody Bermudez MD [address] [place] [address] Phone: tel: fax: Xena Mendoza, PT [address] [address] Phone: tel: fax: Referral ID Status Reason Start Date Expiration Date V isits Requested Visits Authorized [id number] Authorized 10/16/2024 08/21/2025 99 99 [facility] Healthcare Summary Purpose Family History No Family [...] :22pm Type 2 diabetes mellitus with hyperglyce [facility] September 14, 2024 1:22pm Chief Complaint Admit [...] DATE CREATED AUTHOR AUTHOR'S ORGANIZ ATION 10/22/2023 [facility] DATE CREATED AUTHOR AUTHOR'S ORGANIZ ATION 10/28/2024 [facility] EPIC REASON FOR VISIT (unrecogniz [...] BE BASED ON THE PRIMARY CLINICAL RECORDS. [facility] [employer] provides no warranty or guarantee of the accuracy or completeness of information in this document.
== END 2025-02-04 20:55 | disposition home or self-care (01) ==
LOC: SLEEP 20:54
PROVIDERS: PCP Internal Medicine; Visit Provider Internal Medicine
DX: G47.33 Obstructive sleep apnea (adult) (pediatric) (principal)
CPT/HCPCS: 95811

== ENCOUNTER 2025-06-14 08:30 | Outpatient (OUT) | payer MEDICARE, SELFPAY ==
--- OUTSIDE RECORDS SUMMARY | 2025-06-10 10:55 | XMS_ITS | Continuity of Care Document ---
Author Organization [facility] Address [address] [place] [address] Phone Care Team Providers Care Community Development Technician Name Role Phone Kaleb Ahumada DO Primary Care Provider [phone] Dave Hoff MD Attending Provider Cody Martins DO Attending Provider [phone] Kaleb Ahumada DO Attending Provider Care Teams Patient Care Team Team Status: Active Member Role/Relationship Status Dates Kaleb Ahumada DO Primary Care Provider Active Visit Care Team Team Status: Inactive Member Role/Relationship Status Dates Kaleb Ahumada DO Primary Care Provider Active Start: April 29, 2025 End: April 29, 2025GeRosemary Davidson ProviderActive Start: April 29, 2025 End: April 29, 2025 Visit Care Team Team Status: Inactive Member Role/Relationship Status Dates Kaleb Ahumada DO Primary Care Provider Active Start: May 21, 2025 End: May 21, 2025Cici Palacio ProviderActiveStart: May 21, 2025 End: May 21, 2025 Patient Care Team Team Status: Inactive Member Role/Relationship Status Dates Kaleb Ahumada DO Primary Care Provider Active Start: June 10, 2025 End: June 10Cici Egan ProviderActiveStart: June 10, 2025 End: June 10, 2025 Chief Complaint and Reason for Visit Chief Complaint Admit Date 1 year April 29, 2025 12:48pm OP SP RT SHOULDER PAIN May 21, 2 025 12:30pm wellness June 10, 2025 1 :49pm Reason for Visit Admit Date Mixed hyperlipidemia April 29, 2025 12:48pm HONG (obstructive sleep apnea) April 29, 2025 12:48pm Paroxysmal atrial fibrillation April 29, 2025 12:48pm Primary hypertension April 29, 2025 12:48pm Infraspinatus tendon tear April 12:30pm Supraspinatus tendon tear April 12:30pm Aortic stenosis June 10, 2025 1 :49pm Chronic heart failure with p reserved ejection fraction (HFpEF) June 10, 2025 1:49pm Medicare annual wellness visit, subseque nt June 10, 2025 1:49pm Mixed hyperlipidemia June 10, 2025 1:49pm Obesity June 10, 2025 1 :49pm HONG (obstructive sleep apnea) June 102024 1:49pm Paroxysmal atrial fibrillation May 232024 1:49pm Primary hypertension June 10, 2025 1:49pm Screening mammogram for breast cancer Oc 2024 1:49pm Type 2 diabetes mellitus with hyperglyce yamile June 10, 2025 1:49pm Allergies, Adverse Reactions, Alerts Allergen Type Severity Reaction Last Updated Verified Status No Known Allergies Allergy Unknown June 10, 2025 2:02pmYesActive Social History Smoking Status Status Start Date End Date Date of Observa tion Never smoked tobacco (finding) October 17, 2023 11:17am Observation Status Observation Response Date of Response Legal Sex Female (finding) Sex Assigned At BirthFemaleDecember 1944 Family History Relationship Condition Age at Onset Recorded Date/T erik brother Heart disease Unknown High blood cholesterolUnknownHypertensionUnknownCoronary artery diseaseUnknown fatherMalignant neoplasmUnknownMalignant neoplasm of brainUnknownHeart disease UnknowngrandparentDiabetes mellitusUnknownsisterMyocardial infarctionUnknown Heart diseaseUnknownmotherHeart diseaseUnknownCongestive heart failureUnknown Problems Active Problems Problem Diagnosis/Recorded Date Onset Date Status C everardo Chronic heart failure with preserved ejection fraction (HFpEF) December 04, 2023 5:19pm Unknown Active Medicare annual wellness visit, subsequentOctober 2023 7:40amUnknownActive HONG (obstructive sleep apnea)January 07, 2025 2:54pmUnknownActiveType 2 diabetes mellitus with hyperglycemiaApril 2023 5:19pmUnknownActiveScreening mammogram for breast cancerOctober 2023 7:40amUnknownActiveLeft carotid bruitFebruary 2023 12:14pmUnknownActiveElevated cholesterolFebruary 2023 12:14pmUnknownActiveAnemiaApril 2023 9:03amUnknownActiveAortic stenosisApril 2024 10:37pmUnknownActiveEcho: LVEF 60%, ANCELMO, normal RV size/function, RVSP 53.: velocity 200, INDERJIT 1.7cm, gradient 16/8 - 11/2024Mixed hyperlipidemiaFebruary 2023 2:00pmUnknownActivePrimary hypertension October 17, 2023 12:14pmUnknownActiveRight shoulder painSeptember 2023 10:56amUnknownActiveInfraspinatus tendon tearFebruary 2024 2:26pmUnknown ActiveSupraspinatus tendon tearFebruary 2024 2:26pmUnknownActiveParoxysmal atrial fibrillationFebruary 2023 12:14pmUnknownActiveObesityApril 2023 2:33pmUnknownActive Medications Medication Status Dose Units Route Directions Qty Days Refills S tart Date Stop Date End Date Reason(s) Instructions Adherence Losartan 25 mg tablet Discontinued 25 MG PO daily 90 90 3 October 11, 2023 1:00am October 17, 2023 12:07pmSemaglutide (Ozempic) 0.25 mg or 0.5 mg (2 mg/3 mL) pen injectorDiscontinued0.ROUTE.AZWLMKE42Ddyw 2023 9:12amAugust 2023 6:26pmINJECT 0.25 MG SUBCUANEOUSLY WEEKLYSemaglutide (Ozempic) 0.25 mg or 0.5 mg (2 mg/3 mL) pen injectorDiscontinued0.ROUTE.YHLLPBD39Yadwqe 2023 6:23pm May 23, 2024 6:26pmINJECT 0.25 MG SUBCUTANEOUSLY ONCE WEEKLYSemaglutide (Ozempic) 0.25 mg or 0.5 mg (2 mg/3 mL) pen injectorDiscontinued0.5MGSUBCUTevery 2023 6:26pmMarch 2024 3:50pmApixaban (Eliquis) 5 mg gnildfVjdqaz6IHSOFfvpc 12 vudxg853412Ukhrelju 13th, 2024 6:55pmComplies with drug therapyAtorvastatin 40 mg tabletDiscontinued0.ROUTE.SWNFXYV127Munrieqi 4th, 2024 7:59amSept2024 12:54pmTAKE 1 TABLET BY MOUTH ONCE DAILY IN THE EVENING FOR 90 DAYSMetoprolol Succinate 25 mg tablet extended release 24 hr Discontinued0.ROUTE.LQXJYZK6296Ugdairu2024 8:05amSept2024 12:55pmTake 1 tablet by mouth once dailySemaglutide (Ozempic) 0.25 mg or 0.5 mg (2 mg/3 mL) pen injectorDiscontinued0.ROUTE.RJMYXJQ00JwjvuNovember 02, 2024 3:50pm April 24, 2025 5:10pmINJECT 0.5MG SUBCUTANEOUSLY EVERY WEEK FOR 28 DAYS. Semaglutide 1 mg/dose (4 mg/3 mL) pen xhzkqwahBrhdeo4EPKKWWHOtwwdx fcmw6494 April 24, 2025 5:08pmComplies with drug therapyApixaban (Eliquis) 5 mg jqnzddJefsaibasanw8KPMFTznwz 12 ugviv990186Seulo 2023 2:17pmNovember 2023 6:56pmAtorvastatin 40 mg jactevSurkfambfwzf11MQIHSlivo55295Igopf 2023 2:18pmDecember 2023 7:59amFerrous Sulfate 325 mg (65 mg iron) tabletActive 095PATF5 Times a adgo18493Xvjrj 2023 2:34pmFreeTextSi tablet Orally Three times a Week; Note: Source Status: Taking; Provider: Brandyn Manuel ( )Complies with drug therapyMetoprolol Succinate 25 mg tablet extended release 24 gfFfywqrvkwiks47PFTALnklh57267Xszhp 2023 2:34pmJanuary 2024 8:05amSemaglutide 0.25 mg or 0.5 mg (2 mg/3 mL) pen injectorDiscontinued 0.25MGSUBCUTevery tcik2571Lsden 16th, 2024 12:00amJune 2023 9:12amfor 4 weeksMetoprolol Succinate 25 mg tablet extended release 24 oiQttusulhfynb32SPFA DailyFebruary 2023 1:00amApril 2023 2:39pmFreeTextSig: Take 1 tablet by mouth once daily for 30 days; Note: Source Status: Start; Refills: 11; Qty: 30 Tablet; Provider: Brandyn Manuel ( )Ferrous Sulfate 325 mg (65 mg iron) tnnzhdNmuqvappvoth148UMPN9 Times a weekFebruary 2023 1:00amApril 2023 2:39pmFreeTextSi tablet Orally Three times a Week; Note: Source Status: Taking; Provider: Brandyn Manuel ( )Ascorbate Calcium (Vitamin C) 500 mg ztxgvwOrhjuq007ZONBBthwhLaqugtoc 2023 1:00amComplies with drug therapyAtorvastatin 40 mg liubzrTivmcdnyjwvu90KWNUEhhalJyeafcao 2023 1:00amApril 2023 2:19pmSemaglutide (Ozempic) 0.25 mg or 0.5 mg(2 mg/1.5 mL) pen injectorDiscontinued0.25MGSUBCUTevery weekbruary 2023 1:00amApril 2023 2:37pmFreeTextSi.25 MG Subcutaneous weekly; Note: Source Status: Taking; Provider: Brandyn Manuel EApixaban (Eliquis) 5 mg tablet Lmbnjifknzbq2FZNHRjuoj 12 hoursFebruary 2023 1:00amApril 2023 2:18pm Magnesium 250 mg qcjevgJkyiaf138OXHFIounfFxqztepx 2023 1:00amComplies with drug therapyLoratadine (Allergy Relief (Loratadine)) 10 mg qaxtxrAuxsam67ZOBS DailyFebruary 2023 1:00amComplies with drug gnsizkpSh-Wtw-Kt-Vit M-Vwvvfd-Pgbocmx (Preservision Areds 2 Plus Mv) 200 mcg-15 mcg- 5 mg-1 mg mubsmlnTfjjug9EVQOBQhhefKunerghx 2023 1:00amComplies with drug therapy Multivit With Min-Folic Acid (Adult Multivitamin Gummies) 200 mcg tablet,kbswikmnKswhtp7SZUEIKrbcqFddgaerz 2023 1:00amComplies with drug therapyBiotin (Hair, Skin And Nails (Biotin)) 10,000 mcg tablet,chewableActive 15718JOVJFVuoakRlizgcvy 2023 1:00amComplies with drug therapyPrednisone 20 mg mibaxxGwgmyeniqcvc35GABMDvhmj701Fqzxbygem 2023 12:00amJanuary 2024 2:30pmAtorvastatin 40 mg wpikwaPxnxta55DAZSQnaaeEvflwqgmf 2024 12:54pm Complies with drug therapyMetoprolol Succinate 25 mg tablet extended release 24 npFsagcb48QQBTNdqzrOmdanpkck 2024 12:55pmComplies with drug therapy Immunizations Immunization Event Date Not Given Reason Dose Number Ballpoint Pen Assembly Machine Operator Lot Number Reason(s) Given Vaccine Information Statement (VIS) Detail Administration Location COVID-19 mRNA, Comirnaty ([employer]) September 18, 2020 [id number] mRNA, Comirnaty ([employer])October [id number] mRNA, Comirnaty ([employer])June 12, [id number]-19 Comirnaty ([employer]) Tri- Sucrose +March 01, [id number] mRNA Bivalent Booster ([employer])June 22, [id number]-19 ([employer]) 12Y and olderOctober [id number] COVID-19 ([employer]) 12Y and olderNovember [id number] TIV High-Dose 65YR+June 08, [id number] [facility] HospitalFluzone TIV High- Dose 65YR+May 06, 2017U1848ABFluzone TIV High-Dose 65YR+June 10, 2025U8800CAFPG [facility] HospitalInfluenza, trivalentOctober , [id number] Influenza, trivalentSeptember , [id number] vaccine, quadrivalent, adjuvantedOctober [id number], unspecified formulationDecember , 2015influenza, unspecified formulationOctober , 2016influenza, unspecified formulationOct, 2017influenza, unspecified formulation June 20, 2019influenza, unspecified formulationSeptember 2019 influenza, unspecified formulationSeptember , 2020influenza, unspecified formulationOctober , 2021influenza, unspecified formulationOctober , neumococcal Conjugate Vaccine, 13 valentDecember , 2014Zoster Vaccine Recombinant, AdjuvantedAugust [id number] Vaccine Recombinant, AdjuvantedOctober , [id number], Diphtheria adult, 5 Lf pres free abs May 31, 2012 Vital Signs Vital Reading Result Reference Range Collection Date/Time Height 65 [in_i] April 29, 2025 12:16quAlsiya25.06 kgSept2024 12:49pmHeart Rate67 /ryt81-858Gesafspzn 8th, 2025 12:49pmRespiratory rate18 /nnm44-48Kibrsyaxf 8th, 2025 12:49pmOxygen saturation by Pulse mninqfln94 %95-100Sept2024 12:49pmBP Injnlvzc230 mm[Hg]100-140Sept2024 12:49pmBP Arkeucfgn60 mm[Hg]60-100Sept2024 12:49pmBMI (Body Mass Index)35.6 kg/b5Uzqbbqwyp2024 12:55etExoolj51 [in_i]May 21, 2025 12:54jnAheuyz99.06 kg May 21, 2025 12:49pmBMI (Body Mass Index)35.6 kg/t6Jlnteiykk2024 12:39utCrrmik31 [in_i]June 10, 2025 2:71ugFahexv60.12 kgJune 10, 2025 2:12pmHeart Rate64 /euk96-234Mbpydxt 2024 2:12pmRespiratory rate12 /min 12-24Oct2024 2:12pmBP Wgdyybzz756 mm[Hg]100-140October 2024 2:12pmBP Gfecywvij08 mm[Hg]60-100October 2024 2:12pmBMI (Body Mass Index) 35.6 kg/z7Jdsdzlh 2024 2:12pm Advance Directives Advance Directive Response Recorded Date/ Time Advance Directives No September 14, 2023 6:21pm Insurance Providers Guarantor Alyshasuly Gillespie Address [address] [facility] [address]Tpxorwa Info.Home Phone: Payer Group Member ID Coverage Type Subscriber Relationship to Subscriber Effective Date Expiration Date Michael Duncan Adv Id: [id number] [facility] Id: [id number] [address] [facility] [address] Home Phone: Self Encounters Encounter Location(s) Arrival/Admit Date Discharge/Departure Date Discharge/Departure Disposition Provider(s) Departed Physician/ Provider Office Visit -[facility] April 29, 2025 12:48pm April 29, 2025 1:09pm Discharged to home care or self care (routine discharge) Dave Hoff MD Departed Physician/ Provider Office Visit -[facility] May 21, 2025 12:30pm May 21, 2025 1:03pm Discharged to home care or self care (routine discharge) Cody Martins DO Departed Physician/ Provider Office Visit -[facility] June 10, 2025 1:49pm June 10, 2025 2:53pm Discharged to home care or self care (routine discharge) Kaleb Ahumada DO Recent Diagnosis Onset Date Admit Date Mixed hyperlipidemia Unknown April 292024 12:48pm HONG (obstructive sleep apnea) Unknown Se ptember 2024 12:48pm Paroxysmal atrial fibrillation Unknown S eptember 2024 12:48pm Primary hypertension Unknown April 292024 12:48pm Infraspinatus tendon tear Unknown 2024 12:30pm Supraspinatus tendon tear Unknown 2024 12:30pm Aortic stenosis Unknown June 10 1:49pm Chronic heart failure with p reserved ejection fraction (HFpEF) Unknown June 10, 2025 1:49pm Medicare annual wellness visit, subsequent Unkno wn June 10, 2025 1:49pm Mixed hyperlipidemia Unknown May 1:49pm Obesity Unknown June 10 1:49pm HONG (obstructive sleep apnea) Unknown Oc tob2024 1:49pm Paroxysmal atrial fibrillation Unknown O ct2024 1:49pm Primary hypertension Unknown May 1:49pm Screening mammogram for breast cancer Unknown June 10, 2025 1:49pm Type 2 diabetes mellitus with hyperglycemia Unkn own June 10, 2025 1:49pm Assessments Diagnosis Onset Date Resolution Status Admit Date Mixed hyperlipidemia acuteSept2024 12:48pmOSA (obstructive sleep apnea)acuteSept2024 12:48pmParoxysmal atrial fibrillationacuteSept2024 12:48pm Primary hypertensionacuteSept2024 12:48pmInfraspinatus tendon tear acuteSept2024 12:30pmSupraspinatus tendon tearacuteSept2024 12:30pmAortic stenosisacuteOct2024 1:49pmChronic heart failure with preserved ejection fraction (HFpEF)acuteOct2024 1:49pmMedicare annual wellness visit, subsequentacuteJune 10, 2025 1:49pmMixed hyperlipidemiaacuteJune 10, 2025 1:49pmObesityacuteJune 10, 2025 1:49pmOSA (obstructive sleep apnea)acuteJune 10, 2025 1:49pmParoxysmal atrial fibrillationacuteJune 10, 2025 1:49pmPrimary hypertensionacute June 10, 2025 1:49pmScreening mammogram for breast canceracuteJune 10, 2025 1:49pmType 2 diabetes mellitus with hyperglycemiaacuteJune 10, 2025 1:49pm Plan of Treatment Author Kaleb Ahumada [facility] HospitalAuthoredOct2024 2:52pmI have instructed this patient on the recommended lifestyle changes, which includes a low fat, high fiber diet along with a regular exercise routine. I have also reviewed the recommended age-appropriate preventive testing for this patient. I have also reviewed the recommended vaccines for their age and risk factors. This patient is rhythm controlled. I instructed them to continue anticoagulation to prevent thromboembolic events. I instructed them to monitor their BP, HR and daily weights. I also instructed them to monitor for bleeding complications, including epistaxis, hematuria, melena and hematochezia. She has completed Holter, Echo and STress testing. She was referred to Cardiology, who will be seeing her in 6mo. I have instructed this patient on a low salt diet, exercise and daily weights. I have instructed them to notify the office for any on any unexpected weight gain > 3lbs and /or increased dyspneaon exertion, difficulty breathing during sleep, worsening lower extremity swelling, chest pain or lightheadedness. I have reviewed the GDMT with beta blockers, RADHA/ARB or ARNI, MRA and a SGLT-2i. I have instructed this patient to follow a comprehensive diabetic treatment plan. I have also instructed them to check their feet daily for calluses and nonhealing ulcers. I have instructed them to have a yearly dilated eye examination. I have reviewed their treatment goals: SBP less than 130, LDL less than 100, FBS less than 140, A1C less than 7%. I have instructed them to maintain a home BS log and bring the results to each of their office visits for review. I have explained the importance of routine monitoring of their A1C, Microalbumin and Lipids. I have explained the benefits of well controlled diabetes in preventing micro and macrovascular complications. Due for A1C/ACR I have instructed this patient to consume a healthy, low-fat, low-salt diet. I have also encouraged them to continue exercise with weight loss to achieve/maintain a BMI < 30. I have instructed this patient on the correct procedure for obtaining home BP measurements:? - rest for 5 minutes w/o talking. - positioned w/ feet on floor and arms supported. - average best 2/3 readings w/ goal < 135/85. - update office w/ home readings in 2 weeks. Continue Metoprolol without interruption I have instructed this patient on a low fat, high fiber diet and exercise. I have discussed the primary and secondary prevention benefits attributed to lowering LDL cholesterol. I have also discussed the medical treatment of elevated cholesterol, which is based on the 10 year ASCVD risk. Continue Atorvastatin without interruption I have instructed this patient on a low-fat, high-fiber diet.?? I have also instructed them to reduce calories, portions sizes, sweet drinks and snacks.?? I have also recommended they exercise for 30 minutes, 3-5 times weekly. They are aware of the comorbid conditions associated with excessive weight: Diabetes, HTN, Hyperlipidemia, CAD and arthritis. I have instructed this patient on monthly SBE and recommended yearly mammograms. Instructed on adequate control of BP Echo: LVEF 60%, ANCELMO, normal RV size/function, RVSP 53. : velocity 200, INDERJIT 1.7cm, gradient 06/04 - 11/2024 This patient is aware of the benefits associated with treatment of HONG. With continued use, the patient is reducing the risk for MS, CVA, HTN, cardiac dysrhythmias and sudden cardiac deaths. With continued use, the patient is also reducing morning headaches, daytime somnolence, fatigue and obesity. This patient is compliant with treatment, wearing the equipment every night for greater than 4 hours. This patient has been instructed to continue use of PAP for treatment of HONG. Compliant Author Ana Paula Escalante [facility] HospitalAutScheurer Hospitalptember 2024 1:01pmShe continues to have pain in her shoulder. We discussed continuing to treat this conservatively. We discussed an injection at this time and patient wishes to proceed. Under sterile condition, 1 cc of Kenalog/ 4 cc bupivacaine were injected into the right subacromial space. Patient tolerated the procedure well. I also recommend she continue to do therapy exercises on her at home. Advised we can do an injection every 3 months. She can follow up as needed for repeat injections. Author [facility] Hoff [facility] # Paroxysmal nonvalvular atrial fibrillation - Asymtpomatic. Chadsvasc 5. # HONG - Diagnosed 12/2024. Is awaiting her CPAP machine. # HTN - Well controlled. # Other: HLD, Seasonal allergies, T2DM. EKG 08/09/23 at [facility] - NSR, 79 bpm, occasional PACs, nonspecific TWA. EKG read also states Atrial fibrillation no longer present . Exercise Nuclear MPI stress 09/19/23 at [facility] -small fixed defect, small area of mildly decreased uptake in the distal anterior wall and apex. Wall motion in this region is reported as normal. No reversible ischemia. Normal exercise test. EF 66%. Labs from [place] 09/15/23 - sCr 0.69, BUN 14, Hgb 10.3, Hct 35%, MCV 89, Plt 283. Holter Monitor (7-15 days) from [facility] 08/25/23 -predominant rhythm was sinus with episodes of SVT. Suspected A-fib on 2 episodes (fastest rate 211 bpm, slowest rate 68 bpm). Ventricular ectopy: 17,872 PVCs (burden is not reported), 234 couplets, 147 bigeminy and 260 trigeminy. 2 episodes of nonsustained VT of 3 beats duration. No pauses. Echo 08/09/23 -normal LV size and thickness, normal wall motion, EF 65%, diastolic function is indeterminate, severe left atrial dilation, moderate right atrial dilation, mild TR, RVSP 38 mmHg, mild-moderate MR, mildly calcified aortic valve with mildly elevated velocities but no evidence of aortic stenosis, trivial AR, trivial MS. EKG 10/17/23 in clinic - NSR, 62 bpm, normal QRS and QTc. Echo 12/04/24 - EF 55-60%, mild LVH, G2DD, Severe LA dilation, mild (Vmax 2.0 m/s), mild TR with RVSP 53 mmHg. Sleep Study at [facility] 12/31/24 - Moderate HONG, 91 apnea and 58 hypopnea events. - Continue Eliquis and Metoprolol. She is tolerating these well, stays predominantly in sinus rhythm and has no palpitations. No refills needed today. - I encouraged her to start CPAP thearpy for HONG. She will follow with PCP Dr. Ahumada for that. - Follow-up in 1 year. Will get labs from Brandyn Alvarez Future Tests Future scheduled test information is unavailable Pending Tests Test Name Ordered Date Scheduled Date Comprehensive Metabolic Panel June 10, 2025 2:43pm Future Visits Future appointment information is unavailable Future Procedures Procedure Name Ordered Date Scheduled Date A1C with Estimated Average Glu June 10 2:43pm Complete Blood Count Auto DiffOctober 2024 2:43pmLipid PanelOct2024 2:45pmMicroAlb Creat Ratio,UOctober 2024 2:44pmThyroid Stimulating HormoneAsc[facility] 2024 2:43pm Future Medications Future medication information is unavailable Patient Instructions Patient instructions are unavailable
--- OUTSIDE RECORDS SUMMARY | 2025-06-13 10:35 | XMS_ITS | Clinical Summary ---
Author Organization [facility] Address [address], [address] [place] [address] Care Team Providers Care Technical Education Teacher Name Role Phone Kaleb Ahumada DO Primary Care Provider [phone] Allergies No known active allergies Medications MedicationSigDispense QuantityRefillsLast FilledStart DateEnd DateStatus metFORMIN (GLUCOPHAGE) 500 MG tablet Take 500 mg by mouth 2 times daily (with meals)Active atorvastatin (LIPITOR) 40 MG tablet Take 40 mg by mouth dailyActive losartan (COZAAR) 25 MG tablet Take 25 mg by mouth dailyActive aspirin 81 MG tablet Take 81 mg by mouth dailyActive loratadine (CLARITIN) 10 MG capsule Take 10 mg by mouth dailyActive Active Problems ProblemNoted DateDiagnosed DateMorbid gciciqr3911/23/2016 Social History Tobacco UseTypesPacks/DayYears UsedDateSmoking Tobacco: Never Assessed CommentsUnknownSex and Gender InformationValueDate RecordedSex Assigned at Not on fileLegal StcUgojqm29/30/2017 8:39 PM EDTGender IdentityNot on fileSexual OrientationNot on file Last Filed Vital Signs Vital SignReadingTime TakenCommentsBlood Ywwtdxca447/7204 3:22 PM EDT Pulse--Temperature--Respiratory Rate--Oxygen Saturation--Inhaled Oxygen Concentration--Scrrxc344.6 kg (261 lb 6.4 oz)11/23/2016 3:22 PM EOFRwpyge579.1 cm (5' 5 )11/23/2016 3:22 PM EDTBody Mass Index43.504 3:22 PM EDT Plan of Treatment Not on file Care Teams Team MemberRelationshipSpecialtyStart DateEnd Date Kaleb Ahumada DO [facility]/18/16
--- OUTSIDE RECORDS SUMMARY | 2025-06-13 10:35 | XMS_ITS | Clinical Summary ---
Author Organization [facility] Address [address] [place] [address] Care Team Providers Care Optical Scientist Name Role Phone Kaleb Ahumada DO Primary Care Provider [phone] Social History Tobacco UseTypesPacks/DayYears UsedDateSmoking Tobacco: Never Assessed CommentsUnknownSex and Gender InformationValueDate RecordedSex Assigned at Not on fileLegal HvkSrsjxm34/09/2024 3:10 PM ESTGender IdentityNot on fileSexual OrientationNot on file Plan of Treatment Health MaintenanceDue DateLast DoneCommentsPneumococcal Vaccine: 65+ Years (1 of 1 - PCV)1995Influenza Vaccine (#1), 06/02/2022, 05/20/2021, Additional history exists Insurance * Guarantor: Alycia GillespieAccount TypeRelation to PatientDate of BirthPhone Billing AddressPersonal/[place]1945 (Home) [address] [place] [address] Care Teams Team MemberRelationshipSpecialtyStart DateEnd Date Kaleb Ahumada DO [address] [place] [address] PCP - GeneralInternal Medicine01/11/25
--- OUTSIDE RECORDS SUMMARY | 2025-06-13 10:37 | XMS_ITS | CCD ---
Author Organization [facility] CliniSyri Care Team Providers Care Supervisor Rubber Covering Name Role Phone DR KALEB AHUMADA Attending [...] Unavailable DO Kaleb Ahumada Primary Care Provider [phone] MD Dave Hoff Attending Provider Kaleb Ahumada Primary Care Unavailable Dave Hoff Attending Jennifer Hoff, Dave Ortiz Admitting DO Kaleb Martinez Primary Care Provider MD Dave Hoff Attending Provider Unavailable Primary Care Provider Unavailabl e XENA MENDOZA Attending Unavailable CODY BERMUDEZ Referring Unavailable ANT ALANIS Attending Unavailable CODY BERMUDEZ Referring Unavailable KELBLEY, VINH Attending Unavailable AIDAN, CODY Referring Unavailable KELBLEY, VINH Attending Unavailable AIDAN, CODY Referring Unavailable KELBLEY, VINH Attending Unavailable AIDAN, CODY Referring Unavailable XENA MENDOZA Attending Unavailable BALL, KALEB E Referring Unavailable KELBLEY, VINH Attending Unavailable BALL, KALEB E Referring Unavailable ANT ALANIS Attending Unavailable BALL, KALEB E Referring Unavailable KELBLEY, VINH Attending Unavailable BALL, KALEB E Referring Unavailable KELBLEY, VINH Attending Unavailable BALL, KALEB E Referring Unavailable KELBLEY, VINH Attending Unavailable BALL, KALEB E Referring Unavailable KELBLEY, VINH Attending Unavailable BALL, KALEB E Referring Unavailable KELBLEY, VINH Attending Unavailable KALEB AHUMADA Referring Unavailable Kaleb Ahumada DO Primary Care Provider [phone] Stella Farfan DO Attending Provider [phone] Dave Hoff MD Attending Provider Kaleb Ahumada DO Primary Care Provider Cody Bermudez DO Attending Provider [phone] Kaleb Ahumada DO Attending Provider Allergies Allergy ClassificationReported Allergen(s)Allergy TypeDate of OnsetReaction(s) Facility (1 source)patient allergy list reviewed by nurse or physiciaPropensity to adverse mowzyfjjr80-61-3157Deaprky:[employer] Other Medications Current Medications MedicationDrug Class(es)DatesSig (Normalized)Sig (Original)atorvastatin 40 mg oral tablet (20 sources)HMG-CoA Reductase InhibitorStart: 44-94-3544yxbr 1 tablet by mouth once dailyAtorvastatin 40 mg tablet Active 40 MG PO Daily April 29, 2025 12:54pm Complies with drug therapyStart: 07-25-2024 End: 03-72-8950vdxk 1 tablet by mouth once daily in the eveningAtorvastatin 40 mg tablet Discontinued 0 .ROUTE .COMPLEX 90 3 July 25, 2024 7:59am April 29, 2025 12:54pm TAKE 1 TABLET BY MOUTH ONCE DAILY IN THE EVENING FOR 90 DAYSStart: 10-17-2023 End: 22-19-1385xaic 1 tablet by mouth once dailyAtorvastatin 40 mg tablet Discontinued 40 MG PO Daily 90 90 3 December 06, 2023 2:18pm July 7:59amtake 1 tablet by mouth once daily in the eveningAtorvastatin Calcium 40 MG TAKE 1 TABLET BY MOUTH ONCE DAILY IN THE EVENING ActiveBiotin (10 sources)Start: 17-97-0275rxry 1 tablet by mouth once dailyBiotin (Hair, Skin And Nails (Biotin)) 10,000 mcg tablet,chewable Active 10360 MCG PO Daily October 17, 2023 1:00am Complies with drug therapyStart: 54-58-4071fkun 1 tablet by mouth once dailyBiotin (Hair, Skin And Nails (Biotin)) 10,000 mcg tablet,chewable Active 49674 MCG PO Daily October 17, 2023 1:00amStart: 47-10-0483scmu 1 tablet by mouth once dailyBiotin (Hair, Skin And Nails (Biotin)) 10,000 mcg tablet,chewable Active 65905 MCG PO Daily October 17, 2023 12:00amcalcium ascorbate 500 mg oral tablet (10 sources)Start: 82-94-3909bkvj 1 tablet by mouth once dailyAscorbate Calcium (Vitamin C) 500 mg tablet Active 500 MG PO Daily October 17, 2023 1:00am Complies with drug therapyferrous sulfate 325 mg oral tablet (20 sources)Start: 10-17-2023 End: 40-70-4907pnim 1 tablet by mouth three times weeklyFerrous Sulfate 325 mg (65 mg iron) tablet Active 325 MG PO 3 Times a week 39 90 3 December 06, 2023 2:34pm FreeTextSi tablet Orally Three times a Week; Note: Source Status: Taking; Provider: Brandyn Manuel ( ) Complies with drug therapy take 1 tablet by mouth three times weeklyIron 325 (65 Fe) MG 1 tablet Orally Three times a Week Activeloratadine 10 mg oral tablet (10 sources)Start: 78-17-3929odht 1 tablet by mouth once dailyLoratadine (Allergy Relief (Loratadine)) 10 mg tablet Active 10 MG PO Daily October 17, 2023 1:00am Complies with drug therapyMagnesium (10 sources)Start: 09-73-0095hbjq 1 tablet by mouth once dailyMagnesium 250 mg tablet Active 250 MG PO Daily October 17, 2023 1:00am Complies with drug therapyStart: 72-59-4121mxmk 1 tablet by mouth once dailyMagnesium 250 mg tablet Active 250 MG PO Daily October 17, 2023 12:00amStart: 68-17-7447zcip 250 mg by mouth once dailyMagnesium Active 250 MG PO Daily October 17, 2023 1:00am Start: 62-03-8001wqcj 250 mg by mouth once dailyMagnesium Active 250 MG PO Daily October 17, 2023 12:00am24 hr metoprolol succinate 25 mg extended release oral tablet (20 sources)beta-Adrenergic BlockerStart: 49-21-5454hxap 1 tablet by mouth once dailyMetoprolol Succinate 25 mg tablet extended release 24 hr Active 25 MG PO Daily April 29, 2025 12:55pm Complies with drug therapyStart: 09-14-2024 End: 75-36-8972gmxt 1 tablet by mouth once dailyMetoprolol Succinate 25 mg tablet extended release 24 hr Discontinued 0 .ROUTE .COMPLEX 30 11 September 14, 2024 8:05am April 29, 2025 12:55pm Take 1 tablet by mouth once dailyStart: 10-17-2023 End: 67-02-7435kmfe 1 tablet by mouth once dailyMetoprolol Succinate 25 mg tablet extended release 24 hr Discontinued 25 MG PO Daily 90 90 3 December 06, 2023 2:34pm September 14, 2024 8:05amStart: 21-54-8338aome 1 tablet by mouth every twenty-four hoursMetoprolol Succinate ER 25 MG 1 tablet Orally Once a day for 30 days Replaces Rx for Metoprolol sprinkles Jul, ActiveStart: 09-75-5430wwxy 1 capsule by mouth once dailyMetoprolol Succinate 25 MG 1 capsule Orally Once a day for 30 days Jul, ActiveMultivit With Min-Folic Acid (Adult Multivitamin Gummies) 200 mcg tablet,chewable (10 sources)Start: 05-23-0498tsle 1 tablet by mouth once dailyMultivit With Min- Folic Acid (Adult Multivitamin Gummies) 200 mcg tablet,chewable Active 1 TAB PO Daily October 17, 2023 1:00am Complies with drug therapyStart: 96-62-6292mgzu 1 tablet by mouth once dailyMultivit With Min-Folic Acid (Adult Multivitamin Gummies) 200 mcg tablet,chewable Active 1 TAB PO Daily October 17, 2023 1:00amStart: 48-97-4972fogr 1 tablet by mouth once dailyMultivit With Min-Folic Acid (Adult Multivitamin Gummies) 200 mcg tablet,chewable Active 1 TAB PO Daily October 17, 2023 12:32zoPr-Nbm-Zo-Vit Q-Qmptug-Cjmvonb (Preservision Areds 2 Plus Mv) 200 mcg-15 mcg- 5 mg-1 mg capsule (10 sources)Start: 02-54-1370ujfo 1 capsule by mouth once riaxyNq-Ceq-Kb-Vit C-Hqhbha-Olixayh (Preservision Areds 2 Plus Mv) 200 mcg-15 mcg- 5 mg-1 mg capsule Active 1 CAP PO Daily October 17, 2023 1:00am Complies with drug therapyStart: 28-02-8758brod 1 capsule by mouth once reocqHp-Ppj-Yd-Vit H-Lsqcmc-Ibicaou (Preservision Areds 2 Plus Mv) 200 mcg-15 mcg- 5 mg-1 mg capsule Active 1 CAP PO Daily October 17, 2023 1:00amStart: 71-07-7463fpmb 1 capsule by mouth once ihirzWh-Emz-Fb-Vit H-Qmkavo-Qhgzqad (Preservision Areds 2 Plus Mv) 200 mcg-15 mcg- 5 mg-1 mg capsule Active 1 CAP PO Daily October 17, 2023 12:00amOzempic (0.25 or 0.5 MG/DOSE) 2 MG/1.5ML (18 sources)Start: 67-92-4251Iyytfdm (0.25 or 0.5 MG/DOSE) 2 MG/1.5ML 0.25 MG Subcutaneous weekly Nov, ActiveStart: 17-12-4127Zxuuxss (0.25 or 0.5 MG/DOSE) 2 MG/1.5ML 0.25 MG Subcutaneous weekly for 28 days Nov, Active Semaglutide (3 sources)Start: 71-31-6289xeavkf 1 mg by subcutaneous injection every week Semaglutide 1 mg/dose (4 mg/3 mL) pen injector Active 1 MG SUBCUT every week April 24, 2025 5:08pm Complies with drug therapyStart: 04-24-2025 inject 1 mg by subcutaneous injection every weekSemaglutide 1 mg/dose (4 mg/3 mL) pen injector Active 1 MG SUBCUT every week 11 16April 24, 2025 5:08pm Complies with drug therapyvitamin B12 (11 sources)Vitamin S67Ecqclxz B-12 Active Completed/Discontinued Medications MedicationDrug Class(es)DatesSig (Normalized)Sig (Original)apixaban 5 mg oral tablet (20 sources)Factor Xa InhibitorStart: 10-17-2023 End: 23-19-2840svcp 1 tablet by mouth every twelve hoursApixaban (Eliquis) 5 mg tablet Discontinued 5 MG PO Every 12 hours 180 90 3 December 06, 2023 2:17pm July 04, 2024 6:56pmlosartan potassium 25 mg oral tablet (20 sources)Angiotensin 2 Receptor BlockerStart: 10-11-2023 End: 99-35-8551ycmt 1 tablet by mouth once dailyLosartan 25 mg tablet Discontinued 25 MG PO daily 90 90 3 October 11, 2023 1:00am October 17, 2023 12:07pmtake 1 tablet by mouth once dailyLosartan Potassium 25 MG Take 1 tablet by mouth once daily ActivepredniSONE 20 mg oral tablet (7 sources)Start: 05-02-2024 End: 52-52-2569lpme 1 tablet by mouth once dailyPrednisone 20 mg tablet Discontinued 20 MG PO Daily 5 5 0 May 02, 2024 12:00am September 14, 2024 2:30pm0.25 mg, 0.5 mg dose 1.5 ml semaglutide 1.34 mg/ml pen injector (11 sources)Start: 10-17-2023 End: 31-91-1636Golkexappul (Ozempic) 0.25 mg or 0.5 mg(2 mg/1.5 mL) pen injector Discontinued 0.25 MG SUBCUT everyweek October 17, 2023 1:00am December 06, 2023 2:37pm FreeTextSi.25 MG Subcutaneous weekly; Note: Source Status: Taking; Provider: Brandyn Manuel EStart: 07-44-6226Nmkiumn (0.25 or 0.5 MG/DOSE) 2 MG/1.5ML 0.25 MG Subcutaneous weekly for 28 days Nov, Active Semaglutide (20 sources)Start: 11-02-2024 End: 43-44-6722netxkr 0.5 mg by subcutaneous injection every weekSemaglutide (Ozempic) 0.25 mg or 0.5 mg (2 mg/3 mL) pen injector Discontinued 0 .ROUTE .COMPLEX 3 5March 2024 3:50pm April 24, 2025 5:10pm INJECT 0.5MG SUBCUTANEOUSLY EVERY WEEK FOR 28 DAYS.Start: 11-02-2024 End: 96-44-1942ocinpc 0.5 mg by subcutaneous injection every weekSemaglutide (Ozempic) 0.25 mg or 0.5 mg (2 mg/3 mL) pen injector Discontinued 0 .ROUTE .COMPLEX 3 November 02, 2024 3:50pm April 24, 2025 5:10pm INJECT 0.5MG SUBCUTANEOUSLY EVERY WEEK FOR 28 DAYS.Start: 05-23-2024 End: 91-17-1574Amufkdwwyiq (Ozempic) 0.25 mg or 0.5 mg (2 mg/3 mL) pen injector Discontinued 0.5 MG SUBCUT every week 3 16 01May 23, 2024 6:26pm November 02, 2024 3:50pmStart: 05-23-2024 End: 90-74-8359Ccmsnteodkr (Ozempic) 0.25 mg or 0.5 mg (2 mg/3 mL) pen injector Discontinued 0.5 MG SUBCUT every week 3 May 23, 2024 6:26pm November 02, 2024 3:50pmStart: 62-72-0858Wnndnowssnx (Ozempic) 0.25 mg or 0.5 mg (2 mg/3 mL) pen injector Active 0.5 MG SUBCUT every week 3 May 23, 2024 5:26pmStart: 15-48-7048Lnvnnxbeoyg (Ozempic) 0.25 mg or 0.5 mg (2 mg/3 mL) pen injector Active 0.5 MG SUBCUT every week 3 May 23, 2024 6:26pmStart: 03-26-2024 End: 88-90-9200Fmmphzcveau (Ozempic) 0.25 mg or 0.5 mg (2 mg/3 mL) pen injector Discontinued 0 .ROUTE .COMPLEX 3 0March 26, 2024 6:23pm May 23, 2024 6:26pm INJECT 0.25 MG SUBCUTANEOUSLY ONCE WEEKLYStart: 03-26-2024 End: 63-83-2762Knnlbugxuer (Ozempic) 0.25 mg or 0.5 mg (2 mg/3 mL) pen injector Discontinued 0 .ROUTE .COMPLEX 3 March 26, 2024 5:23pm May 23, 2024 5:26pm INJECT 0.25 MG SUBCUTANEOUSLY ONCE WEEKLYStart: 03-26-2024 End: 53-81-0323Lmoksziwlsn (Ozempic) 0.25 mg or 0.5 mg (2 mg/3 mL) pen injector Discontinued 0 .ROUTE .COMPLEX 3 March 26, 2024 6:23pm May 23, 2024 6:26pm INJECT 0.25 MG SUBCUTANEOUSLY ONCE WEEKLYStart: 59-86-1233Agwpzxmqrkw (Ozempic) 0.25 mg or 0.5 mg (2 mg/3 mL) pen injector Active 0 .ROUTE .COMPLEX 3 March 26, 2024 6:23pm INJECT 0.25 MG SUBCUTANEOUSLY ONCE WEEKLYStart: 02-01-2024 End: 31-44-3513Mfmvvviyrfm (Ozempic) 0.25 mg or 0.5 mg (2 mg/3 mL) pen injector Discontinued 0 .ROUTE .COMPLEX 3 2023 9:12am March 26, 2024 6:26pm INJECT 0.25 MG SUBCUANEOUSLY WEEKLYStart: 02-01-2024 End: 88-70-2012Cbavcedocjy (Ozempic) 0.25 mg or 0.5 mg (2 mg/3 mL) pen injector Discontinued 0 .ROUTE .COMPLEX 3 February 01, 2024 8:12am March 26, 2024 5:26pm INJECT 0.25 MG SUBCUANEOUSLY WEEKLYStart: 02-01-2024 End: 62-28-1730Qkfbqradugx (Ozempic) 0.25 mg or 0.5 mg (2 mg/3 mL) pen injector Discontinued 0 .ROUTE .COMPLEX 3 February 01, 2024 9:12am March 26, 2024 6:26pm INJECT 0.25 MG SUBCUANEOUSLY WEEKLYStart: 12-06-2023 End: 94-03-8285Bpnleqwbwit 0.25 mg or 0.5 mg (2 mg/3 mL) pen injector Discontinued 0.25 MG SUBCUT every week 9 90 3 December 06, 2023 12:00am February 01, 2024 9:12am for 4 weeksStart: 12-06-2023 End: 02-77-9410Dejntfcwpde 0.25 mg or 0.5 mg (2 mg/3 mL) pen injector Discontinued 0.25 MG SUBCUT every week 9 December 06, 2023 12:00am February 01, 2024 9:12am for 4 weeksStart: 12-06-2023 End: 16-53-1656Abhsycixpeg 0.25 mg or 0.5 mg (2 mg/3 mL) pen injector Discontinued 0.25 MG SUBCUT every week December 05, 2023 11:00pm February 01, 2024 8:12am for 4 weeksStart: 12-06-2023 End: 38-14-0740iyjpij 0.25 mg by subcutaneous injection every weekSemaglutide Discontinued 0.25 MG SUBCUT every week December 06, 2023 12:00am February 01, 2024 9:12am for 4 weeks Problems Active Problems Problem ClassificationProblemDateDocumented DateEpisodic/ChronicCancer of uterus (2 sources)Malignant neoplasm of corpus uteri, excluding isthmus; Translations: [Malignant neoplasm of Corpus uteri, except isthmus]ChronicCancer of uterus (20 sources)History of malignant neoplasm of endometrium; Translations: [Personal history of malignant neoplasmof other parts of uterus]EpisodicCardiac dysrhythmias (20 sources)Paroxysmal atrial fibrillation; Translations: [Paroxysmal atrial fibrillation]Onset: 17-70-5161KznjhrxSamwzionic heart failure; nonhypertensive (20 sources)Acute on chronic diastolic heart failure; Translations: [Acute on chronic diastolic (congestive) heart failure]ChronicDeficiency and other anemia (1 source)Other specified anemiasEpisodicDeficiency and other anemia (2 sources)Anemia, unspecifiedEpisodicDeficiency and other anemia (9 sources)Anemia; Translations: [Anemia, unspecified]90-96-4790UzlqfkmfGymicsjx mellitus with complications (20 sources)Type 2 diabetes mellitus with hyperglycemia; Translations: [Type 2 diabetes mellitus]Onset: 04-03-4354NzxlffqJtwqsvpd mellitus without complication (1 source)Type 2 diabetes mellitus without complication; Translations: [Diabetes mellitus without mention of complication, type II or unspecified type, not stated as uncontrolled]ChronicDisorders of lipid metabolism (20 sources)Mixed hyperlipidemia; Translations: [Hypercholesterolemia]Onset: 00-52-7029NxqlpgdZfwysuoht hypertension (20 sources)Essential (primary) hypertension; Translations: [Essential hypertension]Onset: 86-99-8344ZzjqjjbGdjxh valve disorders (4 sources)Aortic valve stenosis; Translations: [Nonrheumatic aortic (valve) stenosis]33-26-5627GznlnebFhziqwy on above:Echo: LVEF 60%, ANCELMO, normal RV size/function, RVSP 53.: velocity 200, INDERJIT 1.7cm, gradient 06/04 - 11/2024Heart valve disorders (3 sources)Heart murmur; Translations: [Cardiac murmur, unspecified]06-08-2024 EpisodicImmunizations and screening for infectious disease (1 source)Vaccination given; Translations: [Encounter for immunization]Episodic Malaise and fatigue (3 sources)Malaise and fatigue; Translations: [Other malaise and fatigue]Onset: 84-78-2608MsvjtgxhGzutjwathp disorders (20 sources)Decreased estrogen level; Translations: [Other primary ovarian failure]ChronicNonspecific chest pain (2 sources)Precordial painEpisodicNutritional deficiencies (1 source)Vitamin D deficiency; Translations: [Vitamin D deficiency, unspecified]Onset: 33-26-0894VxtccbyLnrzuukoitqjqn (9 sources)Osteoarthritis; Translations: [Polyosteoarthritis, unspecified] 10-73-0540SsnlmesFwcjp aftercare (1 source)Other nursing home (current) drug therapy; Translations: [OTH CUSTODIAL CURRENT DRUG THERAPY]Onset: 74-86-0911OmdaclzsPfazo aftercare (1 source)Long-term current use of drug therapy; 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]EpisodicOther circulatory disease (9 sources)Other specified symptoms and signs involving the circulatory and respiratory systems; Translations:[OTH SPEC SX SIGNS INVLV CIRC RS]Onset: 69-75-1942DetpotglJzywk circulatory disease (19 sources)Cardiovascular symptoms; Translations: [Other specified symptoms and signs involving the circulatory and respiratory systems]EpisodicOther circulatory disease (10 sources)Carotid bruit; Translations: [Other specified symptoms and signs involving the circulatory and respiratory systems]55-24-7174OftnvmlqOjkhn connective tissue disease (2 sources)Impingement syndrome of shoulder region; Translations: [Impingement syndrome of right shoulder]11-51-1897KhlkwyzlDxztr connective tissue disease (2 sources)Impingement syndrome of right shoulder; Translations: [Other affections of shoulder region, not elsewhere classified]30-87-3677ToinzbdpBfyob connective tissue disease (6 sources)Supraspinatus tear; Translations: [Unspecified rotator cuff tear or rupture of unspecified shoulder, not specified as traumatic]33-24-5097Kikbbxpj Other connective tissue disease (1 source)Unspecified rotator cuff tear or rupture of unspecified shoulder, not specified as traumatic; Translations: [Supraspinatus (muscle) (tendon) sprain] 59-43-2123SklpcpbdKwarb connective tissue disease (4 sources)Nontraumatic complete rupture of rotator cuff of right shoulder; Translations: [Complete rotator cuff tear or rupture of right shoulder, not specified as traumatic]05-02-7265RopvbfxmEuhst connective tissue disease (4 sources)Muscle weakness of upper limb; Translations: [Muscle weakness (generalized)]50-62-9702MygzzwnqQkifc ear and sense organ disorders (1 source)Otitis externa; Translations: [Unspecified otitis externa, unspecified ear]ChronicOther ear and sense organ disorders (1 source)Impacted cerumen; Translations: [Impacted cerumen, unspecified ear] EpisodicOther injuries and conditions due to external causes (1 source)History of fall; Translations: [History of falling]EpisodicOther non- traumatic joint disorders (11 sources)Pain in right shoulder; Translations: [Right shoulder pain] 49-41-8567IsozsrjaMcpne non-traumatic joint disorders (8 sources)Chronic pain of right upper limb; Translations: [Pain in right shoulder]52-90-5783VaradzitPvpve nutritional; endocrine; and metabolic disorders (19 sources)Body mass index 30+ - obesity; Translations: [Obesity, unspecified] ChronicOther nutritional; endocrine; and metabolic disorders (4 sources)Obesity, unspecified; Translations: [Obesity, unspecified]Chronic Other nutritional; endocrine; and metabolic disorders (10 sources)Obesity; Translations: [Obesity, unspecified]Onset: 06-02-2022 17-81-0747RplsvfqApgor nutritional; endocrine; and metabolic disorders (1 source)Obese class II; Translations: [Body mass index 37.0-37.9, adult]Onset: 89-65-6188ObxnlnpPmvdh nutritional; endocrine; and metabolic disorders (1 source)Morbid obesity; Translations: [Morbid (severe) obesity due to excess calories]Onset: 13-74-3622DdzewznPorig nutritional; endocrine; and metabolic disorders (14 sources)Hypoalbuminemia; Translations: [Other disorders of plasma-protein metabolism, not elsewhere classified]ChronicOther nutritional; endocrine; and metabolic disorders (1 source)Other disorders of plasma-protein metabolism, not elsewhere classified ChronicOther nutritional; endocrine; and metabolic disorders (1 source)OverweightEpisodicOther nutritional; endocrine; and metabolic disorders (2 sources)Abnormal weight lossEpisodicOther screening for suspected conditions (not mental disorders or infectious disease) (13 sources)Encounter for screening mammogram for malignant neoplasm of breast; Translations: [Mammography abnormal]Onset: 82-05-0329HuavohcmMcwmh skin disorders (2 sources)Other skin changesEpisodicResidual codes; unclassified (7 sources)Obstructive sleep apnea syndrome; Translations: [Obstructive sleep apnea (adult) (pediatric)]08-58-9106RxprxaaSmjjcrov codes; unclassified (1 source)Family history of malignant neoplasm of other organs or systems; Translations: [FAM HX MALIG NEOPLASM OTH ORGN/SYS]Onset: 36-65-1483Kolwohsc Residual codes; unclassified (1 source)Postmenopausal state; Translations: [Asymptomatic menopausal state] EpisodicSprains and strains (7 sources)Rupture of infraspinatus tendon; Translations: [Strain of other muscles, fascia and tendons at shoulder and upper arm level, unspecified arm, initial encounter]27-59-6506Plktewef Past or Other Problems Problem ClassificationProblemDateDocumented DateEpisodic/ChronicAbdominal pain (1 source)Abdominal pain; Translations: [Unspecified abdominal pain]Onset: 93-87-2356GvusislbOfazgg of other female genital organs (1 source)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; Translations: [Personal history of malignantneoplasm of other parts of uterus]Onset: 62-96-1793QkjbrqvgZbiovsdsxzcco symptoms and ill-defined conditions (1 source)Dysuria; Translations: [Dysuria]Onset: 32-30-0212FigjijefRidvo ear and sense organ disorders (1 source)Otalgia; Translations: [Otalgia, unspecified ear]Onset: 07-09-2013 EpisodicUnclassified (1 source)Long-term current use of drug therapy; Translations: [Long-term (current) use of other medications]Onset: 76-10-7242Mpbme infection (1 source)Herpes zoster with nervous system complication; Translations: [Herpes zoster with unspecified nervous system complication]Onset: 63-23-9961Ldkixxpc Results Test NameValueInterpretationReference RangeFacilityECG 12 lead ECGon 10-17-2023 ECG [facility] [place] [address] Electrocardiograph Report Signed Patient: Alycia Daily MR#: [id number] 196 : 1945 Acct:[id number] Age/Sex: 78 / F ADM Date: 10/17/23 Loc: EKGCARDIO Room: Type: [facility] Attending Dr: Dave Hoff MD Ordering Provider: [...] previous ECGs available Confirmed by Dave Hoff ([id number]) on 10/18/2023 10:36:42 AM Referred By: Electronically Signed By:Dave Hoff Transcribed By: MUS Signed By Dave Hoff MD 10/18/23 [facility]D RAKAN CADon 26-53-4672DF MAMM SCREEN 3D RAKAN CADPatient: ALYCIA DAILY Exam Date: 08/05/2022 : 1945 Gender:F Ordering : DR KALEB AHUMADA D.O. Admission #: [id number] Family : Order #: [id number] CLICK HERE TO VIEW EXAM RADIOLOGY REPORT [...] brain cancer at age 64. LOCATION: [facility] BREAST COMPOSITION: Scattered areas fibroglandular density. FINDINGS: [...] by: Nevin Sequeira MD on 08/06/2022 at 08:58NormalThAvita Health System Galion HospitalBNP on 12-08-4319Oajzsrtpcvl peptide B (Bld) [Mass/Vol]188.0 pg/mLNormal<=1,800.0The [facility] CampusComment on above:Performed By: #### ALT, LIPID, BNP #### [facility] [address] [place] [address] Dr. Taisha Desai AUTO DIFFon 21-45-5749XXPH #0.0 103/ulNormal0.0-0.1The [facility] CampusComment on above:Performed By: #### CBC #### [facility] [address] [place] [address] Dr. Taisha Annsophils/100 WBC (Bld)0.4 %Normal0.2-2.0[facility] Comment on above:Performed By: #### CBC #### [facility] [address] [place] [address] Dr. Taisha Nolasco #0.2 103/ulNormal0.0-0.7The [facility] CampusComment on above: Performed By: #### CBC #### [facility] [address] [place] [address] Dr. Taisha Herronosinophils/100 WBC (Bld)2.8 %Normal0.9-7.0The [facility] Comment on above:Performed By: #### CBC #### [facility] [address] [place] [address] Dr. Taisha Herronrythrocyte distribution width (RBC) [Ratio]13.3 %Jpuica79.0-15.0 [facility] CampusComment on above:Performed By: #### CBC #### [facility] [address] [place] [address] Dr. Taisha AlexandraHematocrit (Bld) [Volume fraction]40.3 %Jvxxpr45.0-48.0The [facility] CampusComment on above:Performed By: #### CBC #### [facility] [address] [place] [address] Dr. Taisha AlexandraHemoglobin (Bld) [Mass/Vol]12.7 g/lTGdjpxx42.0-16.0The [facility] CampusComment on above:Performed By: #### CBC #### [facility] [address] [place] [address] Dr. Taisha Monk #0.01 10e3/ulNormal0.00-0.03The [facility] Daytonment on above:Performed By: #### CBC #### [facility] [address] [place] [address] Dr. Taisha [place] %0.2 %Normal0.0-0.5The [facility]red Hospital Daytonment on above: Performed By: #### CBC #### [facility] [address] [place] [address] Dr. Taisha PalmH #1.7 103/ulNormal1.2-3.8The [facility] CampusComment on above:Performed By: #### CBC #### [facility] [address] [place] [address] Dr. Taisha Lucianomphocytes/100 WBC (Bld)31.9 %Nawjgq15.5-60.0The [facility] CampusComment on above:Performed By: #### CBC #### [facility] [address] [place] [address] Dr. Taisha Colin DIFF REQNONormalThe [facility] CampusComment on above: Performed By: #### CBC #### [facility] [address] [place] [address] Dr. Taisha Garcia (RBC) [Entitic mass]28.9 koObdtju73.7-34.0The [facility] HospitalComment on above:Performed By: #### CBC #### [facility] [address] [place] [address] Dr. Taisha Garcia (RBC) [Mass/Vol]31.5 g/gWLjjkta03.9-35.2The [facility] CampusComment on above:Performed By: #### CBC #### [facility] [address] [place] [address] Dr. Taisha Garcia (RBC) [Entitic vol]91.6 fZGuezlh65.0-99.0The [facility] CampusComment on above:Performed By: #### CBC #### [facility] [address] [place] [address] Dr. Taisha Rowe #0.4 103/ulNormal0.3-0.8The [facility] CampusComment on above:Performed By: #### CBC #### [facility] [address] [place] [address] Dr. Taisha Jamilocytes/100 WBC (Bld)8.3 %Normal1.7-12.0The [facility] Comment on above:Performed By: #### CBC #### [facility] [address] [place] [address] Dr. Taisha Shepard #3.0 103/ulNormal1.4-6.5The [facility] CampusComment on above:Performed By: #### CBC #### [facility] [address] [place] [address] Dr. Taisha Frostutrophils/100 WBC (Bld)56.4 %Vuuqfi55.0-75.0The [facility] CampusComment on above:Performed By: #### CBC #### [facility] [address] [place] [address] Dr. Taisha AlexandraPlatelet mean volume (Bld) [Entitic vol]10.3 fLNormal9.5-13.5The [facility] CampusComment on above:Performed By: #### CBC #### [facility] [address] [place] [address] Dr. Taisha AlexandraPLT224 103/qpArsqbv064-810Qif [facility] CampusComhen[facility] on above: Performed By: #### CBC #### [facility] [address] [place] [address] Dr. Taisha AlexandraRBC4.40 106/ulNormal4.20-5.40The [facility] CampusComhenry [facility] on above:Performed By: #### CBC #### [facility] [address] [place] [address] Dr. Taisha AlexandraWBC5.3 103/ulNormal4.0-11.0The [facility] CampusComment on above: Performed By: #### CBC #### [facility] [address] [place] [address] Dr. Taisha AlexandraGLYCOHEMOGLOBIN A1Con [id number] RECOMMENDATIONSEE BELOWNormal St. [facility] CenterComhenry [facility] on above:Result Comment: ADA RECOMMENDED LIMIT 4.0 - 6.0 ADA THERAPEUTIC TARGET < 7.0 ACTION SUGGESTED > 7.0Performed By: #### A1C #### [facility] [address] [place] [address] Dr. Taisha AlexandraGlucose [Mass/Vol]120 mg/dLNormalThAvita Health System Galion HospitalComhenry [facility] on above:Performed By: #### A1C #### [facility] [address] [place] [address] Dr. Taisha AlexandraHbA1c (Bld) [Mass fraction]5.8 %Normal4.5-6.2The [facility] on above:Performed By: #### A1C #### [facility] [address] [place] [address] Dr. Taisha WilsonID PROFILEon [id number]-HDL RATIO NORMSEast Liverpool City HospitalComment on above:Result Comment: 3.3 - 4.4 LOW RISK 4.4 - 7.1 AVERAGE RISK 7.1 - 11.0 MODERATE RISK >11.0 HIGH RISKPerformed By: #### ALT, LIPID, BNP #### [facility] [address] [address] [address] Taisha AlexandraCholesterol [Mass/Vol]138 mg/dLNormal<=200[facility] Comment on above:Performed By: #### ALT, LIPID, BNP #### [facility] [address] [place] [address] Dr. Taisha AlexandraCholesterol in HDL [Mass/Vol]56 mg/gBSriynr05-37YjzSt. Mary'S Medical CenterComment on above:Performed By: #### ALT, LIPID, BNP #### [facility] [address] [place] [address] Dr. Taisha AlexandraCholesterol in LDL [Mass/Vol]74.4 mg/dLKettering Health Main CampusComment on above:Performed By: #### ALT, LIPID, BNP #### [facility] [address] [place] [address] Dr. Taisha Jangesterheena.total/Cholesterol in HDL [Mass ratio]2.5 {ratio} NormalSt. Mary'S Medical CenterComment on above:Performed By: #### ALT, LIPID, BNP #### [facility] [address] [place] [address] Dr. Taisha AlexandraHDL NORMAL> or = 60 mg/dl - LOW CARDIOVASCULAR RISK <40 mg/dl - HIGH CARDIOVASCULAR RISKKettering Health Main CampusComment on above:Performed By: #### ALT, LIPID, BNP #### [facility] [address] [place] [address] Dr. Taisha AlexandraLDL CALC NORMALSEE [facility]ermont HospitalComment on above:Result Comment: <100 mg/dl OPTIMAL 100 - 129 mg/dl NEAR OR ABOVE OPTIMAL 130 - 159 mg/dl BORDERLINE HIGH 160 - 189 mg/dl HIGH >190 mg/dl VERY HIGH Performed By: #### ALT, LIPID, BNP #### [facility] [address] [address] [address] Taisha AlexandraTriglyceride [Mass/Vol]38 mg/dLNormal<=150The [facility] Comment on above:Performed By: #### ALT, LIPID, BNP #### [facility] [address] [address] [address] Taisha AlexandraVLDL CALC7.6 mg/dLNormalThe [facility] CampusComment on above: Performed By: #### ALT, LIPID, BNP #### [facility] [address] [address] [address] Taisha BurkettROALBUMIN, RAND URon 33-18-0621zWXH4.8 mg/LNormal<=30.0The [facility] CampusComment on above:Performed By: #### MALBR #### [facility] [address] [address] [address] Taisha Garcia [id number] [Catalytic activity/Vol]22 U/SNwlodt31-67Ppv [facility] CampusComment on above:Performed By: #### ALT, LIPID, BNP #### [facility] [address] [address] [address] Taisha Hutton CAROTID ART BILon [id number] CAROTID ART BILEXAMINATION: US CAROTID ART RAKAN HISTORY: Cardiovascular symptoms; [...] Electronically authenticated by: NEWTON KAHN Date: 2022-06-09 21:11K[facility]tering Health Main CampusGLYCOHEMOGLOBIN A1Con [id number] RECOMMENDATIONADA THERAPEUTIC TARGET 6.0 - 7.0 ACTION SUGGESTED > 7.0[facility] Comment on above:Performed By: #### A1C #### [facility] [address] [address] [address] Taisha AlexandraGlucose [Mass/Vol]134 mg/dLNoProMedica Bay Park HospitalComment on above:Performed By: #### A1C #### [facility] [address] [address] [address] Taisha AlexandraHbA1c (Bld) [Mass fraction]6.3 %Critically high<=6.0St. [facility]'S Medical CenterComment on above:Performed By: #### A1C #### [facility] [address] [address] [address] Taisha Alexandra Vital Signs Date TimeVital SignValuePerforming WjzxezrqjWcinmsyg18-94-0987 14:12-0400Body .1 cmBenjamin Ball DO Work Phone: [phone] [place], [place] 0491810-20-2025 14:12-0400 Body mass index (BMI) [Ratio]35.6 kg/j2Nncimqfo Ball DO Work Phone: [phone])[address] [place], [place] 0491810-20-2025 14:12-0400 Body .12 kgBenjamin Ball DO Work Phone: [phone])[address] [place], [place] [address]491810-20-2025 14:12-0400 Diastolic blood cgntpysq01 mm[Hg]Kaleb Ball DO Work Phone: [phone])[address] [place], [place] 0491810-20-2025 14:12-0400 Heart rate64 /minBenjamin Ball DO Work Phone: [phone])[address] [place], [place] 049[address]10-20-2025 14:12-0400 Respiratory rate12 /minBenjamin Ball DO Work Phone: [phone])[address] [place], [place] 0491810-20-2025 14:12-0400 Systolic blood murinyob591 mm[Hg]Kaleb Ball DO Work Phone: 1419)[address] [place], [place] 0491809-30-2025 12:49-0400 Body ymefzj927.1 cmBenjamin Ball DO Work Phone: [phone])[address] [place], [place] 0491809-30-2025 12:49-0400 Body mass index (BMI) [Ratio]35.6 kg/j8Evzqxyzo Ball DO Work Phone: 1419)[address] [place], [place] 0491809-30-2025 12:49-0400 Body nipiyg24.06 kgBenjamin Ball DO Work Phone: 1419)[address] [place], [place] 049[address]09-08-2025 12:49-0400 Body nyxtjp531.1 cmBenjamin Ball DO Work Phone: 1419)[address] [place], [place] 0491809-08-2025 12:49-0400 Body mass index (BMI) [Ratio]35.6 kg/e6Wxmfgcuk Ball DO Work Phone: 1419)[address] [place], [place] 0491809-08-2025 12:49-0400 Body .06 kgBenjamin Ball DO Work Phone: 1419)[address] [place], [place] 049[address]09-08-2025 12:49-0400 Diastolic blood cxcqdmel31 mm[Hg]Kaleb Ball DO Work Phone: [phone] [place], [place] 049[address]09-08-2025 12:49-0400 Heart rate67 /minBenjamin Ball DO Work Phone: 1419)[address] [place], [place] 049[address]09-08-2025 12:49-0400 Respiratory rate18 /minBenjamin Ball DO Work Phone: 1419)[address] [place], [place] 0491809-08-2025 12:49-0400 SaO2% (BldA) [Mass fraction]97 %Kaleb Ball DO Work Phone: 1419)[address] [place], [place] 049[address]09-08-2025 12:49-0400 Systolic blood xasxopcu576 mm[Hg]Kaleb Ball DO Work Phone: 1419)[address] [place], [place] 0[address]01-24-2025 13:31-0500 Body .1 cm[facility]-20[facility] 13:31-0500Body mass index (BMI) [Ratio]33.6 kg/z7NusntrmobPromedica Flower Hospital01-24-2025 13:310500Body mpuqrz96.68 kgPromedica Flower Hospital01-24-2025 13:31-0500Diastolic blood ztlnxbak17 mm[Hg][facility] 09-14-2024 13:31-0500Heart rate66 /[facility] 09-14-2024 13:31-0500Respiratory rate12 /[facility] 09-14-2024 13:31-0500Systolic blood ycxgyuzs131 mm[Hg][facility]10-18-2024 13:54-0400Body vuandu305.1 cmProm[facility]ica [facility] 06-08-2024 13:54-0400Body mass index (BMI) [Ratio]32.3 kg/j0WguansodxPromedica Flower Hospital10-18-2024 13:54-0400Body gaqfjq33.16 kgPromedica Flower Hospital10-18-2024 13:54-0400Diastolic blood iewiwsst69 mm[Hg][facility]10-18-2024 13:54-0400Heart rate60 /[facility]10-18-2024 13:54-0400Respiratory rate12 /[facility]10-18-2024 13:54-0400Systolic blood uvvkpvhd516 mm[Hg][facility]09-11-2024 10:28-0400Body fkrpxo878.1 cmPromedica Flower Hospital09-11-2024 10:28-0400Body mass index (BMI) [Ratio]31.6 kg/t7UynloskbuPromedica Flower Hospital09-11-2024 10:28-0400Body uzxgrr12.35 kgPromedica Flower Hospital09-11-2024 10:28-0400Diastolic blood htoqxyoq73 mm[Hg] [facility]09-11-2024 10:28-0400Heart rate62 /[facility]09-11-2024 10:28-0400Respiratory rate12 /[facility]09-11-2024 10:28-0400Systolic blood mlxqkefe323 mm[Hg] [facility]09-03-2024 13:56-0400Body mtyejn136.1 cm [facility]09-03-2024 13:56-0400Body mass index (BMI) [Ratio]31.2 kg/r4UrkyylkpbPromedica Flower Hospital09-03-2024 13:56-0400Body .27 kgPromedica Flower Hospital09-03-2024 13:56-0400Diastolic blood iyonbtrd82 mm[Hg][facility]09-03-2024 13:56-0400 Heart rate66 /[facility]09-03-2024 13:56-0400 Respiratory rate18 /[facility]09-03-2024 13:56-0400 SaO2% (BldA) [Mass fraction]98 %[facility]09-03-2024 13:56-0400Systolic blood fsquloji871 mm[Hg][facility] 12-06-2023 14:02-0400Body .1 cmDO Kaleb Ball Work Phone: [phone]04-16-2024 14:02-0400 Body mass index (BMI) [Ratio]30.2 kg/m2DO Kaleb Ball Work Phone: 1(498)220-[address] [place], [place] 1584904-16-2024 14:02-0400 Body itpxog58.32 kgDO Kaleb Ball Work Phone: [phone]04-16-2024 14:02-0400 Diastolic blood lxbyoykm73 mm[Hg]DO Kaleb Ball Work Phone: [phone]04-16-2024 14:02-0400 Heart rate62 /minDO Kaleb Ball Work Phone: [phone]04-16-2024 14:02-0400 Respiratory rate12 /minDO Kaleb Ball Work Phone: [phone]04-16-2024 14:02-0400 Systolic blood mm[Hg]DO Kaleb Ball Work Phone: [phone]02-26-2024 11:18-0500 Body dnaxjx129.1 cmDO Kaleb Ball Work Phone: [phone]02-26-2024 11:18-0500 Body mass index (BMI) [Ratio]29.7 kg/m2DO Kaleb Ball Work Phone: [phone]02-26-2024 11:18-0500 Body uvjfmp79.19 kgDO Kaleb Ball Work Phone: [phone]02-26-2024 11:18-0500 Diastolic blood jfxobmik36 mm[Hg]DO Kaleb Ball Work Phone: [phone]02-26-2024 11:18-0500 Heart rate60 /minDO Kaleb Ball Work Phone: [phone])541-[address] [place], [place] 1584902-26-2024 11:18-0500 Respiratory rate18 /minDO Kaleb Ball Work Phone: 1(999)806-[address] [place], [place] 1584902-26-2024 11:18-0500 SaO2% (BldA) [Mass fraction]96 %DO Kaleb Ball Work Phone: [phone])365-[address] [place], [place] 1584902-26-2024 11:18-0500 Systolic blood avpoqbde350 mm[Hg]DO Kaleb Ball Work Phone: [phone]12-26-2023 11:15-0500 Body pbcmuf494.18 cmBenjamin Ball Other [facility]12-26-2023 11:15-0500 Body mass index (BMI) [Ratio]27.56 kg/w9Bjecycwu Ball Other [employer] Other [id number] 11:15-0500Body inherc87.83 kgBenjamin Ball Other [facility]12-26-2023 11:15-0500 Diastolic blood ktlzorrr62 mm[Hg]Kaleb Ball Other [facility]12-26-2023 11:15-0500 Respiratory rate12 /minBenjamin Ball Other [employer] Other 328676-70-3688 11:15-0500Systolic blood mm[Hg] Kaleb Ball Other [facility]12-18-2023 14:45-0500 Body xhkppy500.18 cmBenjamin Ball Other [facility]12-18-2023 14:45-0500 Body mass index (BMI) [Ratio]27.66 kg/a3Loppggdm Ball Other [employer] Other 12-18-2023 14:45-0500Body .11 kgBenjamin Ball Other [employer] Other 12-18-2023 14:45-0500Body .1 kgDO Kaleb Ball Work Phone: [phone]12-18-2023 14:45-0500 Diastolic blood bwidhnqx08 mm[Hg]Kaleb Ball Other [facility]12-18-2023 14:45-0500 Systolic blood nmbdzhoq142 mm[Hg]Kaleb Ball Other [facility]12-06-2023 16:42-0500 Body jpmfxa548.18 cmBenjamin Ball Other [facility]11-22-2023 10:45-0500 Body avmphw646.18 cmBenjamin Ball Other [employer] Other 11-22-2023 10:45-0500Body mass index (BMI) [Ratio] 27.88 kg/c3Mdanbera Ball Other [employer] Other 11-22-2023 10:45-0500Body zylmmh89.74 kgBenjamin Ball Other [employer] Other 11-22-2023 10:45-0500Diastolic blood ablhfyqz67 mm[Hg] Kaleb Ball Other [employer] Other 11-22-2023 10:45-0500Respiratory rate12 /minBenjamin Ball Other [employer] Other 11-22-2023 10:45-0500Systolic blood mm[Hg] Kaleb Ball Other [employer] Other 10-16-2023 14:00-0400Body xatvun987.18 cmBenjamin Ball Other [employer] Other 10-16-2023 14:00-0400Body mass index (BMI) [Ratio] 28.16 kg/u0Vakmxyhr Ball Other [employer] Other 10-16-2023 14:00-0400Body bkqcsa35.56 kgBenjamin Ball Other [employer] Other 10-16-2023 14:00-0400Diastolic blood hyhozita42 mm[Hg] Kaleb Ball Other [employer] Other 10-16-2023 14:00-0400Respiratory rate12 /minBenjamin Ball Other [employer] Other 10-16-2023 14:00-0400Systolic blood ceklmpgy538 mm[Hg] Kaleb Ball Other [employer] Other 04-11-2023 15:30-0400Body .18 cmBenjamin Ball Other [employer] Other 04-11-2023 15:30-0400Body mass index (BMI) [Ratio] 30.85 kg/j9Vwsiejkh Ball Other [employer] Other 04-11-2023 15:30-0400Body igbljv46.36 kgBensaida Ball Other [employer] Other 04-11-2023 15:30-0400Diastolic blood hhmelhml48 mm[Hg] Kaleb Brandyn Other [employer] Other 04-11-2023 15:30-0400Respiratory rate12 /minBensaida Ball Other [employer] Other 04-11-2023 15:30-0400Systolic blood mhvaclrj516 mm[Hg] Kaleb Brandyn Other [employer] Other Encounters Encounter DateEncounter TypeCare ProviderFacilityStart: 06-10-2025 End: 12-10-7349nnpxedtszyPwxxrmfc Ball DO Work Phone: -[employer] [facility]: 06-10-2025 End: 73-05-0184Tyhufov encounter procedureBensaida Ahumada DO-[facility] Work Phone: Start: 05-21-2025 End: 19-13-3125efhqqtvffuTgajpagy Ball DO Work Phone: [facility] Work Phone: Start: 05-21-2025 End: 23-58-8279Tldgjig encounter Tracy Bermudez [facility] Work Phone: Start: 04-29-2025 End: 61-71-5066ctadffunwwFwplmvrm Ball DO Work Phone: [facility] Work Phone: Start: 04-29-2025 End: 32-29-5622Zsvidzj encounter procedureGeorge Angel Hoff MD-[facility] Work Phone: Start: 21-81-4076Gqj-patient / Non-visitNicole J [facility] Work Phone: Start: 10-26-2024 End: 03-05-5874grbddjqcxvLPYZPKG KELBLEYNot AvailableStart: 10-24-2024 End: 80-63-9841Xnwszc flowsheetMelissa Kelbley PTANOMS CI PTStart: 10-24-2024 End: 69-03-0681Gurtme flowsheetMelissa Kelbley PTANOMS CI PTStart: 10-24-2024 End: 88-84-5859vuahtqzjvxYaecqkf Kelbley PTANOMS CI PTComment on above: 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); Muscle weakness of right upper extremityStart: 10-22-2024 End: 68-62-3869Spvmed flowsheetMelissa Kelbley PTANOMS CI PTStart: 10-22-2024 End: 38-53-5196Didcip flowsheetMelissa Kelbley PTANOMS CI PTStart: 10-22-2024 End: 34-38-6697fxeyrcwjatOajigbe Kelbley PTANOMS CI PTComment on above: 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); Muscle weakness of right upper extremityStart: 10-18-2024 End: 00-48-5482Lvwbed flowsheetMarshall Brink PTANOMS CI PTStart: 10-18-2024 End: 81-66-4224Nwqxmu flowsheetMarshall Brink PTANOMS CI PTStart: 10-18-2024 End: 62-13-9143epxciudoywEicqzaxm Brink PTANOMS CI PTComment on above: 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); Muscle weakness of right upper extremity; Chronic right shoulder pain; Arthritis of right acromioclavicular jointStart: 10-16-2024 End: 45-30-7570Ekttje Radha Mendoza PT Work Phone: noms CI PTStart: 10-16-2024 End: 60-70-4558Sqrslt jayantkalyanXena Mendoza PT Work Phone: noms CI PTStart: 10-16-2024 End: 02-98-0015bihhowxtmwDyyqoy T Blackston PT Work Phone: noms CI PTComment on above: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); Muscle weakness of right upper extremityStart: 10-09-2024 End: 73-95-3561xifxhvmgpoVihlkkaujSelect Medical [facility] Work Phone: Start: 10-09-2024 End: 04-73-3710Nlnippa encounter procedureFirhospital corporation of america [facility] Work Phone: Start: 09-14-2024 End: 65-92-4003rmhyydwmfvLdjtikmjkMarietta [facility] Work Phone: Start: 09-14-2024 End: 81-08-3863Ukpcvrw encounter procedureAt[facility] Health [facility] Work Phone: Start: 08-30-2024 End: 72-94-4312Wwfcur flowsheetMelissa Kelbley PTANOMS CI PTStart: 08-30-2024 End: 56-42-1262Pxsdhw flowsheetMelissa Kelbley PTANOMS CI PTStart: 08-30-2024 End: 26-17-9698brcqjqyxglTmymsdg Kelbley PTANOMS CI PTComment on above:Chronic right shoulder pain (Primary Dx); Arthritis of right acromioclavicular jointStart: 08-28-2024 End: 84-76-2396Wgzoxy flowsheetMelissa Kelbley PTANOMS CI PTStart: 08-28-2024 End: 39-50-3802Sjqrtw flowsheetMelissa Kelbley PTANOMS CI PTStart: 08-28-2024 End: 00-70-9903pnylhducppQdmuwdf Kelbley PTANOMS CI PTComment on above:Chronic right shoulder pain (Primary Dx); Arthritis of right acromioclavicular jointStart: 08-24-2024 End: 38-81-8611Idlqis flowsheetMelissa Kelbley PTANOMS CI PTStart: 08-24-2024 End: 17-37-7695Dglygc flowsheetMelissa Kelbley PTANOMS CI PTStart: 08-24-2024 End: 85-43-2440vjjvacynixGjjcskp Kelbley PTANOMS CI PTComment on above:Chronic right shoulder pain (Primary Dx); Arthritis of right acromioclavicular jointStart: 08-21-2024 End: 78-54-8879Prgiur flowsheetMelissa Kelbley PTANOMS CI PTStart: 08-21-2024 End: 26-46-8065Yaczsm flowsheetMelissa Kelbley PTANOMS CI PTStart: 08-21-2024 End: 68-66-4276amkohahavfFbdapqx Kelbley PTANOMS CI PTComment on above:Chronic right shoulder pain (Primary Dx); Arthritis of right acromioclavicular jointStart: 08-17-2024 End: 25-02-7486Eovjog flowsheetMelissa Kelbley PTANOMS CI PTStart: 08-17-2024 End: 29-99-1403Tagwwc flowsheetMelissa Kelbley PTANOMS CI PTStart: 08-17-2024 End: 38-92-9525meagavypucPaxevxl Kelbley PTANOMS CI PTComment on above:Chronic right shoulder pain (Primary Dx); Arthritis of right acromioclavicular jointStart: 08-14-2024 End: 03-04-0890Ebhwtl flowsheetMarshall Brink PTANOMS CI PTStart: 08-14-2024 End: 75-80-2909Lyedly flowsheetMarshall Brink PTANOMS CI PTStart: 08-14-2024 End: 21-05-3658agfgafgjrrCFESXOJQ BRINKNot AvailableStart: 08-08-2024 End: 77-09-3157Kzenfm flowsheetMelissa Kelbley PTANOMS CI PTStart: 08-08-2024 End: 59-71-3152Jggoxp flowsheetVinh Lynn PTANOMS CI PTStart: 08-08-2024 End: 08-25-5097essfymqfoxDkpvaia Kelbley PTANOMS CI PTComment on above:Chronic right shoulder pain (Primary Dx); Arthritis of right acromioclavicular jointStart: 08-06-2024 End: 91-61-9497Upinpc Jacealmapema Mendoza PT Work Phone: noms CI PTStart: 08-06-2024 End: 76-21-2716Kqnsjv Radha Mendoza PT Work Phone: noms CI PTStart: 08-06-2024 End: 44-30-3660costlwcjdgIvkuku T Blackston PT Work Phone: noms CI PTComment on above:Chronic right shoulder pain (Primary Dx); Arthritis of right acromioclavicular jointStart: 06-08-2024 End: 89-69-1664uavykvuyheZhoavzyosSelect Medical Specialty [facility] Work Phone: Start: 06-08-2024 End: 18-09-2819Nilsudv encounter procedureAt[facility] Work Phone: Start: 20-52-9992Kozgpnk encounter procedureSt. Mary's Medical Centertart: 05-02-2024 End: 63-63-0907pkdhoaolpcGipckscvbSelect [facility]ty [facility] Work Phone: Start: 05-02-2024 End: 51-79-2369Hlcankw encounter procedureAtrium Health [facility] Work Phone: Start: 04-24-2024 End: 94-51-0563usjuedobwwLleewsqleSelect Medical Specialty [facility] Work Phone: Start: 04-24-2024 End: 26-63-2688Vbphdwm encounter procedureAtrium Health [facility] Work Phone: Start: 12-06-2023 End: 39-13-3048gsjehllqnhYE Kaleb Ahumada Work Phone: [facility] Work Phone: Start: 12-06-2023 End: 83-16-3418Qdvvyng encounter procedureDO Kaleb Ahumada Work Phone: [facility] Work Phone: Start: 10-17-2023 End: 33-09-8293zeututjwvkIhcsxzmh BallFacility:[facility] Start: 10-17-2023 End: 89-91-5455ervsehxqwdST Kaleb Ahumada Work Phone: [facility] Work Phone: Start: 10-17-2023 End: 25-79-3653Mxwbtiy encounter procedureDO Kaleb Ahumada Work Phone: [facility] Work Phone: Start: 09-20-2023 End: 98-19-6976lorbyxsgynDddtmbnw Ball Other [employer] Other Start: 46-75-0692Lvvxaqscu encounterBenjamin BallFP[facility] ClinicStart: 08-29-2023 End: 64-79-6286kabxtwmlchSozttnrk Ball Other [employer] Other Start: 83-11-3190Sjrrdlwrw encounterBenjamin BallFPG [facility] ClinicStart: 08-23-2023 End: 73-84-7617nlkbjwncotRgxskutg Ball Other [employer] Other Start: 35-90-2669Cqkkbzhag encounterBenjamin BallFPG [facility] ClinicStart: 08-21-2023 End: 66-86-3823kjmznvssarAtairkdq Ball Other [employer] Other Start: 73-27-5439Pgxwztfak encounterBenjanessa VasquezG [facility] ClinicStart: 08-16-2023 End: 10-00-8170izzsescedfPdduqyrd Ball Other [employer] Other Start: 40-96-8623Dkbjqeqpkhvf care manage srvc 14 day dischargeBensaida Ahumada Medical ClinicStart: 08-16-2023 End: 86-77-8254Cuatkbd encounter procedureDO Kaleb Ahumada Work Phone: [facility] Work Phone: Start: 08-10-2023 End: 23-11-2055cmdsfgnwmaTxutagxf Ball Other [employer] Other Start: 14-66-5370Xihqntpnp encounterBenjamin ChristinaG [facility] ClinicStart: 08-08-2023 End: 95-23-0997svqnoqbhcyYmegqlds Ball Other [employer] Other Start: 84-08-4727Bercem outpatient visit 25 minutes [facility] ClinicStart: 67-92-1016Fkdkkjodc encounterBenjanessa VasquezG [facility] ClinicStart: 08-08-2023 End: 41-30-8154Gbugcsi encounter procedureDO Kaleb Ahumada Work Phone: [facility] Work Phone: Start: 2023 End: 32-62-0363zbyuhsjrjkMftqjliy Ball Other [employer] Other Start: 21-31-0459Blsvawngw encounterBenjanessa VasquezG [facility] ClinicStart: 2023 End: 44-71-9428Eipqgqq encounter procedureDO Kaleb Ahumada Work Phone: [facility] Work Phone: Start: 07-15-2023 End: 05-08-4101uyoxwugwqbRzjmbemm Ball Other [employer] Other Start: 30-56-9121Updrkptav encounterBenjamin ChristinaG [facility] ClinicStart: 07-13-2023 End: 33-28-9353mrybrqqxrxEfnkydmu Ball Other [employer] Other Start: 27-16-5207Biztqs outpatient visit 25 minutes Kaleb ChristinaG [facility] ClinicStart: 06-13-2023 End: 50-48-9878ncnfctrszzRgojdxcx Ball Other [employer] Other Start: 35-83-4934Elpqpjdaz encounterBenjamin BallBENG [facility] ClinicStart: 06-06-2023 End: 69-86-9162kydchxjepqLfiwaaay Ball Other [employer] Other Start: 33-27-0425Ddmlgnp encounter procedureBenjamin ChristinaG [facility] ClinicStart: 06-01-2023 End: 67-28-7908wspffocsajGuoknnwa Ball Other [employer] Other Start: 95-81-4464Kkqsjch evaluation of patient and reportBenjamin BallFPG [facility] ClinicStart: 11-30-2022 End: 37-89-7819zreefjkjbjDetyejks Ball Other [employer] Other Start: 34-10-4756Bsmmlq outpatient visit 25 minutes Kaleb ChristinaG [facility] ClinicStart: 08-05-2022 End: 69-71-6957unwirakupeHF KALEB BALLFacility:V7Jqyvl: 06-09-2022 End: 22-45-6434netezvilmwCZ KALEB BALLFacility:N8Wqjwg: 13-45-4208Qgmiy health examinationBewilber Ahumada Other [place] [employer] Other Start: 09-28-2021 End: 39-56-9456dsmpjjjdxjNX KALEB AHUMADAFacility:H1 Procedures DateProcedureProcedure DetailPerforming ClinicianStart: 74-41-8238Mwftuapidb screeningBewilber Ahumada Other Start: 40-36-0554Mzcougluk for osteoporosisBensaida Ahumada Other Start: 19-02-3695Qfyovusfw for malignant neoplasm of colonKaleb Ahumada Other Start: 00-36-1939Lfwakiifd mammographyBewilber Ahumada Other Screening for malignant neoplasm of breastKaleb Ahumada Other Plan of Treatment DateCare ActivityDetailAuthorStart: 10-26-2024 End: 03-80-8626raxmzvasivZHSH CI PTStart: 10-24-2024 End: 77-16-2173hhtvzviixoECNZ CI PTComment on above:ArrivedStart: 10-22-2024 End: 61-12-3450vjmlyfemxbCWCO CI PTComment on above: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); Muscle weakness of right upper extremityStart: 10-18-2024 End: 18-34-3994hyyrsjwwyjRCED CI PTComment on above:ArrivedStart: 10-16-2024 End: 00-37-5951uluomyjmue82/25/2025 9:00 AM EST Evaluation [facility] [address] [address] Xena Mendoza, PT [address] [facility] [address] [place] [address] ArrivedNOMS CI PTComment on above:ArrivedStart: 08-30-2024 End: 95-13-5999kzevlaerah61/04/2025 11:00 AM EST Treatment [facility] [address] [facility] [address] [place] [address] Vinh Lynn, HOT BOX OPERATOR [facility] CI PTStart: 08-28-2024 End: 73-08-8486amgqxolwdnMGUT CI PTComment on above:ArrivedStart: 08-24-2024 End: 54-26-4891axgytihvrfTUZK CI PTComment on above:ArrivedStart: 08-21-2024 End: 55-44-8448xfopnhefps34/31/2024 10:30 AM EST Treatment [facility] [address] [facility] [address] [place] [address] Vinh Lynn, HOT BOX OPERATOR [facility] CI PTStart: 08-17-2024 End: 82-03-3029pkdoxcubezEFRX CI PTComment on above:ArrivedStart: 08-14-2024 End: 95-57-5498pdnadwodcvQUJZ CI PTComment on above:ArrivedStart: 08-08-2024 End: 04-65-0301lhwtsshcoaRVET CI PTComment on above:ArrivedStart: 08-06-2024 End: 08-13-8314pidiqgxymz03/16/2024 9:00 AM EST Evaluation [facility] [address] [facility] [place] [address] Xena Mendoza, PT [address] [facility] [place] [address] ArrivedNOMS CI PTComment on above:ArrivedStart: 80-22-6506INW 12 channel [facility] Hospitaltart: 91-75-2322Trxdknjyucxd Vaccine: 65+ Years (2 of 2 - PPSV23 or PCV20)Pneumococcal Vaccine: 65+ Years (2 of 2 - PPSV23 or PCV20)[facility]OM HealthcareStart: 76-24-9111Lgkltyjrqabh Vaccine: 65+ Years (1 of 1 - PCV)Pneumococcal Vaccine: 65+ Years (1 of 1 - PCV)[facility] 2000 panel - Serum or PlasmaPromedica Flower HospitalComprehensive metabolic 1999 panel - Serum or PlasmaPromedica Flower HospitalMG Breast - bilateral ScreeningPromedica Flower Hospital Microalbumin [Mass/volume] in UrinePromedica Flower HospitalMR Shoulder - right WO contrastPromedica Flower HospitalXR Shoulder - right Views [facility] Immunizations Immunization DateImmunizationNotesCare YbjvmtunCclhhzqr87-03-9989jwfaepjbq, high dose seasonal, preservative-freeBenjamin Ball DO Work Phone: [facility]11-19-2024COVID-19 (PFIZER) 12Y and olderBenjamin Ball DO Work Phone: [facility]10-18-2024influenza, high dose seasonal, preservative-freePromedica Flower Hospital10-17-2023 zoster vaccine recombinantBenjamin Ball DO Work Phone: [facility]10-11-2023influenza, high dose seasonal, preservative-freeBenjamin Ball Other [place] [employer] Other [id number] virus vaccine, unspecified formulationDO Kaleb Ball Work Phone: [facility]10-04-2023COVID-19 (PFIZER) 12Y and olderBenjamin Ball DO Work Phone: [facility]08-15-2023zoster vaccine recombinantBenjamin Ball DO Work Phone: [facility]11-01-2022COVID-19 mRNA Bivalent Booster (Pfizer)Kaleb Ball DO Work Phone: [facility]10-12-2022Influenza vaccine, quadrivalent, adjuvantedBenjamin Ball DO Work Phone: [facility]10-12-2022influenza virus vaccine, split virus (incl. purified surface antigen)Kaleb Ahumada Other [employer] Other [id number] virus vaccine, unspecified formulationDO Kaleb Ahumada Work Phone: [facility]07-11-2022COVID-19 Comirnaty (Pfizer) Tri-Sucrose 12+Kaleb Ahumada DO Work Phone: [facility]10-22-2021COVID-19 mRNA, Comirnaty (Pfizer)Kaleb Ahumada DO Work Phone: [facility]09-29-2021influenza virus vaccine, split virus (incl. purified surface antigen)[facility] [employer] Other [id number] virus vaccine, unspecified formulationDO Kaleb Ahumada Work Phone: [facility]09-29-2021Seasonal trivalent influenza vaccine, adjuvanted, preservative freeBensaida Ahumada DO Work Phone: [phone]02-18-2021COVID-19 mRNA, Comirnaty (Pfizer)Kaleb Ahumada DO Work Phone: [facility]01-28-2021COVID-19 mRNA, Comirnaty (Pfizer)Kaleb Ahumada DO Work Phone: [facility]09-04-2020influenza virus vaccine, split virus (incl. purified surface antigen)Kaleb Ahumada Other [employer] Other [id number] virus vaccine, unspecified formulationDO Kaleb Ahumada Work Phone: [facility]10-30-2019influenza virus vaccine, split virus (incl. purified surface antigen)Kaleb Ahumada Other no[employer] Other [id number] virus vaccine, unspecified formulationDO Kaleb Ahumada Work Phone: [facility]10-23-2018influenza virus vaccine, split virus (incl. purified surface antigen)Kaleb Ahumada Other [place] [employer] Other [id number] virus vaccine, unspecified formulationDO Kaleb Ahumada Work Phone: [facility]10-23-2018Seasonal trivalent influenza vaccine, adjuvanted, preservative freeBenjamin Brandyn DO Work Phone: [facility]10-18-2017influenza virus vaccine, split virus (incl. purified surface antigen)Kaleb Ahumada Other [place] [employer] Other [id number] virus vaccine, unspecified formulationDO Kaleb Ahumada Work Phone: [facility]09-15-2017influenza, high dose seasonal, preservative-freeBenjamin Brandyn DO Work Phone: [phone]12-12-2016influenza virus vaccine, split virus (incl. purified surface antigen)Kaleb Ahumada Other [place] [employer] Other [id number] virus vaccine, unspecified formulationDO Kaleb Ahumada Work Phone: [facility]12-02-2015 pneumococcal conjugate vaccine, 13 valentBenjanessa Ahumada Other [facility]10-10-2012tetanus and diphtheria toxoids, adsorbed, preservative free, for adult use (5 Lf of tetanus toxoid and 2 Lf of diphtheria toxoid)Kaleb Ahumada Other [facility] Payers DatePayer CategoryPayerPolicy [id number]-pay2021Medicare (Managed Care)[employer] Member Subscriber Plan / Payer (Effective 2020-Present) Name: Alycia Daily Relation to Subscriber: Self Name: Alycia Daily Payer ID: Not on file Group ID: [id number] Type: Not on file Address: [place] [id number] [id number] 2.0.1.591401.3.579.2. [id number] 2.0.1.023985.3.57[id number] 2.840.1.960435.3.57[id number] 2.840.1.278181.3.57[id number] 2.0.1.422352.3.57[id number] 2.840.1.464986.3.57[id number] 2.16840.1.134972.3.57[id number] 2.840.1.725226.3.57[id number] 2.16840.1.038635.3.57[id number] 2.840.1.482064.3.57[id number] 2.16.840.1.483506.3.57[id number] 2.16.840.1.905492.3.57[id number] 2.16.840.1.402181.3.57[id number] 2.16.840.1.506786.3.57[id number] 2..840.1.798245.3.57[id number] 2.16.840.1.38[id number] 2.0.1.441928.3.579.2.531 Social History DateTypeDetailFacilitySex Assigned At [facility] [employer] Other Start: 10-17-2023 End: 72-74-2694Qhadvai smoking status NHISNever smoked tobacco (finding) [facility]ertart: 60-25-5797Lwv [facility]igned At [facility] TroyTobacco smoking status NHISTobacco smoking consumption [facility] HealthcareStart: 03-31-6914Jgd assigned at [facility] hospitalNot on fileST. [facility] HealthcareStart: 09-14-2024 End: 94-95-9523TtvUshnpe (finding)[facility] Clinical Notes 11-30-2022 to 04-29-2025 Note Date & RzuqTeliWnulekgi61-28-7425 Evaluation note* Diagnosis Onset Date Resolution Status Admit Date Mixed hyperlipidemia acuteSeptember 2024 12:48pmOSA (obstructive sleep apnea)acuteSept2024 12:48pmParoxysmal atrial fibrillationacuteSept2024 12:48pm Primary hypertensionacuteSept2024 12:48pmInfraspinatus tendon tear acuteSept2024 12:30pmSupraspinatus tendon tearacuteSept2024 12:30pm [facility] Work Phone: [phone]) 409-965709-08-2025 Evaluation note* Diagnosis Onset Date Resolution Status Admit Date Mixed hyperlipidemia acuteSept2024 12:48pmOSA (obstructive sleep apnea)acuteSept2024 12:48pmParoxysmal atrial fibrillationacuteSept2024 12:48pm Primary hypertensionacuteSept2024 12:48pmInfraspinatus tendon tear acuteSept2024 12:30pmSupraspinatus tendon tearacuteSept2024 12:30pmAortic stenosisacuteOctober 2024 1:49pmChronic heart failure with preserved ejection fraction (HFpEF)acuteOct2024 1:49pmMedicare annual wellness visit, subsequentacuteJune 10, 2025 1:49pmMixed hyperlipidemiaacuteOct2024 1:49pmObesityacuteOct2024 1:49pmOSA (obstructive sleep apnea)acuteOct2024 1:49pmParoxysmal atrial fibrillationacuteOct2024 1:49pmPrimary hypertensionacute October 2024 1:49pmScreening mammogram for breast canceracuteOct2024 1:49pmType 2 diabetes mellitus with hyperglycemiaacuteOct2024 1:49pm [facility] Work Phone: 1(102) 444-517702-25-2025 History of Present illness Narrative* Xena Mendoza, PT - 10/16/2024 9:00 AM EST Images from the original note were not [...] activities. Difficulty sleeping on right shoulder and stiffnessin shoulder first time in the morning. Precautions: [...] Is motivated to return to golf and pickle ball. Outcome Measure: in chart Short Term Goal: To be met in 2 weeks Goal 1: Pt to be instructed in home exercise program. [employer] Goals: To be met in 10 weeks [...] Please sign below. Date: documented in this encounterSoutheast [facility] CenterIhkfiynhkl11-53-4201 Evaluation note* Diagnosis Onset Date Resolution Status Admit Date Obesity acuteJanuary 2024 1:22pmPrimary hypertensionacuteJanuary 2024 1:22pm Right shoulder painacuteJanuary 2024 1:22pmType 2 diabetes mellitus with hyperglycemiaacuteAuguary 2024 1:22pmInfraspinatus tendon tearacute October 09, 2024 8:15amSupraspinatus tendon tearacuteFebruary 2024 8:15am [facility] Work Phone: [phone] 257-121812-16-2024 History of Present illness Narrative* Xena Mendoza, [...] to be instructed in home exercise program. [employer] Goals: To be met in 10 weeks [...] Please sign below. Date: documented in this encounterSoutheast Missouri Community Treatment CenterVsgezuzaar94-40-3220 Evaluation note* Encounter Date Diagnosis Assessment Notes Treatment Notes Treatment Clinical Notes Jul, Paroxysmal atrial fibrillation ( ICD-10 - I48.0) Echo: 07/2023 - LVEF is 60 to 65% - Normal right ventricular size and systolic function - Biatrial enlargement - Mild tricuspid regurgitation - RVSP 38 mmHg - Mild to moderate mitral regurgitation [employer] Other [id number] Evaluation note* Encounter Date Diagnosis Assessment Notes Treatment Notes Treatment Clinical Notes Jul, Precordial pain (ICD-10 - R07.2) Most likely due to atrial fibrillation w/ RVR. There was no elevation in her Troponin results. Her Echocardiogram revealed normal LVEF w/o wall motion abnormality. Plan stress testing to r/o coronary artery disease Jul,aroxysmal atrial fibrillation (ICD-10 - I48.0)Continue AC to prevent thromboembolic events. NSR w/o need for rate control. She will be prescribed Metoprolol, to be used for HR > 100 Jul,Type 2 diabetes mellitus with hyperglycemia, without long-term current use of insulin (ICD-10 - E11.65)This patient is following a comprehensive diabetic treatment [...] Microalbumin, Dilated eye exam and Foot exam Jul,Elevated cholesterol (ICD-10 - E78.00)Instructed on diet and exercise with continued statin therapy.Discussed the beneficial effects of lo wering cholesterol in reducing the risk for cerebrovascular and cardiovascular disease. Jul,cute on chronic diastolic heart failure (ICD-10 - I50.33)Elevated BNP w/ dyspnea while in atrial fibrillation. Much improved after restoring NSR. Briefly discussed GDMT, which is on hold for now. - SGLT-2, BB Jul,nemia, unspecified type (ICD-10 - D64.9)Will require EGD and Colonoscopy in the future. She denies any obvious s/s GIB. Continue to monitor closely until safely can be taken off AC for procedure. Repeat CBC in week. [employer] Other 12-20-2023 Evaluation note* Encounter Date Diagnosis Assessment Notes Treatment Notes Treatment Clinical Notes Jul, Paroxysmal atrial fibrillation ( ICD-10 - I48.0) Echo: 07/2023 - LVEF is 60 to 65% - Normal right ventricular size and systolic function - Biatrial enlargement - Mild tricuspid regurgitation - RVSP 38 mmHg - Mild to moderate mitral regurgitation [employer] Other 12-18-2023 Evaluation note* Encounter Date Diagnosis Assessment Notes Treatment Notes Treatment Clinical Notes Jul, Paroxysmal atrial fibrillation ( ICD-10 - I48.0) This patient has new onset [...] chamber size and r/o valvular heart disease Jul,rimary hypertension (ICD-10 - I10)This patient is instructed to consume a healthy, low-fat, low-salt diet. They are also encouraged to continue exercise to achieve/maintain a normal BMI. Jul,Type 2 diabetes mellitus with hyperglycemia, without long-term current use of insulin (ICD-10 - E11.65)This patient is following a comprehensive diabetic treatment [...] Microalbumin, Dilated eye exam and Foot exam Jul,Elevated cholesterol (ICD-10 - E78.00)Instructed on diet and exercise with continued statin therapy.Discussed the beneficial effects of lo wering cholesterol in reducing the risk for cerebrovascular and cardiovascular disease. Jul,Left carotid bruit (ICD-10 - R09.89)Carotid US: < 50% - 05/2022 Reassured, continue primary prevention. 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 They are also encouraged to continue exercise to achieve/maintain a normal BMI. Jun,Weight loss, unintentional (ICD-10 - R63.4)r/o metabolic abnormalities w/ labs - hyperglycemia, hyperthyroidism, hepatitis and anemia r/o hepatic, pancreatic tumor w/ imaging - CT abd/pelvis Jun,Sallow complexion (ICD-10 - R23.8)r/o hepatic disease: infection vs tumor Jun,Fatigue, unspecified type (ICD-10 - R53.83)Healthy diet and rest. 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 May,rimary hypertension (ICD-10 - I10)This patient is instructed to consume a healthy, low-fat, low-salt diet. They are also encouraged to continue exercise to achieve/maintain a normal BMI. May,Type 2 diabetes mellitus with hyperglycemia, without long-term current use of insulin (ICD-10 - E11.65)This patient is following a comprehensive diabetic treatment [...] Microalbumin, Dilated eye exam and Foot exam May,Elevated cholesterol (ICD-10 - E78.00)Instructed on diet and exercise with continued statin therapy.Discussed the beneficial effects of lo wering cholesterol in reducing the risk for cerebrovascular and cardiovascular disease. May,Left carotid bruit (ICD-10 - R09.89)Carotid US: < 50% - oft B/L bruits w/ normal carotid pulse May,Overweight (ICD-10 - E66.3)This patient has been instructed on a low-fat, high-fiber diet. They are instructed to reduce calories, portion sizes and snacks. It is recommended that they exercise for 30 minutes, 3-5 times weekly. 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 They are instructed to reduce calories, portion sizes and snacks. It is recommended that they exercise for 30 minutes, 3-5 times weekly. [employer] Other 04-11-2023 Evaluation note* Encounter Date Diagnosis Assessment Notes Treatment Notes Treatment Clinical Notes Nov, Primary hypertension (ICD-10 - I 10) This patient is instructed to consume a healthy, low-fat, low-salt diet. They are also encouraged to continue exercise to achieve/maintain a normal BMI. Nov,Type 2 diabetes mellitus with hyperglycemia, without long-term current use of insulin (ICD-10 - E11.65)This patient is following a comprehensive diabetic treatment plan. They are checking their feet daily for calluses and nonhealing ulcers. They are being seen for yearly dilated eye examinations. Goals: SBP less than 130, LDL less than 100, FBS less than 140, AC and A1C less than 7%. They are checking their BS daily, will which are reviewed at the office visit. Stop Metformin Nov,Elevated cholesterol (ICD-10 - E78.00)Diet and exercise with continued statin therapy. Nov,Obesity (BMI 30-39.9) (ICD-10 - E66.9)This patient has been instructed on a low-fat, high-fiber diet. They are instructed to reduce calori es, portion sizes and snacks. It is recommended that they exercise for 30 minutes, 3-5 times weekly. She has successfully lost weight w/ diet and exercise but has hit a plateau - discussed altering diet, exercise - discusse GLP-1 Nov,Left carotid bruit (ICD-10 - R09.89)Carotid US: < 50% - 05/2022 11 Nov, 2022Hx of cancer of endometrium (ICD-10 - Z85.42)No s/s recurrence [facility] [place] Other Evaluation noteNo InformationNortSurgical Special[facility] [place] Other Evaluation noteNo assessment information available [facility] Work Phone: evaluation note* Diagnosis Onset Date Resolution Status Mixed hyperlipidemia acuteParoxysmal atrial fibrillationacutePrimary hypertensionacuteChronic heart failure with preserved ejection fraction (HFpEF)acuteMixed hyperlipidemiaacute Paroxysmal atrial fibrillationacutePrimary hypertensionacuteType 2 diabetes mellitus with hyperglycemiaacute [facility] Work Phone: Evaluation note* Diagnosis Onset Date Resolution Status Mixed hyperlipidemia acuteParoxysmal atrial fibrillationacutePrimary hypertensionacute [facility] Work Phone: evaluation note* Diagnosis Onset Date Resolution Status Mixed hyperlipidemia acuteParoxysmal atrial fibrillationacutePrimary hypertensionacuteImpingement syndrome of right shoulderacuteParoxysmal atrial fibrillationacuteRight shoulder painacute [facility] Work Phone: Evaluation note* Diagnosis Onset Date Resolution Status Mixed hyperlipidemia acuteParoxysmal atrial fibrillationacutePrimary hypertensionacuteImpingement syndrome of right shoulderacuteParoxysmal atrial fibrillationacuteRight shoulder painacuteChronic heart failure with preserved ejection fraction (HFpEF)acute Heart murmuracuteMedicare annual wellness visit, subsequentacuteMixed hyperlipidemiaacuteObesityacuteParoxysmal atrial fibrillationacutePrimary hypertensionacuteScreening mammogram for breast canceracuteType 2 diabetes mellitus with hyperglycemiaacute [facility] Work Phone: Evaluation note* Diagnosis Chronic right shoulder pain- Primary Pain in joint, shoulder region Arthritis of right acromioclavicular joint documented in this encounter [facility]* Diagnosis Chronic right shoulder pain- Primary Pain in joint, shoulder region Arthritis of right acromioclavicular joint documented in this encounter [facility]* Diagnosis Chronic right shoulder pain- [...] right acromioclavicular joint documented in this encounter [facility] HealthcareEvaluation note* Diagnosis Chronic right shoulder pain- Primary Pain in joint, shoulder region Arthritis of right acromioclavicular joint documented in this encounter [facility] HealthcareEvaluation note* Diagnosis Chronic right shoulder pain- Primary Pain in joint, shoulder region Arthritis of right acromioclavicular joint documented in this encounter [facility] HealthcareEvaluation note* Diagnosis Onset Date Resolution Status Admit Date Chronic heart failure with preserved eje ction fraction (HFpEF) acuteJanuary 2024 1:22pmMixed hyperlipidemiaacuteJanuary 2024 1:22pm ObesityacuteJanuary 2024 1:22pmParoxysmal atrial fibrillationacuteJanuary 2024 1:22pmPrimary hypertensionacuteJanuary 2024 1:22pmRight shoulder painacuteJanuary 2024 1:22pmType 2 diabetes mellitus with hyperglycemiaacuteJanuary 2024 1:22pm [facility] Work Phone: Evaluation note* Diagnosis Nontraumatic complete tear of right rotator cuff- Primary Muscle weakness of right upper extremity Muscle weakness (generalized) documented in this encounter [facility] HealthcareEvaluation note* Diagnosis Nontraumatic complete tear of right rotator cuff- Primary Muscle weakness of right upper extremity Muscle weakness (generalized) Chronic right shoulder pain Pain in joint, shoulder region Arthritis of right acromioclavicular joint documented in this encounter [facility] HealthcareEvaluation note* Diagnosis Nontraumatic complete tear of right rotator cuff- Primary Muscle weakness of right upper extremity Muscle weakness (generalized) documented in this encounter [facility] HealthcareEvaluation note* Diagnosis Nontraumatic complete tear of right rotator cuff- Primary Muscle weakness of right upper extremity Muscle weakness (generalized) documented in this encounter [facility] HealthcareEvaluation note* Diagnosis Onset Date Resolution Status Admit Date Mixed hyperlipidemia acuteSeptember 2024 12:48pmOSA (obstructive sleep apnea)acuteSept2024 12:48pmParoxysmal atrial fibrillationacuteSept2024 12:48pm Primary hypertensionacuteSept2024 12:48pm [facility] Work Phone: History general Narrative - Reported* Type Description Date Medical History Left carotid bruit Medical HistoryEstrogen deficiencySurgical HistoryRIGHT BREAST [id number],2014 Surgical HistoryLEFT BREAST [id number] [id number] History ARTHROSCOPY RIGHT [id number] HistoryCATARACT B/[id number] HistorySEE SURGICAL [facility] [place] Other Reason for referral (narrative)* Reason *Waiting for appt Referral for new onset paroxysmal atrial fibrillation and an abnormal stress test Diagnosis 1 Precordial pain (R07 .2) Diagnosis 2 Paroxysmal atrial fi brillation (I48.0) Referral Organization [facility] Referring Provider First Name Kaleb Referring Provider Last Name Brandyn Referring Provider Specialty Internal Me dicine Referred Organization [facility] Cardiology Referred Provider Lila Myers Referred Address [address] [place] [phone] Referred Provider Specialty Cardiovascul ar Disease Referral [...] PM >received today, attachments made, referral faxed [id number] NotesInclude: - Labs: since Jun - Echo - Holter - Stress testing [employer] Other Reason for referral (narrative)No reason for referral information availableBu[facility]rus [facility] Work Phone: Reason for visit Narrative* Rehabilitation - Outpatient (Routine) - AuthorizedSpecialtyDiagnoses / ProceduresReferred By ContactReferred To ContactPhysical Therapy Diagnoses Pain in right shoulder Procedures [place] PHYSICAL THERAPY EVALUATION LOW COMPLEX 20 MINS [place] OFFICE/OUTPATIENT [facility] Kaleb Aguilar MD [address] [place] [address] Phone: tel: fax: [facility] [address] [address] Phone: tel: fax: Referral IDStatusReasonStart DateExpiration DateVisits RequestedVisits [id number] [facility] HealthcareReason for visit Narrative* Rehabilitation - Outpatient (Routine) - AuthorizedSpecialtyDiagnoses / ProceduresReferred By ContactReferred To ContactPhysical Therapy Diagnoses Pain in right shoulder Procedures [place] PHYSICAL THERAPY EVALUATION LOW COMPLEX 20 MINS [place] OFFICE/OUTPATIENT [facility] Kaleb Aguilar MD [address] [place] [address] Phone: tel: fax: [facility] [address] [address] Phone: tel: fax: Referral IDStatusReasonStart DateExpiration DateVisits RequestedVisits [id number]/202412/[id number] [facility] HealthcareReason for visit Narrative* Rehabilitation - Outpatient (Routine) - AuthorizedSpecialtyDiagnoses / ProceduresReferred By ContactReferred To ContactPhysical Therapy Diagnoses Pain in right shoulder Procedures TN THER PX 1/> AREAS EACH 15 MIN NEUROMUSC REEDUCA TN THERAPEUTIC PX 1/> AREAS EACH 15 MIN EXERCISES TN MANUAL THERAPY TQS 1/> REGIONS EACH 15 MINUTES PHYS/OCC THERAPY SS Kaleb Ahumada MD [address] [place] [address] Phone: tel: fax: [facility] [address] [address] Phone: tel: fax: Referral IDStatusReasonStcardwell DateExpiration DateVisits RequestedVisits [id number]/[id number] [facility] HealthcareReason for visit Narrative* Rehabilitation - Outpatient (Routine) - AuthorizedSpecialtyDiagnoses / ProceduresReferred By ContactReferred To ContactPhysical Therapy Diagnoses Strain of other muscles, fascia and tendons at shoulder and upper arm level, right arm, initial encounter Unspecified rotator cuff tear or rupture of right shoulder, not specified as traumatic Procedures [place] PHYSICAL THERAPY EVALUATION LOW COMPLEX 20 MINS TN OFFICE/OUTPATIENT NEW HIGH MDM 60 MINUTES Cody Bermudez MD [address] [place] [address] Phone: tel: fax: Xena Mendoza, PT [address] [address] Phone: tel: fax: Referral IDStatusReasonStcardwell DateExpiration DateVisits RequestedVisits [id number] [facility] HealthcareReason for visit Narrative* Rehabilitation - Outpatient (Routine) - AuthorizedSpecialtyDiagnoses / ProceduresReferred By ContactReferred To ContactPhysical Therapy Diagnoses Strain of other muscles, fascia and tendons at shoulder and upper arm level, right arm, initial encounter Unspecified rotator cuff tear or rupture of right shoulder, not specified as traumatic Procedures [place] PHYSICAL THERAPY EVALUATION LOW COMPLEX 20 MINS TN OFFICE/OUTPATIENT NEW HIGH MDM 60 MINUTES Cody Bermudez MD [address] [place] [address] Phone: tel: fax: Jayazeus Xena T, PT [address] [place] [address] [address] Phone: tel: fax: Referral IDStatusReasonStart DateExpiration DateVisits RequestedVisits [id number] [facility] Healthcare Summary Purpose Family History Relationship Condition Age at Onset Recorded Date/T erik brother Heart disease Unknown High blood cholesterolUnknownHypertensionUnknownCoronary artery diseaseUnknown fatherMalignant neoplasmUnknownMalignant neoplasm of brainUnknownHeart disease UnknowngrandparentDiabetes mellitusUnknownsisterMyocardial infarctionUnknownNot SpecifiedHeart diseaseUnknownCongestive heart failureUnknown Relationship Condition Age at Onset Recorded Date/T erik brother Heart disease Unknown High blood cholesterolUnknownHypertensionUnknownCoronary artery diseaseUnknown fatherMalignant neoplasmUnknownMalignant neoplasm of brainUnknownHeart disease UnknowngrandparentDiabetes mellitusUnknownsisterMyocardial infarctionUnknown motherHeart diseaseUnknownCongestive heart failureUnknown Advance Directives Advance Directive Response Recorded Date/ Time Advance Directives No September 14, 2023 5:21pm Advance Directive Response Recorded Date/ Time Advance Directives No September 14, 2023 6:21pm Chief Complaint and Reason for Visit Chief Complaint Letter Not Feeling Better-Tiredness Tbh paroxysmal a-fib precordial pain Chief Complaint paroxysmal a-fib pre cordial pain 6 monthReason for VisitMixed hyperlipidemia Paroxysmal atrial fibrillation Primary hypertension Chronic heart failure with preserved ejection fraction (HFpEF) Mixed hyperlipidemia Paroxysmal atrial fibrillation Primary hypertension Type 2 diabetes mellitus with hyperglycemia Chief Complaint 6 months Reason for Visit Mixed hyperlipidemia Paroxysmal atrial fibrillation Primary hypertension Chief Complaint 6 months Right shoulder painReason for VisitMixed hyperlipidemia Paroxysmal atrial fibrillation Primary hypertension Impingement syndrome of right shoulder Paroxysmal atrial fibrillation Right shoulder pain Chief Complaint 6 months Right shoulder pain wellnessReason for VisitMixed hyperlipidemia Paroxysmal atrial fibrillation Primary hypertension Impingement [...] with hyperglyce yamile September 14, 2024 1:22pm Chief Complaint Admit [...] Supraspinatus tendon tear October 09, 2024 8:15am Chief Complaint Admit Date 1 year April 29, 2025 12:48pm Reason for Visit Admit Date Mixed hyperlipidemia April 29, 2025 12:48pm HONG (obstructive sleep apnea) April 29, 2025 12:48pm Paroxysmal atrial fibrillation April 29, 2025 12:48pm Primary hypertension April 29, 2025 12:48pm Chief Complaint Admit Date 1 year April 29, 2025 12:48pm OP SP RT SHOULDER PAIN May 21, 12:30pm Reason for Visit Admit Date Mixed hyperlipidemia April 29, 2025 12:48pm HONG (obstructive sleep apnea) April 29, 2025 12:48pm Paroxysmal atrial fibrillation April 29, 2025 12:48pm Primary hypertension April 29, 2025 12:48pm Infraspinatus tendon tear April 12:30pm Supraspinatus tendon tear April 12:30pm Chief Complaint Admit Date 1 year April [...] 1:49pm Screening mammogram for breast cancer Oc tob2024 1:49pm Type 2 diabetes mellitus with hyperglyce yamile June 10, 2025 1:49pm Additional Source Comments INFORMATION SOURCE (unrecogn ized section and content) DATE CREATED AUTHOR 08/12/2022 [facility] DATE CREATED AUTHOR AUTHOR'S ORGANIZ ATION 10/22/2023 [facility] DATE CREATED AUTHOR AUTHOR'S ORGANIZ ATION 10/28/2024 [facility] EPIC REASON FOR VISIT (unrecogniz ed [...] Start: April 29, 2025 End: April 29, 2025Gejanneth Hoff , MDAttending ProviderActive Start: April 29, 2025 End: April 29, 2025 Team Status: Inactive Member Role Status Dates Kaleb Ahumada DO Primary Care Provider Active Start: May 21, 2025 End: May 21, 2025Cody Bermudez DOAttending ProviderActiveStart: May 21, 2025 End: May 21, 2025 Team Status: Active Member Role Status Dates Kaleb Ahumada DO Primary Care Provider Active Start: February 04, 2025 Stella Farfan DOAttending ProviderActiveStart: February 04, 2025 Team Status: Inactive Member Role Status Dates [...] Start: October 17, 2023 End: October 17, 2023Dave Hoff MDAttending ProviderActive Start: October 17, 2023 End: October 17, 2023 Team Status: Active Member Role Status Sabas Ahumada DO Primary Care Provider Active Start: October 17, 2023 Dave Hoff MDAttending ProviderActiveStart: October 17, 2023 Team Status: Inactive Member Role Status Sabas Ahumada DO Primary Care Provide r, Attending Provider Active Start: December 06, 2023 End: December 06, 2023 Team Status: Inactive Member Role Status Dates Kaleb Ahumada DO Primary Care Provider Active Start: April 24, 2024 End: April 24, 2024Dave Hoff MDAttending ProviderActive Start: April 24, 2024 End: April 24, [...] Status Dates Kaleb Ahumada DO Primary Care Provide r, Attending Provider Active Start: September 14, 2024 End: September 14, 2024 Team Status: Inactive Member Role Status Sabas Ahumada DO Primary Care Provider Active Start: October 09, 2024 End: October 09, 2024Cici Palacio ProviderActiveStart: October 09, 2024 End: October 09, 2024 Team Status: Active Member Role/Relationship Status Sabas Ahumada Primary Care Provider Active Team Status: Inactive Member Role/Relationship Status Sabas Ahumada Primary Care Provider Active Start: April 29, 2025 End: April 29, 2025Gejanneth Hoff MDAttending ProviderActive Start: April 29, 2025 End: April 29, 2025 Team Status: Inactive Member Role/Relationship Status Sabas Ahumada DO Primary Care Provider Active Start: May 21, 2025 End: May 21, 2025Cody Bermudez DOAttjuany ProviderActiveStart: May 21, 2025 End: May 21, 2025 Team Status: Inactive Member Role/Relationship Status Sabas Ahumada DO Primary Care Provider Active Start: June 10, 2025 End: June 10ensaida Brandyn Cici ProviderActiveStart: June 10, 2025 End: June 10, 2025 Goals (unrecognized section and content) Goals may [...] BE BASED ON THE PRIMARY CLINICAL RECORDS. [facility] [employer] provides no warranty or guarantee of the accuracy or completeness of information in this document.
--- OUTSIDE RECORDS SUMMARY | 2025-06-14 08:35 | XMS_ITS | CCD ---
Author Organization [facility] CliniSyri Care Team Providers Care Biodiesel Engineering Manager Name Role Phone DR KALEB AHUMADA Attending [...] Admitting DO Kaleb Martinez Primary Care Provider [phone] MD Dave Hoff Attending Provider Unavailable Primary [...] Unavailable Kaleb Ahumada DO Primary Care Provider Stella Farfan DO Attending Provider Dave Hoff MD Attending Provider Kaleb Ahumada DO Primary Care Provider [phone] Cody Bermudez DO Attending Provider Kaleb Ahumada DO Attending Provider [phone] Allergies Allergy ClassificationReported Allergen(s)Allergy TypeDate of OnsetReaction(s) Facility (1 source)patient allergy list reviewed by nurse or physiciaPropensity to adverse whkpinhpl70-16-0880Glrxbjo:TripTouch Other Medications Current Medications MedicationDrug Class(es)DatesSig (Normalized)Sig (Original)atorvastatin 40 mg oral tablet (20 sources)HMG-CoA Reductase InhibitorStart: 23-99-0402xiro 1 tablet by mouth once dailyAtorvastatin 40 mg tablet Active 40 MG PO Daily April 29, 2025 12:54pm Complies with drug therapyStart: 07-25-2024 End: 62-51-3910rdrb 1 tablet by mouth once daily in the eveningAtorvastatin 40 mg tablet Discontinued 0 .ROUTE .COMPLEX 90 3 July 25, 2024 7:59am April 29, 2025 12:54pm TAKE 1 TABLET BY MOUTH ONCE DAILY IN THE EVENING FOR 90 DAYSStart: 10-17-2023 End: 62-64-5936gihl 1 tablet by mouth once dailyAtorvastatin 40 mg tablet Discontinued 40 MG PO Daily 90 90 3 December 06, 2023 2:18pm July 7:59amtake 1 tablet by mouth once daily in the eveningAtorvastatin Calcium 40 MG TAKE 1 TABLET BY MOUTH ONCE DAILY IN THE EVENING ActiveBiotin (10 sources)Start: 77-72-7748ovcw 1 tablet by mouth once dailyBiotin (Hair, Skin And Nails (Biotin)) 10,000 mcg tablet,chewable Active 56177 MCG PO Daily October 17, 2023 1:00am Complies with drug therapyStart: 36-19-8701ucmq 1 tablet by mouth once dailyBiotin (Hair, Skin And Nails (Biotin)) 10,000 mcg tablet,chewable Active 82132 MCG PO Daily October 17, 2023 1:00amStart: 48-18-7896chig 1 tablet by mouth once dailyBiotin (Hair, Skin And Nails (Biotin)) 10,000 mcg tablet,chewable Active 79682 MCG PO Daily October 17, 2023 12:00amcalcium ascorbate 500 mg oral tablet (10 sources)Start: 85-82-3854bqrr 1 tablet by mouth once dailyAscorbate Calcium (Vitamin C) 500 mg tablet Active 500 MG PO Daily October 17, 2023 1:00am Complies with drug therapyferrous sulfate 325 mg oral tablet (20 sources)Start: 10-17-2023 End: 97-73-6747dggx 1 tablet by mouth three times weeklyFerrous [...] Activeloratadine 10 mg oral tablet (10 sources)Start: 28-15-5189jodq 1 tablet by mouth once dailyLoratadine (Allergy Relief (Loratadine)) 10 mg tablet Active 10 MG PO Daily October 17, 2023 1:00am Complies with drug therapyMagnesium (10 sources)Start: 77-13-4975gspi 1 tablet by mouth once dailyMagnesium 250 mg tablet Active 250 MG PO Daily October 17, 2023 1:00am Complies with drug therapyStart: 25-52-0639ptid 1 tablet by mouth once dailyMagnesium 250 mg tablet Active 250 MG PO Daily October 17, 2023 12:00amStart: 13-40-5448rxxs 250 mg by mouth once dailyMagnesium Active 250 MG PO Daily October 17, 2023 1:00am Start: 61-54-2353omoh 250 mg by mouth once dailyMagnesium Active 250 MG PO Daily October 17, 2023 12:00am24 hr metoprolol succinate 25 mg extended release oral tablet (20 sources)beta-Adrenergic BlockerStart: 22-89-2471atnj 1 tablet by mouth once dailyMetoprolol Succinate 25 mg tablet extended release 24 hr Active 25 MG PO Daily April 29, 2025 12:55pm Complies with drug therapyStart: 09-14-2024 End: 52-94-3904zfry 1 tablet by mouth once dailyMetoprolol Succinate 25 mg tablet extended release 24 hr Discontinued 0 .ROUTE .COMPLEX 30 11 September 14, 2024 8:05am April 29, 2025 12:55pm Take 1 tablet by mouth once dailyStart: 10-17-2023 End: 30-20-3779sbor 1 tablet by mouth once dailyMetoprolol Succinate 25 mg tablet extended release 24 hr Discontinued 25 MG PO Daily 90 90 3 December 06, 2023 2:34pm September 14, 2024 8:05amStart: 75-63-2118noft 1 tablet by mouth every twenty-four hoursMetoprolol Succinate ER 25 MG 1 tablet Orally Once a day for 30 days Replaces Rx for Metoprolol sprinkles Jul, ActiveStart: 38-51-4530nzyk 1 capsule by mouth once dailyMetoprolol Succinate 25 MG 1 capsule Orally Once a day for 30 days Jul, ActiveMultivit With Min-Folic Acid (Adult Multivitamin Gummies) 200 mcg tablet,chewable (10 sources)Start: 61-71-3708nlwi 1 tablet by mouth once dailyMultivit With Min- Folic Acid (Adult Multivitamin Gummies) 200 mcg tablet,chewable Active 1 TAB PO Daily October 17, 2023 1:00am Complies with drug therapyStart: 57-00-2299fdku 1 tablet by mouth once dailyMultivit With Min-Folic Acid (Adult Multivitamin Gummies) 200 mcg tablet,chewable Active 1 TAB PO Daily October 17, 2023 1:00amStart: 34-66-9949qlmf 1 tablet by mouth once dailyMultivit With Min-Folic Acid (Adult Multivitamin Gummies) 200 mcg tablet,chewable Active 1 TAB PO Daily October 17, 2023 12:09dbXi-Ljk-Vo-Vit C-Dtcrug-Ssdupvi (Preservision Areds 2 Plus Mv) 200 mcg-15 mcg- 5 mg-1 mg capsule (10 sources)Start: 68-43-1812fyut 1 capsule by mouth once fxuukMv-Hto-Sh-Vit L-Wnpmyt-Aikaxva (Preservision Areds 2 Plus Mv) 200 mcg-15 mcg- 5 mg-1 mg capsule Active 1 CAP PO Daily October 17, 2023 1:00am Complies with drug therapyStart: 08-47-6969ejsz 1 capsule by mouth once pcbnmAe-Xse-Bg-Vit Z-Rocwnw-Sxcwqko (Preservision Areds 2 Plus Mv) 200 mcg-15 mcg- 5 mg-1 mg capsule Active 1 CAP PO Daily October 17, 2023 1:00amStart: 79-18-2051qcrq 1 capsule by mouth once gqqfsBv-Ltv-Uq-Vit A-Grfpgo-Sisbpqs (Preservision Areds 2 Plus Mv) 200 mcg-15 mcg- 5 mg-1 mg capsule Active 1 CAP PO Daily October 17, 2023 12:00amOzempic (0.25 or 0.5 MG/DOSE) 2 MG/1.5ML (18 sources)Start: 39-09-9571Igwkpff (0.25 or 0.5 MG/DOSE) 2 MG/1.5ML 0.25 MG Subcutaneous weekly Nov, ActiveStart: 41-50-8088Dzndsvp (0.25 or 0.5 MG/DOSE) 2 MG/1.5ML 0.25 MG Subcutaneous weekly for 28 days Nov, Active Semaglutide (3 sources)Start: 28-01-8656lpbrwm 1 mg by subcutaneous injection every week Semaglutide 1 mg/dose (4 mg/3 mL) pen injector Active 1 MG SUBCUT every week April 24, 2025 5:08pm Complies with drug therapyStart: 04-24-2025 inject 1 mg by subcutaneous injection every weekSemaglutide 1 mg/dose (4 mg/3 mL) pen injector Active 1 MG SUBCUT every week 11 16April 24, 2025 5:08pm Complies with drug therapyvitamin B12 (11 sources)Vitamin R68Uceivvg B-12 Active Completed/Discontinued Medications MedicationDrug Class(es)DatesSig (Normalized)Sig (Original)apixaban 5 mg oral tablet (20 sources)Factor Xa InhibitorStart: 10-17-2023 End: 28-85-5672mkce 1 tablet by mouth every twelve hoursApixaban (Eliquis) 5 mg tablet Discontinued 5 MG PO Every 12 hours 180 90 3 December 06, 2023 2:17pm July 04, 2024 6:56pmlosartan potassium 25 mg oral tablet (20 sources)Angiotensin 2 Receptor BlockerStart: 10-11-2023 End: 63-54-0577ucyn 1 tablet by mouth once dailyLosartan 25 mg tablet Discontinued 25 MG PO daily 90 90 3 October 11, 2023 1:00am October 17, 2023 12:07pmtake 1 tablet by mouth once dailyLosartan Potassium 25 MG Take 1 tablet by mouth once daily ActivepredniSONE 20 mg oral tablet (7 sources)Start: 05-02-2024 End: 93-11-0041iiym 1 tablet by mouth once dailyPrednisone 20 mg tablet Discontinued 20 MG PO Daily 5 5 0 May 02, 2024 12:00am September 14, 2024 2:30pm0.25 mg, 0.5 mg dose 1.5 ml semaglutide 1.34 mg/ml pen injector (11 sources)Start: 10-17-2023 End: 91-55-6034Trrzogciqhf (Ozempic) 0.25 mg or 0.5 mg(2 mg/1.5 mL) pen injector Discontinued 0.25 MG SUBCUT everyweek October 17, 2023 1:00am December 06, 2023 2:37pm FreeTextSi.25 MG Subcutaneous weekly; Note: Source Status: Taking; Provider: Brandyn Manuel EStart: 61-75-7846Eumpaft (0.25 or 0.5 MG/DOSE) 2 MG/1.5ML 0.25 MG Subcutaneous weekly for 28 days Nov, Active Semaglutide (20 sources)Start: 11-02-2024 End: 88-06-2743gnutis 0.5 mg by subcutaneous injection every weekSemaglutide (Ozempic) 0.25 mg or 0.5 mg (2 mg/3 mL) pen injector Discontinued 0 .ROUTE .COMPLEX 3 5March 2024 3:50pm April 24, 2025 5:10pm INJECT 0.5MG SUBCUTANEOUSLY EVERY WEEK FOR 28 DAYS.Start: 11-02-2024 End: 79-08-5978ciakty 0.5 mg by subcutaneous injection every weekSemaglutide (Ozempic) 0.25 mg or 0.5 mg (2 mg/3 mL) pen injector Discontinued 0 .ROUTE .COMPLEX 3 November 02, 2024 3:50pm April 24, 2025 5:10pm INJECT 0.5MG SUBCUTANEOUSLY EVERY WEEK FOR 28 DAYS.Start: 05-23-2024 End: 14-49-0278Nsheqqugryd (Ozempic) 0.25 mg or 0.5 mg (2 mg/3 mL) pen injector Discontinued 0.5 MG SUBCUT every week 3 16 01May 23, 2024 6:26pm November 02, 2024 3:50pmStart: 05-23-2024 End: 35-10-0158Orxqflhxwlv (Ozempic) 0.25 mg or 0.5 mg (2 mg/3 mL) pen injector Discontinued 0.5 MG SUBCUT every week 3 May 23, 2024 6:26pm November 02, 2024 3:50pmStart: 25-62-5634Ruzqcfkeiym (Ozempic) 0.25 mg or 0.5 mg (2 mg/3 mL) pen injector Active 0.5 MG SUBCUT every week 3 May 23, 2024 5:26pmStart: 61-07-8523Ffgukjmbikg (Ozempic) 0.25 mg or 0.5 mg (2 mg/3 mL) pen injector Active 0.5 MG SUBCUT every week 3 May 23, 2024 6:26pmStart: 03-26-2024 End: 32-43-4231Zgzbwprluyv (Ozempic) 0.25 mg or 0.5 mg (2 mg/3 mL) pen injector Discontinued 0 .ROUTE .COMPLEX 3 0March 26, 2024 6:23pm May 23, 2024 6:26pm INJECT 0.25 MG SUBCUTANEOUSLY ONCE WEEKLYStart: 03-26-2024 End: 03-05-7273Qouwlnhzoxv (Ozempic) 0.25 mg or 0.5 mg (2 mg/3 mL) pen injector Discontinued 0 .ROUTE .COMPLEX 3 March 26, 2024 5:23pm May 23, 2024 5:26pm INJECT 0.25 MG SUBCUTANEOUSLY ONCE WEEKLYStart: 03-26-2024 End: 42-02-9506Snsojpmcgcl (Ozempic) 0.25 mg or 0.5 mg (2 mg/3 mL) pen injector Discontinued 0 .ROUTE .COMPLEX 3 March 26, 2024 6:23pm May 23, 2024 6:26pm INJECT 0.25 MG SUBCUTANEOUSLY ONCE WEEKLYStart: 71-32-9996Abktvtqpcfd (Ozempic) 0.25 mg or 0.5 mg (2 mg/3 mL) pen injector Active 0 .ROUTE .COMPLEX 3 March 26, 2024 6:23pm INJECT 0.25 MG SUBCUTANEOUSLY ONCE WEEKLYStart: 02-01-2024 End: 98-08-7105Chrqgqwniul (Ozempic) 0.25 mg or 0.5 mg (2 mg/3 mL) pen injector Discontinued 0 .ROUTE .COMPLEX 3 2023 9:12am March 26, 2024 6:26pm INJECT 0.25 MG SUBCUANEOUSLY WEEKLYStart: 02-01-2024 End: 62-56-8575Zdyjetubvmf (Ozempic) 0.25 mg or 0.5 mg (2 mg/3 mL) pen injector Discontinued 0 .ROUTE .COMPLEX 3 February 01, 2024 8:12am March 26, 2024 5:26pm INJECT 0.25 MG SUBCUANEOUSLY WEEKLYStart: 02-01-2024 End: 64-62-0077Lwsslkmsmcs (Ozempic) 0.25 mg or 0.5 mg (2 mg/3 mL) pen injector Discontinued 0 .ROUTE .COMPLEX 3 February 01, 2024 9:12am March 26, 2024 6:26pm INJECT 0.25 MG SUBCUANEOUSLY WEEKLYStart: 12-06-2023 End: 07-20-1470Xxtvxdbgaty 0.25 mg or 0.5 mg (2 mg/3 mL) pen injector Discontinued 0.25 MG SUBCUT every week 9 90 3 December 06, 2023 12:00am February 01, 2024 9:12am for 4 weeksStart: 12-06-2023 End: 08-94-1260Uuybujgfolx 0.25 mg or 0.5 mg (2 mg/3 mL) pen injector Discontinued 0.25 MG SUBCUT every week 9 December 06, 2023 12:00am February 01, 2024 9:12am for 4 weeksStart: 12-06-2023 End: 65-22-5132Rjcliwbdkyx 0.25 mg or 0.5 mg (2 mg/3 mL) pen injector Discontinued 0.25 MG SUBCUT every week December 05, 2023 11:00pm February 01, 2024 8:12am for 4 weeksStart: 12-06-2023 End: 92-43-6257lqxpmx 0.25 mg by subcutaneous injection every weekSemaglutide [...] sources)Paroxysmal atrial fibrillation; Translations: [Paroxysmal atrial fibrillation]Onset: 25-82-9502UriqxvpRgslozrwmr heart failure; nonhypertensive (20 sources)Acute on chronic diastolic heart failure; Translations: [Acute on chronic diastolic (congestive) heart failure]ChronicDeficiency and other anemia (1 source)Other specified anemiasEpisodicDeficiency and other anemia (2 sources)Anemia, unspecifiedEpisodicDeficiency and other anemia (9 sources)Anemia; Translations: [Anemia, unspecified]02-44-7138VwouctzvBdfbneoq mellitus with complications (20 sources)Type 2 diabetes mellitus with hyperglycemia; Translations: [Type 2 diabetes mellitus]Onset: 86-89-5255FqhhlclIuxshoxz mellitus without complication (1 source)Type 2 diabetes mellitus without complication; Translations: [Diabetes mellitus without mention of complication, type II or unspecified type, not stated as uncontrolled]ChronicDisorders of lipid metabolism (20 sources)Mixed hyperlipidemia; Translations: [Hypercholesterolemia]Onset: 38-98-5188BniianaRdmzjnbue hypertension (20 sources)Essential (primary) hypertension; Translations: [Essential hypertension]Onset: 89-57-4524ZwfhaglMacfc valve disorders (4 sources)Aortic valve stenosis; Translations: [Nonrheumatic aortic (valve) stenosis]80-92-2120RlzxsiiQxqoqof on above:Echo: LVEF 60%, ANCELMO, normal RV size/function, RVSP 53.: velocity 200, INDERJIT 1.7cm, gradient 06/04 - 11/2024Heart valve disorders (3 sources)Heart murmur; Translations: [Cardiac murmur, unspecified]06-08-2024 EpisodicImmunizations and screening for infectious disease (1 source)Vaccination given; Translations: [Encounter for immunization]Episodic Malaise and fatigue (3 sources)Malaise and fatigue; Translations: [Other malaise and fatigue]Onset: 23-42-8186SuojzfwjBbhumnoemw disorders (20 sources)Decreased estrogen level; Translations: [Other primary ovarian failure]ChronicNonspecific chest pain (2 sources)Precordial painEpisodicNutritional deficiencies (1 source)Vitamin D deficiency; Translations: [Vitamin D deficiency, unspecified]Onset: 67-15-8297ChwnucqNhtxfifpxvxlil (9 sources)Osteoarthritis; Translations: [Polyosteoarthritis, unspecified] 54-55-3898FlkpfzmIilfi aftercare (1 source)Other longterm (current) drug therapy; Translations: [OTH RESIDENTIAL CURRENT DRUG THERAPY]Onset: 07-24-3247FfcvduxpMuccy aftercare (1 source)Long-term current use of drug therapy; Translations: [Other remote computer terminal operator (current) drug therapy]EpisodicOther circulatory disease (9 sources)Other specified symptoms and signs involving the circulatory and respiratory systems; Translations:[OTH SPEC SX SIGNS INVLV CIRC RS]Onset: 95-76-9668KolagqilBqgry circulatory disease (19 sources)Cardiovascular symptoms; Translations: [Other specified symptoms and signs involving the circulatory and respiratory systems]EpisodicOther circulatory disease (10 sources)Carotid bruit; Translations: [Other specified symptoms and signs involving the circulatory and respiratory systems]03-49-9739QdctgoshGwdpp connective tissue disease (2 sources)Impingement syndrome of shoulder region; Translations: [Impingement syndrome of right shoulder]64-19-9499ObcdnggnXxhsf connective tissue disease (2 sources)Impingement syndrome of right shoulder; Translations: [Other affections of shoulder region, not elsewhere classified]93-79-5949EbhpiodnPowae connective tissue disease (6 sources)Supraspinatus tear; Translations: [Unspecified rotator cuff tear or rupture of unspecified shoulder, not specified as traumatic]79-38-7622Yfnxqgyh Other connective tissue disease (1 source)Unspecified rotator cuff tear or rupture of unspecified shoulder, not specified as traumatic; Translations: [Supraspinatus (muscle) (tendon) sprain] 74-87-4034CwrrxovaNbthw connective tissue disease (4 sources)Nontraumatic complete rupture of rotator cuff of right shoulder; Translations: [Complete rotator cuff tear or rupture of right shoulder, not specified as traumatic]67-03-6628QmkhgjqlWpowt connective tissue disease (4 sources)Muscle weakness of upper limb; Translations: [Muscle weakness (generalized)]71-52-3917YcbncixqEmkfq ear and sense organ disorders (1 source)Otitis externa; Translations: [Unspecified otitis externa, unspecified ear]ChronicOther ear and sense organ disorders (1 source)Impacted cerumen; Translations: [Impacted cerumen, unspecified ear] EpisodicOther injuries and conditions due to external causes (1 source)History of fall; Translations: [History of falling]EpisodicOther non- traumatic joint disorders (11 sources)Pain in right shoulder; Translations: [Right shoulder pain] 77-29-7923LrtwmstuTsqfa non-traumatic joint disorders (8 sources)Chronic pain of right upper limb; Translations: [Pain in right shoulder]81-68-3818EybpsmbtKwlgv nutritional; endocrine; and metabolic disorders (19 sources)Body mass index 30+ - obesity; Translations: [Obesity, unspecified] ChronicOther nutritional; endocrine; and metabolic disorders (4 sources)Obesity, unspecified; Translations: [Obesity, unspecified]Chronic Other nutritional; endocrine; and metabolic disorders (10 sources)Obesity; Translations: [Obesity, unspecified]Onset: 06-02-2022 30-54-0858DaliekaJmbxh nutritional; endocrine; and metabolic disorders (1 source)Obese class II; Translations: [Body mass index 37.0-37.9, adult]Onset: 94-90-5704RiwqdxdIfpct nutritional; endocrine; and metabolic disorders (1 source)Morbid obesity; Translations: [Morbid (severe) obesity due to excess calories]Onset: 70-29-3283PiqoytjMunny nutritional; endocrine; and metabolic disorders (14 sources)Hypoalbuminemia; [...] malignant neoplasm of breast; Translations: [Mammography abnormal]Onset: 27-65-3405NgnbhjfoLolco skin disorders (2 sources)Other skin changesEpisodicResidual codes; unclassified (7 sources)Obstructive sleep apnea syndrome; Translations: [Obstructive sleep apnea (adult) (pediatric)]44-24-9941EykqiweOcmsypqz codes; unclassified (1 source)Family history of malignant neoplasm of other organs or systems; Translations: [FAM HX MALIG NEOPLASM OTH ORGN/SYS]Onset: 11-37-2479Tgsviztv Residual codes; unclassified (1 source)Postmenopausal state; Translations: [Asymptomatic menopausal state] EpisodicSprains and strains (7 sources)Rupture of infraspinatus tendon; Translations: [Strain of other muscles, fascia and tendons at shoulder and upper arm level, unspecified arm, initial encounter]42-82-2224Nuxmquyw Past or Other Problems Problem ClassificationProblemDateDocumented DateEpisodic/ChronicAbdominal pain (1 source)Abdominal pain; Translations: [Unspecified abdominal pain]Onset: 64-52-1121NgdgzsgcAwzrbo of other female genital organs (1 source)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; Translations: [Personal history of malignantneoplasm of other parts of uterus]Onset: 21-17-8447DroduozaSvpagmknzsocn symptoms and ill-defined conditions (1 source)Dysuria; Translations: [Dysuria]Onset: 13-21-7617OqegmmmwBvbwq ear and sense organ disorders (1 source)Otalgia; Translations: [Otalgia, unspecified ear]Onset: 07-09-2013 EpisodicUnclassified (1 source)Long-term current use of drug therapy; Translations: [Long-term (current) use of other medications]Onset: 59-00-7773Eqqmp infection (1 source)Herpes zoster with nervous system complication; Translations: [Herpes zoster with unspecified nervous system complication]Onset: 71-54-1467Yhvkhuba Results Test NameValueInterpretationReference RangeFacilityECG 12 lead ECGon 10-17-2023 ECG 12 lead [facility]OH[facility] [place] [address] Electrocardiograph Report Signed Patient: Alycia Daily MR#: [id number] 196 : 1945 Acct:[id number] Age/Sex: 78 / F ADM Date: 10/17/23 Loc: EKGCARDIO Room: Type: [facility] Attending Dr: Dave Hoff MD Ordering Provider: [...] previous ECGs available Confirmed by Dave Hoff ([id number]) on 10/18/2023 10:36:42 AM Referred By: Electronically Signed By:Dave Hoff Transcribed By: MUS Signed By Dave Hoff MD 10/18/23 [facility] RAKAN CADon 50-58-5879FA MAMM SCREEN 3D RAKAN CADPatient: ALYCIA DAILY Exam Date: 08/05/2022 : 1945 Gender:F Ordering : DR KALEB AHUMADA D.O. Admission #: [id number] Family : Order #: [id number] CLICK HERE TO VIEW EXAM RADIOLOGY REPORT [...] brain cancer at age 64. LOCATION: [facility] BREAST COMPOSITION: Scattered areas fibroglandular density. [...] by: Nevin Sequeira MD on 08/06/2022 at 08:58NormalThTrinity Health System East CampusBNP on 43-16-0720Jphbkspjbav peptide B (Bld) [Mass/Vol]188.0 pg/mLNormal<=1,800.0[facility] HospitalComment on above:Performed By: #### ALT, LIPID, BNP #### [facility] [address] [place] [address] Dr. Taisha Desai AUTO DIFFon [id number] #0.0 103/ulNormal0.0-0.1The [facility] HospitalComment on above:Performed By: #### CBC #### [facility] [address] [place] [address] Dr. Taisha Annsophils/100 WBC (Bld)0.4 %Normal0.2-2.0[facility] Comment on above:Performed By: #### CBC #### [facility] [address] [place] [address] Dr. Taisha Nolasco #0.2 103/ulNormal0.0-0.7The [facility] HospitalComment on above: Performed By: #### CBC #### [facility] [address] [place] [address] Dr. Taisha Herronosinophils/100 WBC (Bld)2.8 %Normal0.9-7.0[facility] Comment on above:Performed By: #### CBC #### [facility] [address] [place] [address] Dr. Taisha Herronrythrocyte distribution width (RBC) [Ratio]13.3 %Vuagnk83.0-15.0 [facility] HospitalComment on above:Performed By: #### CBC #### [facility] [address] [place] [address] Dr. Taisha AlexandraHematocrit (Bld) [Volume fraction]40.3 %Poqlfc09.0-48.0The [facility] HospitalComment on above:Performed By: #### CBC #### [facility] [address] [place] [address] Dr. Taisha AlexandraHemoglobin (Bld) [Mass/Vol]12.7 g/zQCrdibv85.0-16.0The [facility] HospitalComment on above:Performed By: #### CBC #### [facility] [address] [place] [address] Dr. Taisha Monk #0.01 10e3/ulNormal0.00-0.03The [facility] Hospitalment on above:Performed By: #### CBC #### [facility] [address] [place] [address] Dr. Taisha Monk %0.2 %Normal0.0-0.5The [facility] Hospitalment on above: Performed By: #### CBC #### [facility] [address] [place] [address] Dr. Taisha PalmH #1.7 103/ulNormal1.2-3.8The [facility] HospitalComment on above:Performed By: #### CBC #### [facility] [address] [place] [address] Dr. Taisha Lucianomphocytes/100 WBC (Bld)31.9 %Vhvpnd90.5-60.0[facility] HospitalComment on above:Performed By: #### CBC #### [facility] [address] [place] [address] Dr. Taisha Colin DIFF REQNONormalThe [facility] HospitalComment on above: Performed By: #### CBC #### [facility] [address] [place] [address] Dr. Taisha Garcia (RBC) [Entitic mass]28.9 ksHpyius34.7-34.0The [facility] HospitalComment on above:Performed By: #### CBC #### [facility] [address] [place] [address] Dr. Taisha Garcia (RBC) [Mass/Vol]31.5 g/yOKcvgtg06.9-35.2[facility] HospitalComment on above:Performed By: #### CBC #### [facility] [address] [place] [address] Dr. Taisha Garcia (RBC) [Entitic vol]91.6 gWHxmdth39.0-99.0[facility] HospitalComment on above:Performed By: #### CBC #### [facility] [address] [place] [address] Dr. Taisha Rowe #0.4 103/ulNormal0.3-0.8[facility] HospitalComment on above:Performed By: #### CBC #### [facility] [address] [place] [address] Dr. Taisha Jamilocytes/100 WBC (Bld)8.3 %Normal1.7-12.0[facility] Comment on above:Performed By: #### CBC #### [facility] [address] [place] [address] Dr. Taisha Shepard #3.0 103/ulNormal1.4-6.5[facility] HospitalComment on above:Performed By: #### CBC #### [facility] [address] [place] [address] Dr. Taisha Frostutrophils/100 WBC (Bld)56.4 %Sgemac79.0-75.0[facility] HospitalComment on above:Performed By: #### CBC #### [facility] [address] [place] [address] Dr. Taisha AlexandraPlatelet mean volume (Bld) [Entitic vol]10.3 fLNormal9.5-13.5The [facility] HospitalComment on above:Performed By: #### CBC #### [facility] [address] [place] [address] Dr. Taisha AlexandraPLT224 103/mhFefhib568-899Fwv [facility] HospitalCommymich[facility] on above: Performed By: #### CBC #### [facility] [address] [place] [address] Dr. Taisha AlexandraRBC4.40 106/ulNormal4.20-5.40The [facility] HospitalCommymich[facility] on above:Performed By: #### CBC #### [facility] [address] [place] [address] Dr. Taisha AlexandraWBC5.3 103/ulNormal4.0-11.0The [facility] HospitalComment on above: Performed By: #### CBC #### [facility] Laboratory [address] [place] [address] Dr. Taisha AlexandraGLYCOHEMOGLOBIN A1Con [id number] RECOMMENDATIONSEE BELOWNormal [facility] Medical CenterCommymichigan medical center west branch on above:Result Comment: ADA RECOMMENDED LIMIT 4.0 - 6.0 ADA THERAPEUTIC TARGET < 7.0 ACTION SUGGESTED > 7.0Performed By: #### A1C #### [facility] [address] [place] [address] Dr. Taisha AlexandraGlucose [Mass/Vol]120 mg/dLNormalThTrinity Health System East CampusCommymichigan medical center west branch on above:Performed By: #### A1C #### [facility] [address] [place] [address] Dr. Taisha AlexandraHbA1c (Bld) [Mass fraction]5.8 %Normal4.5-6.2[facility] on above:Performed By: #### A1C #### [facility] [address] [place] [address] Dr. Taisha WilsonID PROFILEon [id number]-HDL RATIO NORMSCincinnati Children's Hospital Medical CenterComment on above:Result Comment: 3.3 - 4.4 LOW RISK 4.4 - 7.1 AVERAGE RISK 7.1 - 11.0 MODERATE RISK >11.0 HIGH RISKPerformed By: #### ALT, LIPID, BNP #### [facility] [address] [address] [address] Taisha AlexandraCholesterol [Mass/Vol]138 mg/dLNormal<=200[facility] Comment on above:Performed By: #### ALT, LIPID, BNP #### [facility] [address] [place] [address] Dr. Taisha AlexandraCholesterol in HDL [Mass/Vol]56 mg/nOKxgaal90-06XgeSumma Health Wadsworth - Rittman Medical CenterComment on above:Performed By: #### ALT, LIPID, BNP #### [facility] [address] [place] [address] Dr. Taisha AlexandraCholesterol in LDL [Mass/Vol]74.4 mg/dLLouis Stokes Cleveland VA Medical CenterComment on above:Performed By: #### ALT, LIPID, BNP #### [facility] [address] [place] [address] Dr. Taisha Jangesterheena.total/Cholesterol in HDL [Mass ratio]2.5 {ratio} NormalSumma Health Wadsworth - Rittman Medical CenterComment on above:Performed By: #### ALT, LIPID, BNP #### [facility] [address] [place] [address] Dr. Taisha AlexandraHDL NORMAL> or = 60 mg/dl - LOW CARDIOVASCULAR RISK <40 mg/dl - HIGH CARDIOVASCULAR RISKLouis Stokes Cleveland VA Medical CenterComment on above:Performed By: #### ALT, LIPID, BNP #### [facility] [address] [place] [address] Dr. Taisha AlexandraLDL CALC NORMALSEE [facility] Mercy HospitalComment on above:Result Comment: <100 mg/dl OPTIMAL 100 - 129 mg/dl NEAR OR ABOVE OPTIMAL 130 - 159 mg/dl BORDERLINE HIGH 160 - 189 mg/dl HIGH >190 mg/dl VERY HIGH Performed By: #### ALT, LIPID, BNP #### [facility] [address] [address] [address] Taisha AlexandraTriglyceride [Mass/Vol]38 mg/dLNormal<=150[facility] Comment on above:Performed By: #### ALT, LIPID, BNP #### [facility] [address] [address] [address] Taisha AlexandraVLDL CALC7.6 mg/dLNormalThe Flower HospitalComment on above: Performed By: #### ALT, LIPID, BNP #### [facility] [address] [address] [address] Taisha BurkettROALBUMIN, RAND URon 42-05-4114eKZQ9.8 mg/LNormal<=30.0The [facility] HospitalComment on above:Performed By: #### MALBR #### [facility] [address] [address] [address] Taisha Garcia [id number] [Catalytic activity/Vol]22 U/BYymxlt49-45Owe [facility] HospitalComment on above:Performed By: #### ALT, LIPID, BNP #### [facility] [address] [address] [address] Taisha Hutton CAROTID ART BILon [id number] CAROTID ART BILEXAMINATION: US CAROTID ART RAKAN [...] Electronically authenticated by: NEWTON KAHN Date: 2022-06-09 21:11[facility] Medical CenterGLYCOHEMOGLOBIN A1Con [id number] RECOMMENDATIONADA THERAPEUTIC TARGET 6.0 - 7.0 ACTION SUGGESTED > 7.0[facility] Comment on above:Performed By: #### A1C #### [facility] [address] [address] [address] Taisha AlexandraGlucose [Mass/Vol]134 mg/dLNoSelect Medical Specialty Hospital - ColumbusComment on above:Performed By: #### A1C #### [facility] [address] [address] [address] Taisha AlexandraHbA1c (Bld) [Mass fraction]6.3 %Critically high<=6.0[facility]ittman Medical CenterComment on above:Performed By: #### A1C #### [facility] [address] [address] [address] Taisha Alexandra Vital Signs Date TimeVital SignValuePerforming [id number] 14:12-0400Body qmgrat635.1 cmBenjamin Ball DO Work Phone: [phone] [place], [place] 5263510-20-2025 14:12-0400 Body mass index (BMI) [Ratio]35.6 kg/g6Dnwmwzmr Ball DO Work Phone: [phone])[address] [place], [place] 5263510-20-2025 14:12-0400 Body jnealv54.12 kgBenjamin Ball DO Work Phone: [phone])[address] [place], [place] 5263510-20-2025 14:12-0400 Diastolic blood iwjvlmbf09 mm[Hg]Kaleb Ball DO Work Phone: [phone])[address] [place], [place] 5263510-20-2025 14:12-0400 Heart rate64 /minBenjamin Ball DO Work Phone: [phone])[address] [place], [place] 5263510-20-2025 14:12-0400 Respiratory rate12 /minBenjamin Ball DO Work Phone: [phone])[address] [place], [place] 5263510-20-2025 14:12-0400 Systolic blood jeqceevo588 mm[Hg]Kaleb Ball DO Work Phone: [phone])[address] [place], [place] 5263509-30-2025 12:49-0400 Body apjbxl516.1 cmBenjamin Ball DO Work Phone: [phone])[address] [place], [place] 5263509-30-2025 12:49-0400 Body mass index (BMI) [Ratio]35.6 kg/r9Hlmnnlss Ball DO Work Phone: [phone])[address] [place], [place] 5263509-30-2025 12:49-0400 Body yfgwpi04.06 kgBenjamin Ball DO Work Phone: [phone])[address] [place], [place] 526[address]9-08-2025 12:49-0400 Body sfrpfu240.1 cmBenjamin Ball DO Work Phone: [phone])[address] [place], [place] 526[address]9-08-2025 12:49-0400 Body mass index (BMI) [Ratio]35.6 kg/j7Clhjhdtb Ball DO Work Phone: 1419)[address] [place], [place] 526[address]9-08-2025 12:49-0400 Body vdavfw07.06 kgBenjamin Ball DO Work Phone: [phone])[address] [place], [place] 526[address]9-08-2025 12:49-0400 Diastolic blood hgpmtlyu35 mm[Hg]Kaleb Ball DO Work Phone: 1(419)[address] [place], [place] 526[address]9-08-2025 12:49-0400 Heart rate67 /minBenjamin Ball DO Work Phone: 1419)[address] [place], [place] 526[address]9-08-2025 12:49-0400 Respiratory rate18 /minBenjamin Ball DO Work Phone: [phone])[address] [place], [place] 526[address]9-08-2025 12:49-0400 SaO2% (BldA) [Mass fraction]97 %Kaleb Ball DO Work Phone: [phone])[address] [place], [place] 526[address]9-08-2025 12:49-0400 Systolic blood bzpcnjvi459 mm[Hg]Kaleb Ball DO Work Phone: [phone])[address] [place], [place] 526[address]01-24-2025 13:31-0500 Body okchvf110.1 cmKing[facility]01-24-2025 13:31-0500Body mass index (BMI) [Ratio]33.6 kg/w4IkiuepzndKing'S Daughters [facility] [place]01-24-2025 13:310500Body uuikro70.68 kgKing'S Daughters [facility] [place]01-24-2025 13:31-0500Diastolic blood dogycpcd82 mm[Hg][facility] 09-14-2024 13:31-0500Heart rate66 /[facility] 09-14-2024 13:31-0500Respiratory rate12 /[facility] 09-14-2024 13:31-0500Systolic blood ajuuidha042 mm[Hg][facility]10-18-2024 13:54-0400Body nmxdti004.1 cmKing[facility] [place] 06-08-2024 13:54-0400Body mass index (BMI) [Ratio]32.3 kg/t9FlbysjfbbKing'S Daughters [facility] [place]10-18-2024 13:54-0400Body bbubpr19.16 kgKing'S Daughters [facility] [place]10-18-2024 13:54-0400Diastolic blood pfcowhex77 mm[Hg][facility]10-18-2024 13:54-0400Heart rate60 /[facility]10-18-2024 13:54-0400Respiratory rate12 /[facility]10-18-2024 13:54-0400Systolic blood ylcnrvuf562 mm[Hg][facility]09-11-2024 10:28-0400Body wcuccl591.1 cmKing'S Daughters [facility] [place]09-11-2024 10:28-0400Body mass index (BMI) [Ratio]31.6 kg/u1SvyvsbvwwKing'S Daughters [facility] [place]09-11-2024 10:28-0400Body aerxvp71.35 kgKing'S Daughters [facility] [place]09-11-2024 10:28-0400Diastolic blood zawqlxsf26 mm[Hg] [facility]09-11-2024 10:28-0400Heart rate62 /[facility]09-11-2024 10:28-0400Respiratory rate12 /[facility]09-11-2024 10:28-0400Systolic blood ppypeqba703 mm[Hg] [facility]09-03-2024 13:56-0400Body srqkre342.1 cm [facility]09-03-2024 13:56-0400Body mass index (BMI) [Ratio]31.2 kg/y7RxfxktxccKing'S Daughters [facility] [place]09-03-2024 13:56-0400Body ybenga83.27 kgKing'S Daughters [facility] [place]09-03-2024 13:56-0400Diastolic blood ennpfelh90 mm[Hg][facility]09-03-2024 13:56-0400 Heart rate66 /[facility]09-03-2024 13:56-0400 Respiratory rate18 /[facility]09-03-2024 13:56-0400 SaO2% (BldA) [Mass fraction]98 %[facility]09-03-2024 13:56-0400Systolic blood gcynbuic487 mm[Hg][facility] 12-06-2023 14:02-0400Body cehgha259.1 cmDO Kaleb Ball Work Phone: [phone]04-16-2024 14:02-0400 Body mass index (BMI) [Ratio]30.2 kg/m2DO Kaleb Ball Work Phone: [phone] [place], [place] 4967504-16-2024 14:02-0400 Body .32 kgDO Kaleb Ball Work Phone: [phone] [place]04-16-2024 14:02-0400 Diastolic blood bpgdwuzb22 mm[Hg]DO Kaleb Ball Work Phone: [phone] [place]04-16-2024 14:02-0400 Heart rate62 /minDO Kaleb Ball Work Phone: [phone] [place]04-16-2024 14:02-0400 Respiratory rate12 /minDO Kaleb Ball Work Phone: [phone] [place]04-16-2024 14:02-0400 Systolic blood ogziriuz757 mm[Hg]DO Kaleb Ball Work Phone: [phone] [place]02-26-2024 11:18-0500 Body ugcsbn894.1 cmDO Kaleb Ball Work Phone: [phone] [place]02-26-2024 11:18-0500 Body mass index (BMI) [Ratio]29.7 kg/m2DO Kaleb Ball Work Phone: [phone] [place]02-26-2024 11:18-0500 Body .19 kgDO Kaleb Ball Work Phone: [phone] [place]02-26-2024 11:18-0500 Diastolic blood wibjndfu89 mm[Hg]DO Kaleb Ball Work Phone: [phone] [place]02-26-2024 11:18-0500 Heart rate60 /minDO Kaleb Ball Work Phone: 1(710)858-[address] [place], [place] 4967502-26-2024 11:18-0500 Respiratory rate18 /minDO Kaleb Ball Work Phone: [phone] [place], [place] 4967502-26-2024 11:18-0500 SaO2% (BldA) [Mass fraction]96 %DO Kaleb Ball Work Phone: [phone] [place], [place] 4967502-26-2024 11:18-0500 Systolic blood lhwvocqh180 mm[Hg]DO Kaleb Ball Work Phone: [phone]12-26-2023 11:15-0500 Body .18 cmBenjamin Ball Other [facility]12-26-2023 11:15-0500 Body mass index (BMI) [Ratio]27.56 kg/y1Dmmbttbz Ball Other [employer] Other [phone] 11:15-0500Body .83 kgBenjamin Ball Other [facility]12-26-2023 11:15-0500 Diastolic blood yqbvmktk78 mm[Hg]Kaleb Ball Other [facility]12-26-2023 11:15-0500 Respiratory rate12 /minBenjamin Ball Other [employer] Other [id number] 11:15-0500Systolic blood etnfgtvz945 mm[Hg] Kaleb Ball Other [facility]12-18-2023 14:45-0500 Body sjydld597.18 cmBenjamin Ball Other [facility]12-18-2023 14:45-0500 Body mass index (BMI) [Ratio]27.66 kg/b1Bpiltacq Ball Other [employer] Other 12-18-2023 14:45-0500Body zkxxey91.11 kgBenjamin Ball Other [employer] Other 12-18-2023 14:45-0500Body ojlwum61.1 kgDO Kaleb Ball Work Phone: [phone] [place]12-18-2023 14:45-0500 Diastolic blood bphyhpbc22 mm[Hg]Kaleb Ball Other [facility]12-18-2023 14:45-0500 Systolic blood auiqwncc220 mm[Hg]Kaleb Ball Other [facility]12-06-2023 16:42-0500 Body .18 cmBenjamin Ball Other [facility]11-22-2023 10:45-0500 Body ilnvjh836.18 cmBenjamin Ball Other [employer] Other 11-22-2023 10:45-0500Body mass index (BMI) [Ratio] 27.88 kg/d1Opycjbnc Ball Other [employer] Other 11-22-2023 10:45-0500Body xajuqs82.74 kgBenjamin Ball Other [employer] Other 11-22-2023 10:45-0500Diastolic blood khxshlie18 mm[Hg] Kaleb Ball Other [employer] Other 11-22-2023 10:45-0500Respiratory rate12 /minBenjamin Ball Other [employer] Other 11-22-2023 10:45-0500Systolic blood eckvhxdi118 mm[Hg] Kaleb Ball Other [employer] Other 10-16-2023 14:00-0400Body znjayz964.18 cmBenjamin Ball Other [employer] Other 10-16-2023 14:00-0400Body mass index (BMI) [Ratio] 28.16 kg/t2Cdnyeyur Ball Other [employer] Other 10-16-2023 14:00-0400Body awuwrs22.56 kgBenjamin Ball Other [employer] Other 10-16-2023 14:00-0400Diastolic blood jxokylps96 mm[Hg] Kaleb Ball Other [employer] Other 10-16-2023 14:00-0400Respiratory rate12 /minBenjamin Ball Other [employer] Other 10-16-2023 14:00-0400Systolic blood zixvblpu126 mm[Hg] Kaleb Ball Other [employer] Other 04-11-2023 15:30-0400Body ixyxyz490.18 cmBenjamin Ball Other [employer] Other 04-11-2023 15:30-0400Body mass index (BMI) [Ratio] 30.85 kg/w0Qzjkxdyt Ball Other [employer] Other 04-11-2023 15:30-0400Body yqyiyy10.36 kgBensaida Ball Other [employer] Other 04-11-2023 15:30-0400Diastolic blood kzuoihai50 mm[Hg] Kaleb Brandyn Other [employer] Other 04-11-2023 15:30-0400Respiratory rate12 /minBensaida Ball Other [employer] Other 04-11-2023 15:30-0400Systolic blood kbhsnaym527 mm[Hg] Kaleb Brandyn Other [employer] Other Encounters Encounter DateEncounter TypeCare ProviderFacilityStart: 06-10-2025 End: 71-15-7884ucslzngeoeUrykcarh Ball DO Work Phone: -[facility] Campustart: 06-10-2025 End: 10-07-3881Mipitsz encounter procedureBensaida Ahumada DO-[facility] Work Phone: Start: 05-21-2025 End: 50-35-0031dzawusrromKfqrbhem Ball DO Work Phone: [facility] Work Phone: Start: 05-21-2025 End: 92-96-9786Bqhmqwb encounter Tracy Bermudez [facility] Work Phone: Start: 04-29-2025 End: 78-26-8564moexhrfhdfExeoyqjj Ball DO Work Phone: [facility] Work Phone: Start: 04-29-2025 End: 13-53-7911Maopcvy encounter procedureGeorge Angel Hoff MD-[facility] Work Phone: Start: 18-96-3408Qaa-patient / Non-visitNicole [facility] Work Phone: Start: 10-26-2024 End: 98-61-3201qqrhpmehdrSZVGKLB KELBLEYNot AvailableStart: 10-24-2024 End: 20-85-4789Evpjbh flowsheetMelissa Kelbley PTANOMS CI PTStart: 10-24-2024 End: 76-18-6837Jvthil flowsheetMelissa Kelbley PTANOMS CI PTStart: 10-24-2024 End: 12-86-5294twvdslevsxNktotcu Kelbley PTANOMS CI PTComment on above: 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); Muscle weakness of right upper extremityStart: 10-22-2024 End: 68-67-1231Vycaac flowsheetMelissa Kelbley PTANOMS CI PTStart: 10-22-2024 End: 78-17-2959Rodxcz flowsheetMelissa Kelbley PTANOMS CI PTStart: 10-22-2024 End: 95-48-5191obukciavpbJhmqtmn Kelbley PTANOMS CI PTComment on above: 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); Muscle weakness of right upper extremityStart: 10-18-2024 End: 91-87-5792Uxuqhe flowsheetMarshall Brink PTANOMS CI PTStart: 10-18-2024 End: 98-66-1791Uepjpy flowsheetMarshall Brink PTANOMS CI PTStart: 10-18-2024 End: 60-74-6419tkdwagxsmnZgdlojdc Brink PTANOMS CI PTComment on above: 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); Muscle weakness of right upper extremity; Chronic right shoulder pain; Arthritis of right acromioclavicular jointStart: 10-16-2024 End: 31-61-3137Xmimzw Radha Mendoza PT Work Phone: noms CI PTStart: 10-16-2024 End: 78-74-2890Gxwjxf jayantkalyanXena Mendoza PT Work Phone: noms CI PTStart: 10-16-2024 End: 95-31-3311noteylipzoQcppne T [place] PT Work Phone: noms CI PTComment on above: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); Muscle weakness of right upper extremityStart: 10-09-2024 End: 82-73-0988abdpkkclyaXwllizztlThe Christ Hospital Work Phone: Start: 10-09-2024 End: 68-85-4511Eqqajan encounter procedureFirriverside [facility] Work Phone: Start: 09-14-2024 End: 88-36-4169xjarxiozivRrjisliscMercy Health [facility] Work Phone: Start: 09-14-2024 End: 69-80-9931Ixdguxa encounter procedureHighlands-C[facility]iers [facility] Work Phone: Start: 08-30-2024 End: 14-99-6765Niqkoc flowsheetMelissa Kelbley PTANOMS CI PTStart: 08-30-2024 End: 55-25-9011Iqarvy flowsheetMelissa Kelbley PTANOMS CI PTStart: 08-30-2024 End: 11-33-5929tkmvwxlofgFptqpgf Kelbley PTANOMS CI PTComment on above:Chronic right shoulder pain (Primary Dx); Arthritis of right acromioclavicular jointStart: 08-28-2024 End: 40-79-4201Aqaeen flowsheetMelissa Kelbley PTANOMS CI PTStart: 08-28-2024 End: 15-01-9671Owavzb flowsheetMelissa Kelbley PTANOMS CI PTStart: 08-28-2024 End: 80-86-6097gjkiyceegtAflcskf Kelbley PTANOMS CI PTComment on above:Chronic right shoulder pain (Primary Dx); Arthritis of right acromioclavicular jointStart: 08-24-2024 End: 59-45-3801Utsoqc flowsheetMelissa Kelbley PTANOMS CI PTStart: 08-24-2024 End: 60-44-8729Vuwnrx flowsheetMelissa Kelbley PTANOMS CI PTStart: 08-24-2024 End: 23-46-9706lcmeanzpitIljjfeq Kelbley PTANOMS CI PTComment on above:Chronic right shoulder pain (Primary Dx); Arthritis of right acromioclavicular jointStart: 08-21-2024 End: 63-24-3633Ssezuf flowsheetMelissa Kelbley PTANOMS CI PTStart: 08-21-2024 End: 34-14-5482Mndjrt flowsheetMelissa Kelbley PTANOMS CI PTStart: 08-21-2024 End: 97-98-3936cgqxqgosluZhdfyqj Kelbley PTANOMS CI PTComment on above:Chronic right shoulder pain (Primary Dx); Arthritis of right acromioclavicular jointStart: 08-17-2024 End: 70-92-1196Wrzpjc flowsheetMelissa Kelbley PTANOMS CI PTStart: 08-17-2024 End: 97-76-7948Tpmvvc flowsheetMelissa Kelbley PTANOMS CI PTStart: 08-17-2024 End: 59-10-7062cvhmkzytonYglumkk Kelbley PTANOMS CI PTComment on above:Chronic right shoulder pain (Primary Dx); Arthritis of right acromioclavicular jointStart: 08-14-2024 End: 06-65-4135Dcpigq flowsheetMarshall Brink PTANOMS CI PTStart: 08-14-2024 End: 05-46-8531Ctahsk flowsheetMarshall Brink PTANOMS CI PTStart: 08-14-2024 End: 69-37-0964yvdcailizbUPBOOMSX BRINKNot AvailableStart: 08-08-2024 End: 97-98-2272Wlyhjl flowsheetMelissa Kelbley PTANOMS CI PTStart: 08-08-2024 End: 56-87-2403Qwkqiz flowsheetVinh Lynn PTANOMS CI PTStart: 08-08-2024 End: 81-23-2330vdovkxmxexDxgrefk Kelbley PTANOMS CI PTComment on above:Chronic right shoulder pain (Primary Dx); Arthritis of right acromioclavicular jointStart: 08-06-2024 End: 87-54-1618Wqtkkq Jacealmapema Mendoza PT Work Phone: noms CI PTStart: 08-06-2024 End: 33-50-7417Vqbikb Radha Mendoza PT Work Phone: noms CI PTStart: 08-06-2024 End: 65-60-3148rkvrnvwcwtMeviil T [place] PT Work Phone: noms CI PTComment on above:Chronic right shoulder pain (Primary Dx); Arthritis of right acromioclavicular jointStart: 06-08-2024 End: 34-70-2395zpiiineolxRxavprbbpThe Christ Hospital Work Phone: Start: 06-08-2024 End: 33-95-4518Dlzbcgp encounter procedureHighlands[facility] Work Phone: Start: 74-02-1215Nzzfput encounter procedureOhioHealth O'Bleness Hospitaltart: 05-02-2024 End: 46-66-4071gfztzdbacjKcwyyfolcThe Christ Hospital Work Phone: Start: 05-02-2024 End: 25-28-2496Jqmprnj encounter procedureHighlands-C[facility] Work Phone: Start: 04-24-2024 End: 66-38-1219knrqxqhomuItikfdzkwThe Christ Hospital Work Phone: Start: 04-24-2024 End: 08-08-9638Rrblzuk encounter procedureHighlands-Cashiers [facility] Work Phone: Start: 12-06-2023 End: 17-34-2677zjerzmbzltGJ Kaleb Ahumada Work Phone: [facility] Work Phone: Start: 12-06-2023 End: 56-95-8255Fcwqgfm encounter procedureDO Kaleb Ahumada Work Phone: [facility] Work Phone: Start: 10-17-2023 End: 41-19-4588pzgpiuxoaoZghuegra BallFacility:[facility] Start: 10-17-2023 End: 95-69-7226tueudbwyjkEM Kaleb Ahumada Work Phone: [facility] Work Phone: Start: 10-17-2023 End: 15-33-3506Kyqoick encounter procedureDO Kaleb Ahumada Work Phone: [facility] Work Phone: Start: 09-20-2023 End: 71-28-0804whmzypzmmjWyftvdwn Ball Other [employer] Other Start: 98-86-3530Mnxahnbmj encounterBenjamin BallFPG [facility] ClinicStart: 08-29-2023 End: 71-47-5236vrpezfefzdRzgxhtai Ball Other [employer] Other Start: 37-90-0236Llllrmohq encounterBenjamin BallFPG [facility] ClinicStart: 08-23-2023 End: 69-59-9667ihvmrvgtqzZxlyvcit Ball Other [employer] Other Start: 31-19-7887Mkznzijiq encounterBenjamin BallFPG [facility] ClinicStart: 08-21-2023 End: 58-16-6516uombonjtipEakymqbu Ball Other [employer] Other Start: 09-96-4410Lkoahlnrj encounterBenjanessa VasquezG [facility] ClinicStart: 08-16-2023 End: 23-48-8321vttqnbouxaUjuqegxl Ball Other [employer] Other Start: 97-10-6007Wxdnvhcoyyds care manage srvc 14 day dischargeBensaida Ahumada Medical ClinicStart: 08-16-2023 End: 53-34-7617Gtdlami encounter procedureDO Kaleb Ahumada Work Phone: [employer] [facility] Work Phone: Start: 08-10-2023 End: 49-45-2349ygktsgzhnqMapbkurx Ball Other [employer] Other Start: 88-17-8611Zftnyeecl encounterBenjamin ChristinaG [facility] ClinicStart: 08-08-2023 End: 07-32-9870muqsmvhrzvXakdmgls Ball Other [employer] Other Start: 91-61-5312Xtbztm outpatient visit 25 minutes Kaleb Ahumada Medical ClinicStart: 07-91-3118Txnwjffre encounterBenjanessa VasquezG Brandyn Medical ClinicStart: 08-08-2023 End: 36-51-7248Kzgnrur encounter procedureDO Kaleb Ahumada Work Phone: [employer] [facility] Work Phone: Start: 2023 End: 02-86-7111yycpzahhlmRnfcihlo Ball Other [employer] Other Start: 19-31-4882Ndiovnuyd encounterBenjanessa VasquezG [facility] ClinicStart: 2023 End: 94-39-2509Khvjjng encounter procedureDO Kaleb Ahumada Work Phone: [employer] [facility] Work Phone: Start: 07-15-2023 End: 88-29-8947cuuzlanbcoNxdabcuw Ball Other [employer] Other Start: 59-50-2631Rnkkrbxzr encounterBenjamin ChristinaG [facility] ClinicStart: 07-13-2023 End: 61-43-6464lbxexixaxiEgdotwgc Ball Other [employer] Other Start: 66-81-4848Cbrxxd outpatient visit 25 minutes Kaleb ChristinaG [facility] ClinicStart: 06-13-2023 End: 66-86-2829nbhzothnnaGsdmuhqe Ball Other [employer] Other Start: 13-63-8279Idawpfcpq encounterBenjamin BallBENG [facility] ClinicStart: 06-06-2023 End: 28-80-7282xmcrpvmvujCemxoeet Ball Other [employer] Other Start: 54-73-5428Ainuawi encounter procedureBenjamin ChristinaG [facility] ClinicStart: 06-01-2023 End: 38-45-5835qvhaurzsmqXzjngcvd Ball Other [employer] Other Start: 99-29-0433Unsxenc evaluation of patient and reportBenjamin BallFPG [facility] ClinicStart: 11-30-2022 End: 65-96-7736cwvktbgwhsExlkdkjx Ball Other [employer] Other Start: 05-96-5306Hodoxh outpatient visit 25 minutes Kaleb ChristinaG [facility] ClinicStart: 08-05-2022 End: 22-37-6108ewyxfywsasUR KALEB BALLFacility:K2Wsiui: 06-09-2022 End: 23-71-8908jthoeniwjqRW KALEB BALLFacility:L2Upfcn: 17-61-9212Dlgtg health examinationBewilber Ahumada Other [facility] Other Start: 09-28-2021 End: 63-86-0362lihflnpxskJO KALEB AHUMADAFacility:H1 Procedures DateProcedureProcedure DetailPerforming ClinicianStart: 60-23-6398Fokvcqpbmi screeningBewilber Ahumada Other Start: 06-95-9938Uioqyuplc for osteoporosisBensaida Ahumada Other Start: 93-30-8178Gmdfiqibb for malignant neoplasm of colonKaleb Ahumada Other Start: 40-33-5368Aaacsqdko mammographyBewilber Ahumada Other Screening for malignant neoplasm of breastKaleb Ahumada Other Plan of Treatment DateCare ActivityDetailAuthorStart: 10-26-2024 End: 10-43-7127nefqjxlvntOELE CI PTStart: 10-24-2024 End: 85-03-1129fcoeonmtejSEDZ CI PTComment on above:ArrivedStart: 10-22-2024 End: 55-80-3594iqxsssvhurYCTU CI PTComment on above: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); Muscle weakness of right upper extremityStart: 10-18-2024 End: 73-76-4714qsrirnagkpMDKS CI PTComment on above:ArrivedStart: 10-16-2024 End: 93-20-8130odsudlroza85/25/2025 9:00 AM EST Evaluation [facility] [address] [address] Xena Mendoza, PT [address] [facility] [address] [place] [address] ArrivedNOMS CI PTComment on above:ArrivedStart: 08-30-2024 End: 62-96-1272uhogzsphws65/04/2025 11:00 AM EST Treatment [facility] [address] [facility] [address] [place] [address] Vinh Lynn, CRISIS COUNSELOR [facility] CI PTStart: 08-28-2024 End: 78-67-2503lviahjxyrgJBBW CI PTComment on above:ArrivedStart: 08-24-2024 End: 97-58-5221naxwubgnwtIOJT CI PTComment on above:ArrivedStart: 08-21-2024 End: 42-43-8203hlgrxtytis02/31/2024 10:30 AM EST Treatment [facility] [address] [facility] [address] [place] [address] Vinh Lynn, CRISIS COUNSELOR [facility] CI PTStart: 08-17-2024 End: 95-65-0304mkdvtnvtieICUE CI PTComment on above:ArrivedStart: 08-14-2024 End: 95-96-5730xtoatdnbnlBXOI CI PTComment on above:ArrivedStart: 08-08-2024 End: 21-91-0975tzygfkybvbHCHJ CI PTComment on above:ArrivedStart: 08-06-2024 End: 63-70-6433xccljnmrmx84/16/2024 9:00 AM EST Evaluation [facility] [address] [facility] [place] [address] Xena Mendoza, PT [address] [place] [address] ArrivedNOMS CI PTComment on above:ArrivedStart: 04-14-0553JPT 12 channel [facility] Cent[facility]art: 75-80-7616Douennutiwwp Vaccine: 65+ Years (2 of 2 - PPSV23 or PCV20)Pneumococcal Vaccine: 65+ Years (2 of 2 - PPSV23 or PCV20)NOM HealthcareStart: 05-63-0498Uknyewydweec Vaccine: 65+ Years (1 of 1 - PCV)Pneumococcal Vaccine: 65+ Years (1 of 1 - PCV)[facility] 2000 panel - Serum or PlasmaKing[facility] Center OhioComprehensive metabolic 1999 panel - Serum or PlasmaKing'S Daughters Medical Center OhioMG Breast - bilateral ScreeningKing'S Daughters [facility] [place] Microalbumin [Mass/volume] in UrineKing'S Daughters Medical Center OhioMR Shoulder - right WO contrastKing'S Daughters Medical Center OhioXR Shoulder - right Views [facility] Immunizations Immunization DateImmunizationNotesCare VcdsnagoLcjywhvp67-60-3840vjdznixvs, high dose seasonal, preservative-freeBenjamin Ball DO Work Phone: [facility] [place]11-19-2024COVID-19 (PFIZER) 12Y and olderBenjamin Ball DO Work Phone: [facility]10-18-2024influenza, high dose seasonal, preservative-freeKing'S Daughters Medical Center [place]10-17-2023 zoster vaccine recombinantBenjamin Ball DO Work Phone: [facility] [place]10-11-2023influenza, high dose seasonal, preservative-freeBenjamin Ball Other [place] [employer] Other 424740-16-2238ftgwshcqj virus vaccine, unspecified formulationDO Kaleb Ball Work Phone: [facility] [place]10-04-2023COVID-19 (PFIZER) 12Y and olderBenjamin Ball DO Work Phone: [facility] [place]08-15-2023zoster vaccine recombinantBenjamin Ball DO Work Phone: [facility]11-01-2022COVID-19 mRNA Bivalent Booster (Pfizer)Kaleb Ball DO Work Phone: [facility]10-12-2022Influenza vaccine, quadrivalent, adjuvantedBenjamin Ball DO Work Phone: [facility]10-12-2022influenza virus vaccine, split virus (incl. purified surface antigen)Kaleb Ahumada Other [employer] Other [id number] virus vaccine, unspecified formulationDO Kaleb Ahumada Work Phone: [facility]07-11-2022COVID-19 Comirnaty (Pfizer) Tri-Sucrose 12+Kaleb Ahumada DO Work Phone: [facility]10-22-2021COVID-19 mRNA, Comirnaty (Pfizer)Kaleb Ahumada DO Work Phone: [facility] [place]09-29-2021influenza virus vaccine, split virus (incl. purified surface antigen)Kaleb Ahumada Other [facility] [employer] Other [id number] virus vaccine, unspecified formulationDO Kaleb Ahumada Work Phone: [facility]09-29-2021Seasonal trivalent influenza vaccine, adjuvanted, preservative freeBensaida Ahumada DO Work Phone: [phone]02-18-2021COVID-19 mRNA, Comirnaty (Pfizer)Kaleb Ahumada DO Work Phone: [facility]01-28-2021COVID-19 mRNA, Comirnaty (Pfizer)Kaleb Ahumada DO Work Phone: [facility]09-04-2020influenza virus vaccine, split virus (incl. purified surface antigen)Kaleb Ahumada Other [employer] Other [id number] virus vaccine, unspecified formulationDO Kaleb Ahumada Work Phone: [facility]10-30-2019influenza virus vaccine, split virus (incl. purified surface antigen)Kaleb Ahumada Other [employer] Other [id number] virus vaccine, unspecified formulationDO Kaleb Ahumada Work Phone: [facility]10-23-2018influenza virus vaccine, split virus (incl. purified surface antigen)Kaleb Ahumada Other [place] [employer] Other 10075207-87-6978qyjlwbbtz virus vaccine, unspecified formulationDO Kaleb Ahumada Work Phone: [facility]10-23-2018Seasonal trivalent influenza vaccine, adjuvanted, preservative freeBenjamin Brandyn DO Work Phone: [facility]10-18-2017influenza virus vaccine, split virus (incl. purified surface antigen)Kaleb Ahumada Other [place] [employer] Other 10533477-40-6596kkkozmpov virus vaccine, unspecified formulationDO Kaleb Ahumada Work Phone: [facility]09-15-2017influenza, high dose seasonal, preservative-freeBenjamin Brandyn DO Work Phone: [phone] [place]12-12-2016influenza virus vaccine, split virus (incl. purified surface antigen)Kaleb Ahumada Other [place] [employer] Other 12800369-76-1249gedkbsrxq virus vaccine, unspecified formulationDO Kaleb Ahumada Work Phone: [facility]12-02-2015 pneumococcal conjugate vaccine, 13 valentBenjanessa Ahumada Other [facility]10-10-2012tetanus and diphtheria toxoids, adsorbed, preservative free, for adult use (5 Lf of tetanus toxoid and 2 Lf of diphtheria toxoid)Kaleb Ahumada Other [facility] Payers DatePayer CategoryPayerPolicy [id number]-pay2021Medicare (Managed Care)[employer] Member Subscriber Plan / Payer (Effective 2020-Present) Name: Alycia Daily Relation to Subscriber: Self Name: Alycia Daily Payer ID: Not on file Group ID: [id number] Type: Not on file Address: [place] [id number] [id number] 2.0.1.685678.3.579.2. [id number] 2.0.1.577104.3.57[id number] 2.840.1.636110.3.57[id number] 2.840.1.465912.3.57[id number] 2.0.1.875360.3.57[id number] 2.840.1.444008.3.57[id number] 2.16840.1.018174.3.57[id number] 2.840.1.740130.3.57[id number] 2.16840.1.549879.3.57[id number] 2.840.1.594332.3.579.[id number] 2.16.840.1.702993.3.57[id number] 2.16.840.1.194092.3.57[id number] 2.16.840.1.652848.3.57[id number] 2.16.840.1.006257.3.57[id number] 2..840.1.889841.3.57[id number] 2.16.840.1.7221[id number] 2.0.1.725105.3.579.2.531 Social History DateTypeDetailFacilitySex Assigned At [facility] [employer] Other Start: 10-17-2023 End: 32-94-5535Cemuzbo smoking status NHISNever smoked tobacco (finding) [facility] Hospitaltart: 80-71-6221Tuk Assigned At [facility] OhioTobacco smoking status NHISTobacco smoking consumption [facility] HealthcareStart: 69-92-5846Wrp assigned at [facility] hospitalNot on fileTHE ORTHOP[facility] HealthcareStart: 09-14-2024 End: 00-41-1533JgbRfvhxd (finding)[facility] Clinical Notes 11-30-2022 to 04-29-2025 Note Date & UbmtUbdjLsrdcaie92-00-8317 Evaluation note* Diagnosis Onset Date Resolution Status Admit Date Mixed hyperlipidemia acuteSeptember 2024 12:48pmOSA (obstructive sleep apnea)acuteSept2024 12:48pmParoxysmal atrial fibrillationacuteSept2024 12:48pm Primary hypertensionacuteSept2024 12:48pmInfraspinatus tendon tear acuteSept2024 12:30pmSupraspinatus tendon tearacuteSept2024 12:30pm [facility] Work Phone: [phone] 129-291009-08-2025 Evaluation note* Diagnosis Onset Date Resolution Status [...] 1:49pmType 2 diabetes mellitus with hyperglycemiaacuteOct2024 1:49pm [facility] Work Phone: [phone] 521-784702-25-2025 History of Present illness Narrative* Xena Mendoza, [...] to be instructed in home exercise program. Horticultural Manager Goals: To be met in 10 weeks [...] sign below. Date: documented in this encounterFreeman Heart InstituteOxdelbfnlz67-72-4366 Evaluation note* Diagnosis Onset Date Resolution Status Admit Date Obesity acuteJanuary 2024 1:22pmPrimary hypertensionacuteJanuary 2024 1:22pm Right shoulder painacuteJanuary 2024 1:22pmType 2 diabetes mellitus with hyperglycemiaacuteAuguary 2024 1:22pmInfraspinatus tendon tearacute October 09, 2024 8:15amSupraspinatus tendon tearacuteFebruary 2024 8:15am [facility] Work Phone: [phone] 180-810412-16-2024 History of Present illness Narrative* Xena Mendoza, [...] to be instructed in home exercise program. Horticultural Manager Goals: To be met in 10 weeks [...] sign below. Date: documented in this encounterFreeman Heart InstituteFsftlcydrq18-86-5528 Evaluation note* Encounter Date Diagnosis Assessment Notes Treatment Notes Treatment Clinical Notes Jul, Paroxysmal atrial fibrillation ( ICD-10 - I48.0) Echo: 07/2023 - LVEF is 60 to 65% - Normal right ventricular size and systolic function - Biatrial enlargement - Mild tricuspid regurgitation - RVSP 38 mmHg - Mild to moderate mitral regurgitation [employer] Other [id number] Evaluation note* Encounter Date Diagnosis Assessment Notes [...] AC for procedure. Repeat CBC in week. [employer] Other 12-20-2023 Evaluation note* Encounter Date Diagnosis Assessment Notes Treatment Notes Treatment Clinical Notes Jul, Paroxysmal atrial fibrillation ( ICD-10 - I48.0) Echo: 07/2023 - LVEF is 60 to 65% - Normal right ventricular size and systolic function - Biatrial enlargement - Mild tricuspid regurgitation - RVSP 38 mmHg - Mild to moderate mitral regurgitation [employer] Other 12-18-2023 Evaluation note* Encounter Date Diagnosis [...] primary prevention. US < 50% narrowing B/L [employer] Other 11-24-2023 Evaluation note* Encounter Date Diagnosis Assessment Notes Treatment Notes Treatment Clinical Notes Jun, Hypoalbuminemia (ICD-10 - E88.09 ) Jun,nemia due to other cause, not classified (ICD-10 - D64.89) Jun,Hx of cancer of endometrium (ICD-10 - Z85.42) Jun,Sallow complexion (ICD-10 - R23.8) Jun,Weight loss, unintentional (ICD-10 - R63.4) Jun,Fatigue, unspecified type (ICD-10 - R53.83) [employer] Other 11-22-2023 Evaluation note* Encounter Date Diagnosis [...] - C54.1)s/p AMANDA - no s/s recurrence [employer] Other 10-16-2023 Evaluation note* Encounter Date Diagnosis [...] exercise for 30 minutes, 3-5 times weekly. [employer] Other 04-11-2023 Evaluation note* Encounter Date Diagnosis [...] of endometrium (ICD-10 - Z85.42)No s/s recurrence [facility] [employer] [place] [employer] [place] Other Evaluation noteNo InformationNortGood Shepherd Specialty Hospital [place] Other Evaluation noteNo assessment information available [facility] Work Phone: evaluation note* Diagnosis Onset Date Resolution Status Mixed hyperlipidemia acuteParoxysmal atrial fibrillationacutePrimary hypertensionacuteChronic heart failure with preserved ejection fraction (HFpEF)acuteMixed hyperlipidemiaacute Paroxysmal atrial fibrillationacutePrimary hypertensionacuteType 2 diabetes mellitus with hyperglycemiaacute [facility] Work Phone: Evaluation note* Diagnosis Onset Date Resolution Status Mixed hyperlipidemia acuteParoxysmal atrial fibrillationacutePrimary hypertensionacute [facility] Work Phone: evaluation note* Diagnosis Onset Date Resolution Status Mixed hyperlipidemia acuteParoxysmal atrial fibrillationacutePrimary hypertensionacuteImpingement syndrome of right shoulderacuteParoxysmal atrial fibrillationacuteRight shoulder painacute [facility] Work Phone: Evaluation note* Diagnosis Onset Date Resolution Status Mixed hyperlipidemia acuteParoxysmal atrial fibrillationacutePrimary hypertensionacuteImpingement syndrome of right shoulderacuteParoxysmal atrial fibrillationacuteRight shoulder painacuteChronic heart failure with preserved ejection fraction (HFpEF)acute Heart murmuracuteMedicare annual wellness visit, subsequentacuteMixed hyperlipidemiaacuteObesityacuteParoxysmal atrial fibrillationacutePrimary hypertensionacuteScreening mammogram for breast canceracuteType 2 diabetes mellitus with hyperglycemiaacute [facility] Work Phone: Evaluation note* Diagnosis Chronic right shoulder pain- Primary Pain in joint, shoulder region Arthritis of right acromioclavicular joint documented in this encounter [facility] HealthcareEvaluation [facility]* Diagnosis Chronic right shoulder pain- Primary Pain in joint, shoulder region Arthritis of right acromioclavicular joint documented in this encounter [facility] HealthcareEvaluation note* Diagnosis Chronic right shoulder pain- [...] right acromioclavicular joint documented in this encounter [facility] HealthcareEvaluation note* Diagnosis Chronic right shoulder pain- Primary Pain in joint, shoulder region Arthritis of right acromioclavicular joint documented in this encounter [facility] HealthcareEvaluation note* Diagnosis Chronic right shoulder pain- Primary Pain in joint, shoulder region Arthritis of right acromioclavicular joint documented in this encounter [facility] HealthcareEvaluation note* Diagnosis Onset Date Resolution Status Admit Date Chronic heart failure with preserved eje ction fraction (HFpEF) acuteJanuary 2024 1:22pmMixed hyperlipidemiaacuteJanuary 2024 1:22pm ObesityacuteJanuary 2024 1:22pmParoxysmal atrial fibrillationacuteJanuary 2024 1:22pmPrimary hypertensionacuteJanuary 2024 1:22pmRight shoulder painacuteJanuary 2024 1:22pmType 2 diabetes mellitus with hyperglycemiaacuteJanuary 2024 1:22pm [facility] Work Phone: Evaluation note* Diagnosis Nontraumatic complete tear of right rotator cuff- Primary Muscle weakness of right upper extremity Muscle weakness (generalized) documented in this encounter [facility] HealthcareEvaluation note* Diagnosis Nontraumatic complete tear of right rotator cuff- Primary Muscle weakness of right upper extremity Muscle weakness (generalized) Chronic right shoulder pain Pain in joint, shoulder region Arthritis of right acromioclavicular joint documented in this encounter [facility] HealthcareEvaluation note* Diagnosis Nontraumatic complete tear of right rotator cuff- Primary Muscle weakness of right upper extremity Muscle weakness (generalized) documented in this encounter [facility] HealthcareEvaluation note* Diagnosis Nontraumatic complete tear of right rotator cuff- Primary Muscle weakness of right upper extremity Muscle weakness (generalized) documented in this encounter [facility] HealthcareEvaluation note* Diagnosis Onset Date Resolution Status Admit Date Mixed hyperlipidemia acuteSeptember 2024 12:48pmOSA (obstructive sleep apnea)acuteSept2024 12:48pmParoxysmal atrial fibrillationacuteSept2024 12:48pm Primary hypertensionacuteSept2024 12:48pm [facility] Work Phone: History general Narrative - Reported* Type Description Date Medical History Left carotid bruit Medical HistoryEstrogen deficiencySurgical HistoryRIGHT BREAST HN5561,2014 Surgical HistoryLEFT BREAST [id number] IfbjcslVTH0469Exsxnlub History ARTHROSCOPY RIGHT [id number] HistoryCATARACT B/X6815Kdfetdxnkbeqhjs HistorySEE SURGICAL [facility] [place] Other Reason for referral (narrative)* Reason *Waiting for appt Referral for new onset paroxysmal atrial fibrillation and an abnormal stress test Diagnosis 1 Precordial pain (R07 .2) Diagnosis 2 Paroxysmal atrial fi brillation (I48.0) Referral Organization [facility] Referring Provider First Name Kaleb Referring Provider Last Name Brandyn Referring Provider Specialty Internal Me dicine Referred Organization [facility] Cardiology Referred Provider Lila Myers Referred Address [address] [place] [phone] Referred Provider Specialty Cardiovascul ar Disease Referral [...] PM >received today, attachments made, referral faxed [id number] NotesInclude: - Labs: since Jun - Echo - Holter - Stress testing [employer] Other Reason for referral (narrative)No reason for referral information availableMercy Health West Hospital Work Phone: Reason for visit Narrative* Rehabilitation - Outpatient (Routine) - AuthorizedSpecialtyDiagnoses / ProceduresReferred By ContactReferred To ContactPhysical Therapy Diagnoses Pain in right shoulder Procedures MS PHYSICAL THERAPY EVALUATION LOW COMPLEX 20 MINS MS OFFICE/OUTPATIENT [facility] Kaleb Aguilar MD [address] [place] [address] Phone: tel: fax: [facility] [address] [address] Phone: tel: fax: Referral IDStatusReasonStart DateExpiration DateVisits RequestedVisits [id number]/9/20246/[id number] [facility] HealthcareReason for visit Narrative* Rehabilitation - Outpatient (Routine) - AuthorizedSpecialtyDiagnoses / ProceduresReferred By ContactReferred To ContactPhysical Therapy Diagnoses Pain in right shoulder Procedures MS PHYSICAL THERAPY EVALUATION LOW COMPLEX 20 MINS MS OFFICE/OUTPATIENT [facility] Kaleb Aguilar MD [address] [place] [address] Phone: tel: fax: [facility] [address] [address] Phone: tel: fax: Referral IDStatusReasonStart DateExpiration DateVisits RequestedVisits [id number]/9/202412/[id number] [facility] HealthcareReason for visit Narrative* Rehabilitation - Outpatient (Routine) - AuthorizedSpecialtyDiagnoses / ProceduresReferred By ContactReferred To ContactPhysical Therapy Diagnoses Pain in right shoulder Procedures MS THER PX 1/> AREAS EACH 15 MIN NEUROMUSC REEDUCA MS THERAPEUTIC PX 1/> AREAS EACH 15 MIN EXERCISES MS MANUAL THERAPY TQS 1/> REGIONS EACH 15 MINUTES PHYS/OCC THERAPY SS Kaleb Ahumada MD [address] [place] [address] Phone: tel: fax: [facility] [address] [address] Phone: tel: fax: Referral IDStatusReasonStwaynesville DateExpiration DateVisits RequestedVisits [id number]/1/202512/31/[id number] [facility] HealthcareReason for visit Narrative* Rehabilitation - Outpatient (Routine) - AuthorizedSpecialtyDiagnoses / ProceduresReferred By ContactReferred To ContactPhysical Therapy Diagnoses Strain of other muscles, fascia and tendons at shoulder and upper arm level, right arm, initial encounter Unspecified rotator cuff tear or rupture of right shoulder, not specified as traumatic Procedures MS PHYSICAL THERAPY EVALUATION LOW COMPLEX 20 MINS MS OFFICE/OUTPATIENT NEW HIGH MDM 60 MINUTES Cody Bermudez MD [address] [place] [address] Phone: tel: fax: Xena Mendoza, PT [address] [address] Phone: tel: fax: Referral IDStatusReasonStwaynesville DateExpiration DateVisits RequestedVisits [id number]/25/20258/[id number] [facility] HealthcareReason for visit Narrative* Rehabilitation - Outpatient (Routine) - AuthorizedSpecialtyDiagnoses / ProceduresReferred By ContactReferred To ContactPhysical Therapy Diagnoses Strain of other muscles, fascia and tendons at shoulder and upper arm level, right arm, initial encounter Unspecified rotator cuff tear or rupture of right shoulder, not specified as traumatic Procedures MS PHYSICAL THERAPY EVALUATION LOW COMPLEX 20 MINS MS OFFICE/OUTPATIENT NEW HIGH MDM 60 MINUTES Cody Bermudez MD [address] [place] [address] Phone: tel: fax: Jayazeus Xena T, PT [address] [address] Phone: tel: fax: Referral IDStatusReasonStart DateExpiration DateVisits RequestedVisits [id number]/25/[id number] [facility] Summary Purpose Family History Relationship Condition [...] section and content) DATE CREATED AUTHOR 08/12/2022 [facility] DATE CREATED AUTHOR AUTHOR'S ORGANIZ ATION 10/22/2023 [facility] DATE CREATED AUTHOR AUTHOR'S ORGANIZ ATION 10/28/2024 [facility] EPIC REASON FOR VISIT (unrecogniz [...] BE BASED ON THE PRIMARY CLINICAL RECORDS. [facility] [employer] provides no warranty or guarantee of the accuracy or completeness of information in this document.
[2025-06-14 09:13] LABS: Hematocrit 41.4 % (36.0-48.0); Hemoglobin 13.3 g/dL (12.0-16.0); Immature Granulocytes Abs Auto 0.01 10^3/uL (0.00-0.03); Immature Granulocytes Pct Auto 0.2 % (0.0-0.5); Lymphocytes Absolute Auto 1.3 10^3/uL (1.2-3.8); Mean Corpuscular HGB Conc 32.1 g/dL (29.9-35.2); Mean Corpuscular Hemoglobin 30.3 pg (26.7-34.0); Mean Corpuscular Volume 94.3 fL (81.0-99.0); Platelet Count 174 10^3/uL (150-450); Red Blood Count 4.39 10^6/uL (4.20-5.40); White Blood Count 6.0 10^3/uL (4.0-11.0)
[2025-06-14 10:24] LABS: Alanine Aminotransferase 41 U/L (14-59); Albumin Globulin Ratio 1.1; Albumin Level 3.7 g/dL (3.4-5.0); Alkaline Phosphatase 89 U/L (46-116); Anion Gap 13.5; Aspartate Amino Transferase 17 U/L (15-37); Blood Urea Nitrogen 13.0 mg/dL (7.0-18.0); Calcium 9.1 mg/dL (8.5-10.1); Carbon Dioxide 28.7 mmol/L (21.0-32.0); Chloride 106 mmol/L (98-107); Cholesterol 139 mg/dL (<=200); Estimated GFR (African America >60 (>=60 mL/min/1.73m^2); Estimated GFR (Non-African Ame >60 (>=60 mL/min/1.73m^2); Globulin 3.3 g/dL; Glucose 95 mg/dL (74-106); HDL Cholesterol 64 mg/dL (40-60); Potassium 4.2 mmol/L (3.5-5.1); Sodium 144 mmol/L (136-145); Thyroid Stimulating Hormone 4.603 uIU/mL (0.358-3.740); Total Protein 7.0 g/dL (6.4-8.2); Triglycerides 38 mg/dL (<=150); VLDL CHOLESTEROL 7.6 mg/dL
== END 2025-06-14 08:31 | disposition home or self-care (01) ==
LOC: LAB 08:31
PROVIDERS: PCP Internal Medicine; Visit Provider Internal Medicine
DX: E78.2 Mixed hyperlipidemia (principal); E11.65 Type 2 diabetes mellitus with hyperglycemia; I10 Essential (primary) hypertension; R53.83 Other fatigue
CPT/HCPCS: 36415; 80053; 80061; 82043; 82570; 83036; 84443; 85025

== ENCOUNTER 2025-07-12 10:31 | Outpatient (OUT) | payer MEDICARE, SELFPAY ==
--- OUTSIDE RECORDS SUMMARY | 2025-07-12 10:36 | XMS_ITS | Clinical Summary ---
Author Organization [facility] Address [address] [place] [address] Care Team Providers Care Business Continuity Specialist Name Role Phone Kaleb Ahumada DO Primary Care Provider [phone] Social History Tobacco UseTypesPacks/DayYears UsedDateSmoking Tobacco: Never Assessed CommentsUnknownSex and Gender InformationValueDate RecordedSex Assigned at Not on fileLegal XvzAbqvtp18/09/2024 3:10 PM ESTGender IdentityNot on fileSexual OrientationNot on file Plan of Treatment Health MaintenanceDue DateLast DoneCommentsPneumococcal Vaccine: 65+ Years (1 of 1 - PCV)1995COVID-19 Vaccine (2024- season)511/, 05/25/2023, 03/01/2022, Additional history existsInfluenza Vaccine (#1) 510/, 06/02/2022, 05/20/2021, Additional history exists Insurance Care Teams Team MemberRelationshipSpecialtyStart DateEnd Date Kaleb Ahumada DO [address] [place] [address] PCP - GeneralInternal Medicine01/11/25
--- OUTSIDE RECORDS SUMMARY | 2025-07-12 10:36 | XMS_ITS | Clinical Summary ---
Author Organization [facility] Address [address], [address] [place] [address] Care Team Providers Care Gas Manager Name Role Phone Kaleb Ahumada DO Primary Care Provider [phone] Allergies No known active allergies Medications MedicationSigDispense [...] mouth dailyActive Active Problems ProblemNoted DateDiagnosed DateMorbid odwwhba9311/23/2016 Social History Tobacco UseTypesPacks/DayYears UsedDateSmoking Tobacco: Never Assessed CommentsUnknownSex and Gender InformationValueDate RecordedSex Assigned at Not on fileLegal TkhHdgfhg30/30/2017 8:39 PM EDTGender IdentityNot on fileSexual OrientationNot on file Last Filed Vital Signs Vital SignReadingTime TakenCommentsBlood Sdsxlamd700/7204 3:22 PM EDT Pulse--Temperature--Respiratory Rate--Oxygen Saturation--Inhaled Oxygen Concentration--Lobser467.6 kg (261 lb 6.4 oz)11/23/2016 3:22 PM ZAWBbjgag865.1 cm (5' 5 )11/23/2016 3:22 PM EDTBody Mass Index43.504 3:22 PM EDT Plan of Treatment Not on file Care Teams Team MemberRelationshipSpecialtyStart DateEnd Date Kaleb Ahumada DO [facility] Medicine11/18/16
--- OUTSIDE RECORDS SUMMARY | 2025-07-12 10:42 | XMS_ITS | CCD ---
Author Organization [facility] CliniSyar Care Team Providers Care Family Medicine Physician Name Role Phone DR KALEB AHUMADA Attending [...] Unavailable Kaleb Ahumada DO Primary Care Provider [phone] Stella Farfan DO Attending Provider Dave Hoff MD Attending Provider Kaleb Ahumada DO Primary Care Provider [phone] Cody Bermudez DO Attending Provider [phone] Kaleb Ahumada DO Attending Provider Allergies Allergy ClassificationReported Allergen(s)Allergy TypeDate of OnsetReaction(s) Facility (1 source)patient allergy list reviewed by nurse or physiciaPropensity to adverse xiqpzhkcr82-39-3706Xoqkytz:[employer] Other Medications Current Medications MedicationDrug Class(es)DatesSig (Normalized)Sig (Original)atorvastatin 40 mg oral tablet (20 sources)HMG-CoA Reductase InhibitorStart: 33-37-5380qcdy 1 tablet by mouth once dailyAtorvastatin 40 mg tablet Active 40 MG PO Daily April 29, 2025 12:54pm Complies with drug therapyStart: 07-25-2024 End: 58-13-8043kftf 1 tablet by mouth once daily in the eveningAtorvastatin 40 mg tablet Discontinued 0 .ROUTE .COMPLEX 90 3 July 25, 2024 7:59am April 29, 2025 12:54pm TAKE 1 TABLET BY MOUTH ONCE DAILY IN THE EVENING FOR 90 DAYSStart: 10-17-2023 End: 27-60-7392sbic 1 tablet by mouth once dailyAtorvastatin 40 mg tablet Discontinued 40 MG PO Daily 90 90 3 December 06, 2023 2:18pm July 7:59amtake 1 tablet by mouth once daily in the eveningAtorvastatin Calcium 40 MG TAKE 1 TABLET BY MOUTH ONCE DAILY IN THE EVENING ActiveBiotin (10 sources)Start: 26-81-4326uyil 1 tablet by mouth once dailyBiotin (Hair, Skin And Nails (Biotin)) 10,000 mcg tablet,chewable Active 42964 MCG PO Daily October 17, 2023 1:00am Complies with drug therapyStart: 22-55-1212cafi 1 tablet by mouth once dailyBiotin (Hair, Skin And Nails (Biotin)) 10,000 mcg tablet,chewable Active 53440 MCG PO Daily October 17, 2023 1:00amStart: 84-49-0402rhhe 1 tablet by mouth once dailyBiotin (Hair, Skin And Nails (Biotin)) 10,000 mcg tablet,chewable Active 69266 MCG PO Daily October 17, 2023 12:00amcalcium ascorbate 500 mg oral tablet (10 sources)Start: 44-32-3394bwpw 1 tablet by mouth once dailyAscorbate Calcium (Vitamin C) 500 mg tablet Active 500 MG PO Daily October 17, 2023 1:00am Complies with drug therapyferrous sulfate 325 mg oral tablet (20 sources)Start: 10-17-2023 End: 02-18-0875jpnl 1 tablet by mouth three times weeklyFerrous [...] Activeloratadine 10 mg oral tablet (10 sources)Start: 66-06-2493juau 1 tablet by mouth once dailyLoratadine (Allergy Relief (Loratadine)) 10 mg tablet Active 10 MG PO Daily October 17, 2023 1:00am Complies with drug therapyMagnesium (10 sources)Start: 65-33-0452jgnw 1 tablet by mouth once dailyMagnesium 250 mg tablet Active 250 MG PO Daily October 17, 2023 1:00am Complies with drug therapyStart: 23-49-5599guol 1 tablet by mouth once dailyMagnesium 250 mg tablet Active 250 MG PO Daily October 17, 2023 12:00amStart: 69-33-4315ywvw 250 mg by mouth once dailyMagnesium Active 250 MG PO Daily October 17, 2023 1:00am Start: 56-76-3203efae 250 mg by mouth once dailyMagnesium Active 250 MG PO Daily October 17, 2023 12:00am24 hr metoprolol succinate 25 mg extended release oral tablet (20 sources)beta-Adrenergic BlockerStart: 50-59-2156opmz 1 tablet by mouth once dailyMetoprolol Succinate 25 mg tablet extended release 24 hr Active 25 MG PO Daily April 29, 2025 12:55pm Complies with drug therapyStart: 09-14-2024 End: 60-83-1496scpx 1 tablet by mouth once dailyMetoprolol Succinate 25 mg tablet extended release 24 hr Discontinued 0 .ROUTE .COMPLEX 30 11 September 14, 2024 8:05am April 29, 2025 12:55pm Take 1 tablet by mouth once dailyStart: 10-17-2023 End: 71-66-8161tqxu 1 tablet by mouth once dailyMetoprolol Succinate 25 mg tablet extended release 24 hr Discontinued 25 MG PO Daily 90 90 3 December 06, 2023 2:34pm September 14, 2024 8:05amStart: 80-90-6241pwiz 1 tablet by mouth every twenty-four hoursMetoprolol Succinate ER 25 MG 1 tablet Orally Once a day for 30 days Replaces Rx for Metoprolol sprinkles Jul, ActiveStart: 75-51-3926qowu 1 capsule by mouth once dailyMetoprolol Succinate 25 MG 1 capsule Orally Once a day for 30 days Jul, ActiveMultivit With Min-Folic Acid (Adult Multivitamin Gummies) 200 mcg tablet,chewable (10 sources)Start: 32-48-3379myzu 1 tablet by mouth once dailyMultivit With Min- Folic Acid (Adult Multivitamin Gummies) 200 mcg tablet,chewable Active 1 TAB PO Daily October 17, 2023 1:00am Complies with drug therapyStart: 75-23-3013vmww 1 tablet by mouth once dailyMultivit With Min-Folic Acid (Adult Multivitamin Gummies) 200 mcg tablet,chewable Active 1 TAB PO Daily October 17, 2023 1:00amStart: 40-37-1284zwyc 1 tablet by mouth once dailyMultivit With Min-Folic Acid (Adult Multivitamin Gummies) 200 mcg tablet,chewable Active 1 TAB PO Daily October 17, 2023 12:26tlCf-Cne-Fv-Vit I-Dwbcsw-Gnbvloz (Preservision Areds 2 Plus Mv) 200 mcg-15 mcg- 5 mg-1 mg capsule (10 sources)Start: 12-76-8199lvwx 1 capsule by mouth once bjpgpQz-Yab-Jh-Vit F-Xyjyro-Kfpijad (Preservision Areds 2 Plus Mv) 200 mcg-15 mcg- 5 mg-1 mg capsule Active 1 CAP PO Daily October 17, 2023 1:00am Complies with drug therapyStart: 17-49-9241eimz 1 capsule by mouth once irisjJp-Nbv-Gu-Vit I-Vioesh-Ceodcyk (Preservision Areds 2 Plus Mv) 200 mcg-15 mcg- 5 mg-1 mg capsule Active 1 CAP PO Daily October 17, 2023 1:00amStart: 62-17-5150zifz 1 capsule by mouth once bdjjaUp-Ykd-Rg-Vit P-Glkyqq-Bfyxfby (Preservision Areds 2 Plus Mv) 200 mcg-15 mcg- 5 mg-1 mg capsule Active 1 CAP PO Daily October 17, 2023 12:00amOzempic (0.25 or 0.5 MG/DOSE) 2 MG/1.5ML (18 sources)Start: 81-55-0686Rhmmvox (0.25 or 0.5 MG/DOSE) 2 MG/1.5ML 0.25 MG Subcutaneous weekly Nov, ActiveStart: 64-00-4834Zrflpla (0.25 or 0.5 MG/DOSE) 2 MG/1.5ML 0.25 MG Subcutaneous weekly for 28 days Nov, Active Semaglutide (3 sources)Start: 83-95-5123uidanp 1 mg by subcutaneous injection every week Semaglutide 1 mg/dose (4 mg/3 mL) pen injector Active 1 MG SUBCUT every week April 24, 2025 5:08pm Complies with drug therapyStart: 04-24-2025 inject 1 mg by subcutaneous injection every weekSemaglutide 1 mg/dose (4 mg/3 mL) pen injector Active 1 MG SUBCUT every week 11 16April 24, 2025 5:08pm Complies with drug therapyvitamin B12 (11 sources)Vitamin I10Cdzhuoc B-12 Active Completed/Discontinued Medications MedicationDrug Class(es)DatesSig (Normalized)Sig (Original)apixaban 5 mg oral tablet (20 sources)Factor Xa InhibitorStart: 10-17-2023 End: 88-07-4007tpav 1 tablet by mouth every twelve hoursApixaban (Eliquis) 5 mg tablet Discontinued 5 MG PO Every 12 hours 180 90 3 December 06, 2023 2:17pm July 04, 2024 6:56pmlosartan potassium 25 mg oral tablet (20 sources)Angiotensin 2 Receptor BlockerStart: 10-11-2023 End: 41-72-7772raap 1 tablet by mouth once dailyLosartan 25 mg tablet Discontinued 25 MG PO daily 90 90 3 October 11, 2023 1:00am October 17, 2023 12:07pmtake 1 tablet by mouth once dailyLosartan Potassium 25 MG Take 1 tablet by mouth once daily ActivepredniSONE 20 mg oral tablet (7 sources)Start: 05-02-2024 End: 84-60-4498zxfz 1 tablet by mouth once dailyPrednisone 20 mg tablet Discontinued 20 MG PO Daily 5 5 0 May 02, 2024 12:00am September 14, 2024 2:30pm0.25 mg, 0.5 mg dose 1.5 ml semaglutide 1.34 mg/ml pen injector (11 sources)Start: 10-17-2023 End: 53-71-7190Vufkedvvwno (Ozempic) 0.25 mg or 0.5 mg(2 mg/1.5 mL) pen injector Discontinued 0.25 MG SUBCUT everyweek October 17, 2023 1:00am December 06, 2023 2:37pm FreeTextSi.25 MG Subcutaneous weekly; Note: Source Status: Taking; Provider: Brandyn Manuel EStart: 75-69-7015Ugvddbe (0.25 or 0.5 MG/DOSE) 2 MG/1.5ML 0.25 MG Subcutaneous weekly for 28 days Nov, Active Semaglutide (20 sources)Start: 11-02-2024 End: 26-61-8385jiwcdx 0.5 mg by subcutaneous injection every weekSemaglutide (Ozempic) 0.25 mg or 0.5 mg (2 mg/3 mL) pen injector Discontinued 0 .ROUTE .COMPLEX 3 5March 2024 3:50pm April 24, 2025 5:10pm INJECT 0.5MG SUBCUTANEOUSLY EVERY WEEK FOR 28 DAYS.Start: 11-02-2024 End: 60-80-5436ozlksp 0.5 mg by subcutaneous injection every weekSemaglutide (Ozempic) 0.25 mg or 0.5 mg (2 mg/3 mL) pen injector Discontinued 0 .ROUTE .COMPLEX 3 November 02, 2024 3:50pm April 24, 2025 5:10pm INJECT 0.5MG SUBCUTANEOUSLY EVERY WEEK FOR 28 DAYS.Start: 05-23-2024 End: 10-36-9112Imcerpnlbxe (Ozempic) 0.25 mg or 0.5 mg (2 mg/3 mL) pen injector Discontinued 0.5 MG SUBCUT every week 3 16 01May 23, 2024 6:26pm November 02, 2024 3:50pmStart: 05-23-2024 End: 73-59-9001Xxuacmiyrou (Ozempic) 0.25 mg or 0.5 mg (2 mg/3 mL) pen injector Discontinued 0.5 MG SUBCUT every week 3 May 23, 2024 6:26pm November 02, 2024 3:50pmStart: 98-19-0811Lcspbfiihve (Ozempic) 0.25 mg or 0.5 mg (2 mg/3 mL) pen injector Active 0.5 MG SUBCUT every week 3 May 23, 2024 5:26pmStart: 74-51-8660Qfqdnwokaqe (Ozempic) 0.25 mg or 0.5 mg (2 mg/3 mL) pen injector Active 0.5 MG SUBCUT every week 3 May 23, 2024 6:26pmStart: 03-26-2024 End: 74-69-2767Sjklfrumlsa (Ozempic) 0.25 mg or 0.5 mg (2 mg/3 mL) pen injector Discontinued 0 .ROUTE .COMPLEX 3 0March 26, 2024 6:23pm May 23, 2024 6:26pm INJECT 0.25 MG SUBCUTANEOUSLY ONCE WEEKLYStart: 03-26-2024 End: 37-67-1526Pbonhbmvwrk (Ozempic) 0.25 mg or 0.5 mg (2 mg/3 mL) pen injector Discontinued 0 .ROUTE .COMPLEX 3 March 26, 2024 5:23pm May 23, 2024 5:26pm INJECT 0.25 MG SUBCUTANEOUSLY ONCE WEEKLYStart: 03-26-2024 End: 80-28-6086Oyrysrpwaft (Ozempic) 0.25 mg or 0.5 mg (2 mg/3 mL) pen injector Discontinued 0 .ROUTE .COMPLEX 3 March 26, 2024 6:23pm May 23, 2024 6:26pm INJECT 0.25 MG SUBCUTANEOUSLY ONCE WEEKLYStart: 22-05-6393Kcbuifvogyh (Ozempic) 0.25 mg or 0.5 mg (2 mg/3 mL) pen injector Active 0 .ROUTE .COMPLEX 3 March 26, 2024 6:23pm INJECT 0.25 MG SUBCUTANEOUSLY ONCE WEEKLYStart: 02-01-2024 End: 15-83-1769Mlfrypmwccd (Ozempic) 0.25 mg or 0.5 mg (2 mg/3 mL) pen injector Discontinued 0 .ROUTE .COMPLEX 3 2023 9:12am March 26, 2024 6:26pm INJECT 0.25 MG SUBCUANEOUSLY WEEKLYStart: 02-01-2024 End: 99-44-6182Ikoiymahmfy (Ozempic) 0.25 mg or 0.5 mg (2 mg/3 mL) pen injector Discontinued 0 .ROUTE .COMPLEX 3 February 01, 2024 8:12am March 26, 2024 5:26pm INJECT 0.25 MG SUBCUANEOUSLY WEEKLYStart: 02-01-2024 End: 54-76-8389Vaxgbnxaukh (Ozempic) 0.25 mg or 0.5 mg (2 mg/3 mL) pen injector Discontinued 0 .ROUTE .COMPLEX 3 February 01, 2024 9:12am March 26, 2024 6:26pm INJECT 0.25 MG SUBCUANEOUSLY WEEKLYStart: 12-06-2023 End: 66-46-0981Ufwxumfuogy 0.25 mg or 0.5 mg (2 mg/3 mL) pen injector Discontinued 0.25 MG SUBCUT every week 9 90 3 December 06, 2023 12:00am February 01, 2024 9:12am for 4 weeksStart: 12-06-2023 End: 94-54-8406Btjganqtrnb 0.25 mg or 0.5 mg (2 mg/3 mL) pen injector Discontinued 0.25 MG SUBCUT every week 9 December 06, 2023 12:00am February 01, 2024 9:12am for 4 weeksStart: 12-06-2023 End: 98-44-0061Jpwdbplbiri 0.25 mg or 0.5 mg (2 mg/3 mL) pen injector Discontinued 0.25 MG SUBCUT every week December 05, 2023 11:00pm February 01, 2024 8:12am for 4 weeksStart: 12-06-2023 End: 30-98-8831ckmpgg 0.25 mg by subcutaneous injection every weekSemaglutide [...] sources)Paroxysmal atrial fibrillation; Translations: [Paroxysmal atrial fibrillation]Onset: 11-71-3874BazhgivYaqengeaye heart failure; nonhypertensive (20 sources)Acute on chronic diastolic heart failure; Translations: [Acute on chronic diastolic (congestive) heart failure]ChronicDeficiency and other anemia (1 source)Other specified anemiasEpisodicDeficiency and other anemia (2 sources)Anemia, unspecifiedEpisodicDeficiency and other anemia (9 sources)Anemia; Translations: [Anemia, unspecified]43-86-5333ArtjvxkxKanpgzbs mellitus with complications (20 sources)Type 2 diabetes mellitus with hyperglycemia; Translations: [Type 2 diabetes mellitus]Onset: 22-50-6186QynperbDsvrkovj mellitus without complication (1 source)Type 2 diabetes mellitus without complication; Translations: [Diabetes mellitus without mention of complication, type II or unspecified type, not stated as uncontrolled]ChronicDisorders of lipid metabolism (20 sources)Mixed hyperlipidemia; Translations: [Hypercholesterolemia]Onset: 54-39-6017GukpypzLqmewbndz hypertension (20 sources)Essential (primary) hypertension; Translations: [Essential hypertension]Onset: 16-66-6034MgoxvuyIghiq valve disorders (4 sources)Aortic valve stenosis; Translations: [Nonrheumatic aortic (valve) stenosis]42-13-4910TfvwjdcIujezex on above:Echo: LVEF 60%, ANCELMO, normal RV size/function, RVSP 53.: velocity 200, INDERJIT 1.7cm, gradient 06/04 - 11/2024Heart valve disorders (3 sources)Heart murmur; Translations: [Cardiac murmur, unspecified]06-08-2024 EpisodicImmunizations and screening for infectious disease (1 source)Vaccination given; Translations: [Encounter for immunization]Episodic Malaise and fatigue (3 sources)Malaise and fatigue; Translations: [Other malaise and fatigue]Onset: 94-47-7224YlbsugxyOvextxhpxg disorders (20 sources)Decreased estrogen level; Translations: [Other primary ovarian failure]ChronicNonspecific chest pain (2 sources)Precordial painEpisodicNutritional deficiencies (1 source)Vitamin D deficiency; Translations: [Vitamin D deficiency, unspecified]Onset: 10-16-8224JkifklrXjpzieqzjnssax (9 sources)Osteoarthritis; Translations: [Polyosteoarthritis, unspecified] 38-40-7938CbuomdeXvocc aftercare (1 source)Other group home (current) drug therapy; Translations: [OTH LONGTERM CURRENT DRUG THERAPY]Onset: 90-62-5242VuidinwaUmjmi aftercare (1 source)Long-term current use of drug therapy; Translations: [Other group home (current) drug therapy]EpisodicOther circulatory disease (9 sources)Other specified symptoms and signs involving the circulatory and respiratory systems; Translations:[OTH SPEC SX SIGNS INVLV CIRC RS]Onset: 64-15-3590BqflgwabJfoxp circulatory disease (19 sources)Cardiovascular symptoms; Translations: [Other specified symptoms and signs involving the circulatory and respiratory systems]EpisodicOther circulatory disease (10 sources)Carotid bruit; Translations: [Other specified symptoms and signs involving the circulatory and respiratory systems]48-99-9077LtcnpykgZbzhy connective tissue disease (2 sources)Impingement syndrome of shoulder region; Translations: [Impingement syndrome of right shoulder]11-32-8797XyapbqygTtjzu connective tissue disease (2 sources)Impingement syndrome of right shoulder; Translations: [Other affections of shoulder region, not elsewhere classified]52-36-7733XixizgeyGhsez connective tissue disease (6 sources)Supraspinatus tear; Translations: [Unspecified rotator cuff tear or rupture of unspecified shoulder, not specified as traumatic]67-54-2041Bjqoawpj Other connective tissue disease (1 source)Unspecified rotator cuff tear or rupture of unspecified shoulder, not specified as traumatic; Translations: [Supraspinatus (muscle) (tendon) sprain] 24-42-8980WfweuqpgDimkj connective tissue disease (4 sources)Nontraumatic complete rupture of rotator cuff of right shoulder; Translations: [Complete rotator cuff tear or rupture of right shoulder, not specified as traumatic]86-11-8053PrsmhnksElmfk connective tissue disease (4 sources)Muscle weakness of upper limb; Translations: [Muscle weakness (generalized)]14-36-7441MgrfmlwvEdiqx ear and sense organ disorders (1 source)Otitis externa; Translations: [Unspecified otitis externa, unspecified ear]ChronicOther ear and sense organ disorders (1 source)Impacted cerumen; Translations: [Impacted cerumen, unspecified ear] EpisodicOther injuries and conditions due to external causes (1 source)History of fall; Translations: [History of falling]EpisodicOther non- traumatic joint disorders (11 sources)Pain in right shoulder; Translations: [Right shoulder pain] 67-99-9243WxlpeocfHokts non-traumatic joint disorders (8 sources)Chronic pain of right upper limb; Translations: [Pain in right shoulder]34-52-7364IczsohzwXnahq nutritional; endocrine; and metabolic disorders (19 sources)Body mass index 30+ - obesity; Translations: [Obesity, unspecified] ChronicOther nutritional; endocrine; and metabolic disorders (4 sources)Obesity, unspecified; Translations: [Obesity, unspecified]Chronic Other nutritional; endocrine; and metabolic disorders (10 sources)Obesity; Translations: [Obesity, unspecified]Onset: 06-02-2022 79-98-3449GkerhzsDqwnf nutritional; endocrine; and metabolic disorders (1 source)Obese class II; Translations: [Body mass index 37.0-37.9, adult]Onset: 66-71-1478TssmugnWpwho nutritional; endocrine; and metabolic disorders (1 source)Morbid obesity; Translations: [Morbid (severe) obesity due to excess calories]Onset: 81-36-2818UqogfaeCzzsd nutritional; endocrine; and metabolic disorders (14 sources)Hypoalbuminemia; [...] malignant neoplasm of breast; Translations: [Mammography abnormal]Onset: 80-69-1734JiqadjtkBkbmy skin disorders (2 sources)Other skin changesEpisodicResidual codes; unclassified (7 sources)Obstructive sleep apnea syndrome; Translations: [Obstructive sleep apnea (adult) (pediatric)]20-93-5569BnkyxzgZanalibi codes; unclassified (1 source)Family history of malignant neoplasm of other organs or systems; Translations: [FAM HX MALIG NEOPLASM OTH ORGN/SYS]Onset: 29-07-0035Kumstmnb Residual codes; unclassified (1 source)Postmenopausal state; Translations: [Asymptomatic menopausal state] EpisodicSprains and strains (7 sources)Rupture of infraspinatus tendon; Translations: [Strain of other muscles, fascia and tendons at shoulder and upper arm level, unspecified arm, initial encounter]72-40-9763Grtoxymq Past or Other Problems Problem ClassificationProblemDateDocumented DateEpisodic/ChronicAbdominal pain (1 source)Abdominal pain; Translations: [Unspecified abdominal pain]Onset: 80-65-5906UqwcpbfaQkwdcq of other female genital organs (1 source)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; Translations: [Personal history of malignantneoplasm of other parts of uterus]Onset: 02-28-3860ZcwenuvoBxnxtwztrvbtv symptoms and ill-defined conditions (1 source)Dysuria; Translations: [Dysuria]Onset: 65-74-9918RgjflnkjHywmj ear and sense organ disorders (1 source)Otalgia; Translations: [Otalgia, unspecified ear]Onset: 07-09-2013 EpisodicUnclassified (1 source)Long-term current use of drug therapy; Translations: [Long-term (current) use of other medications]Onset: 58-83-7210Jaont infection (1 source)Herpes zoster with nervous system complication; Translations: [Herpes zoster with unspecified nervous system complication]Onset: 49-16-5707Lglwztyp Results Test NameValueInterpretationReference RangeFacilityECG 12 lead ECGon 10-17-2023 ECG 12 [facility] [place] [address] Electrocardiograph Report Signed Patient: Alycia Daily MR#: [id number] 196 : 1945 Acct:[id number] Age/Sex: 78 / F ADM Date: 10/17/23 Loc: EKGCARDIO Room: Type: [facility] Attending Dr: Dave Hoff MD Ordering [...] previous ECGs available Confirmed by Dave Hoff ([id number]) on 10/18/2023 10:36:42 AM Referred By: Electronically Signed By:Dave Hoff Transcribed By: MUS Signed By Dave Hoff MD 10/18/23 [facility]MG [facility] S[facility] 3D RAKAN CADon 74-91-9868ZM MAMM SCREEN 3D RAKAN CADPatient: ALYCIA DAILY Exam Date: 08/05/2022 : 1945 Gender:F Ordering : DR KALEB AHUMADA D.O. Admission #: [id number] Family : Order #: [id number] CLICK HERE TO VIEW EXAM RADIOLOGY REPORT [...] brain cancer at age 64. LOCATION: [facility] BREAST COMPOSITION: Scattered areas fibroglandular density. [...] by: Nevin Sequeira MD on 08/06/2022 at 08:58NormalThMain Campus Medical CenterBNP on 91-79-2893Rmuhgrvcofs peptide B (Bld) [Mass/Vol]188.0 pg/mLNormal<=1,800.0[facility] HospitalComment on above:Performed By: #### ALT, LIPID, BNP #### [facility] [address] [place] [address] Dr. Taisha Desai AUTO DIFFon 93-14-2586HLCW #0.0 103/ulNormal0.0-0.1[facility] HospitalComment on above:Performed By: #### CBC #### [facility] [address] [place] [address] Dr. Taisha Annsophils/100 WBC (Bld)0.4 %Normal0.2-2.0[facility] Comment on above:Performed By: #### CBC #### [facility] [address] [place] [address] Dr. Taisha Nolasco #0.2 103/ulNormal0.0-0.7[facility] HospitalComment on above: Performed By: #### CBC #### [facility] [address] [place] [address] Dr. Taisha Herronosinophils/100 WBC (Bld)2.8 %Normal0.9-7.0[facility] Comment on above:Performed By: #### CBC #### [facility] [address] [place] [address] Dr. Taisha Herronrythrocyte distribution width (RBC) [Ratio]13.3 %Ipmudi51.0-15.0 [facility] HospitalComment on above:Performed By: #### CBC #### [facility] [address] [place] [address] Dr. Taisha AlexandraHematocrit (Bld) [Volume fraction]40.3 %Cnvrth67.0-48.0[facility] HospitalComment on above:Performed By: #### CBC #### [facility] [address] [place] [address] Dr. Taisha AlexandraHemoglobin (Bld) [Mass/Vol]12.7 g/mGNskfgh83.0-16.0[facility] HospitalComment on above:Performed By: #### CBC #### [facility] [address] [place] [address] Dr. Taisha Monk #0.01 10e3/ulNormal0.00-0.03The [facility] Hospitalment on above:Performed By: #### CBC #### [facility] [address] [place] [address] Dr. Taisha Monk %0.2 %Normal0.0-0.5The [facility] Hospitalment on above: Performed By: #### CBC #### [facility] [address] [place] [address] Dr. Taisha PalmH #1.7 103/ulNormal1.2-3.8[facility] HospitalComment on above:Performed By: #### CBC #### [facility] [address] [place] [address] Dr. Taisha Lucianomphocytes/100 WBC (Bld)31.9 %Xiqxqn71.5-60.0[facility] HospitalComment on above:Performed By: #### CBC #### [facility] [address] [place] [address] Dr. Taisha Colin DIFF REQNONormalThe [facility] HospitalComment on above: Performed By: #### CBC #### [facility] [address] [place] [address] Dr. Taisha Garcia (RBC) [Entitic mass]28.9 gwVfgneq23.7-34.0The [facility] HospitalComment on above:Performed By: #### CBC #### [facility] [address] [place] [address] Dr. Taisha Garcia (RBC) [Mass/Vol]31.5 g/fWKkbnwe68.9-35.2[facility] HospitalComment on above:Performed By: #### CBC #### [facility] [address] [place] [address] Dr. Taisha Garcia (RBC) [Entitic vol]91.6 gYJkgjdn63.0-99.0[facility] HospitalComment on above:Performed By: #### CBC #### [facility] [address] [place] [address] Dr. Taisha Rowe #0.4 103/ulNormal0.3-0.8[facility] HospitalComment on above:Performed By: #### CBC #### [facility] [address] [place] [address] Dr. Taisha Jamilocytes/100 WBC (Bld)8.3 %Normal1.7-12.0[facility] Comment on above:Performed By: #### CBC #### [facility] [address] [place] [address] Dr. Taisha Shepard #3.0 103/ulNormal1.4-6.5[facility] HospitalComment on above:Performed By: #### CBC #### [facility] [address] [place] [address] Dr. Taisha Frostutrophils/100 WBC (Bld)56.4 %Ulgckg07.0-75.0[facility] HospitalComment on above:Performed By: #### CBC #### [facility] [address] [place] [address] Dr. Taisha AlexandraPlatelet mean volume (Bld) [Entitic vol]10.3 fLNormal9.5-13.5[facility] HospitalComment on above:Performed By: #### CBC #### [facility] [address] [place] [address] Dr. Taisha AlexandraPLT224 103/cwIzywwm674-521Xtm [facility] on above: Performed By: #### CBC #### [facility] [address] [place] [address] Dr. Taisha AlexandraRBC4.40 106/ulNormal4.20-5.40The [facility] on above:Performed By: #### CBC #### [facility] [address] [place] [address] Dr. Taisha AlexandraWBC5.3 103/ulNormal4.0-11.0The [facility] HospitalComment on above: Performed By: #### CBC #### [facility] [address] [place] [address] Dr. Taisha AlexandraGLYCOHEMOGLOBIN A1Con [id number] RECOMMENDATIONSEE BELOWNormal [facility]Com[facility] on above:Result Comment: ADA RECOMMENDED LIMIT 4.0 - 6.0 ADA THERAPEUTIC TARGET < 7.0 ACTION SUGGESTED > 7.0Performed By: #### A1C #### [facility] [address] [place] [address] Dr. Taisha AlexandraGlucose [Mass/Vol]120 mg/dLNormalThMain Campus Medical CenterComascension standish hospital on above:Performed By: #### A1C #### [facility] [address] [place] [address] Dr. Taisha AlexandraHbA1c (Bld) [Mass fraction]5.8 %Normal4.5-6.2The [facility] on above:Performed By: #### A1C #### [facility] [address] [place] [address] Dr. Taisha WilsonID PROFILEon [id number]-HDL RATIO NORMSWadsworth-Rittman HospitalComment on above:Result Comment: 3.3 - 4.4 LOW RISK 4.4 - 7.1 AVERAGE RISK 7.1 - 11.0 MODERATE RISK >11.0 HIGH RISKPerformed By: #### ALT, LIPID, BNP #### [facility] [address] [address] [address] Taisha AlexandraCholesterol [Mass/Vol]138 mg/dLNormal<=200[facility] Comment on above:Performed By: #### ALT, LIPID, BNP #### [facility] [address] [place] [address] Dr. Taisha AlexandraCholesterol in HDL [Mass/Vol]56 mg/lSRoditk12-18GrvMorrow County HospitalComment on above:Performed By: #### ALT, LIPID, BNP #### [facility] [address] [place] [address] Dr. Taisha AlexandraCholesterol in LDL [Mass/Vol]74.4 mg/dLMartin Memorial HospitalComment on above:Performed By: #### ALT, LIPID, BNP #### [facility] [address] [place] [address] Dr. Taisha Jangesterheena.total/Cholesterol in HDL [Mass ratio]2.5 {ratio} NormalMorrow County HospitalComment on above:Performed By: #### ALT, LIPID, BNP #### [facility] [address] [place] [address] Dr. Taisha AlexandraHDL NORMAL> or = 60 mg/dl - LOW CARDIOVASCULAR RISK <40 mg/dl - HIGH CARDIOVASCULAR RISKMartin Memorial HospitalComment on above:Performed By: #### ALT, LIPID, BNP #### [facility] [address] [place] [address] Dr. Ta[address] AlexandraLDL [address] Charles HospitalComment on above:Result Comment: <100 mg/dl OPTIMAL 100 - 129 mg/dl NEAR OR ABOVE OPTIMAL 130 - 159 mg/dl BORDERLINE HIGH 160 - 189 mg/dl HIGH >190 mg/dl VERY HIGH Performed By: #### ALT, LIPID, BNP #### [facility] [address] [address] [address] Taisha AlexandraTriglyceride [Mass/Vol]38 mg/dLNormal<=150The [facility] Comment on above:Performed By: #### ALT, LIPID, BNP #### [facility] [address] [address] [address] Taisha AlexandraVLDL CALC7.6 mg/dLNormalThe [facility] HospitalComment on above: Performed By: #### ALT, LIPID, BNP #### [facility] [address] [address] [address] Taisha BurkettROALBUMIN, RAND URon [id number] mg/LNormal<=30.0The [facility] HospitalComment on above:Performed By: #### MALBR #### [facility] [address] [address] [address] Taisha Garcia [id number] [Catalytic activity/Vol]22 U/MIerrpc71-59Hdi [facility] HospitalComment on above:Performed By: #### ALT, LIPID, BNP #### [facility] [address] [address] [address] Taisha Hutton CAROTID ART BILon [id number] CAROTID ART BILEXAMINATION: US CAROTID ART RAKAN [...] Electronically authenticated by: NEWTON KAHN Date: 2022-06-09 21:11Martin Memorial HospitalGLYCOHEMOGLOBIN A1Con [id number] RECOMMENDATIONADA THERAPEUTIC TARGET 6.0 - 7.0 ACTION SUGGESTED > 7.0[facility] Comment on above:Performed By: #### A1C #### [facility] [address] [address] [address] Taisha AlexandraGlucose [Mass/Vol]134 mg/dLNoGreene Memorial HospitalComment on above:Performed By: #### A1C #### [facility] [address] [address] [address] Taisha AlexandraHbA1c (Bld) [Mass fraction]6.3 %Critically high<=6.0[facility] HospitalComment on above:Performed By: #### A1C #### [facility] [address] [address] [address] Taisha Alexandra Vital Signs Date TimeVital SignValuePerforming OnfpwzgkmNerxfbvj66-21-6871 14:12-0400Body .1 cmBenjamin Ball DO Work Phone: [phone] [place], [place] [address]0-20-2025 14:12-0400 Body mass index (BMI) [Ratio]35.6 kg/n7Qiumrvzd Ball DO Work Phone: [phone])[address] [place], [place] [address]0-20-2025 14:12-0400 Body soobxc73.12 kgBenjamin Ball DO Work Phone: [phone])[address] [place], [place] 515[address]0-20-2025 14:12-0400 Diastolic blood igspcokb39 mm[Hg]Kaleb Ball DO Work Phone: [phone])[address] [place], [place] [address]0-20-2025 14:12-0400 Heart rate64 /minBenjamin Ball DO Work Phone: [phone])[address] [place], [place] [address]0-20-2025 14:12-0400 Respiratory rate12 /minBenjamin Ball DO Work Phone: [phone])[address] [place], [place] [address]0-20-2025 14:12-0400 Systolic blood lhpfdlum466 mm[Hg]Kaleb Ball DO Work Phone: [phone])[address] [place], [place] 515[address]9-30-2025 12:49-0400 Body xzudvm885.1 cmBenjamin Ball DO Work Phone: [phone])[address] [place], [place] 515[address]9-30-2025 12:49-0400 Body mass index (BMI) [Ratio]35.6 kg/x5Nkbiyzrf Ball DO Work Phone: [phone])[address] [place], [place] 515[address]9-30-2025 12:49-0400 Body bewlxp80.06 kgBenjamin Ball DO Work Phone: [phone])[address] [place], [place] 515[address]9-08-2025 12:49-0400 Body nqczyn396.1 cmBenjamin Ball DO Work Phone: [phone])[address] [place], [place] 515[address]9-08-2025 12:49-0400 Body mass index (BMI) [Ratio]35.6 kg/h2Zdewtron Ball DO Work Phone: [phone])[address] [place], [place] 515[address]9-08-2025 12:49-0400 Body bytctg55.06 kgBenjamin Ball DO Work Phone: [phone])[address] [place], [place] 515[address]9-08-2025 12:49-0400 Diastolic blood mnvpgyxe57 mm[Hg]Kaleb Ball DO Work Phone: [phone])[address] [place], [place] 515[address]9-08-2025 12:49-0400 Heart rate67 /minBenjamin Ball DO Work Phone: [phone])[address] [place], [place] 515[address]9-08-2025 12:49-0400 Respiratory rate18 /minBenjamin Ball DO Work Phone: [phone])[address] [place], [place] 515[address]9-08-2025 12:49-0400 SaO2% (BldA) [Mass fraction]97 %Kaleb Ball DO Work Phone: [phone])[address] [place], [place] 515[address]9-08-2025 12:49-0400 Systolic blood ehudngth696 mm[Hg]Kaleb Ball DO Work Phone: [phone])[address] [place], [place] 5151001-24-2025 13:31-0500 [facility] .1 [facility] 13:31-0500Body mass index (BMI) [Ratio]33.6 kg/r9FllolcocuMary [facility] Hospital01-24-2025 13:310500Body .68 kgMary [facility]01-24-2025 13:31-0500Diastolic blood bvczqgag88 mm[Hg][facility] 09-14-2024 13:31-0500Heart rate66 /[facility] 09-14-2024 13:31-0500Respiratory rate12 /[facility] 09-14-2024 13:31-0500Systolic blood fpaoxcyz022 mm[Hg][facility]10-18-2024 13:54-0400Body knmaqv966.1 cmMary [facility] 06-08-2024 13:54-0400Body mass index (BMI) [Ratio]32.3 kg/i1SpojabksuMary [facility] Hospital10-18-2024 13:54-0400Body tbqdga89.16 kgMary [facility] Hospital10-18-2024 13:54-0400Diastolic blood vlawivvo03 mm[Hg][facility]10-18-2024 13:54-0400Heart rate60 /[facility]10-18-2024 13:54-0400Respiratory rate12 /[facility]10-18-2024 13:54-0400Systolic blood mm[Hg][facility]09-11-2024 10:28-0400Body vzsqor944.1 cmMary [facility]09-11-2024 10:28-0400Body mass index (BMI) [Ratio]31.6 kg/w6PzwsfeazdMary [facility]an Hospital09-11-2024 10:28-0400Body mivthh48.35 kgMary [facility] Hospital09-11-2024 10:28-0400Diastolic blood kiwomtpl48 mm[Hg] [facility]09-11-2024 10:28-0400Heart rate62 /[facility]09-11-2024 10:28-0400Respiratory rate12 /[facility]09-11-2024 10:28-0400Systolic blood bfvrhhfy246 mm[Hg] [facility]09-03-2024 13:56-0400Body pyhymb759.1 cm [facility]09-03-2024 13:56-0400Body mass index (BMI) [Ratio]31.2 kg/k7HwibyajrjMary [facility] Hospital09-03-2024 13:56-0400Body fbhobl97.27 kgMary [facility] Hospital09-03-2024 13:56-0400Diastolic blood gnnuhpmc33 mm[Hg][facility]09-03-2024 13:56-0400 Heart rate66 /[facility]09-03-2024 13:56-0400 Respiratory rate18 /[facility]09-03-2024 13:56-0400 SaO2% (BldA) [Mass fraction]98 %[facility]09-03-2024 13:56-0400Systolic blood btgjwotp221 mm[Hg][facility] 12-06-2023 14:02-0400Body .1 cmDO Kaleb Ball Work Phone: [phone])[address]04-16-2024 14:02-0400 Body mass index (BMI) [Ratio]30.2 kg/m2DO Kaleb Ball Work Phone: 1(441)808-[address] [place], [place] 4799004-16-2024 14:02-0400 Body wnegzn27.32 kgDO Kaleb Ball Work Phone: [phone]04-16-2024 14:02-0400 Diastolic blood fpyconoz16 mm[Hg]DO Kaleb Ball Work Phone: [phone]04-16-2024 14:02-0400 Heart rate62 /minDO Kaleb Ball Work Phone: [phone]04-16-2024 14:02-0400 Respiratory rate12 /minDO Kaleb Ball Work Phone: [phone]04-16-2024 14:02-0400 Systolic blood koavyutt676 mm[Hg]DO Kaleb Ball Work Phone: [phone]02-26-2024 11:18-0500 Body avvngv002.1 cmDO Kaleb Ball Work Phone: [phone]02-26-2024 11:18-0500 Body mass index (BMI) [Ratio]29.7 kg/m2DO Kaleb Ball Work Phone: [phone]02-26-2024 11:18-0500 Body xwhtdu57.19 kgDO Kaleb Ball Work Phone: [phone]02-26-2024 11:18-0500 Diastolic blood fooxhrei10 mm[Hg]DO Kaleb Ball Work Phone: [phone]02-26-2024 11:18-0500 Heart rate60 /minDO Kaleb Ball Work Phone: 1(404)238-[address] [place], [place] 4799002-26-2024 11:18-0500 Respiratory rate18 /minDO Kaleb Ball Work Phone: 1(419)524-[address] [place], [place] 4799002-26-2024 11:18-0500 SaO2% (BldA) [Mass fraction]96 %DO Kaleb Ball Work Phone: 1([phone])058-[address] [place], [place] 4799002-26-2024 11:18-0500 Systolic blood nczfequg818 mm[Hg]DO Kaleb Ball Work Phone: [phone]12-26-2023 11:15-0500 Body .18 cmBenjamin Ball Other [facility]12-26-2023 11:15-0500 Body mass index (BMI) [Ratio]27.56 kg/c9Ycogqkat Ball Other [employer] Other [id number] 11:15-0500Body .83 kgBenjamin Ball Other [facility]12-26-2023 11:15-0500 Diastolic blood dyhrjyuj38 mm[Hg]Kaleb Ball Other [facility]12-26-2023 11:15-0500 Respiratory rate12 /minBenjamin Ball Other [employer] Other [id number] 11:15-0500Systolic blood qexarekw944 mm[Hg] Kaleb Ball Other [facility]12-18-2023 14:45-0500 Body jranew125.18 cmBenjamin Ball Other [facility]12-18-2023 14:45-0500 Body mass index (BMI) [Ratio]27.66 kg/k7Ltzifcpz Ball Other [employer] Other 12-18-2023 14:45-0500Body isodzv61.11 kgBenjamin Ball Other [employer] Other 12-18-2023 14:45-0500Body swscaf41.1 kgDO Kaleb Ball Work Phone: [phone]12-18-2023 14:45-0500 Diastolic blood gnorasms26 mm[Hg]Kaleb Ball Other [facility]12-18-2023 14:45-0500 Systolic blood hvmoiuyy691 mm[Hg]Kaleb Ball Other [facility]12-06-2023 16:42-0500 Body swywcl636.18 cmBenjamin Ball Other [facility]11-22-2023 10:45-0500 Body imlgqo919.18 cmBenjamin Ball Other [employer] Other 11-22-2023 10:45-0500Body mass index (BMI) [Ratio] 27.88 kg/e3Xxprodqq Ball Other [employer] Other 11-22-2023 10:45-0500Body vyhtww26.74 kgBenjamin Ball Other [employer] Other 11-22-2023 10:45-0500Diastolic blood torrswui60 mm[Hg] Kaleb Ball Other [employer] Other 11-22-2023 10:45-0500Respiratory rate12 /minBenjamin Ball Other [employer] Other 11-22-2023 10:45-0500Systolic blood larkyuzn788 mm[Hg] Kaleb Ball Other [employer] Other 10-16-2023 14:00-0400Body fmivem834.18 cmBenjamin Ball Other [employer] Other 10-16-2023 14:00-0400Body mass index (BMI) [Ratio] 28.16 kg/o8Amflezto Ball Other [employer] Other 10-16-2023 14:00-0400Body ybjqls78.56 kgBenjamin Ball Other [employer] Other 10-16-2023 14:00-0400Diastolic blood whuzrfjq75 mm[Hg] Kaleb Ball Other [employer] Other 10-16-2023 14:00-0400Respiratory rate12 /minBenjamin Ball Other [employer] Other 10-16-2023 14:00-0400Systolic blood vmaqtyhb656 mm[Hg] Kaleb Ball Other [employer] Other 04-11-2023 15:30-0400Body swdvje870.18 cmBenjamin Ball Other [employer] Other 04-11-2023 15:30-0400Body mass index (BMI) [Ratio] 30.85 kg/p8Zbciapqi Ball Other [employer] Other 04-11-2023 15:30-0400Body spvegw93.36 kgBensaida Ball Other [employer] Other 04-11-2023 15:30-0400Diastolic blood xloknulr10 mm[Hg] Kaleb Brandyn Other [employer] Other 04-11-2023 15:30-0400Respiratory rate12 /minBensaida Ball Other [employer] Other 04-11-2023 15:30-0400Systolic blood tksugiiz867 mm[Hg] Kaleb Brandyn Other [employer] Other Encounters Encounter DateEncounter [facility] ProviderFacilityStart: 06-10-2025 End: 25-40-0596ihkelgdwajGaqmukyo Ball DO Work Phone: -[employer] [facility] Beachtart: 06-10-2025 End: 19-79-1205Drqowkx encounter procedureBensaida Ahumada DO-[facility] Work Phone: Start: 05-21-2025 End: 03-60-7671wajwcsqcvvKfszxdpr Ball DO Work Phone: [facility] Work Phone: Start: 05-21-2025 End: 99-50-3275Iqmhbsg encounter Tracy Bermudez [facility] Work Phone: Start: 04-29-2025 End: 38-12-0957gcvoiqvieoSabbzxge Ball DO Work Phone: [facility] Work Phone: Start: 04-29-2025 End: 50-05-2530Pebzwso encounter procedureGeorge Angel Hoff MD-[facility] Work Phone: Start: 68-79-5485Vjz-patient / Non-visitNicole J [facility] Work Phone: Start: 10-26-2024 End: 97-77-6391tydhbtoernTWDLPUJ KELBLEYNot AvailableStart: 10-24-2024 End: 89-87-7322Jboflo flowsheetMelissa Kelbley PTANOMS CI PTStart: 10-24-2024 End: 18-78-2230Gehcda flowsheetMelissa Kelbley PTANOMS CI PTStart: 10-24-2024 End: 80-93-5383fzoiaqejkgMxbattx Kelbley PTANOMS CI PTComment on above: 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); Muscle weakness of right upper extremityStart: 10-22-2024 End: 37-72-8375Xpgdyc flowsheetMelissa Kelbley PTANOMS CI PTStart: 10-22-2024 End: 73-87-6762Qlcatp flowsheetMelissa Kelbley PTANOMS CI PTStart: 10-22-2024 End: 43-47-5441tawkdwtwpwJaonqrv Kelbley PTANOMS CI PTComment on above: 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); Muscle weakness of right upper extremityStart: 10-18-2024 End: 38-01-9431Uiyltb flowsheetMarshall Brink PTANOMS CI PTStart: 10-18-2024 End: 54-93-8527Recgfc flowsheetMarshall Brink PTANOMS CI PTStart: 10-18-2024 End: 09-56-6370xtxxaarutaIgtcsewj Brink PTANOMS CI PTComment on above: 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 Work Phone: Start: 10-09-2024 End: 67-33-1112Qohgwtt encounter procedureFirsentara [facility] hospital Physician [facility] Work Phone: Start: 09-14-2024 End: 99-94-8009shbvyvipbdLejqytzfoSouthwest [facility] Health Center Work Phone: Start: 09-14-2024 End: 09-14-4643Ovgnuat encounter procedureM[facility] Work Phone: Start: 08-30-2024 End: 84-49-4008Cbxzgw flowsheetMelissa Kelbley PTANOMS CI PTStart: 08-30-2024 End: 04-79-3958Jxgqeo flowsheetMelissa Kelbley PTANOMS CI PTStart: 08-30-2024 End: 43-47-5390mwzeburoniSxjdqvl Kelbley PTANOMS CI PTComment on above:Chronic right shoulder pain (Primary Dx); Arthritis of right acromioclavicular jointStart: 08-28-2024 End: 73-07-2081Mwofui flowsheetMelissa Kelbley PTANOMS CI PTStart: 08-28-2024 End: 97-29-5169Ekbusl flowsheetMelissa Kelbley PTANOMS CI PTStart: 08-28-2024 End: 47-58-3740tywooyqefqNcezwmi Kelbley PTANOMS CI PTComment on above:Chronic right shoulder pain (Primary Dx); Arthritis of right acromioclavicular jointStart: 08-24-2024 End: 49-64-6677Hrgqrv flowsheetMelissa Kelbley PTANOMS CI PTStart: 08-24-2024 End: 77-22-2849Anzwnq flowsheetMelissa Kelbley PTANOMS CI PTStart: 08-24-2024 End: 00-05-5623hakegmbclvIhevjfr Kelbley PTANOMS CI PTComment on above:Chronic right shoulder pain (Primary Dx); Arthritis of right acromioclavicular jointStart: 08-21-2024 End: 22-27-9433Cktpgc flowsheetMelissa Kelbley PTANOMS CI PTStart: 08-21-2024 End: 67-89-1043Rmzvzi flowsheetMelissa Kelbley PTANOMS CI PTStart: 08-21-2024 End: 78-50-3426dudafpvwjuJoxgsrn Kelbley PTANOMS CI PTComment on above:Chronic right shoulder pain (Primary Dx); Arthritis of right acromioclavicular jointStart: 08-17-2024 End: 75-40-1923Mnzexe flowsheetMelissa Kelbley PTANOMS CI PTStart: 08-17-2024 End: 03-11-5782Olnujx flowsheetMelissa Kelbley PTANOMS CI PTStart: 08-17-2024 End: 19-13-2331pwhrnquclzHcngvkg Kelbley PTANOMS CI PTComment on above:Chronic right shoulder pain (Primary Dx); Arthritis of right acromioclavicular jointStart: 08-14-2024 End: 70-84-6174Loqovc flowsheetMarshall Brink PTANOMS CI PTStart: 08-14-2024 End: 79-67-4624Vpagfa flowsheetMarshall Brink PTANOMS CI PTStart: 08-14-2024 End: 91-48-6826tixgbbyzztJDKIYMOQ BRINKNot AvailableStart: 08-08-2024 End: 11-45-7517Wbynuh flowsheetMelissa Kelbley PTANOMS CI PTStart: 08-08-2024 End: 68-72-3667Oqsieg flowsheetVinh Lynn PTANOMS CI PTStart: 08-08-2024 End: 39-84-1107jrzuevhqazMoliwyo Kelbley PTANOMS CI PTComment on above:Chronic right shoulder pain (Primary Dx); Arthritis of right acromioclavicular jointStart: 08-06-2024 End: 59-63-2258Avdwzn Jacealmapema Mendoza PT Work Phone: noms CI PTStart: 08-06-2024 End: 65-02-4990Hkrzht Radha Mendoza PT Work Phone: noms CI PTStart: 08-06-2024 End: 82-23-1065ipmqgzwrzfNchhgb T Blackston PT Work Phone: noms CI PTComment on above:Chronic right shoulder pain (Primary Dx); Arthritis of right acromioclavicular jointStart: 06-08-2024 End: 64-40-1031ozefexkmhiOcenhacyqMercy Health St. [facility] Work Phone: Start: 06-08-2024 End: 28-30-6754Fhyzkjn encounter procedureM[facility] Work Phone: Start: 42-09-6976Dsqkzrg encounter procedureMercy Health West Hospitaltart: 05-02-2024 End: 54-60-4381pxuddxbxbeJsnoqbnzqMercy Health St[facility] Work Phone: Start: 05-02-2024 End: 91-54-5714Piiyfpu encounter procedureM[facility] Work Phone: Start: 04-24-2024 End: 36-35-6020gfckjlljcdWqjydpaveMercy Health St. [facility] Work Phone: Start: 04-24-2024 End: 58-15-1896Ldgxpzz encounter procedureM[facility] Work Phone: Start: 12-06-2023 End: 17-84-7399oyrlvdxvdmLO Kaleb Ahumada Work Phone: [facility] Work Phone: Start: 12-06-2023 End: 93-01-8068Vavgrbr encounter procedureDO Kaleb Ahumada Work Phone: [facility] Work Phone: Start: 10-17-2023 End: 61-89-4229ndohfbjlvhYsukhoys BallFacility:[facility] Start: 10-17-2023 End: 04-11-9360wgfgmkiictAR Kaleb Ahumada Work Phone: [facility] Work Phone: Start: 10-17-2023 End: 50-73-8843Lndautt encounter procedureDO Kaleb Ahumada Work Phone: [facility] Work Phone: Start: 09-20-2023 End: 42-17-7925auxjxizwtwSkevqwhk Ball Other [employer] Other Start: 29-45-3789Fsujgjphz encounterBenjamin BallFPG [facility] ClinicStart: 08-29-2023 End: 85-51-0045ebgtlhmtjvQcpmmbgm Ball Other [employer] Other Start: 31-51-9066Ldagpjwou encounterBenjamin BallFPG [facility] ClinicStart: 08-23-2023 End: 71-84-2249cctxottcpxTymyeqex Ball Other [employer] Other Start: 43-17-0353Svvmropww encounterBenjamin BallFPG [facility] ClinicStart: 08-21-2023 End: 61-28-3738cjkitrfploZedvraqb Ball Other [employer] Other Start: 00-01-6025Fyeqydqtb encounterBenjanessa VasquezG [facility] ClinicStart: 08-16-2023 End: 26-79-4831hmfgpjytjoBxgfxyxe Ball Other [employer] Other Start: 51-39-7613Cgfqsnrxvnxl care manage srvc 14 day dischargeBensaida Ahumada Medical ClinicStart: 08-16-2023 End: 34-18-4611Uheqzpu encounter procedureDO Kaleb Ahumada Work Phone: [employer] [facility] Work Phone: Start: 08-10-2023 End: 11-25-7657bwyvfpfkzdErqsetfh Ball Other [employer] Other Start: 55-31-2808Fiumpbfos encounterBenjamin ChristinaG [facility] ClinicStart: 08-08-2023 End: 17-38-0495jxszslprirYltgxnkq Ball Other [employer] Other Start: 80-49-9682Pmhwzl outpatient visit 25 minutes Kaleb Ahumada [facility] ClinicStart: 26-70-7385Sbpenxngy encounterBenjanessa VasquezG Brandyn Medical ClinicStart: 08-08-2023 End: 34-82-5209Fsjbkww encounter procedureDO Kaleb Ahumada Work Phone: [employer] [facility] Work Phone: Start: 2023 End: 03-04-5616aaphbqeivmUdnhyziu Ball Other [employer] Other Start: 88-10-2262Syhwynlcg encounterBenjanessa VasquezG [facility] ClinicStart: 2023 End: 93-64-8984Dfbzwpg encounter procedureDO Kaleb Ahumada Work Phone: [employer] [facility] Work Phone: Start: 07-15-2023 End: 36-50-6988uzangtbvleOisnsxlp Ball Other [employer] Other Start: 99-47-6842Jirnjostx encounterBenjamin ChristinaG [facility] ClinicStart: 07-13-2023 End: 92-22-0283kjtnyfveiqGomghpxu Ball Other [employer] Other Start: 59-58-8181Qhepaj outpatient visit 25 minutes Kaleb ChristinaG [facility] ClinicStart: 06-13-2023 End: 40-97-4882qfltqypeovUujfulpl Ball Other [employer] Other Start: 87-48-6819Shuytnclc encounterBenjamin BallBENG [facility] ClinicStart: 06-06-2023 End: 85-79-6743xpsdysdfueNbirwiad Ball Other [employer] Other Start: 65-65-1235Dazncdg encounter procedureBenjamin ChristinaG [facility] ClinicStart: 06-01-2023 End: 25-82-7056htplnidedrAvnfzczm Ball Other [employer] Other Start: 61-56-6666Mpgzfsc evaluation of patient and reportBenjamin BallFPG [facility] ClinicStart: 11-30-2022 End: 20-68-2769nllylgrqnvVkfkltfn Ball Other [employer] Other Start: 98-43-7893Afgbqz outpatient visit 25 minutes Kaleb ChristinaG [facility] ClinicStart: 08-05-2022 End: 14-59-7890qmmbiovnudUB KALEB BALLFacility:Z4Mozbu: 06-09-2022 End: 47-29-1638bjeujucozkSE KALEB BALLFacility:A7Tjjiq: 76-97-8142Xzkho health examinationBewilber Ahumada Other [employer] Other Start: 09-28-2021 End: 32-94-2647nbjynpajoaFV KALEB AHUMADAFacility:H1 Procedures DateProcedureProcedure DetailPerforming ClinicianStart: 05-49-8768Bvpqgzltlj screeningBewilber Ahumada Other Start: 84-64-9760Xvxilsryd for osteoporosisBensaida Ahumada Other Start: 44-62-8971Nvwumgmwc for malignant neoplasm of colonKaleb Ahumada Other Start: 77-05-6906Brqujysjo mammographyBewilber Ahumada Other Screening for malignant neoplasm of breastKaleb Ahumada Other Plan of Treatment DateCare ActivityDetailAuthorStart: 10-26-2024 End: 77-91-0207jrdysrgtsrZTMU CI PTStart: 10-24-2024 End: 16-92-5189fdmvddluapPKAY CI PTComment on above:ArrivedStart: 10-22-2024 End: 98-00-3215vsnuwumnbfOBCN CI PTComment on above: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); Muscle weakness of right upper extremityStart: 10-18-2024 End: 48-85-9195zasdlpirywCQBV CI PTComment on above:ArrivedStart: 10-16-2024 End: 35-41-8154quzfkyrvvz18/25/2025 9:00 AM EST Evaluation [facility] [address] [address] Xena Mendoza, PT [address] [facility] [address] [place] [address] ArrivedNOMS CI PTComment on above:ArrivedStart: 08-30-2024 End: 42-14-9006antzgvcdii82/04/2025 11:00 AM EST Treatment [facility] [address] [facility] [address] [place] [address] Vinh Lynn, CHIEF CUSTOMER OFFICER [facility] CI PTStart: 08-28-2024 End: 50-24-0363pvotkxhenrUBES CI PTComment on above:ArrivedStart: 08-24-2024 End: 36-83-9519mmlutvrrnxBCAF CI PTComment on above:ArrivedStart: 08-21-2024 End: 99-37-1725uyqowysttw20/31/2024 10:30 AM EST Treatment [facility] [address] [facility] [address] [place] [address] Vinh Lynn, 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 CUSTOMER OFFICER [facility] PTStart: 08-17-2024 End: 23-64-9352ibwkchzcnhFWQZ CI PTComment on above:ArrivedStart: 08-14-2024 End: 40-12-6348zvgdlrnpggBSLS CI PTComment on above:ArrivedStart: 08-08-2024 End: 73-02-3324tmbdipawgrSTMR CI PTComment on above:ArrivedStart: 08-06-2024 End: 18-01-4695rsqsaagrmk48/16/2024 9:00 AM EST Evaluation [facility] [address] [facility] [place] [address] Xena Mendoza, PT [address] [facility] [place] [address] ArrivedNOMS CI PTComment on above:ArrivedStart: 92-05-8406ZYA 12 channel [facility]woodstart: 74-92-2760Qnvcnvyqamvc Vaccine: 65+ Years (2 of 2 - PPSV23 or PCV20)Pneumococcal Vaccine: 65+ Years (2 of 2 - PPSV23 or PCV20)[facility]OM HealthcareStart: 66-39-0192Gwyelvzmcsun Vaccine: 65+ Years (1 of 1 - PCV)Pneumococcal Vaccine: 65+ Years (1 of 1 - PCV)[facility] 2000 panel - Serum or PlasmaMary Rutan HospitalComprehensive metabolic 1999 panel - Serum or PlasmaMary Rutan HospitalMG Breast - bilateral ScreeningMary [facility] Hospital Microalbumin [Mass/volume] in UrineMary Rutan HospitalMR Shoulder - right WO contrastMary Rutan HospitalXR Shoulder - right Views [facility] Immunizations Immunization DateImmunizationNotesCare LpugjmcnEoqplebe43-43-7282jwmkkyeuc, high dose seasonal, preservative-freeBenjamin Ball DO Work Phone: [facility]11-19-2024COVID-19 (PFIZER) 12Y and olderBenjamin Ball DO Work Phone: [facility]10-18-2024influenza, high dose seasonal, preservative-freeMary [facility]an Hospital10-17-2023 zoster vaccine recombinantBenjamin Ball DO Work Phone: [facility]10-11-2023influenza, high dose seasonal, preservative-freeBenjamin Ball Other [place] [employer] Other [id number] virus vaccine, unspecified formulationDO Kaleb Ball Work Phone: [facility]10-04-2023COVID-19 (PFIZER) 12Y and olderBenjamin Ball DO Work Phone: [facility]08-15-2023zoster vaccine recombinantBenjamin Ball DO Work Phone: [facility]11-01-2022COVID-19 mRNA Bivalent Booster (Pfizer)Kaleb Ball DO Work Phone: [facility]10-12-2022Influenza vaccine, quadrivalent, adjuvantedBenjamin Ball DO Work Phone: [facility]10-12-2022influenza virus vaccine, split virus (incl. purified surface antigen)Kaleb Ahumada Other [employer] Other [id number] virus vaccine, unspecified formulationDO Kaleb Ahumada Work Phone: [facility]07-11-2022COVID-19 Comirnaty (Pfizer) Tri-Sucrose 12+Kaleb Ahumada DO Work Phone: [facility]10-22-2021COVID-19 mRNA, Comirnaty (Pfizer)Kaleb Ahumada DO Work Phone: [facility]09-29-2021influenza virus vaccine, split virus (incl. purified surface antigen)Kaleb Ahumada Other [facility] [employer] Other [id number] virus vaccine, unspecified formulationDO Kaleb Ahumada Work Phone: [facility]09-29-2021Seasonal trivalent influenza vaccine, adjuvanted, preservative freeBensaida Ahumada DO Work Phone: [phone]02-18-2021COVID-19 mRNA, Comirnaty (Pfizer)Kaleb Ahumada DO Work Phone: [facility]01-28-2021COVID-19 mRNA, Comirnaty (Pfizer)Kaleb Ahumada DO Work Phone: [facility]09-04-2020influenza virus vaccine, split virus (incl. purified surface antigen)Kaleb Ahumada Other [employer] Other [id number] virus vaccine, unspecified formulationDO Kaleb Ahumada Work Phone: [facility]10-30-2019influenza virus vaccine, split virus (incl. purified surface antigen)Kaleb Ahumada Other [employer] Other [id number] virus vaccine, unspecified formulationDO Kaleb Ahumada Work Phone: [facility]10-23-2018influenza virus vaccine, split virus (incl. purified surface antigen)Kaleb Ahumada Other [place] [employer] Other [id number] virus vaccine, unspecified formulationDO Kaleb Ahumada Work Phone: [facility]10-23-2018Seasonal trivalent influenza vaccine, adjuvanted, preservative freeBenjamin Brandyn DO Work Phone: [facility]10-18-2017influenza virus vaccine, split virus (incl. purified surface antigen)Kaleb Ahumada Other [place] [employer] Other [id number] virus vaccine, unspecified formulationDO Kaleb Ahumada Work Phone: [facility]09-15-2017influenza, high dose seasonal, preservative-freeBenjamin Brandyn DO Work Phone: [phone]12-12-2016influenza virus vaccine, split virus (incl. purified surface antigen)Kaleb Ahumada Other [place] [employer] Other [id number] virus vaccine, unspecified formulationDO Kaleb Ahumada Work Phone: [facility]12-02-2015 pneumococcal conjugate vaccine, 13 valentBenjanessa Ahumada Other [facility]10-10-2012tetanus and diphtheria toxoids, adsorbed, preservative free, for adult use (5 Lf of tetanus toxoid and 2 Lf of diphtheria toxoid)Kaleb Ahumada Other [facility] Payers DatePayer CategoryPayerPolicy [id number]-pay2021Medicare (Managed Care)[employer] Member Subscriber Plan / Payer (Effective 2020-Present) Name: Alycia Daily Relation to Subscriber: Self Name: Alycia Daily Payer ID: Not on file Group ID: [id number] Type: Not on file Address: [place] [id number] [id number] 2.0.1.983867.3.579.2. [id number] 2.0.1.724889.3.57[id number] 2.840.1.280014.3.57[id number] 2.840.1.058065.3.579.[id number] 2.0.1.273802.3.57[id number] 2.840.1.700761.3.57[id number] 2.16840.1.066775.3.57[id number] 2.840.1.939566.3.579.[id number] 2.16840.1.606242.3.57[id number] 2.840.1.289194.3.57[id number] 2.16.840.1.417009.3.57[id number] 2.16.840.1.200970.3.57[id number] 2.16.840.1.511314.3.57[id number] 2.16.840.1.867181.3.57[id number] 2..840.1.448864.3.57[id number] 2.16.840.1.50[id number] 2.0.1.735233.3.579.2.531 Social History DateTypeDetailFacilitySex Assigned At [facility] [employer] Other Start: 10-17-2023 End: 75-63-5293Uxtffyy smoking status NHISNever smoked tobacco (finding) [facility] Hospitaltart: 26-36-1420Jpz Assigned At [facility] HospitalTobacco smoking status NHISTobacco smoking consumption [facility] HealthcareStart: 62-67-4810Ucw assigned at [facility] hospitalNot on fileOGDEN REG[facility] HealthcareStart: 09-14-2024 End: 41-65-6526XnsHibkcv (finding)[facility] Clinical Notes 11-30-2022 to 04-29-2025 Note Date & OtoyMexsIchciiww53-28-3131 Evaluation note* Diagnosis Onset Date Resolution Status Admit Date Mixed hyperlipidemia acuteSeptember 2024 12:48pmOSA (obstructive sleep apnea)acuteSept2024 12:48pmParoxysmal atrial fibrillationacuteSept2024 12:48pm Primary hypertensionacuteSept2024 12:48pmInfraspinatus tendon tear acuteSept2024 12:30pmSupraspinatus tendon tearacuteSept2024 12:30pm [facility] Work Phone: 1(364) 401-933909-08-2025 Evaluation note* Diagnosis Onset Date Resolution Status [...] 1:49pmType 2 diabetes mellitus with hyperglycemiaacuteOct2024 1:49pm [facility] Work Phone: 1(330) 386-455802-25-2025 History of Present illness Narrative* Xena Mendoza, PT - 10/16/2024 9:00 AM EST Images from the original note were not included. Physical Therapy Evaluation Visit Patient Name: Alycia Daliy Today's Date: 10/16/2024 Encounter Diagnoses Name Primary? [...] to be instructed in home exercise program. 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 Date: documented in this encounterLafayette Regional Health CenterBcjdhqdusi38-45-4935 Evaluation note* Diagnosis Onset Date Resolution Status Admit Date Obesity acuteJanuary 2024 1:22pmPrimary hypertensionacuteJanuary 2024 1:22pm Right shoulder painacuteJanuary 2024 1:22pmType 2 diabetes mellitus with hyperglycemiaacuteAuguary 2024 1:22pmInfraspinatus tendon tearacute October 09, 2024 8:15amSupraspinatus tendon tearacuteFebruary 2024 8:15am [facility] Work Phone: [phone]) 961-863612-16-2024 History of Present illness Narrative* Xena Mendoza, [...] to be instructed in home exercise program. 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 Date: documented in this encounterLafayette Regional Health CenterUjbtmgwqwa92-54-6532 Evaluation note* Encounter Date Diagnosis Assessment Notes Treatment Notes Treatment Clinical Notes Jul, Paroxysmal atrial fibrillation ( ICD-10 - I48.0) Echo: 07/2023 - LVEF is 60 to 65% - Normal right ventricular size and systolic function - Biatrial enlargement - Mild tricuspid regurgitation - RVSP 38 mmHg - Mild to moderate mitral regurgitation [employer] Other [id number] Evaluation note* Encounter Date Diagnosis Assessment Notes [...] AC for procedure. Repeat CBC in week. [employer] Other 12-20-2023 Evaluation note* Encounter Date Diagnosis Assessment Notes Treatment Notes Treatment Clinical Notes Jul, Paroxysmal atrial fibrillation ( ICD-10 - I48.0) Echo: 07/2023 - LVEF is 60 to 65% - Normal right ventricular size and systolic function - Biatrial enlargement - Mild tricuspid regurgitation - RVSP 38 mmHg - Mild to moderate mitral regurgitation [employer] Other 12-18-2023 Evaluation note* Encounter Date Diagnosis [...] primary prevention. 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 [employer] Other 04-11-2023 Evaluation note* Encounter Date Diagnosis [...] endometrium (ICD-10 - Z85.42)No s/s recurrence [facility] [employer] Other Evaluation noteNo InformationNortUPMC [facility] [employer] Other Evaluation noteNo assessment information available [facility] Work Phone: evaluation note* Diagnosis Onset Date Resolution Status Mixed hyperlipidemia acuteParoxysmal atrial fibrillationacutePrimary hypertensionacuteChronic heart failure with preserved ejection fraction (HFpEF)acuteMixed hyperlipidemiaacute Paroxysmal atrial fibrillationacutePrimary hypertensionacuteType 2 diabetes mellitus with hyperglycemiaacute [facility] Work Phone: Evaluation note* Diagnosis Onset Date Resolution Status Mixed hyperlipidemia acuteParoxysmal atrial fibrillationacutePrimary hypertensionacute [facility] Work Phone: evaluation note* Diagnosis Onset Date Resolution Status Mixed hyperlipidemia acuteParoxysmal atrial fibrillationacutePrimary hypertensionacuteImpingement syndrome of right shoulderacuteParoxysmal atrial fibrillationacuteRight shoulder painacute [facility] Work Phone: Evaluation note* Diagnosis Onset Date Resolution Status Mixed hyperlipidemia acuteParoxysmal atrial fibrillationacutePrimary hypertensionacuteImpingement syndrome of right shoulderacuteParoxysmal atrial fibrillationacuteRight shoulder painacuteChronic heart failure with preserved ejection fraction (HFpEF)acute Heart murmuracuteMedicare annual wellness visit, subsequentacuteMixed hyperlipidemiaacuteObesityacuteParoxysmal atrial fibrillationacutePrimary hypertensionacuteScreening mammogram for breast canceracuteType 2 diabetes mellitus with hyperglycemiaacute [facility] Work Phone: Evaluation note* Diagnosis Chronic right shoulder pain- Primary Pain in joint, shoulder region Arthritis of right acromioclavicular joint documented in this encounter [facility]* Diagnosis Chronic right shoulder pain- Primary Pain in joint, shoulder region Arthritis of right acromioclavicular joint documented in this encounter [facility] HealthcareEvaluation note* Diagnosis Chronic right shoulder [...] right acromioclavicular joint documented in this encounter [facility] HealthcareEvaluation note* Diagnosis Chronic right shoulder pain- Primary Pain in joint, shoulder region Arthritis of right acromioclavicular joint documented in this encounter [facility] HealthcareEvaluation note* Diagnosis Chronic right shoulder pain- Primary Pain in joint, shoulder region Arthritis of right acromioclavicular joint documented in this encounter [facility] HealthcareEvaluation note* Diagnosis Onset Date Resolution Status Admit Date Chronic heart failure with preserved eje ction fraction (HFpEF) acuteJanuary 2024 1:22pmMixed hyperlipidemiaacuteJanuary 2024 1:22pm ObesityacuteJanuary 2024 1:22pmParoxysmal atrial fibrillationacuteJanuary 2024 1:22pmPrimary hypertensionacuteJanuary 2024 1:22pmRight shoulder painacuteJanuary 2024 1:22pmType 2 diabetes mellitus with hyperglycemiaacuteJanuary 2024 1:22pm [facility] Work Phone: Evaluation note* Diagnosis Nontraumatic complete tear of right rotator cuff- Primary Muscle weakness of right upper extremity Muscle weakness (generalized) documented in this encounter [facility] HealthcareEvaluation note* Diagnosis Nontraumatic complete tear of right rotator cuff- Primary Muscle weakness of right upper extremity Muscle weakness (generalized) Chronic right shoulder pain Pain in joint, shoulder region Arthritis of right acromioclavicular joint documented in this encounter [facility] HealthcareEvaluation note* Diagnosis Nontraumatic complete tear of right rotator cuff- Primary Muscle weakness of right upper extremity Muscle weakness (generalized) documented in this encounter [facility] HealthcareEvaluation note* Diagnosis Nontraumatic complete tear of right rotator cuff- Primary Muscle weakness of right upper extremity Muscle weakness (generalized) documented in this encounter [facility] HealthcareEvaluation note* Diagnosis Onset Date Resolution Status Admit Date Mixed hyperlipidemia acuteSeptember 2024 12:48pmOSA (obstructive sleep apnea)acuteSept2024 12:48pmParoxysmal atrial fibrillationacuteSept2024 12:48pm Primary hypertensionacuteSept2024 12:48pm [facility] Work Phone: History general Narrative - Reported* Type Description Date Medical History Left carotid bruit Medical HistoryEstrogen deficiencySurgical HistoryRIGHT BREAST [id number],2014 Surgical HistoryLEFT BREAST [id number] LlogcxaTSA1417Aslhdocc History ARTHROSCOPY RIGHT [id number] HistoryCATARACT B/T8539Nlugxyxtqzkzfjo HistorySEE SURGICAL [facility] [employer] Other Reason for referral (narrative)* Reason *Waiting for appt Referral for new onset paroxysmal atrial fibrillation and an abnormal stress test Diagnosis 1 Precordial pain (R07 .2) Diagnosis 2 Paroxysmal atrial fi brillation (I48.0) Referral Organization [facility] Referring Provider First Name Kaleb Referring Provider Last Name Brandyn Referring Provider Specialty Internal Me dicine Referred Organization [facility] Cardiology Referred Provider Lila Myers Referred Address [address] [place] [id number] Referred Provider Specialty Cardiovascul ar Disease Referral [...] PM >received today, attachments made, referral faxed [id number] NotesInclude: - Labs: since Jun - Echo - Holter - Stress testing [employer] Other Reason for referral (narrative)No reason for referral information availableGalion Hospital Work Phone: Reason for visit Narrative* Rehabilitation - Outpatient (Routine) - AuthorizedSpecialtyDiagnoses / ProceduresReferred By ContactReferred To ContactPhysical Therapy Diagnoses Pain in right shoulder Procedures [facility] PHYSICAL THERAPY EVALUATION LOW COMPLEX 20 MINS UT OFFICE/OUTPATIENT [facility] Kaleb Aguilar MD [address] [place] [address] Phone: tel: fax: [facility] [address] [address] Phone: tel: fax: Referral IDStatusReasonStart DateExpiration DateVisits RequestedVisits [id number]/[id number] [facility] HealthcareReason for visit Narrative* Rehabilitation - Outpatient (Routine) - AuthorizedSpecialtyDiagnoses / ProceduresReferred By ContactReferred To ContactPhysical Therapy Diagnoses Pain in right shoulder Procedures UT PHYSICAL THERAPY EVALUATION LOW COMPLEX 20 MINS UT OFFICE/OUTPATIENT [facility] Kaleb Aguilar MD [address] [place] [address] Phone: tel: fax: [facility] [address] [address] Phone: tel: fax: Referral IDStatusReasonStart DateExpiration DateVisits RequestedVisits [id number]/9/202412/[id number] [facility] HealthcareReason for visit Narrative* Rehabilitation - Outpatient (Routine) - AuthorizedSpecialtyDiagnoses / ProceduresReferred By ContactReferred To ContactPhysical Therapy Diagnoses Pain in right shoulder Procedures UT THER PX 1/> AREAS EACH 15 MIN NEUROMUSC REEDUCA UT THERAPEUTIC PX 1/> AREAS EACH 15 MIN EXERCISES UT MANUAL THERAPY TQS 1/> REGIONS EACH 15 MINUTES PHYS/OCC THERAPY SS Kaleb Ahumada MD [address] [place] [address] Phone: tel: fax: [facility] [address] [address] Phone: tel: fax: Referral IDStatusReasonStcanton DateExpiration DateVisits RequestedVisits [id number]/1/202512/31/20259999 [facility] HealthcareReason for visit Narrative* Rehabilitation - Outpatient (Routine) - AuthorizedSpecialtyDiagnoses / ProceduresReferred By ContactReferred To ContactPhysical Therapy Diagnoses Strain of other muscles, fascia and tendons at shoulder and upper arm level, right arm, initial encounter Unspecified rotator cuff tear or rupture of right shoulder, not specified as traumatic Procedures UT PHYSICAL THERAPY EVALUATION LOW COMPLEX 20 MINS UT OFFICE/OUTPATIENT NEW HIGH MDM 60 MINUTES Cody Bermudez MD [address] [place] [address] Phone: tel: fax: Xena Mendoza, PT [address] [address] Phone: tel: fax: Referral IDStatusReasonStcanton DateExpiration DateVisits RequestedVisits [id number]/25/20258/24/[id number] [facility] HealthcareReason for visit Narrative* Rehabilitation - Outpatient (Routine) - AuthorizedSpecialtyDiagnoses / ProceduresReferred By ContactReferred To ContactPhysical Therapy Diagnoses Strain of other muscles, fascia and tendons at shoulder and upper arm level, right arm, initial encounter Unspecified rotator cuff tear or rupture of right shoulder, not specified as traumatic Procedures UT PHYSICAL THERAPY EVALUATION LOW COMPLEX 20 MINS UT OFFICE/OUTPATIENT NEW HIGH MDM 60 MINUTES Cody Bermudez MD [address] [place] [address] Phone: tel: fax: Jayazeus Xena T, PT [address] [address] Phone: tel: fax: Referral IDStatusReasonStart DateExpiration DateVisits RequestedVisits [id number]/25/[id number] [facility] Healthcare Summary Purpose Family History Relationship Condition [...] section and content) DATE CREATED AUTHOR 08/12/2022 [facility] DATE CREATED AUTHOR AUTHOR'S ORGANIZ ATION 10/22/2023 [facility] DATE CREATED AUTHOR AUTHOR'S ORGANIZ ATION 10/28/2024 [facility] EPIC REASON FOR VISIT [...] BE BASED ON THE PRIMARY CLINICAL RECORDS. [facility] [employer] provides no warranty or guarantee of the accuracy or completeness of information in this document.
== END 2025-07-12 10:32 | disposition home or self-care (01) ==
LOC: FHNEUROLOG 10:31
PROVIDERS: PCP Internal Medicine; Visit Provider Psychiatry & Neurology Neurology
DX: G47.33 Obstructive sleep apnea (adult) (pediatric) (principal)
CPT/HCPCS: G0463